=== PATIENT | male | born 1935 | race Caucasian/White ===

== ENCOUNTER 2016-05-09 10:57 | Inpatient (IN) | payer BC, OTHER ==
[~2016-05-09] VITALS: Ht 180.3 cm; Wt 69.5 kg
[~2016-05-09 10:57] MED LIST: AMIO200T4 PO; ASPI81TA28 PO; ATOR-26 PO; CLCS60 PO; FAMO20TA11 PO; FINA5TAB PO; NTRGSL/4 UT; TAMS0.4C38 PO
[2016-05-09] MEDS ORDERED: TRAZ50TA35 PO (11:09)
[2016-05-09] MEDS ORDERED: OMEP40CA41 PO (11:09)
[2016-05-09] MEDS ORDERED: ASPIRIN 81 MG CHEW PO STA (11:31)
[2016-05-09] MEDS ORDERED: NITROGLYCERIN OINT 2% 1GM PACKET EXT STA (11:31)
[2016-05-09] MEDS ORDERED: SODIUM CHLORIDE 0.9% 1000ML 1,000 ML IV STA (11:31)
[2016-05-09 11:40] LABS: HEMATOCRIT 41.4 % (42-52); MEAN CELL VOLUME 92.4 fL (80-100); MEAN CORPUSCULAR HEMOGLOBIN 34.4 pg (25-34); MEAN CORPUSCULAR HGB CONC 37.2 g/dl (32-36); MEAN PLATELET VOLUME 9.9 fL (7.4-10.4); PLATELET COUNT 114 K/uL (130-400); RED BLOOD COUNT 4.48 M/uL (4.7-6.1); WHITE BLOOD COUNT 4.66 K/uL (4.8-10.8)
[2016-05-09 11:48] LABS: INR 1.1 (0.9-1.1); PARTIAL THROMBOPLASTIN RATIO 1.3; PROTHROMBIN TIME (PATIENT) 12.2 SECONDS (9.0-12.0)
[2016-05-09 11:58] LABS: BUN/CREATININE RATIO 9.5 (10-20); CALCIUM 8.7 mg/dl (8.5-10.1); CREATININE 1.1 mg/dl (0.60-1.40); POTASSIUM 3.9 mmol/L (3.5-5.1)
--- NOTE | 2016-05-09 11:59 | DIAGNOSTIC IMAGING REPORT ---
CHEST ONE VIEW PORTABLE CLINICAL HISTORY: Atypical chest pain COMPARISON STUDY: 04/05/2014 FINDINGS: There are postsurgical changes of midline sternotomy. There is mild aortic tortuosity. There is no lobar consolidation. There is stable interstitial thickening with an upper lung zone predominance. There is no significant pleural fluid.[ The heart is borderline enlarged. IMPRESSION: Borderline cardiomegaly with stable upper lung zone pronounced interstitial thickening. No evidence of lobar consolidation Electronically signed by: Duncan Sanchez M.D. 05/09/2016 11:56 AM Dictated Date/Time: 05/09/2016 11:55 AM
[2016-05-09 12:17] LABS: ALB/GLOB RATIO 1.1 (0.9-2); CKMB/CK RATIO 3.4 (0-3.0)
[2016-05-09] MEDS ORDERED: FAMO20TA9 PO (13:43)
[2016-05-09] MEDS ORDERED: ASPEC81 PO (13:43)
[2016-05-09] MEDS ORDERED: ALUMINUM/MAGNESIUM/SIMETH (MAALOX MAX) 30 ML UDC PO PRN (14:00)
[2016-05-09] MEDS ORDERED: ACETAMINOPHEN 325 MG TAB PO PRN (14:00)
[2016-05-09] MEDS ORDERED: ONDANSETRON INJ 2 MG/ML 2 ML VIAL IV PRN (14:00)
[2016-05-09] MEDS ORDERED: POLYETHYLENE (MIRALAX) 17 GM PACK PO PRN (14:00)
[2016-05-09] MEDS ORDERED: MAGNESIUM HYDROXIDE SUSP 30 ML UDC PO PRN (14:00)
[2016-05-09] MEDS ORDERED: HEPARIN 25000 UNIT/500 ML D5W ONE (14:09)
[2016-05-09] MEDS ORDERED: HEPARIN SOD 5000 UNIT/0.5 ML CARP ONE (14:09)
[2016-05-09] MEDS ORDERED: HEPARIN SOD IV PRN (14:30)
[2016-05-09] MEDS ORDERED: SODIUM CHLORIDE 0.9% IV PRN (14:30)
--- NOTE | 2016-05-09 14:36 | History and Physical ---
History & Physical Date & Time of Service: May 09, 2016 at 14:07 Chief Complaint: Chest Pain Primary Care Physician: Cal Dupont D.OLopez History of Present Illness Source: patient, family, clinic records, hospital records Patient seen and examined. 80 year old male with PMHx of CAD s/p CABG, PCI, Paroxysmal V tach, and other problems listed below presents to the ED complaining of chest pain x several days. History is somewhat unclear, patient appears to be very forgetful which appears to be consistent with outpatient visits reviewed by this senior grant writer. Patient states that he thought he had the stomach flu earlier this week and was having nausea, vomiting, and diarrhea. He states at that time he also started to get SOB with minimal exertion. He states regularly he can jog to the mail box but now is becoming SOB with just a few steps of walking. He reports that several nights ago he took nitro SL but he isn 't sure about the details of the chest pain he had at that time. Patient states that last night he woke up in the middle of the night with epigastric abdominal pain, he states he also had chest pressure at that time. He states he went and slept in a recliner and that seemed to alleviate his symptoms. This morning he reports that he again was having chest pain that he described as a burning/achy feeling. He states the pain was substernal and slightly to the right chest with radiation to the jaw. He rates the pain as a 3/10. He states the pain would last for a few hours then ease off and then come back. He reports associated palpitations. He denies fevers, chills, URI symptoms, dysuria, calf pain and edema. There is question of medication compliance, patient reports he doesn't take his aspirin regularly because he gets nose bleeds. D/t forgetfulness also seems unsure about other medication compliance. Per outpatient record he stopped amiodarone for a while on his own but he thinks he is taking it now. In the ED VS are stable, EKG has nonspecific changes, troponin is 0.129 Patient was give aspirin and nitropaste which alleviated the chest pain. He will be admitted for further workup and treatment. Past Medical/Surgical History Medical Problems: (1) Acoustic neuroma Status: Chronic (2) BPH (benign prostatic hyperplasia) Status: Chronic (3) CAD (coronary artery disease) Status: Chronic (4) GERD (gastroesophageal reflux disease) Status: Chronic (5) History of left heart catheterization (LHC) Status: Chronic (6) HLD (hyperlipidemia) Status: Chronic (7) Insomnia Status: Chronic (8) Old MS (myocardial infarction) Status: Chronic (9) Paroxysmal VT Status: Chronic Surgical Problems: (1) H/O colonoscopy Status: Chronic (2) H/O shoulder surgery Status: Chronic (3) Hx of CABG Status: Chronic Family History Cancer FH: heart disease FHx: lung disease Hypertension Social History Smoking Status: Former Smoker Alcohol Use: socially Marital Status: Housing status: lives with family Occupational Status: retired Immunizations History of Influenza Vaccine: Yes Influenza Vaccine Date: Feb 07, 2013 History of Tetanus Vaccine?: Yes Tetanus Immunization Date: Jun 16, 2008 History of Pneumococcal: Yes Pneumococcal Date: Jan 14, 2009 History of Hepatitis B Vaccine: No Multi-Drug Resistant Organisms History of MDRO: No Allergies Coded Allergies: Oxycodone (Verified Adverse Reaction, Intermediate, NAUSEA, VOMITING, 05/09) Aspirin (Verified Adverse Reaction, Mild, NOSE BLEEDS, 05/09/16) Home Medications Scheduled Amiodarone Hcl (Cordarone), 200 MG PO QAM Aspirin (Aspirin EC Low Dose), 81 MG PO DAILY Atorvastatin (Lipitor), 80 MG PO HS Famotidine (Pepcid), 1 TAB PO DAILY Finasteride (Proscar), 5 MG PO LUNCH Omeprazole (Prilosec), 40 MG PO QPM Tamsulosin Hcl (Flomax), 0.4 MG PO LUNCH Trazodone Hcl (Trazodone), 25 MG PO HS Scheduled PRN Clindamycin Phos (Clindamycin Phosphate), 1 APPL PO for scalp Nitroglycerin (Nitrostat), 0.4 MG UT for Chest Pain Review of Systems Constitutional: No chills, No fever, No sweats Eyes: No worsening of vision ENT: No nasal symptoms Respiratory: + dyspnea on exertion, + shortness of breath, No cough Cardiovascular: + chest pain, + palpitations, No edema Abdomen: + diarrhea, + nausea, + pain, + vomiting, No constipation Musculoskeletal: No calf pain, No swelling Genitourinary - Male: No dysuria Neurologic: + vertigo (chronic h/o vestibular neuroma), No numbness/tingling Psychiatric: No anxiety, No insomnia Endocrine: No fatigue Hematologic / Lymphatic: No abnormal bleeding/bruising, No clotting problems Integumentary: No itch, No rash Allergic / Immunologic: No environmental allergies Physical Exam Vital Signs Date Time Temp Pulse Resp B/P Pulse Ox O2 Delivery O2 Flow Rate FiO2 05/09/16 13:46 57 18 117/58 98 Room Air 05/09/16 13:17 57 05/09/16 12:43 58 16 164/73 98 Room Air 05/09/16 11:06 56 05/09/16 11:03 36.6 57 18 164/73 95 Room Air General Appearance: + pertinent finding (Pleasant WD/WN 80 year old male lying in bed in NAD with at bedside ) Head: normocephalic, atraumatic Eyes: PERRL, EOMI, sclerae normal ENT: hearing grossly normal, pharynx normal Neck: supple, no JVD, trachea midline Respiratory/Chest: chest non-tender, lungs clear, normal breath sounds, no respiratory distress, no accessory muscle use Cardiovascular: no edema, no gallop, no JVD, no murmur, normal peripheral pulses, + bradycardia (50s, regular ) Abdomen/GI: normal bowel sounds, non tender, soft Back: normal inspection, no muscle spasm Extremities/Musculoskelatal: no calf tenderness, normal capillary refill, no pedal edema Neurologic/Psych: alert, oriented x 3, + pertinent finding (forgetful, no motor or sensory deficits noted on gross exam ) Skin: normal color, warm/dry, no rash Lymphatic: no adenopathy Diagnostics Laboratory Results Results Past 24 Hours Test 05/09/16 11:30 Range/Units White Blood Count 4.66 4.8-10.8 K/uL Red Blood Count 4.48 4.7-6.1 M/uL Hemoglobin 15.4 14.0-18.0 g/dL Hematocrit 41.4 42-52 % Mean Corpuscular Volume 92.4 80-100 fL Mean Corpuscular Hemoglobin 34.4 25-34 pg Mean Corpuscular Hemoglobin Concent 37.2 32-36 g/dl RDW Standard Deviation 43.4 36.4-46.3 fL RDW Coefficient of Variation 12.8 11.5-14.5 % Platelet Count 114 130-400 K/uL Mean Platelet Volume 9.9 7.4-10.4 fL Prothrombin Time 12.2 9.0-12.0 SECONDS Prothromb Time International Ratio 1.1 0.9-1.1 Activated Partial Thromboplast Time 34.5 21.0-31.0 SECONDS Partial Thromboplastin Ratio 1.3 Sodium Level 135 136-145 mmol/L Potassium Level 3.9 3.5-5.1 mmol/L Chloride Level 97 98-107 mmol/L Carbon Dioxide Level 28 21-32 mmol/L Anion Gap 10.0 3-11 mmol/L Blood Urea Nitrogen 11 7-18 mg/dl Creatinine 1.10 0.60-1.40 mg/dl Est Creatinine Clear Calc Drug Dose 53.6 ml/min Estimated GFR () 72.6 Estimated GFR (Non- 62.6 BUN/Creatinine Ratio 9.5 10-20 Random Glucose 93 70-99 mg/dl Calcium Level 8.7 8.5-10.1 mg/dl Total Bilirubin 0.7 0.2-1 mg/dl Aspartate Amino Transf (AST/SGOT) 39 15-37 U/L Alanine Aminotransferase (ALT/SGPT) 50 12-78 U/L Alkaline Phosphatase 66 45-117 U/L Total Creatine Kinase 67 39-308 U/L Creatine Kinase MB 2.3 0.5-3.6 ng/ml Creatine Kinase MB Ratio 3.4 0-3.0 Troponin I 0.129 0-0.045 ng/ml Total Protein 7.2 6.4-8.2 gm/dl Albumin 3.8 3.4-5.0 gm/dl Globulin 3.4 2.5-4.0 gm/dl Albumin/Globulin Ratio 1.1 0.9-2 Lipase 159 73-393 U/L Diagnostic Radiology CXR Per radiologist read: IMPRESSION: Borderline cardiomegaly with stable upper lung zone pronounced interstitial thickening. No evidence of lobar consolidation EKG Sinus Bradycardia 54 BPM, QTc 466, nonspecific ST changes Impression Assessment and Plan 80 year old male presents to the ED with history of GI symptoms x 1 week, Chest pain x 3-4 days. Troponin 0.129. History somewhat unclear d/t memory ACUTE CORONARY SYNDROME, H/O CAD s/p CABG, S/P PCI -admit to tele -troponin 0.129, EKG nonspecific -Risk factors:h/o CAD, HLD, remote tobacco history, Age -MEEK risk score 4-5 -Aspirin and Nitropaste given in ED, will continue -Start Heparin Gtt -Aspirin daily -Continue Statin for plaque stabilization -Repeat troponin at 1530 then serial q6h -Fasting lipid panel, A1c in AM -Echo pending to r/o heart wall abnormality -Cardiology consult for further management input appreciated -Follows with Dr. Cartwright as an outpatient -npo except chips and sips for now -CBC, PRP, Mg daily -VSS stable, monitor in tele THROMBOCYTOPENIA -mild platelet count 114 -start heparin gtt for ACS -monitor platelet count closely at this time benefit of heparin outweighs risk. PAROXYSMAL VENTRICULAR TACHYCARDIA -continue Amiodarone -monitor in tele BPH -continue Proscar, Flomax GERD -continue PPI INSOMNIA -continue Trazodone HLD -check lipid panel -continue Statin DVT PROPHYLAXIS: Heparin Gtt CODE STATUS: FULL CODE per my discussion with the patient and his DISPO: In my clinical judgment this beneficiary meets acute admission criteria, established by [facility], that includes being hospitalized through two midnights Discharge planning eval Patient seen in collaboration with Dr. Dominique ATTENDING NOTE Patient seen & examined at bedside.Reviewed above History/Physical and confirmed all the findings in person. Patient with multiple cardiac risk factors comes in with intermittent chest pain and has intermittent chest pain since early with no diaphoresis. has elevated Troponin. He is being admitted to telemetry with ACS. Follow serial Troponin. Started Aspirin (Has history of nose bleeds with ASA). Started I/V Heparin. Ordered Echocardiogram and Cardiology evaluation. Reviewed and resumed home medications. Lipid profile in AM. Monitor platelets as has Mild thrombocytopenia. Patient is FULL CODE. DVT Prophylaxis: I/V Heparin. Patient will be followed by Dr. David. Bentley Dominique MD Level of Care Telemetry Resuscitation Status FULL RESUSCITATION VTE Prophylaxis VTE Risk Assessment Done? Y/N: Yes Risk Level: Moderate Given or contraindicated: Unfractionated heparin SQ
--- NOTE | 2016-05-09 15:41 | EMERGENCY ROOM VISIT NOTE ---
History Report prepared by Kian: James Phillips Under the Supervision of: Dr. Jack Breaux M.D. First contact with patient: 11:23 Chief Complaint: CHEST PAIN Stated Complaint: CHEST PAIN Nursing Triage Summary: [facility] c/o substernal chest pain with n/v/d for the past couple days pt also c/o SOB History of Present Illness The patient is a 80 year old male who presents to the Emergency Room with complaints of mid-chest pain starting about 2-3 days ago and worsening today. He describes it to be a tightness in his chest. He currently notes a pain intensity of 3-4/10. He took Nitro a few days ago with some relief. He has not taken the Nitro since then. He also reports shortness of breath with exertion. About 5 days ago, the patient started having nausea, vomiting, and diarrhea which has improved. He denies diaphoresis, urinary symptoms, or any other complaints. He has a history of acid reflux disease. He has a history of myocardial infarction occurring about 7 years ago with stent placement and double bypass. Source of History: patient Onset: about 2-3 days ago Position: chest (mid) Symptom Intensity: 3-4/10 Quality: other (tightness) Timing: worsening Modifying Factors (Relieving): other (Nitro with some relief) Associated Symptoms: + SOB (with exertion), + diarrhea, + nausea, + vomiting , No diaphoresis, No urinary symptoms Review of Systems See HPI for pertinent positives & negatives. A total of 10 systems reviewed and were otherwise negative. Past Medical & Surgical Medical Problems: (1) Acoustic neuroma (2) ACS (acute coronary syndrome) (3) BPH (benign prostatic hyperplasia) (4) CAD (coronary artery disease) (5) GERD (gastroesophageal reflux disease) (6) History of left heart catheterization (LHC) (7) HLD (hyperlipidemia) (8) Insomnia (9) Old OH (myocardial infarction) (10) Paroxysmal VT Surgical Problems: (1) H/O colonoscopy (2) H/O shoulder surgery (3) Hx of CABG Family History Cancer FH: heart disease FHx: lung disease Hypertension Social History Smoking Status: Never Smoker Marital Status: Housing Status: lives with family Occupation Status: retired Current/Historical Medications Scheduled Amiodarone Hcl (Cordarone), 200 MG PO QAM Aspirin (Aspirin EC Low Dose), 81 MG PO DAILY Atorvastatin (Lipitor), 80 MG PO HS Famotidine (Pepcid), 1 TAB PO DAILY Finasteride (Proscar), 5 MG PO LUNCH Omeprazole (Prilosec), 40 MG PO QPM Tamsulosin Hcl (Flomax), 0.4 MG PO LUNCH Trazodone Hcl (Trazodone), 25 MG PO HS Scheduled PRN Clindamycin Phos (Clindamycin Phosphate), 1 APPL PO for scalp Nitroglycerin (Nitrostat), 0.4 MG UT for Chest Pain Allergies Coded Allergies: Oxycodone (Verified Adverse Reaction, Intermediate, NAUSEA, VOMITING, 05/09) Aspirin (Verified Adverse Reaction, Mild, NOSE BLEEDS, 05/09/16) Physical Exam Vital Signs Date Time Temp Pulse Resp B/P Pulse Ox O2 Delivery O2 Flow Rate FiO2 05/09/16 13:17 57 05/09/16 12:43 58 16 164/73 98 Room Air 05/09/16 11:06 56 05/09/16 11:03 36.6 57 18 164/73 95 Room Air Physical Exam GENERAL: Patient is in no acute distress. HEENT: No acute trauma, normocephalic atraumatic, mucous membranes moist, no nasal congestion, no scleral icterus. NECK: No stridor, no adenopathy, no meningismus, trachea is midline. LUNGS: Clear to auscultation bilaterally, no wheeze, no rhonchi, breath sounds equal. HEART: Irregular rhythm, normal rate. No murmurs. ABDOMEN: Soft, nontender, bowel sounds positive, no hernias, no peritonitis. EXTREMITIES: No cyanosis or edema, full range of motion of all the joints without pain or difficulty, no signs for acute trauma. NEUROLOGIC: Oriented x 3, no acute motor or sensory deficits, no focal weakness. SKIN: No rash, no jaundice, no diaphoresis. Medical Decision & Procedures ER Provider Diagnostic Interpretation: X-ray results as stated below per interpretation by me and the radiologist: CHEST ONE VIEW PORTABLE CLINICAL HISTORY: Atypical chest pain COMPARISON STUDY: 04/05/2014 FINDINGS: There are postsurgical changes of midline sternotomy. There is mild aortic tortuosity. There is no lobar consolidation. There is stable interstitial thickening with an upper lung zone predominance. There is no significant pleural fluid.[ The heart is borderline enlarged. IMPRESSION: Borderline cardiomegaly with stable upper lung zone pronounced interstitial thickening. No evidence of lobar consolidation Electronically signed by: Duncan Sanchez M.D. 05/09/2016 11:56 AM Dictated Date/Time: 05/09/2016 11:55 AM Laboratory Results 05/09/16 11:30 05/09/16 11:30 Test 05/09/16 11:30 Red Blood Count 4.48 M/uL (4.7-6.1) Mean Corpuscular Volume 92.4 fL (80-100) Mean Corpuscular Hemoglobin 34.4 pg (25-34) Mean Corpuscular Hemoglobin Concent 37.2 g/dl (32-36) RDW Standard Deviation 43.4 fL (36.4-46.3) RDW Coefficient of Variation 12.8 % (11.5-14.5) Mean Platelet Volume 9.9 fL (7.4-10.4) Prothrombin Time 12.2 SECONDS (9.0-12.0) Prothromb Time International Ratio 1.1 (0.9-1.1) Activated Partial Thromboplast Time 34.5 SECONDS (21.0-31.0) Partial Thromboplastin Ratio 1.3 Anion Gap 10.0 mmol/L (3-11) Est Creatinine Clear Calc Drug Dose 53.6 ml/min Estimated GFR () 72.6 Estimated GFR (Non- 62.6 BUN/Creatinine Ratio 9.5 (10-20) Calcium Level 8.7 mg/dl (8.5-10.1) Total Bilirubin 0.7 mg/dl (0.2-1) Aspartate Amino Transf (AST/SGOT) 39 U/L (15-37) Alanine Aminotransferase (ALT/SGPT) 50 U/L (12-78) Alkaline Phosphatase 66 U/L (45-117) Total Creatine Kinase 67 U/L (39-308) Creatine Kinase MB 2.3 ng/ml (0.5-3.6) Creatine Kinase MB Ratio 3.4 (0-3.0) Total Protein 7.2 gm/dl (6.4-8.2) Albumin 3.8 gm/dl (3.4-5.0) Globulin 3.4 gm/dl (2.5-4.0) Albumin/Globulin Ratio 1.1 (0.9-2) Lipase 159 U/L (73-393) Laboratory results reviewed by me. Medications Administered Medications (Trade) Dose Ordered Sig/Mary Route Start Time Stop Time Status Last Admin Dose Admin Aspirin (Aspirin Chew) 324 mg NOW STAT PO 05/09/16 11:31 05/09/16 11:34 DC 05/09/16 11:42 324 MG Nitroglycerin 1 inch 1 inch NOW STAT EXT 05/09/16 11:31 05/09/16 11:34 DC 05/09/16 11:42 1 INCH Sodium Chloride (Nss 1000ml) 1,000 ml @ 125 mls/hr Q8H STAT IV 05/09/16 11:31 05/09/16 16:11 DC 05/09/16 11:42 125 MLS/HR ECG Indication: chest pain Rate (beats per minute): 54 Rhythm: sinus bradycardia Findings: no ectopy, other (Non-specific T wave change) Comparison ECG Date: April 06, 2014 Change: no significant change ED Course 1123: The patient was evaluated in room C12B. A complete history and physical exam was performed. 1131: Sodium Chloride 1000 ml @ 125 mls/hr IV, Nitroglycerin 1 inch EXT, Aspirin 324 mg PO 1243: I discussed the patient's case with [facility] Upon reexamination the patient is resting comfortably. I discussed results and treatment plan with the patient. He verbalizes agreement and understanding. The patient will be evaluated for further management. Medical Decision Differential diagnosis includes but is not limited to myocardial infarction, angina, cardiac ischemia, reflux, viral illness, dehydration, anemia, aortic dissection. There is no leukocytosis or concerning anemia. No significant electrolyte abnormality, kidney failure, hepatitis or pancreatitis. Chest x-ray does not show pneumonia or CHF. There is no free air. EKG shows a sinus bradycardia with some nonspecific change, no acute ischemia. Cardiac troponin is elevated consistent with recent cardiac injury. The patient presents with chest pain, he does have a cardiac history. He admits he felt better after using some nitroglycerin at home. The patient was given oral aspirin, IV saline and Nitropaste, he feels improved. Admission/observation is warranted. I spoke to the patient and case management. Further cardiac workup is required. The on-call hospitalist was consulted. Consults Time Called: 1231 Consulting Physician: Dr. Dominique, from [facility] Returned Call: [phone] I discussed the patient's case with Dr. Dominique, from [facility]. Impression Primary Impression: Precordial chest pain Additional Impression: Elevated troponin Scribe Attestation The scribe's documentation has been prepared under my direction and personally reviewed by me in its entirety. I confirm that the note above accurately reflects all work, treatment, procedures, and medical decision making performed by me. Departure Information Dispostion Being Evaluated By Hospitalist Referrals Cal Dupont D.O. (PCP) Patient Instructions My [facility] Problem Qualifiers
[2016-05-09 15:52] VITALS: BP 111/57; PULSE 55; TEMP 36.7; O2SAT 96; Ht 180.3 cm; Wt 69.5 kg
[2016-05-09] MEDS: NITROGLYCERIN OINT 2% 1GM PACKET EXT SCH ×2 (16:56→22:42)
[2016-05-09 18:09] LABS: INFLUENZA A PCR Neg for Influ A (NEG); INFLUENZA B PCR Neg for Influ B (NEG)
[2016-05-09 19:33] VITALS: BP 114/57; PULSE 53; TEMP 37; O2SAT 95
[2016-05-09] MEDS: ATORVASTATIN 40 MG TAB PO SCH (20:07)
[2016-05-09] MEDS: TRAZODONE HCL 50 MG TAB PO SCH (20:08)
[2016-05-09] MEDS ORDERED: PANTOprazole SOD 40 MG TAB PO SCH (21:00)
[2016-05-09 21:36] LABS: PARTIAL THROMBOPLASTIN RATIO 8.5
[2016-05-09 23:05] LABS: PARTIAL THROMBOPLASTIN RATIO 4.9
[2016-05-09] MEDS: NITROGLYCERIN 0.4 MG SL PER TAB CHARGE SL PRN (23:54)
[2016-05-10] VITALS (12 sets, daily range): BP systolic 106–136; BP diastolic 56–69; PULSE 54–64; TEMP 36.4–36.6; O2SAT 94–96
[2016-05-10] MEDS: NITROGLYCERIN 0.4 MG SL PER TAB CHARGE SL PRN (00:10)
[2016-05-10 00:15] LABS: PARTIAL THROMBOPLASTIN RATIO 2.9
[2016-05-10] MEDS ORDERED: HYDROmorphone INJ 1 MG/ML SYR IV STA ×2 (00:20→06:27)
[2016-05-10] MEDS: HEPARIN 25,000 UNIT/500ML D5W 500 ML IV PRN ×4 (00:23→22:04)
--- NOTE | 2016-05-10 00:38 | CARDIOLOGY CONSULTATION REPORT ---
DATE OF CONSULTATION: 05/09/2016 REASON FOR CONSULTATION: Acute coronary syndrome in a patient with known CAD. HISTORY OF PRESENT ILLNESS: Mr. Alegria is a very pleasant 80-year-old white male with a longstanding history of hypertension, dyslipidemia, GERD, palpitations, PACs, PVCs, remote history of paroxysmal ventricular tachycardia with negative EP study, and a history of CAD dating back to 2007. The patient presented in the early part of 2007 with classic angina pectoris. He was diagnosed with an acute anterolateral NC. He underwent cardiac catheterization which revealed a very small first diagonal vessel which was completely occluded, not amenable to PCI. He had otherwise nonocclusive disease. Later that year, in November 2007, he presented with acute inferior wall NC secondary to an occluded RCA. He underwent deployment of a bare metal stent in his RCA. Because of ongoing symptoms in the summer of 2008, the patient was referred for CABG x2 vessels (PHILIPPE to LAD, SVG to OM) which was complicated by postoperative atrial fibrillation. Otherwise the patient has a history of PRONOUNCED BRADYCARDIA ON BETA-BLOCKERS, therefore is not on any beta-blockers. The patient states that approximately 4-5 days ago, he began to develop the "flu" including some nausea, vomiting, and diarrhea. Last evening the patient developed a chest tightness which seemed to persist throughout the night but was present to varying degrees, it would wax and wane. Additionally he has noticed exertional dyspnea over the past couple of days. He tried sublingual nitroglycerin and I am uncertain if it helped at all. The patient was referred to the Emergency Room for further evaluation. Thus far, his cardiac workup shows an elevated troponin at high level of 0.129 ng/mL with a total CK of 67 and a CK-MB of 2.3. His EKG shows sinus bradycardia at a rate of 54 beats per minute with a left anterior fascicular block and nonspecific ST abnormality, probable left atrial enlargement. No significant changes compared to 04/06/2014 tracing. The patient was admitted to telemetry unit, and is currently receiving heparin drip along with topical nitrates. The patient is currently being seeing in room 239 bed 2, and he currently denies any chest discomfort, heaviness, tightness, or angina pectoris. He does not have any shortness of breath at the present time or when he is at a state of rest. He denies any current nausea, vomiting, diaphoresis or dyspnea. He has not experienced any orthopnea or PND. No palpitations, syncope, or near syncope. MEDICATIONS: 1. Aspirin 81 mg a day. 2. Amiodarone 200 mg a day. 3. Pepcid 20 mg daily. 4. Proscar 5 mg daily. 5. Tamsulosin 0.4 mg everyday. 6. Lipitor 80 mg at bedtime. 7. Desyrel 25 mg at bedtime. 8. Protonix 40 mg daily. 9. Nitroglycerin ointment 2% apply 1 inch q. 6 hours to external chest wall. 10. Heparin drip. 11. Tylenol p.r.n. 12. Milk of magnesia p.r.n. 13. Maalox Max p.r.n. 14. Zofran 4 mg IV q. 6 hours p.r.n. for nausea. 15. Sublingual nitroglycerin p.r.n. 16. MiraLax 17 gram daily p.r.n. for constipation. ALLERGIES: OXYCODONE. PAST MEDICAL HISTORY: 1. History of atrial premature complexes. 2. BPH. 3. History of profound bradycardia on beta-blockers. 4. CAD as described above. 5. History of CABG x2 vessels on 10/12/2008. 6. History of RCA stent, November 2007. 7. Dyslipidemia. 8. GERD. 9. History of hematuria. 10. Hypertension. 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 12. History of palpitations. 13. History of PVCs. 14. History of paroxysmal ventricular tachycardia status post EP study. His EP study was negative, no inducible dysrhythmias. No interventions were undertaken. 15. History of reactive airway disease. 16. History of actinic keratosis. 17. History of hernia repair. 18. History of rotator cuff repair. SOCIAL HISTORY: The patient is and accompanied by his . He is retired from work, and drinks on a social basis only. He previously was a smoker but quit several years ago. FAMILY HISTORY: Significant for coronary artery disease, myocardial infarction, and cardiac dysrhythmias in his father. PHYSICAL EXAMINATION: VITAL SIGNS: Temperature is 36.7 degrees Celsius, pulse 55 and regular, respiratory rate is 14 and unlabored, blood pressure is 111/57, SpO2 is 96% on room air. GENERAL: The patient is in no acute distress. HEENT: Head is atraumatic, normocephalic. EOMs intact. Sclerae anicteric. Faces symmetric. No perioral cyanosis. Mucous membranes moist. NECK: Without thyromegaly, adenopathy, or JVD. Carotid upstrokes are +2 bilateral bruits. CHEST AND LUNGS: Clear to auscultation throughout all lungs betancur, no wheezes, rales, or rhonchi. CARDIOVASCULAR: S1 and S2 are regular, bradycardic, without obvious murmur, gallop, or rub. PMI is nondisplaced. No lifts, heaves, or thrills. No abdominal aortic or renal bruits. Femoral arteries with +2 upstrokes bilaterally. Normal radial pulsations bilaterally. Intact posterior tibial pulses bilaterally. ABDOMEN: Bowel sounds present. No masses, organomegaly, or tenderness. EXTREMITIES: Without clubbing, cyanosis or edema. NEUROLOGIC: The patient is awake, alert, oriented. Pleasant and cooperative. Answers questions appropriately. Speech is clear. Normal movement in all 4 extremities. Gait pattern not assessed. DIAGNOSTIC STUDIES: Current traffic monitor specialist reveals sinus bradycardia. EKG shows sinus bradycardia with left anterior fascicular block, nonspecific ST wave abnormality, no significant change compared to prior tracings. Probable left atrial enlargement. Echocardiogram is pending. LABORATORY DATA: White blood cell count is 4.66. Hemoglobin is 15.4 g/dL, hematocrit 41.4%, platelet count is 114,000. Sodium is 135 mmol/L, potassium 3.9 mmol/L, BUN of 11 mg/dL, creatinine 1.10 mg/dL. Random glucose of 93 mg/dL. Total CK 67 units per liter with respective CK-MB of 2.3 ng/mL. Troponin I levels are 0.109, and 0.129 ng/mL. Influenza A and influenza B screening is pending. Chest x-ray on admission shows borderline cardiomegaly with stable upper lung zone interstitial thickening. ASSESSMENT: 1. Acute coronary syndrome/unstable angina pectoris. 2. Coronary artery disease status post coronary artery bypass grafting x2 vessels in 2008 (PHILIPPE to LAD, SVG to left circumflex obtuse marginal). 3. History of postoperative atrial fibrillation. 4. History of remote anterolateral myocardial infarction in 2007 secondary to an occluded first diagonal vessel, not amenable to PCI. 5. History of acute inferior wall myocardial infarction in November 2007 secondary to occluded RCA status post bare metal stent deployment. 6. History of postoperative atrial fibrillation following his coronary artery bypass grafting. 7. History of profound bradycardia with beta-blockers. 8. History of premature ventricular contractions and premature atrial contractions. 9. History of ventricular tachycardia with negative EP study. 10. Hypertension. 11. Dyslipidemia. 12. Gastroesophageal reflux disease. 13. History of palpitations. PLAN: 1. The patient is currently resting comfortably in room 239 bed 2. He is symptom-free, with stable vital signs. 2. Continue to trend cardiac enzymes as the first 2 troponin I's appear to be trending downward. 3. Continue heparin drip for the next 48 hours. 4. Continue topical nitrates. 5. Avoid beta-blockers due to history of profound bradycardia. 6. Continue high-dose statin medication for plaque stabilization. 7. Agree with echocardiogram to evaluate for any new regional wall motion abnormalities. 8. Consider cardiac catheterization early next week for further evaluation of coronary anatomy. 9. We will continue to follow him along while hospitalized. Patient seen and examined by me in conjunction with Mr. Lopez. Assess ment and plan as above. I agree with them. No further chest pain. Will get serial labs,ECG. Check echo on 05/10/16. Cardiac cath recommended to patient by me. Procedure,risks,benefits ,alternatives discussed. Patient agrees to cath. Will tentatively schedule for Thursday05/12/16. Monica BAUMAN
[2016-05-10] MEDS: NITROGLYCERIN OINT 2% 1GM PACKET EXT SCH ×4 (04:46→21:32)
[2016-05-10] MEDS ORDERED: NURSING VERBAL MED ORDER ONE (06:30)
[2016-05-10 06:37] LABS: HEMATOCRIT 38.9 % (42-52); MEAN CORPUSCULAR HEMOGLOBIN 33.8 pg (25-34); MEAN PLATELET VOLUME 10.3 fL (7.4-10.4); PLATELET COUNT 110 K/uL (130-400); RED BLOOD COUNT 4.14 M/uL (4.7-6.1); WHITE BLOOD COUNT 6.37 K/uL (4.8-10.8)
[2016-05-10 07:02] LABS: PARTIAL THROMBOPLASTIN RATIO 4.2
[2016-05-10 07:19] LABS: ESTIMATED AVERAGE GLUCOSE 105 mg/dl; HA1C FLAG Normal (Normal)
[2016-05-10 07:25] LABS: BUN/CREATININE RATIO 9.9 (10-20); CALCIUM 8.1 mg/dl (8.5-10.1); CREATININE 1.2 mg/dl (0.60-1.40); MAGNESIUM 2.4 mg/dl (1.8-2.4); POTASSIUM 3.5 mmol/L (3.5-5.1)
[2016-05-10 07:29] LABS: CHOLESTEROL/HDL RATIO 1.7
[2016-05-10] MEDS: TAMSULOSIN HCL 0.4 MG CAP PO SCH (08:16)
[2016-05-10] MEDS: FINASTERIDE 5 MG TAB PO SCH (08:16)
[2016-05-10] MEDS: FAMOTIDINE 20 MG TAB PO SCH (08:17)
[2016-05-10] MEDS: AMIODARONE 200 MG TAB PO SCH (08:17)
[2016-05-10] MEDS: ASPIRIN 81 MG ECTAB PO SCH (08:18)
--- NOTE | 2016-05-10 12:53 | PROGRESS NOTE ---
DATE: 05/10/2016 The patient was seen by me this morning in his telemetry unit room. Since admission, no complaints of chest pain. He did have an episode of nausea and vomiting after eating breakfast this morning. He has mild residual nausea. Although the patient told me that he has not had any chest pain since admission, nursing notes state that last evening he had feelings of reflux after eating dinner. Later last night he complained apparently of chest pain, for which he received sublingual nitroglycerin and intravenous Dilaudid. He again received a dose of Dilaudid at 6:45 a.m. this morning. At the current time, the patient denies any chest pain to me. He denies any orthopnea or PND. No palpitations, lightheadedness, syncope, abdominal pain, or leg pain. CURRENT MEDICATIONS: Aspirin 81 mg daily, amiodarone 200 mg daily, famotidine 20 mg daily, finasteride 5 mg daily, tamsulosin 0.4 mg daily, atorvastatin 80 mg at bedtime, trazodone 25 mg at bedtime, pantoprazole 40 mg q.p.m., nitroglycerin ointment 1 inch q. 6 hours, intravenous heparin by weight based protocol, and several p.r.n. medications. Monitor history showed sinus rhythm and sinus bradycardia. Rare premature ventricular beats. The history was reviewed by me. PHYSICAL EXAMINATION: VITAL SIGNS: This morning with oral temperature of 36.6, pulse 54, blood pressure 106/56, pulse oximetry 95%. NECK: Jugular venous pressure approximately 7-8 cm. LUNGS: Normal respiratory effort. Crackles at the bases which improve with deep breathing. No rhonchi or wheezes. HEART: Regular rate and rhythm. S1, S2 normal. No S3 or S4. 1/6 systolic murmur second intercostal space and left sternal border. No diastolic murmur or rub. ABDOMEN: Soft. Nontender. No palpable masses or organomegaly. EXTREMITIES: No pretibial edema. No cyanosis or clubbing. PULSES: Dorsalis pedis and posterior tibial pulses strongly palpable bilaterally. NEUROLOGICAL: Alert and oriented x3. Motor grossly intact. PSYCHIATRIC: Affect is normal. DATA: Echocardiogram performed today. Initial preliminary review shows normal LV systolic function and wall motion. No pericardial effusion. No significant valvular abnormalities. Electrocardiogram performed this morning revealed sinus bradycardia, left axis deviation, left anterior fascicular block, nonspecific ST abnormality. There was also prolonged QT interval. Corrected QT interval of 528 milliseconds. Labs today with sodium 134, potassium 3.5, chloride 96, carbon dioxide 29, BUN 12, creatinine 1.20, random glucose 85, magnesium 2.4. Lipid profile with triglycerides 52, total cholesterol 52, calculated LDL 11. Hemoglobin A1c 5.3. Troponin I since arrival to the Emergency Department had been 0.129, 0.109 and 0.096. ASSESSMENT: 1. Admission with complaints of chest discomfort. Electrocardiogram without any diagnostic changes of myocardial ischemia. Echocardiogram without any segmental wall motion abnormalities. Troponin I is minimally elevated. The elevation is suggestive but not diagnostic of myocardial injury. In light of the patient's history of coronary artery disease and CABG surgery, would have to exclude myocardial ischemia as the etiology for his chest discomfort. 2. No current symptoms of heart failure. Bibasilar crackles, most likely secondary to atelectasis. 3. Chronic sinus bradycardia. The amiodarone may be contributory. 4. Prolonged QT interval. Amiodarone therapy can cause a prolonged QT interval. 5. Nausea this morning. No associated chest pain or dyspnea. He did receive Dilaudid this morning. Cannot exclude an adverse effect from this. He also has occasional symptoms suggestive of reflux. This could have also been contributory. 6. PTT this morning above therapeutic. It was 110.4 seconds. No bleeding complaints. RECOMMENDATIONS: 1. Adjust intravenous heparin by protocol. 2. It has been recommended to the patient that he undergo diagnostic cardiac catheterization on 05/12/2016. This is in light of his known coronary artery disease and CABG surgery. Further recommendations and plans will be based upon the results of the catheterization procedure. 3. Continue to monitor in telemetry unit. 4. Continue intravenous heparin by weight based protocol. 5. Continue other medications as above. 6. Keep potassium level at least 3.5 or greater. 7. Continue aspirin and amiodarone. Continue topical nitrate at this time. 8. Continue atorvastatin at current dose. This is despite the low LDL.
--- NOTE | 2016-05-10 13:26 | ECHOCARDIOGRAM REPORT ---
*NOTICE TO RECEIVING REPUBLICAN AGENCY This information is strictly Confidential and protected under [place] law. [place] law prohibits you from making any further disclosure of this information unless further disclosure is expressly permitted by the written consent of the person to whom it pertains or is authorized by law. A general authorization for the release of medical or other information is not sufficient for this purpose. Hospital accepts no responsibility if the information is made available to any other person, INCLUDING THE PATIENT. Interpretation Summary * Echocardiogram Report * Name: ADRIA MCCAULEY Study Date: 05/10/2016 09:36 AM BP: 117/58 mmHg * Patient Location: C.2T\S\S239\S\2 HR: 52 * : 1935 (M/d/yy) Gender: Male Height: 71 in * Age: 80 yrs Ethnicity: [place] Weight: 158 lb * Ordering Physician: Morena Lara * Referring Physician: Self, Referred * Performed By: Xavier Lara RDCS * * Reason For Study: Chest pain * BSA: 1.9 m2 * Normal biventricular systolic function. * Mild biatrial dilatation. * Mild aortic regurgitation. * Trace pulmonic regurgitation. * Mild mitral regurgitation. * Moderate tricuspid regurgitation. * Mildly elevated estimated right ventricular systolic pressure. * -- Conclusions -- * Aortic valve sclerosis mild, without significant aortic valvular stenosis. * There is mild mitral regurgitation. Procedure Details * A complete two-dimensional transthoracic echocardiogram was performed (2D, M-mode, Doppler and color flow Doppler). * The study was technically adequate. Left Ventricle * The left ventricle is normal in size. * There is normal left ventricular wall thickness. * Left ventricular systolic function is normal. * Ejection Fraction = 55-60%. * The left ventricular wall motion is normal. Right Ventricle * The right ventricle is normal in size and function. Atria * The left atrium is mildly dilated. * The right atrium is mildly dilated. * No ASD detected; PFO is not assessed. Mitral Valve * The mitral valve is normal. * There is no mitral valve stenosis. * There is mild mitral regurgitation. Tricuspid Valve * The tricuspid valve is normal. * There is no tricuspid stenosis. * There is moderate tricuspid regurgitation. * Right ventricular systolic pressure is elevated at 30-40mmHg. Aortic Valve * The aortic valve is trileaflet. * The aortic valve opens well. * Aortic valve sclerosis mild, without significant aortic valvular stenosis. * Mild aortic regurgitation. Pulmonic Valve * The pulmonic valve is not well seen, but is grossly normal. * There is no pulmonic valvular stenosis. * Trace pulmonic valvular regurgitation. Great Vessels * The aortic root is normal size. Pericardium/Pleural * There is no pericardial effusion. Great Vessels * Normal inferior vena cava diameter and respiratory variation suggests normal central venous pressure. MMode 2D Measurements and Calculations IVSd 0.94 cm IVSs 1.6 cm LVIDd 4.7 cm LVIDs 2.7 cm LVPWd 0.63 cm LVPWs 1.3 cm IVS/LVPW 1.5 FS 42.1 % EDV(Teich) 101.1 ml ESV(Teich) 27.2 ml EF(Teich) 73.1 % EDV(cubed) 102.2 ml ESV(cubed) 19.9 ml EF(cubed) 80.6 % % IVS thick 71.1 % % LVPW thick 110.2 % LV mass(C)d 117.9 grams LV mass(C)dI 61.8 grams/m\S\2 LV mass(C)s 132.7 grams LV mass(C)sI 69.6 grams/m\S\2 SV(Teich) 73.9 ml SI(Teich) 38.7 ml/m\S\2 SV(cubed) 82.3 ml SI(cubed) 43.2 ml/m\S\2 EPSS 0.91 cm Ao root diam 3.3 cm Ao root area 8.6 cm\S\2 ACS 2.0 cm LA dimension 4.1 cm asc Aorta Diam 3.2 cm LA/Ao 1.3 LVOT diam 2.0 cm LVOT area 3.2 cm\S\2 LVAd ap4 30.7 cm\S\2 LVLd ap4 8.2 cm EDV(MOD-sp4) 92.6 ml LVAs ap4 18.6 cm\S\2 LVLs ap4 6.8 cm ESV(MOD-sp4) 41.8 ml EF(MOD-sp4) 54.9 % LVAd ap2 32.3 cm\S\2 LVLd ap2 8.7 cm EDV(MOD-sp2) 100.0 ml LVAs ap2 19.9 cm\S\2 LVLs ap2 7.0 cm ESV(MOD-sp2) 47.8 ml EF(MOD-sp2) 52.2 % SV(MOD-sp4) 50.8 ml SI(MOD-sp4) 26.6 ml/m\S\2 SV(MOD-sp2) 52.2 ml SI(MOD-sp2) 27.4 ml/m\S\2 Doppler Measurements and Calculations MV E max leah 89.4 cm/sec MV A max leah 85.1 cm/sec MV E/A 1.1 MV dec time 0.29 sec Ao V2 max 143.6 cm/sec Ao max PG 8.3 mmHg Ao max PG (full) 3.6 mmHg NELIDA(V,A) 2.4 cm\S\2 NELIDA(V,D) 2.4 cm\S\2 AI max leah 304.0 cm/sec AI max PG 37.0 mmHg AI dec slope 117.5 cm/sec\S\2 AI P1/2t 758.0 msec LV V1 max PG 4.7 mmHg LV V1 max 108.2 cm/sec PA V2 max 114.0 cm/sec PA max PG 5.2 mmHg PI end-d leah 97.2 cm/sec TR max leah 283.4 cm/sec
[2016-05-10 15:33] LABS: PARTIAL THROMBOPLASTIN RATIO 2.9
[2016-05-10] MEDS: TRAZODONE HCL 50 MG TAB PO SCH (19:38)
[2016-05-10] MEDS: ATORVASTATIN 40 MG TAB PO SCH (19:38)
[2016-05-10] MEDS: PANTOprazole SOD 40 MG TAB PO SCH (19:39)
--- NOTE | 2016-05-10 19:40 | Progress Note ---
Medicine Progress Note Date & Time of Visit: May 10, 2016 at 19:37. Subjective Patient reports feeling indigestion/nausea, had an episode of emesis today. Denies CP but states he does not recall having CP episodes last night which he had reported to staff and was given pain medications for. Denies any difficulty having BM today. Appetite has been fair. Family was at the bedside. Objective Last 8 Hrs Date Time Temp Pulse Resp B/P Pulse Ox O2 Delivery O2 Flow Rate FiO2 05/10/16 19:35 36.4 62 18 136/69 95 Room Air 05/10/16 16:00 95 Nasal Cannula 1.0 05/10/16 15:18 36.6 58 18 122/56 95 Room Air 05/10/16 12:00 94 Nasal Cannula 1.0 05/10/16 11:46 36.4 60 16 114/60 94 Room Air Physical Exam: GENERAL: Patient is in no acute distress. HEENT: No acute trauma, normocephalic, mucous membranes moist, no nasal congestion, no scleral icterus. NECK: No stridor, trachea is midline. LUNGS: Clear to auscultation bilaterally, no wheeze, no rhonchi, breath sounds equal. HEART: Without murmurs gallops or rubs, regular rate and rhythm. ABDOMEN: Soft, nontender, bowel sounds positive EXTREMITIES: No cyanosis or edema NEUROLOGIC: Oriented x 3, no acute motor or sensory deficits, no focal weakness. SKIN: No rash, no jaundice, no diaphoresis. Laboratory Results: Last 24 Hours Test 05/09/16 20:17 05/09/16 22:34 05/09/16 23:29 05/09/16 23:43 Activated Partial Thromboplast Time 222.9 SECONDS 128.1 SECONDS 76.3 SECONDS Partial Thromboplastin Ratio 8.5 4.9 2.9 Total Creatine Kinase 46 U/L Creatine Kinase MB 1.4 ng/ml Creatine Kinase MB Ratio 3.0 Troponin I 0.096 ng/ml Test 05/10/16 06:06 05/10/16 14:50 White Blood Count 6.37 K/uL Red Blood Count 4.14 M/uL Hemoglobin 14.0 g/dL Hematocrit 38.9 % Mean Corpuscular Volume 94.0 fL Mean Corpuscular Hemoglobin 33.8 pg Mean Corpuscular Hemoglobin Concent 36.0 g/dl RDW Standard Deviation 44.9 fL RDW Coefficient of Variation 13.1 % Platelet Count 110 K/uL Mean Platelet Volume 10.3 fL Activated Partial Thromboplast Time 110.4 SECONDS 74.6 SECONDS Partial Thromboplastin Ratio 4.2 2.9 Sodium Level 134 mmol/L Potassium Level 3.5 mmol/L Chloride Level 96 mmol/L Carbon Dioxide Level 29 mmol/L Anion Gap 9.0 mmol/L Blood Urea Nitrogen 12 mg/dl Creatinine 1.20 mg/dl Est Creatinine Clear Calc Drug Dose 47.9 ml/min Estimated GFR () 65.3 Estimated GFR (Non- 56.4 BUN/Creatinine Ratio 9.9 Random Glucose 85 mg/dl Estimated Average Glucose 105 mg/dl Hemoglobin A1c 5.3 % Calcium Level 8.1 mg/dl Magnesium Level 2.4 mg/dl Triglycerides Level 52 mg/dl Cholesterol Level 52 mg/dl HDL Cholesterol 31 mg/dl LDL Cholesterol, Calculated 11 mg/dl VLDL Cholesterol, Calculated 10 mg/dl Cholesterol/HDL Ratio 1.7 Assessment & Plan CP, POSSIBLE ACUTE CORONARY SYNDROME: H/O CAD s/p CABG, S/P PCI -serial CM mildly elevated and trending down -EKG nonspecific -risk factors: h/o CAD, HLD, remote tobacco history, Age -MEEK risk score 4-5 -Aspirin and Nitropaste continued -on Heparin drip -continue statin -TTE: EF: 55-60%, intact systolic function, mod TR -Cardiology consulted, appreciate recommendations, planning for Cath on Thursday THROMBOCYTOPENIA: -mildly low platelet count 114-->110 -monitor closely marco now that pt on heparin drip PAROXYSMAL VENTRICULAR TACHYCARDIA: -continue Amiodarone -monitor in tele BPH: -continue Proscar, Flomax GERD: -continue PPI INSOMNIA: -continue Trazodone HYPERLIPIDEMIA: -continue Statin Current Inpatient Medications: Current Inpatient Medications Medications (Trade) Dose Ordered Sig/Mary Route Start Time Stop Time Status Last Admin Dose Admin Acetaminophen (Tylenol Tab) 650 mg Q4H PRN PO 05/09/16 14:00 06/08/16 13:59 Magnesium Hydroxide (Milk Of Magnesia Susp) 30 ml Q12H PRN PO 05/09/16 14:00 06/08/16 13:59 Ondansetron HCl (Zofran Inj) 4 mg Q6H PRN IV 05/09/16 14:00 06/08/16 13:59 05/10/16 08:44 4 MG Nitroglycerin (Nitrostat Tab) 0.4 mg UD PRN SL 05/09/16 14:00 06/08/16 13:59 05/10/16 00:10 0.4 MG Nitroglycerin (Nitroglycerin 2% Oint) 1 inch Q6H EXT 05/09/16 16:30 06/08/16 16:29 05/10/16 17:10 1 INCH Aspirin (Ecotrin Tab) 81 mg QAM PO 05/10/16 09:00 06/09/16 08:59 05/10/16 08:18 81 MG Polyethylene (Miralax Powder Packet) 17 gm DAILY PRN PO 05/09/16 14:00 06/08/16 13:59 Amiodarone HCl (Cordarone Tab) 200 mg QAM PO 05/10/16 09:00 06/09/16 08:59 05/10/16 08:17 200 MG Atorvastatin Calcium (Lipitor Tab) 80 mg HS PO 05/09/16 21:00 06/08/16 20:59 05/09/16 20:07 80 MG Famotidine (Pepcid Tab) 20 mg DAILY PO 05/10/16 09:00 06/09/16 08:59 05/10/16 08:17 20 MG Finasteride (Proscar Tab) 5 mg DAILY PO 05/10/16 09:00 06/09/16 08:59 05/10/16 08:16 5 MG Tamsulosin HCl (Flomax Cap) 0.4 mg DAILY PO 05/10/16 09:00 06/09/16 08:59 05/10/16 08:16 0.4 MG Trazodone HCl 25 mg 25 mg HS PO 05/09/16 21:00 06/08/16 20:59 05/09/16 20:08 25 MG Heparin Sodium/ Dextrose (Heparin 25,000 Unit/500ml D5W) 500 ml @ 17 mls/hr Q24H PRN IV 05/09/16 15:30 06/08/16 15:29 05/10/16 17:08 17 MLS/HR Pantoprazole Sodium (Protonix Tab) 40 mg BID PO 05/10/16 21:00 06/09/16 20:59 Calcium Carbonate (Tums Chew Tab) 500 mg Q8H PRN PO 05/10/16 13:45 06/09/16 13:44 Al Hydrox/Mg Hydrox/Simethicone (Maalox Max Susp) 15 ml Q6H PRN PO 05/10/16 13:45 06/09/16 13:44
[2016-05-10] MEDS: ALUMINUM/MAGNESIUM/SIMETH (MAALOX MAX) 30 ML UDC PO PRN (21:32)
[2016-05-10 21:57] LABS: PARTIAL THROMBOPLASTIN RATIO 2.7
[2016-05-11] VITALS (12 sets, daily range): BP systolic 100–163; BP diastolic 43–81; PULSE 54–60; TEMP 36.3–37; O2SAT 91–97
[2016-05-11] MEDS: NITROGLYCERIN OINT 2% 1GM PACKET EXT SCH ×4 (04:37→21:58)
[2016-05-11 05:01] LABS: PARTIAL THROMBOPLASTIN RATIO 2.7
[2016-05-11] MEDS: TAMSULOSIN HCL 0.4 MG CAP PO SCH (08:43)
[2016-05-11] MEDS: CALCIUM CARBONATE 500 MG CHEWABLE PO PRN (08:43)
[2016-05-11] MEDS: FAMOTIDINE 20 MG TAB PO SCH (08:43)
[2016-05-11] MEDS: ASPIRIN 81 MG ECTAB PO SCH (08:43)
[2016-05-11] MEDS: FINASTERIDE 5 MG TAB PO SCH (08:44)
[2016-05-11] MEDS: PANTOprazole SOD 40 MG TAB PO SCH ×2 (08:44→19:45)
[2016-05-11] MEDS: AMIODARONE 200 MG TAB PO SCH (08:44)
[2016-05-11 12:21] LABS: BUN/CREATININE RATIO 12.6 (10-20); CALCIUM 8.4 mg/dl (8.5-10.1); CREATININE 1.1 mg/dl (0.60-1.40); POTASSIUM 3.9 mmol/L (3.5-5.1)
[2016-05-11 12:25] LABS: HEMATOCRIT 38.4 % (42-52); MEAN CELL VOLUME 92.8 fL (80-100); MEAN CORPUSCULAR HEMOGLOBIN 33.3 pg (25-34); MEAN CORPUSCULAR HGB CONC 35.9 g/dl (32-36); MEAN PLATELET VOLUME 10.7 fL (7.4-10.4); PLATELET COUNT 116 K/uL (130-400); RED BLOOD COUNT 4.14 M/uL (4.7-6.1)
--- NOTE | 2016-05-11 13:10 | PROGRESS NOTE ---
DATE: 05/11/2016 HISTORY OF PRESENT ILLNESS: The patient was seen by me this morning in his telemetry room. He has no cardiac complaints of chest discomfort or other anginal type symptoms this morning. None overnight. No orthopnea or PND. No palpitations, syncope or peripheral edema. No dyspnea. Postural lightheadedness when arising from bed today, this lasted only several seconds. No leg pain or swelling. No abdominal pain or nausea. No further nausea and vomiting since yesterday morning. No symptoms of bleeding. No cerebrovascular complaints. No urinary complaints. CURRENT MEDICATIONS: Pantoprazole 40 mg b.i.d., famotidine 20 mg daily, Proscar 5 mg daily, Flomax 0.4 mg daily, atorvastatin 80 mg at bedtime, Trazodone 25 mg at bedtime, nitroglycerin ointment 1 inch q. 6 hours, aspirin 81 mg daily, amiodarone 200 mg daily, intravenous heparin by weight based protocol and several p.r.n. medications. ALLERGIES AND ADVERSE DRUG ALLERGIES: LISTED ASPIRIN AND OXYCODONE. He does tolerate 81 mg of aspirin daily. PHYSICAL EXAMINATION: GENERAL: The patient is sitting in a chair by his bedside. No distress. VITAL SIGNS: This morning with oral temperature of 36.7, pulse 58, blood pressure 124/65 and pulse oximetry on room air 91-96%. NECK: No jugular venous distention. LUNGS: Normal respiratory effort. No rales or wheezes. HEART: Regular rate and rhythm. S1, S2, normal. No gallop or rub. Has 1/6 systolic murmur second right intercostal space and left sternal border. ABDOMEN: Soft. Nontender. No palpable masses or organomegaly. EXTREMITIES: No pretibial edema. No cyanosis or clubbing. PULSES: Distal pulses, all extremities palpable. NEUROLOGIC: Alert and oriented x3. Motor grossly intact. PSYCHIATRIC: Affect is normal. DATA: Echocardiogram performed yesterday revealed normal biventricular systolic function, mild biatrial dilatation, mild aortic regurgitation, trace pulmonic regurgitation, mild mitral regurgitation, moderate tricuspid regurgitation, mildly elevated right ventricular systolic pressure, aortic valve sclerosis, mild mitral regurgitation. No segmental wall motion abnormalities of the left ventricle. Electrocardiogram performed today with sinus bradycardia, first degree AV block, incomplete right bundle branch block, left axis deviation, left anterior fascicular block, nonspecific ST abnormalities. No significant change compared to yesterday's electrocardiogram. CBC and metabolic profile pending today. ASSESSMENT: 1. Chest discomfort on admission. Mildly elevated troponin I's. Cannot exclude small amount of myocardial injury. Electrocardiogram without any diagnostic ischemic changes. Echocardiogram with normal left ventricular wall motion and systolic function. The patient is status post 2-vessel coronary artery bypass graft surgery in 2008. Left internal mammary artery-left anterior descending and saphenous vein graft-left circumflex obtuse marginal. 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 No anginal symptoms since admission. 2. Nausea and vomiting yesterday morning, none since then. 3. History of atrial fibrillation. On long-term amiodarone therapy. No evidence of arrhythmias on this admission. 4. Heart rate and blood pressure well-controlled. PLAN: 1. Cardiac catheterization on Thursday05/12/2016. Assess coronary arteries and bypass grafts. The benefits, risks, alternatives and procedure, cardiac catheterization and possible coronary intervention were extensively discussed with the patient. He was given the option of undergoing a stress test. The patient wants clear definition of his coronary artery status. He desires to undergo cardiac catheterization. 2. Continue current medications. 3. N.p.o. after 12:00 midnight. 4. We will start intravenous fluids tonight for hydration tonight. This will be to help decreased risk of contrast induced nephropathy. 6. Further recommendations and plans to be based upon the results of the coronary angiogram and any possible coronary intervention. MITUL
--- NOTE | 2016-05-11 19:21 | Progress Note ---
Medicine Progress Note Date & Time of Visit: May 11, 2016 at 19:20. Subjective Patient reports some mild abdominal pain today that improved after he pushed on his abdomen. No CP, SOB, N/V, or indigestion noted today. No overnight events noted. Tolerating PO. Has been ambulating less but no pain or difficulty when ambulating. Has not had a BM for 3 days but reports that is his normal. No other complaints. at the bedside. Objective Last 8 Hrs Date Time Temp Pulse Resp B/P Pulse Ox O2 Delivery O2 Flow Rate FiO2 05/11/16 15:48 95 Room Air 05/11/16 15:34 36.3 54 18 113/57 95 Room Air 05/11/16 12:04 95 Room Air 05/11/16 11:53 37.0 57 16 100/43 95 Room Air Physical Exam: GENERAL: Patient is in no acute distress. HEENT: No acute trauma, normocephalic, mucous membranes moist, no nasal congestion, no scleral icterus. NECK: No stridor, trachea is midline. LUNGS: Clear to auscultation bilaterally, no wheeze, no rhonchi, breath sounds equal. HEART: Without gallops or rubs, + MERARI, regular rate and rhythm. ABDOMEN: Soft, nontender, bowel sounds positive EXTREMITIES: No cyanosis or edema NEUROLOGIC: Oriented x 3, no acute motor or sensory deficits, no focal weakness. SKIN: No rash, no jaundice, no diaphoresis. Laboratory Results: Last 24 Hours Test 05/10/16 21:30 05/11/16 04:08 Activated Partial Thromboplast Time 71.3 SECONDS 69.0 SECONDS Partial Thromboplastin Ratio 2.7 2.7 White Blood Count 5.90 K/uL Red Blood Count 4.14 M/uL Hemoglobin 13.8 g/dL Hematocrit 38.4 % Mean Corpuscular Volume 92.8 fL Mean Corpuscular Hemoglobin 33.3 pg Mean Corpuscular Hemoglobin Concent 35.9 g/dl RDW Standard Deviation 43.8 fL RDW Coefficient of Variation 12.9 % Platelet Count 116 K/uL Mean Platelet Volume 10.7 fL Sodium Level 139 mmol/L Potassium Level 3.9 mmol/L Chloride Level 100 mmol/L Carbon Dioxide Level 28 mmol/L Anion Gap 11.0 mmol/L Blood Urea Nitrogen 14 mg/dl Creatinine 1.10 mg/dl Est Creatinine Clear Calc Drug Dose 51.4 ml/min Estimated GFR () 72.6 Estimated GFR (Non- 62.6 BUN/Creatinine Ratio 12.6 Random Glucose 92 mg/dl Calcium Level 8.4 mg/dl Assessment & Plan CP, POSSIBLE ACUTE CORONARY SYNDROME: H/O CAD s/p CABG, S/P PCI -serial CM mildly elevated and trending down -EKG nonspecific -risk factors: h/o CAD, HLD, remote tobacco history, Age -Aspirin and Nitropaste continued -on Heparin drip -continued on statin -TTE: EF: 55-60%, intact systolic function, mod TR, mild MR -Cardiology consulted, appreciate recommendations, planning for Cath tomorrow THROMBOCYTOPENIA: -mildly low platelet count 114-->110-->116 -monitor closely especially while pt on heparin drip PAROXYSMAL VENTRICULAR TACHYCARDIA: -continue Amiodarone -monitor in tele BPH: -continue Proscar, Flomax GERD: -continue PPI INSOMNIA: -continue Trazodone HYPERLIPIDEMIA: -continue Statin Current Inpatient Medications: Current Inpatient Medications Medications (Trade) Dose Ordered Sig/Mary Route Start Time Stop Time Status Last Admin Dose Admin Acetaminophen (Tylenol Tab) 650 mg Q4H PRN PO 05/09/16 14:00 06/08/16 13:59 Magnesium Hydroxide (Milk Of Magnesia Susp) 30 ml Q12H PRN PO 05/09/16 14:00 06/08/16 13:59 Ondansetron HCl (Zofran Inj) 4 mg Q6H PRN IV 05/09/16 14:00 06/08/16 13:59 05/10/16 08:44 4 MG Nitroglycerin (Nitrostat Tab) 0.4 mg UD PRN SL 05/09/16 14:00 06/08/16 13:59 05/10/16 00:10 0.4 MG Nitroglycerin (Nitroglycerin 2% Oint) 1 inch Q6H EXT 05/09/16 16:30 06/08/16 16:29 05/11/16 17:02 1 INCH Aspirin (Ecotrin Tab) 81 mg QAM PO 05/10/16 09:00 06/09/16 08:59 05/11/16 08:43 81 MG Polyethylene (Miralax Powder Packet) 17 gm DAILY PRN PO 05/09/16 14:00 06/08/16 13:59 Amiodarone HCl (Cordarone Tab) 200 mg QAM PO 05/10/16 09:00 06/09/16 08:59 05/11/16 08:44 200 MG Atorvastatin Calcium (Lipitor Tab) 80 mg HS PO 05/09/16 21:00 06/08/16 20:59 05/10/16 19:38 80 MG Famotidine (Pepcid Tab) 20 mg DAILY PO 05/10/16 09:00 06/09/16 08:59 05/11/16 08:43 20 MG Finasteride (Proscar Tab) 5 mg DAILY PO 05/10/16 09:00 06/09/16 08:59 05/11/16 08:44 5 MG Tamsulosin HCl (Flomax Cap) 0.4 mg DAILY PO 05/10/16 09:00 06/09/16 08:59 05/11/16 08:43 0.4 MG Trazodone HCl 25 mg 25 mg HS PO 05/09/16 21:00 06/08/16 20:59 05/10/16 19:38 25 MG Heparin Sodium/ Dextrose (Heparin 25,000 Unit/500ml D5W) 500 ml @ 16 mls/hr Q24H PRN IV 05/09/16 15:30 06/08/16 15:29 05/10/16 22:04 17 MLS/HR Pantoprazole Sodium (Protonix Tab) 40 mg BID PO 05/10/16 21:00 06/09/16 20:59 05/11/16 08:44 40 MG Calcium Carbonate (Tums Chew Tab) 500 mg Q8H PRN PO 05/10/16 13:45 06/09/16 13:44 05/11/16 08:43 500 MG Al Hydrox/Mg Hydrox/ Simethicone 15 ml 15 ml Q6H PRN PO 05/10/16 13:45 06/09/16 13:44 05/10/16 21:32 15 ML Sodium Chloride (Nss 1000ml) 1,000 ml @ 75 mls/hr [id number] IV 05/11/16 20:00 06/10/16 19:59
[2016-05-11] MEDS: ATORVASTATIN 40 MG TAB PO SCH (19:44)
[2016-05-11] MEDS: TRAZODONE HCL 50 MG TAB PO SCH (19:45)
[2016-05-11] MEDS: SODIUM CHLORIDE 0.9% 1000ML 1,000 ML IV SCH (19:48)
[2016-05-12] VITALS (12 sets, daily range): BP systolic 133–179; BP diastolic 56–75; PULSE 48–63; TEMP 36.4–37; O2SAT 94–99
[2016-05-12] MEDS: NITROGLYCERIN OINT 2% 1GM PACKET EXT SCH ×4 (05:01→21:58)
[2016-05-12] MEDS ORDERED: FENTANYL CITRATE INJ 50 MCG/1 ML 2 ML VIAL ONE (06:56)
[2016-05-12] MEDS ORDERED: MIDAZOLAM HCL 1 MG/ML 2ML VIAL ONE (06:56)
--- NOTE | 2016-05-12 07:05 | Procedure Note ---
Pre-Mod Sedation Assessment General Date of Moderate Sedation: May 12, 2016. Vital Signs: Vital Signs Past 12 Hours Date Time Temp Pulse Resp B/P Pulse Ox O2 Delivery O2 Flow Rate FiO2 05/12/16 06:19 36.4 63 18 158/71 94 Room Air 1.0 05/12/16 04:05 36.4 63 18 158/71 94 Room Air 05/12/16 04:00 97 Room Air 05/12/16 00:00 97 Room Air 05/11/16 23:47 36.8 56 18 157/74 95 Room Air 05/11/16 20:00 97 Room Air 05/11/16 19:32 37.0 56 16 143/67 95 Room Air Review Cardiovascular: regular rate, rhythm, no edema, no JVD, normal peripheral pulses, + systolic murmur Abdomen: non tender, soft Lungs: lungs clear Pre-Sedation Airway Assessment Oral Cavity: Dentures Able to Visualize Vocal Cords: No Short Thick Neck: No Hx of Sleep Apnea: No Smoking Status: Never Smoker Mallampati Classification: Class III ASA Classification: Class II Procedure Planning Contraindications-for Mod Sed: None Yes Notes The planned sedation has been discussed with the patient and consent obtained. I have identified the patient, determined the appropriateness of sedation and have assessed the patient immediately prior to the procedure. All medicine(s) and interventions are by my order.
[2016-05-12 07:19] LABS: PARTIAL THROMBOPLASTIN RATIO 2.3
[2016-05-12] MEDS ORDERED: HEPARIN SOD (PORCINE) 1000 UNIT/ML 10 ML VIAL ONE (08:26)
[2016-05-12] MEDS ORDERED: NITROGLYCERIN/D5W 100MCG/ML 20ML SYR ONE (08:26)
[2016-05-12] MEDS ORDERED: NiCARDipine HCL INJ 2.5 MG/ML 10 ML AMP ONE (08:26)
[2016-05-12] MEDS ORDERED: SODIUM CHLORIDE 0.9% 1000ML 250 ML IV PRN (09:11)
--- NOTE | 2016-05-12 09:11 | Procedure Note ---
Post-Mod Sedation Assessment General Date of Moderate Sedation May 12, 2016. Vital Signs: Vital Signs Past 12 Hours Date Time Temp Pulse Resp B/P Pulse Ox O2 Delivery O2 Flow Rate FiO2 05/12/16 09:05 50 18 151/62 94 Room Air 05/12/16 08:50 60 18 140/60 95 Room Air 05/12/16 06:19 36.4 63 18 158/71 94 Room Air 1.0 05/12/16 04:05 36.4 63 18 158/71 94 Room Air 05/12/16 04:00 97 Room Air 05/12/16 00:00 97 Room Air 05/11/16 23:47 36.8 56 18 157/74 95 Room Air Review - Discharge Criteria Vital Signs Stable: Yes Alert/Oriented/Conversant: Yes Returned to Baseline Mental St: Yes Nausea Absent/Minimal: Yes Pain/Discomfort/Absent/Minimal: Yes Normal/Baseline Respirations: Yes Active Bleeding?: No Pt Received D/C Instructions: N/A Prescriptions Given: None Specific Proced. D/C Criteria Distal Pulses Present (Cardiac: Yes Groin site assessed-Card Cath: Yes Voided Prior To Discharge: N/A Discharged Patients Adult Escort/Transportation: N/A
[2016-05-12] MEDS ORDERED: ONDANSETRON INJ 2 MG/ML 2 ML VIAL IV PRN (09:15)
[2016-05-12] MEDS ORDERED: ACETAMINOPHEN 325 MG TAB PO PRN (09:15)
[2016-05-12] MEDS ORDERED: ATROPINE SULFATE 0.1 MG/ML 5ML SYR IV PRN (09:15)
[2016-05-12] MEDS: SODIUM CHLORIDE 0.9% 1000ML 1,000 ML IV SCH ×2 (09:20→21:58)
--- NOTE | 2016-05-12 09:27 | [facility] Post Operative Brief Note ---
Preliminary Procedure Note Procedure Date May 12, 2016. Pre-Procedure Diagnosis Non STEMI, Angina, CAD AUC Score 8 Post-Procedure Diagnosis Severe CAD, Cardiothoracic Finding (Patent bypass grafts) Procedure(s) Performed Coronary Angiography, Aortography, Bypass Graft Angiography Exhibit Electrician Dr. Cartwright Armature [employer](s) Monica Coronado,RTR Estimated Blood Loss 20 ml Medication(s) Fentanyl, Versed, Lidocaine 1% Preliminary Findings 40% proximal RCA. Severe [place] left coronary artery disease. Patent SVG to L Cx marginal. Evidence on [place] injection of excellent flow to AD via PARTH graft. Aortic arch very tortuous. Despite multiple attempts and catheters the left subclavian could not be accessed. Left radial artery cannulated twice. Spasm prevented wire advancement. Left ulnar artery was not able to be accessed. Procedure terminated. Patient stable. Plan: DC heparin. Walk in [place] this afternoon. Stress echo tomorrow to assess response ( BP,rhythm,symptoms) to exercise. Keep in telemetry unit . Recommendations Medical therapy and/or Counseling Specimens None Fluids (cc crystalloids) 180 Drains none Anesthesia IV versed and fentanyl Procedural Complication(s) None Disposition PCU
[2016-05-12] MEDS ORDERED: LORAZEPAM 0.5 MG TAB PO PRN (11:00)
[2016-05-12] MEDS: ASPIRIN 81 MG ECTAB PO SCH (11:02)
[2016-05-12] MEDS: TAMSULOSIN HCL 0.4 MG CAP PO SCH (11:02)
[2016-05-12] MEDS: CALCIUM CARBONATE 500 MG CHEWABLE PO PRN (11:03)
[2016-05-12] MEDS: FAMOTIDINE 20 MG TAB PO SCH (11:05)
[2016-05-12] MEDS: FINASTERIDE 5 MG TAB PO SCH (11:06)
[2016-05-12] MEDS: ALUMINUM/MAGNESIUM/SIMETH (MAALOX MAX) 30 ML UDC PO PRN (11:07)
[2016-05-12] MEDS: AMIODARONE 200 MG TAB PO SCH (11:08)
[2016-05-12] MEDS: PANTOprazole SOD 40 MG TAB PO SCH ×2 (12:31→20:34)
--- NOTE | 2016-05-12 17:50 | Progress Note ---
Medicine Progress Note Date & Time of Visit: May 12, 2016 at 17:49. Subjective Patient seen following cath, denies pain or bleeding at groin and wrist sites. No overnight events noted. Denies any new complaints or CP. Pt and are anxious about getting the stress test done tomorrow as they are planning to travel on Thu. and are worried about missing the flight. Objective Last 8 Hrs Date Time Temp Pulse Resp B/P Pulse Ox O2 Delivery O2 Flow Rate FiO2 05/12/16 16:00 Room Air 05/12/16 15:54 36.6 49 18 173/75 97 05/12/16 12:35 55 16 151/63 95 05/12/16 11:49 Room Air 05/12/16 11:40 49 17 179/66 99 Room Air 05/12/16 11:00 49 16 175/68 97 05/12/16 10:10 48 19 168/66 95 Room Air 05/12/16 09:53 53 17 162/59 95 Room Air Physical Exam: GENERAL: Patient is in no acute distress. HEENT: No acute trauma, normocephalic, mucous membranes moist, no nasal congestion, no scleral icterus. NECK: No stridor, trachea is midline. LUNGS: Clear to auscultation bilaterally, no wheeze, no rhonchi, breath sounds equal. HEART: Without gallops or rubs, + MERARI, regular rate and rhythm. ABDOMEN: Soft, nontender, bowel sounds positive EXTREMITIES: No cyanosis or edema NEUROLOGIC: Oriented x 3, no acute motor or sensory deficits, no focal weakness. SKIN: No rash, no jaundice, no diaphoresis. Laboratory Results: Last 24 Hours Test 05/12/16 06:20 05/12/16 07:31 Activated Partial Thromboplast Time 60.4 SECONDS Partial Thromboplastin Ratio 2.3 Kaolin Activated Coagulation Time 147 SECONDS Assessment & Plan CP, POSSIBLE ACUTE CORONARY SYNDROME: H/O CAD s/p CABG, S/P PCI -serial CM mildly elevated and trending down -EKG nonspecific -risk factors: h/o CAD, HLD, remote tobacco history, Age -Aspirin and Nitropaste continued -was on a Heparin drip -continued on statin -TTE: EF: 55-60%, intact systolic function, mod TR, mild MR -Cardiology consulted, appreciate recommendations, Cath showed patentcy except non visualization of one vessel. Patient is scheduled to undergo a stress test tomorrow. THROMBOCYTOPENIA: -mildly low platelet count 114-->110-->116 -monitor closely especially while pt on heparin drip PAROXYSMAL VENTRICULAR TACHYCARDIA: -continue Amiodarone -monitor in tele BPH: -continue Proscar, Flomax GERD: -continue PPI INSOMNIA: -continue Trazodone HYPERLIPIDEMIA: -continue Statin Current Inpatient Medications: Current Inpatient Medications Medications (Trade) Dose Ordered Sig/Mary Route Start Time Stop Time Status Last Admin Dose Admin Acetaminophen (Tylenol Tab) 650 mg Q4H PRN PO 05/09/16 14:00 06/08/16 13:59 Magnesium Hydroxide (Milk Of Magnesia Susp) 30 ml Q12H PRN PO 05/09/16 14:00 06/08/16 13:59 Ondansetron HCl (Zofran Inj) 4 mg Q6H PRN IV 05/09/16 14:00 06/08/16 13:59 05/10/16 08:44 4 MG Nitroglycerin (Nitrostat Tab) 0.4 mg UD PRN SL 05/09/16 14:00 06/08/16 13:59 05/10/16 00:10 0.4 MG Nitroglycerin (Nitroglycerin 2% Oint) 1 inch Q6H EXT 05/09/16 16:30 06/08/16 16:29 05/12/16 16:30 1 INCH Aspirin (Ecotrin Tab) 81 mg QAM PO 05/10/16 09:00 06/09/16 08:59 05/12/16 11:02 81 MG Polyethylene (Miralax Powder Packet) 17 gm DAILY PRN PO 05/09/16 14:00 06/08/16 13:59 Amiodarone HCl (Cordarone Tab) 200 mg QAM PO 05/10/16 09:00 06/09/16 08:59 05/11/16 08:44 200 MG Atorvastatin Calcium (Lipitor Tab) 80 mg HS PO 05/09/16 21:00 06/08/16 20:59 05/11/16 19:44 80 MG Famotidine (Pepcid Tab) 20 mg DAILY PO 05/10/16 09:00 06/09/16 08:59 05/12/16 11:05 20 MG Finasteride (Proscar Tab) 5 mg DAILY PO 05/10/16 09:00 06/09/16 08:59 05/12/16 11:06 5 MG Tamsulosin HCl (Flomax Cap) 0.4 mg DAILY PO 05/10/16 09:00 06/09/16 08:59 05/12/16 11:02 0.4 MG Trazodone HCl (Desyrel Tab) 25 mg HS PO 05/09/16 21:00 06/08/16 20:59 05/11/16 19:45 25 MG Pantoprazole Sodium (Protonix Tab) 40 mg BID PO 05/10/16 21:00 06/09/16 20:59 05/12/16 12:31 40 MG Calcium Carbonate (Tums Chew Tab) 500 mg Q8H PRN PO 05/10/16 13:45 06/09/16 13:44 05/12/16 11:03 500 MG Al Hydrox/Mg Hydrox/ Simethicone 15 ml 15 ml Q6H PRN PO 05/10/16 13:45 06/09/16 13:44 05/12/16 11:07 15 ML Sodium Chloride 1,000 ml @ 75 mls/hr [id number] IV 05/11/16 20:00 06/10/16 19:59 05/12/16 09:20 75 MLS/HR Sodium Chloride (Nss 1000ml) 250 ml @ 999 mls/hr Q16M PRN IV 05/12/16 09:11 06/11/16 09:10 Atropine Sulfate (Atropine Sulfate 0.1MG/Ml Inj) 0.6 mg PRN PRN IV 05/12/16 09:15 06/11/16 09:14 Lorazepam (Ativan Tab) 0.5 mg ONE PRN PO 05/12/16 11:00 05/12/16 23:59 05/12/16 11:12 0.5 MG
[2016-05-12] MEDS ORDERED: AMLODIPINE BESYLATE 5 MG TAB PO ONE (18:00)
[2016-05-12] MEDS: ATORVASTATIN 40 MG TAB PO SCH (20:33)
[2016-05-12] MEDS: TRAZODONE HCL 50 MG TAB PO SCH (20:34)
[2016-05-13] VITALS: BP 135/67; PULSE 55; TEMP 36.6; O2SAT 95; O2SAT 96
[2016-05-13 04:00] VITALS: BP 136/72; PULSE 54; TEMP 36.5; O2SAT 95; O2SAT 96
[2016-05-13] MEDS: NITROGLYCERIN OINT 2% 1GM PACKET EXT SCH ×2 (04:36→10:30)
[2016-05-13 06:48] LABS: PARTIAL THROMBOPLASTIN RATIO 1.2
[2016-05-13 07:19] VITALS: BP 149/64; PULSE 53; TEMP 36.6; O2SAT 93
[2016-05-13 09:27] LABS: BASO % 0.3 %; BASO ABS # 0.02 K/uL (0-0.2); COMPLETE YES; EOS % 1.9 %; HEMATOCRIT 37.5 % (42-52); IG% 0.3 %; LYMPH % 18.2 %; LYMPH ABS # 1.43 K/uL (1.2-3.4); MEAN CELL VOLUME 96.2 fL (80-100); MEAN CORPUSCULAR HEMOGLOBIN 34.1 pg (25-34); MEAN CORPUSCULAR HGB CONC 35.5 g/dl (32-36); MEAN PLATELET VOLUME 10.4 fL (7.4-10.4); MONO % 10.8 %; NEUT % 68.5 %; PLATELET COUNT 126 K/uL (130-400); WHITE BLOOD COUNT 7.85 K/uL (4.8-10.8)
[2016-05-13 09:42] LABS: BUN/CREATININE RATIO 13.3 (10-20); CALCIUM 8.7 mg/dl (8.5-10.1); CREATININE 1.2 mg/dl (0.60-1.40); POTASSIUM 4.6 mmol/L (3.5-5.1)
[2016-05-13] MEDS: PANTOprazole SOD 40 MG TAB PO SCH (10:30)
[2016-05-13] MEDS: ASPIRIN 81 MG ECTAB PO SCH (10:30)
[2016-05-13] MEDS: CALCIUM CARBONATE 500 MG CHEWABLE PO PRN (10:30)
[2016-05-13] MEDS: TAMSULOSIN HCL 0.4 MG CAP PO SCH (10:31)
[2016-05-13] MEDS: FINASTERIDE 5 MG TAB PO SCH (10:31)
[2016-05-13] MEDS: FAMOTIDINE 20 MG TAB PO SCH (10:31)
[2016-05-13] MEDS: AMIODARONE 200 MG TAB PO SCH (10:31)
[2016-05-13 11:29] VITALS: BP 162/71; PULSE 54; TEMP 36.5; O2SAT 94
--- NOTE | 2016-05-13 12:24 | Progress Note ---
Medicine Progress Note Date & Time of Visit: May 13, 2016 at 12:15. Subjective patient seen resting in bed, at bedside, comfortable s/p stress test today denies chest pain, dyspnea, dizziness, palpitations, nausea states he feels that he is back to baseline no other symptoms would like to be discharged today Objective Last 8 Hrs Date Time Temp Pulse Resp B/P Pulse Ox O2 Delivery O2 Flow Rate FiO2 05/13/16 11:29 36.5 54 18 162/71 94 Room Air 05/13/16 07:54 Room Air 05/13/16 07:19 36.6 53 18 149/64 93 Room Air Physical Exam: General- oriented x 3, not in distress, speaks in sentences with no effort Eyes- EOMI, anicteric Neck- supple, no JVD, Lungs- clear to auscultation bilaterally Heart- mild bradycardia, regular rhythm; no murmurs Abdomen- normal bowel sounds, soft, nontender Extremities- no pretibial edema, no calf tenderness Neuro- alert, oriented x 3;no gross deficits Skin- warm & dry Laboratory Results: Last 24 Hours Test 05/13/16 06:13 05/13/16 06:15 Activated Partial Thromboplast Time 30.3 SECONDS Partial Thromboplastin Ratio 1.2 White Blood Count 7.85 K/uL Red Blood Count 3.90 M/uL Hemoglobin 13.3 g/dL Hematocrit 37.5 % Mean Corpuscular Volume 96.2 fL Mean Corpuscular Hemoglobin 34.1 pg Mean Corpuscular Hemoglobin Concent 35.5 g/dl Platelet Count 126 K/uL Mean Platelet Volume 10.4 fL Neutrophils (%) (Auto) 68.5 % Lymphocytes (%) (Auto) 18.2 % Monocytes (%) (Auto) 10.8 % Eosinophils (%) (Auto) 1.9 % Basophils (%) (Auto) 0.3 % Neutrophils # (Auto) 5.38 K/uL Lymphocytes # (Auto) 1.43 K/uL Monocytes # (Auto) 0.85 K/uL Eosinophils # (Auto) 0.15 K/uL Basophils # (Auto) 0.02 K/uL RDW Standard Deviation 46.6 fL RDW Coefficient of Variation 13.3 % Immature Granulocyte % (Auto) 0.3 % Immature Granulocyte # (Auto) 0.02 K/uL Sodium Level 138 mmol/L Potassium Level 4.6 mmol/L Chloride Level 102 mmol/L Carbon Dioxide Level 28 mmol/L Anion Gap 8.0 mmol/L Blood Urea Nitrogen 16 mg/dl Creatinine 1.20 mg/dl Est Creatinine Clear Calc Drug Dose 47.5 ml/min Estimated GFR () 65.3 Estimated GFR (Non- 56.4 BUN/Creatinine Ratio 13.3 Random Glucose 91 mg/dl Calcium Level 8.7 mg/dl Assessment & Plan CHEST PAIN, POSSIBLE UNSTABLE ANGINA VS. NSTEMI History of CAD s/p CABG, S/P PCI - trop: 0.1--> 0.1--> 0.09 - EKG nonspecific - was placed on Nitropaste and Heparin= - TTE: EF: 55-60%, intact systolic function, mod TR, mild MR - evaluated by Dr. Cartwright - s/p Cardiac cath 05/12/16: 40% proximal RCA. Severe [place] left coronary artery disease. Patent SVG to L Cx marginal. - s/p Stress test 05/13/16 -- d/c home today when cleared by Cardiology continue Aspirin, Statin HYPERTENSION - BP 150-160s placed on nitropaste, received 1 dose of Amlodipine - BP usually on the lower side, also has history of orthostasis as per Dr. Cartwright - additional BP medications not recommended by Dr. Cartwright at this time - monitor BP as outpatient THROMBOCYTOPENIA: -mildly low platelet count 114-->126 - no signs of active bleeding - monitor as outpatient PAROXYSMAL VENTRICULAR TACHYCARDIA: -continue Amiodarone BPH: -continue Proscar, Flomax GERD: -continue PPI INSOMNIA: -continue Trazodone HYPERLIPIDEMIA: -continue Statin Disposition d/c home today when cleared by Cardiology Current Inpatient Medications: Current Inpatient Medications Medications (Trade) Dose Ordered Sig/Mary Route Start Time Stop Time Status Last Admin Dose Admin Acetaminophen (Tylenol Tab) 650 mg Q4H PRN PO 05/09/16 14:00 06/08/16 13:59 Magnesium Hydroxide (Milk Of Magnesia Susp) 30 ml Q12H PRN PO 05/09/16 14:00 06/08/16 13:59 Ondansetron HCl (Zofran Inj) 4 mg Q6H PRN IV 05/09/16 14:00 06/08/16 13:59 05/10/16 08:44 4 MG Nitroglycerin (Nitrostat Tab) 0.4 mg UD PRN SL 05/09/16 14:00 06/08/16 13:59 05/10/16 00:10 0.4 MG Nitroglycerin (Nitroglycerin 2% Oint) 1 inch Q6H EXT 05/09/16 16:30 06/08/16 16:29 05/13/16 10:30 1 INCH Aspirin (Ecotrin Tab) 81 mg QAM PO 05/10/16 09:00 06/09/16 08:59 05/13/16 10:30 81 MG Polyethylene (Miralax Powder Packet) 17 gm DAILY PRN PO 05/09/16 14:00 06/08/16 13:59 Amiodarone HCl (Cordarone Tab) 200 mg QAM PO 05/10/16 09:00 06/09/16 08:59 05/13/16 10:31 200 MG Atorvastatin Calcium (Lipitor Tab) 80 mg HS PO 05/09/16 21:00 06/08/16 20:59 05/12/16 20:33 80 MG Famotidine (Pepcid Tab) 20 mg DAILY PO 05/10/16 09:00 06/09/16 08:59 05/13/16 10:31 20 MG Finasteride (Proscar Tab) 5 mg DAILY PO 05/10/16 09:00 06/09/16 08:59 05/13/16 10:31 5 MG Tamsulosin HCl (Flomax Cap) 0.4 mg DAILY PO 05/10/16 09:00 06/09/16 08:59 05/13/16 10:31 0.4 MG Trazodone HCl (Desyrel Tab) 25 mg HS PO 05/09/16 21:00 06/08/16 20:59 05/12/16 20:34 25 MG Pantoprazole Sodium (Protonix Tab) 40 mg BID PO 05/10/16 21:00 06/09/16 20:59 05/13/16 10:30 40 MG Calcium Carbonate (Tums Chew Tab) 500 mg Q8H PRN PO 05/10/16 13:45 06/09/16 13:44 05/13/16 10:30 500 MG Al Hydrox/Mg Hydrox/ Simethicone 15 ml 15 ml Q6H PRN PO 05/10/16 13:45 06/09/16 13:44 05/12/16 11:07 15 ML Sodium Chloride 1,000 ml @ 75 mls/hr [id number] IV 05/11/16 20:00 06/10/16 19:59 05/12/16 21:58 75 MLS/HR Sodium Chloride (Nss 1000ml) 250 ml @ 999 mls/hr Q16M PRN IV 05/12/16 09:11 06/11/16 09:10 Atropine Sulfate (Atropine Sulfate 0.1MG/Ml Inj) 0.6 mg PRN PRN IV 05/12/16 09:15 06/11/16 09:14
--- NOTE | 2016-05-13 12:43 | Discharge Instructions ---
Discharge Instructions Admission Reason for Admission: Acs (Acute Coronary Syndrome) Discharge Discharge Diagnosis / Problem: CHEST PAIN Discharge Goals Goal(s): Diagnostic testing, Therapeutic intervention Activity Recommendations Activity Limitations: as noted below (no heavy exertion until re-evaluated by Primary Care Physician or Tower Hoist Operator) . Instructions / Follow-Up Instructions / Follow-Up Follow up with Primary Care Physician in 3-5 days. (clinic to call patient with appointment). Follow up with Dr. Cartwright as scheduled. Home Care: * Take your medications exactly as directed. Don't skip doses. * Remember that recovery after a heart attack takes time. Plan to rest for at lease 4-8 weeks while you recover. Then return to normal activity when your doctor says it's okay. * Ask your doctor about joining a heart rehabilitation program. * Tell your doctor if you are feeling depressed. Feelings of sadness are common after a heart attack, but it is important that you speak to someone if you are feeling overwhelmed by these feelings. * If you are having chest pain, call 911 for an ambulance. Do NOT drive yourself to the hospital. * Ask your family members to learn CPR. * Learn to take your own blood pressure and pulse. Keep a record of your results. Ask your doctor when you should seek emergency medical attention. He or she will tell you which blood pressure reading is dangerous. Lifestyle Changes: * Maintain a healthy weight. Get help to lose any extra pounds. * Cut back on salt. * Limit canned, dried, packaged, and fast foods. * Don't add salt to your food. * Season foods with herbs instead of salt when you cook. * Break the smoking habit. Enroll in a stop-smoking program to improve your chances of success. * Limit fatty foods. * Check your lipid levels regularly. (Your doctor can show you how to do this.) * Build up your activity according to your doctor's recommendation. * Ask your doctor when it's okay to resume sexual activity. * Tell your doctor about any erectile dysfunction (ED) medication you are taking. Some ED medications are not safe if you take certain heart medications. * Try to manage stress. Follow Up: It is important for you to keep your follow up appointments with your medical provider. Current Hospital Diet Patient's current hospital diet: AHA Diet (Heart Healthy) Discharge Diet Recommended Diet: AHA Diet (Heart Healthy) Procedures Procedures Performed: Cardiac Catheterization, Stress Test Pending Studies Studies pending at discharge: yes List of pending studies: repeat blood work- CBC Laboratory Results Hemoglobin A1c Test 05/10/16 06:06 Range/Units Estimated Average Glucose 105 mg/dl Hemoglobin A1c 5.3 4.5-5.6 % Lipid Panel Test 05/10/16 06:06 Range/Units Triglycerides Level 52 0-150 mg/dl Cholesterol Level 52 0-200 mg/dl HDL Cholesterol 31 mg/dl Cholesterol/HDL Ratio 1.7 LDL Cholesterol, Calculated 11 mg/dl Medical Emergencies . Who to Call and When: Medical Emergencies: If at any time you feel your situation is an emergency, please call 911 immediately. Call 911 immediately or go to your nearest Emergency Room if you experience any of the following: Warning Signs and Symptoms of a Heart Attack * Chest pain that is not relieved by medication * Shortness of breath . Non-Emergent Contact Non-Emergency issues call your: Primary Care Provider Call Non-Emergent contact if: you have a fever . Past History Medical & Surgical History: (1) CAD (coronary artery disease) (2) BPH (benign prostatic hyperplasia) (3) Old HI (myocardial infarction) (4) GERD (gastroesophageal reflux disease) (5) History of left heart catheterization (LHC) (6) Acoustic neuroma (7) Paroxysmal VT (8) Insomnia (9) HLD (hyperlipidemia) (10) Hx of CABG (11) H/O colonoscopy (12) H/O shoulder surgery . "Provider Documentation" section prepared by Ko York. AMI Core Measures Reason no ASA as I/P: Treatment provided - N/A Reason no ASA at D/C: Treatment provided - N/A Reason no statin as I/P: Treatment provided - N/A Reason no statin at D/C: Treatment provided - N/A VTE Core Measure Inpt VTE Proph given/why not?: Unfractionated heparin SQ
--- NOTE | 2016-05-13 12:51 | Discharge Summary ---
Discharge Summary Admission Date: May 09, 2016 at 13:41 Discharge Date: May 13, 2016 Discharge Disposition: Home Principal Diagnosis: CHEST PAIN, POSSIBLE UNSTABLE ANGINA VS. NSTEMI Secondary Diagnoses/Problems: Please refer to hospital course below. Procedures: Cardiac Catheterization 05/12/16; Stress Test 05/13/16 Consultations: Tag And Label Cutter Dr. Cartwright Pending Studies/Follow-Up: Repeat CBC on ff up (re: thrombocytopenia); Please refer to hospital course below for further details. Medication Reconciliation Continued Medications: Amiodarone Hcl (Cordarone) 200 Mg Tab 200 MG PO QAM, #60 Aspirin (Aspirin EC Low Dose) 81 Mg Ectab 81 MG PO DAILY Atorvastatin (Lipitor) 80 Mg Tab 80 MG PO HS Clindamycin Phos (Clindamycin Phosphate) 60 Appln/60 Ml Soln 1 APPL PO PRN for scalp, #60 Famotidine (Pepcid) 20 Mg Tab 1 TAB PO DAILY for 30 Days, #30 TAB 5 Refills Finasteride (Proscar) 5 Mg Tab 5 MG PO LUNCH, TAB Nitroglycerin (Nitrostat) 0.4 Mg Tab 0.4 MG UT PRN for Chest Pain, #25 Omeprazole (Prilosec) 40 Mg Cap 40 MG PO QPM, #30 Tamsulosin Hcl (Flomax) 0.4 Mg Cap 0.4 MG PO LUNCH, CAP Trazodone Hcl (Trazodone) 50 Mg Tab 25 MG PO HS, #30 Admission Information HPI (per Admitting provider): Patient seen and examined. 80 year old male with PMHx of CAD s/p CABG, PCI, Paroxysmal V tach, and other problems listed below presents to the ED complaining of chest pain x several days. History is somewhat unclear, patient appears to be very forgetful which appears to be consistent with outpatient visits reviewed by this brief writer. Patient states that he thought he had the stomach flu earlier this week and was having nausea, vomiting, and diarrhea. He states at that time he also started to get SOB with minimal exertion. He states regularly he can jog to the mail box but now is becoming SOB with just a few steps of walking. He reports that several nights ago he took nitro SL but he isn 't sure about the details of the chest pain he had at that time. Patient states that last night he woke up in the middle of the night with epigastric abdominal pain, he states he also had chest pressure at that time. He states he went and slept in a recliner and that seemed to alleviate his symptoms. This morning he reports that he again was having chest pain that he described as a burning/achy feeling. He states the pain was substernal and slightly to the right chest with radiation to the jaw. He rates the pain as a 3/10. He states the pain would last for a few hours then ease off and then come back. He reports associated palpitations. He denies fevers, chills, URI symptoms, dysuria, calf pain and edema. There is question of medication compliance, patient reports he doesn't take his aspirin regularly because he gets nose bleeds. D/t forgetfulness also seems unsure about other medication compliance. Per outpatient record he stopped amiodarone for a while on his own but he thinks he is taking it now. In the ED VS are stable, EKG has nonspecific changes, troponin is 0.129 Patient was give aspirin and nitropaste which alleviated the chest pain. He will be admitted for further workup and treatment. Physical Exam (per Admitting): General Appearance: + pertinent finding (Pleasant WD/WN 80 year old male lying in bed in NAD with at bedside ) Head: normocephalic, atraumatic Eyes: PERRL, EOMI, sclerae normal ENT: hearing grossly normal, pharynx normal Neck: supple, no JVD, trachea midline Respiratory/Chest: chest non-tender, lungs clear, normal breath sounds, no respiratory distress, no accessory muscle use Cardiovascular: no edema, no gallop, no JVD, no murmur, normal peripheral pulses, + bradycardia (50s, regular ) Abdomen/GI: normal bowel sounds, non tender, soft Back: normal inspection, no muscle spasm Extremities/Musculoskelatal: no calf tenderness, normal capillary refill, no pedal edema Neurologic/Psych: alert, oriented x 3, + pertinent finding (forgetful, no motor or sensory deficits noted on gross exam ) Skin: normal color, warm/dry, no rash Lymphatic: no adenopathy Hospital Course CHEST PAIN, POSSIBLE UNSTABLE ANGINA VS. NSTEMI History of CAD s/p CABG - previous cardiac cath: 40% proximal RCA. Severe [place] left coronary artery disease. Patent SVG to L Cx marginal. - troponin mildly elevated: 0.1--> 0.1--> 0.09 - EKG nonspecific - was placed on Nitropaste and Heparin IV drip - TTE: EF: 55-60%, intact systolic function, mod TR, mild MR - evaluated by Dr. Cartwright- Tag And Label Cutter - s/p Cardiac cath 05/12/16: Aortic arch very tortuous. Despite multiple attempts and catheters the left subclavian could not be accessed. Left radial artery cannulated twice. Spasm prevented wire advancement. Left ulnar artery was not able to be accessed. Procedure terminated. Patient stable. - s/p Stress test 05/13/16: no signs of ischemia per Dr. Cartwright recommend to continue medical management, cleared for d/c today continue Aspirin, Statin HYPERTENSION - BP 150-160s placed on nitropaste, received 1 dose of Amlodipine - BP usually on the lower side, also has history of orthostasis as per Dr. Cartwright - additional BP medications not recommended by Dr. Cartwright at this time - monitor BP as outpatient THROMBOCYTOPENIA: -mildly low platelet count 114-->126 - no signs of active bleeding - monitor as outpatient PAROXYSMAL VENTRICULAR TACHYCARDIA: -continue Amiodarone BPH: -continue Proscar, Flomax GERD: -continue PPI INSOMNIA: -continue Trazodone HYPERLIPIDEMIA: -continue Statin Disposition d/c home ff up with PCP in 3-5 days ff up with Dr. Cartwright as scheduled Total time spent on discharge = 40 minutes This includes examination of the patient, discharge planning, medication reconciliation, and communication with other providers. Discharge Instructions Discharge Instructions Admission Reason for Admission: Acs (Acute Coronary Syndrome) Discharge Discharge Diagnosis / Problem: CHEST PAIN Discharge Goals Goal(s): Diagnostic testing, Therapeutic intervention Activity Recommendations Activity Limitations: as noted below (no heavy exertion until re-evaluated by Primary Care Physician or Tag And Label Cutter) . Instructions / Follow-Up Instructions / Follow-Up Follow up with Primary Care Physician in 3-5 days. (clinic to call patient with appointment). Follow up with Dr. Cartwright as scheduled. Home Care: * Take your medications exactly as directed. Don't skip doses. * Remember that recovery after a heart attack takes time. Plan to rest for at lease 4-8 weeks while you recover. Then return to normal activity when your doctor says it's okay. * Ask your doctor about joining a heart rehabilitation program. * Tell your doctor if you are feeling depressed. Feelings of sadness are common after a heart attack, but it is important that you speak to someone if you are feeling overwhelmed by these feelings. * If you are having chest pain, call 911 for an ambulance. Do NOT drive yourself to the hospital. * Ask your family members to learn CPR. * Learn to take your own blood pressure and pulse. Keep a record of your results. Ask your doctor when you should seek emergency medical attention. He or she will tell you which blood pressure reading is dangerous. Lifestyle Changes: * Maintain a healthy weight. Get help to lose any extra pounds. * Cut back on salt. * Limit canned, dried, packaged, and fast foods. * Don't add salt to your food. * Season foods with herbs instead of salt when you cook. * Break the smoking habit. Enroll in a stop-smoking program to improve your chances of success. * Limit fatty foods. * Check your lipid levels regularly. (Your doctor can show you how to do this.) * Build up your activity according to your doctor's recommendation. * Ask your doctor when it's okay to resume sexual activity. * Tell your doctor about any erectile dysfunction (ED) medication you are taking. Some ED medications are not safe if you take certain heart medications. * Try to manage stress. Follow Up: It is important for you to keep your follow up appointments with your medical provider. Current Hospital Diet Patient's current hospital diet: AHA Diet (Heart Healthy) Discharge Diet Recommended Diet: AHA Diet (Heart Healthy) Procedures Procedures Performed: Cardiac Catheterization, Stress Test Pending Studies Studies pending at discharge: yes List of pending studies: repeat blood work- CBC Laboratory Results Hemoglobin A1c Test 05/10/16 06:06 Range/Units Estimated Average Glucose 105 mg/dl Hemoglobin A1c 5.3 4.5-5.6 % Lipid Panel Test 05/10/16 06:06 Range/Units Triglycerides Level 52 0-150 mg/dl Cholesterol Level 52 0-200 mg/dl HDL Cholesterol 31 mg/dl Cholesterol/HDL Ratio 1.7 LDL Cholesterol, Calculated 11 mg/dl Medical Emergencies . Who to Call and When: Medical Emergencies: If at any time you feel your situation is an emergency, please call 911 immediately. Call 911 immediately or go to your nearest Emergency Room if you experience any of the following: Warning Signs and Symptoms of a Heart Attack * Chest pain that is not relieved by medication * Shortness of breath . Non-Emergent Contact Non-Emergency issues call your: Primary Care Provider Call Non-Emergent contact if: you have a fever . Past History Medical & Surgical History: (1) CAD (coronary artery disease) (2) BPH (benign prostatic hyperplasia) (3) Old PR (myocardial infarction) (4) GERD (gastroesophageal reflux disease) (5) History of left heart catheterization (LHC) (6) Acoustic neuroma (7) Paroxysmal VT (8) Insomnia (9) HLD (hyperlipidemia) (10) Hx of CABG (11) H/O colonoscopy (12) H/O shoulder surgery . "Provider Documentation" section prepared by Ko York. AMI Core Measures Reason no ASA as I/P: Treatment provided - N/A Reason no ASA at D/C: Treatment provided - N/A Reason no statin as I/P: Treatment provided - N/A Reason no statin at D/C: Treatment provided - N/A VTE Core Measure Inpt VTE Proph given/why not?: Unfractionated heparin SQ
[2016-05-13 15:21] VITALS: BP 162/71; PULSE 54; TEMP 36.5; O2SAT 94
[2016-05-13 16:00] VITALS: BP 151/70; PULSE 59; TEMP 36.8; O2SAT 97
--- NOTE | 2016-05-13 17:31 | EXERCISE STRESS ECHO ---
*NOTICE TO RECEIVING [employer] This information is strictly Confidential and protected under [place] law. [place] law prohibits you from making any further disclosure of this information unless further disclosure is expressly permitted by the written consent of the person to whom it pertains or is authorized by law. A general authorization for the release of medical or other information is not sufficient for this purpose. Hospital accepts no responsibility if the information is made available to any other person, INCLUDING THE PATIENT. Interpretation Summary * Name: ADRIA MCCAULEY Study Date: 05/13/2016 08:24 AM BP: 147/68 mmHg * Patient Location: C.2T\S\S239\S\2 HR: 53 * : 1935 (M/d/yyyy) Gender: Male Height: 71 in * Age: 80 yrs Ethnicity: [place] Weight: 153 lb * Ordering Physician: Home Cartwright * Referring Physician: Self, Referred * Performed By: Richa Clark RDCS * * Reason For Study: CHEST PAIN * BSA: 1.9 m2 * History: CHEST PAIN * This was a normal stress echocardiogram. * The left ventricular ejection fraction increases normally with stress. The left ventricular end-systolic cavity size reduces post-stress (normal response). The left ventricular wall motion with stress is normal. * The stress ECG response was normal * No arrhythmia were noted with stress. Procedure Details * ECHOEX, CPT #46471 Left Ventricle * The left ventricle is normal in size. * There is normal left ventricular wall thickness. * The left ventricular ejection fraction increases normally with stress. The left ventricular end-systolic cavity size reduces post-stress (normal response). The left ventricular wall motion with stress is normal. * Resting wall motion: Normal. Stress wall motion: Appropriate increase in Left ventricular systolic function and decrease in cavity size. No stress induced segmental wall motion abnormalities. Stress Parameters * Rest ECG:Sinus bradycardia,NS-ST-T * Post exercise ECG: No significant changes compared to baseline ECG. * Rest heart rate was '53' BPM. * Rest blood pressure was '147/68' * Maximum heart rate achieved was 113 bpm. * Maximum heart rate was 81 % of maximum age-predicted heart rate. * Maximum blood pressure was '186/63' * Total exercise time was '7:05' * Maximum exercise MET level achieved was '8.10' METS * Maximum treadmill speed was '3.10' miles per hour. * Maximum treadmill elevation was '14'% grade. * Exercise was terminated due to 'FATIGUE'
== END 2016-05-13 16:00 | disposition home or self-care (01) | DRG 281 ==
LOC: ENRESERVTM → ENRESERVDT → C.EDB 10:58 → C.2T 13:41
PROVIDERS: ADMIT Emergency Medicine; ATTEND Internal Medicine
PROC: B2131ZZ Fluoroscopy of Multiple Coronary Artery Bypass Grafts using Low Osmolar Contrast (ICD-10-PCS; principal; 2016-05-12 07:08)
PROC: B3101ZZ Fluoroscopy of Thoracic Aorta using Low Osmolar Contrast (ICD-10-PCS; principal; 2016-05-12 07:08)
PROC: B2111ZZ Fluoroscopy of Multiple Coronary Arteries using Low Osmolar Contrast (ICD-10-PCS; principal; 2016-05-12 07:08)
DX: I21.4 Non-ST elevation (NSTEMI) myocardial infarction (principal); I47.2 Ventricular tachycardia; N40.0 Benign prostatic hyperplasia without lower urinary tract symptoms; K21.9 Gastro-esophageal reflux disease without esophagitis; I25.110 Atherosclerotic heart disease of native coronary artery with unstable angina pectoris; I48.91 Unspecified atrial fibrillation; D69.6 Thrombocytopenia, unspecified; G47.00 Insomnia, unspecified; E78.5 Hyperlipidemia, unspecified; I25.2 Old myocardial infarction; I10 Essential (primary) hypertension; I08.1 Rheumatic disorders of both mitral and tricuspid valves; Z87.891 Personal history of nicotine dependence; I49.1 Atrial premature depolarization; D33.3 Benign neoplasm of cranial nerves; R11.0 Nausea; T40.2X5A Adverse effect of other opioids, initial encounter; Y92.239 Unspecified place in hospital as the place of occurrence of the external cause; Z87.09 Personal history of other diseases of the respiratory system; Z95.1 Presence of aortocoronary bypass graft; Z95.5 Presence of coronary angioplasty implant and graft; Z79.82 Long term (current) use of aspirin; Z79.899 Other long term (current) drug therapy

== ENCOUNTER → 2016-07-31 | Outpatient (CLI) | payer BC ==
[~2016-07-31] MED LIST changes: +ASPEC81 PO; -ASPI81TA28 PO; -FAMO20TA11 PO; +FAMO20TA9 PO; +OMEP40CA41 PO; +TRAZ50TA35 PO
== END | disposition home or self-care (01) ==
LOC: C.LAB 08:07
PROVIDERS: ATTEND Urology
DX: N40.1 Benign prostatic hyperplasia with lower urinary tract symptoms (principal)

== ENCOUNTER 2017-11-28 11:35 | Inpatient (IN) | payer BC, OTHER ==
[~2017-11-28] VITALS: Ht 180.3 cm; Wt 68.0 kg
[~2017-11-28 11:35] MED LIST changes: +ACET-1256 PO; -ASPEC81 PO; +ASPI81CH2 PO; -CLCS60 PO; +CLIN1SOL23 TOP; -FAMO20TA9 PO; -FINA5TAB PO; +MULT-190 PO; +NRV5 PO; +PLV75 PO; +RNXER500 PO; -TRAZ50TA35 PO
[2017-11-28 12:32] LABS: BASO % 0.1 %; BASO ABS # 0.01 K/uL (0-0.2); EOS % 0.9 %; EOS ABS # 0.08 K/uL (0-0.5); HEMATOCRIT 38.8 % (42-52); HEMOGLOBIN 14.2 g/dL (14.0-18.0); IG# 0.01 K/uL (0.00-0.02); LYMPH % 16.3 %; LYMPH ABS # 1.43 K/uL (1.2-3.4); MEAN CELL VOLUME 91.1 fL (80-100); MEAN CORPUSCULAR HEMOGLOBIN 33.3 pg (25-34); MEAN CORPUSCULAR HGB CONC 36.6 g/dl (32-36); MEAN PLATELET VOLUME 9.8 fL (7.4-10.4); MONO % 12.4 %; MONO ABS # 1.09 K/uL (0.11-0.59); NEUT % 70.2 %; NEUT ABS # 6.14 K/uL (1.4-6.5); PLATELET COUNT 152 K/uL (130-400); RED CELL DISTRIBUTION WIDTH CV 12.8 % (11.5-14.5); RED CELL DISTRIBUTION WIDTH SD 42.5 fL (36.4-46.3); WHITE BLOOD COUNT 8.76 K/uL (4.8-10.8)
[2017-11-28 12:40] LABS: PTT PATIENT 27.5 SECONDS (21.0-31.0)
[2017-11-28] MEDS ORDERED: FINA5TAB PO (12:40)
[2017-11-28] MEDS ORDERED: SPIR25TA PO (12:40)
[2017-11-28] MEDS ORDERED: ISR/30 PO (12:40)
[2017-11-28] MEDS ORDERED: ASPI81TA28 PO (12:40)
[2017-11-28] MEDS ORDERED: VNTHFA/IN INH (12:40)
--- NOTE | 2017-11-28 13:00 | DIAGNOSTIC IMAGING REPORT ---
CT SCAN OF THE BRAIN WITHOUT IV CONTRAST CLINICAL HISTORY: Weakness. Change in mental status. COMPARISON STUDY: CT of the brain dated 06/16/2012. TECHNIQUE: Unenhanced axial CT scan of the brain is performed from the vertex to the skull base. A dose lowering technique was utilized adhering to the principles of ALARA. CT DOSE: 537.48 mGy.cm FINDINGS: Brain parenchyma: There are age-related involutional changes noting mild to moderate patchy subcortical and periventricular microangiopathic change. There is no hemorrhage, mass effect, or evidence of acute territorial ischemia by CT criteria. Lynch-white matter is preserved. No extra-axial fluid collection is seen. Ventricles, sulci, cisterns: Prominent secondary to involutional change. Intracranial vasculature: There is atherosclerotic calcification of the cavernous carotid and vertebral arteries. Calvarium: Unremarkable. Sinuses and mastoids: The visualized paranasal sinuses are clear. There is a left mastoid effusion with evidence of previous mastoid surgery. The right mastoid air cells are well pneumatized. Orbits: The bony orbits are grossly intact. IMPRESSION: There is no hemorrhage, mass effect, or evidence of acute territorial ischemia by CT criteria. Electronically signed by: Jack Park M.D. 11/28/2017 12:59 PM Dictated Date/Time: 11/28/2017 12:57 PM
--- NOTE | 2017-11-28 13:18 | DIAGNOSTIC IMAGING REPORT ---
SINGLE VIEW CHEST CLINICAL HISTORY: Weakness. Change in mental status FINDINGS: 2 AP, portable, upright chest radiographs are compared to study dated 10/26/2017 and correlated with chest CT dated 04/05/2014. The examination is degraded by portable technique and patient rotation. The patient is status post midline sternotomy. The heart is enlarged and there is atherosclerotic calcification of the thoracic aorta. The pulmonary vasculature is noncongested. Chronic interstitial thickening is similar to previous. Emphysema is suspected. No airspace consolidation or large pleural effusion is identified. No pneumothorax is seen. The skeletal structures are osteopenic. The bony thorax is grossly intact. Arthritic change is seen in the shoulders. IMPRESSION: Cardiomegaly and suspect emphysema. No acute cardiopulmonary abnormality is seen. Electronically signed by: Jack Park M.D. 11/28/2017 1:17 PM Dictated Date/Time: 11/28/2017 1:15 PM
[2017-11-28 13:19] LABS: CALCIUM 8.9 mg/dl (8.5-10.1); CKMB 1.4 ng/ml (0.5-3.6); CREATININE 1.14 mg/dl (0.60-1.40); POTASSIUM 4.3 mmol/L (3.5-5.1); TOTAL PROTEIN 7.8 gm/dl (6.4-8.2)
--- NOTE | 2017-11-28 13:59 | EMERGENCY ROOM VISIT NOTE ---
History Report prepared by Kian: Moon Acevedo Under the Supervision of: Dez DeanO. First contact with patient: 11:46 Chief Complaint: HEADACHE Stated Complaint: HEADACHE, DIZZY, NAUSEOUS, REF'D BY DOC History of Present Illness The patient is an 82 year old male who presents to the Emergency Room with complaints of intermittent headaches over the last several weeks. The patient reports feeling dizzy and short of breath. Per family, the patient's sodium is also low and states that the patient had blood work done at [facility] yesterday. Per family, the patient was called this morning and was told to go to the ER because of his sodium levels. His family reports that the patient was in the hospital 3 weeks ago for headaches, shortness of breath, and dizziness. Per family, the patient was also given many medications during his hospital stay. His family states that the patient is currently on one diuretic but was previously on two. His family states that the patient has a history of an acoustic neuroma. Source of History: patient, family Onset: over the last several weeks Position: head Quality: other (headache) Timing: intermittent Associated Symptoms: + SOB, + weakness (dizziness) Note: additional symptom: low sodium Review of Systems See HPI for pertinent positives & negatives. A total of 10 systems reviewed and were otherwise negative. Past Medical & Surgical Medical Problems: (1) Acoustic neuroma (2) ACS (acute coronary syndrome) (3) BPH (benign prostatic hyperplasia) (4) CAD (coronary artery disease) (5) Chest pressure (6) GERD (gastroesophageal reflux disease) (7) History of left heart catheterization (LHC) (8) HLD (hyperlipidemia) (9) Insomnia (10) Old [place] (myocardial infarction) (11) Paroxysmal VT Surgical Problems: (1) H/O colonoscopy (2) H/O shoulder surgery (3) Hx of CABG Family History Cancer FH: heart disease FHx: lung disease Hypertension Social History Smoking Status: Former Smoker Marital Status: Housing Status: lives with family Occupation Status: retired Current/Historical Medications Scheduled Albuterol Hfa (Ventolin Hfa), 2-4 PUFFS INH Q6H Amiodarone Hcl (Cordarone), 200 MG PO QAM Aspirin (Aspirin), 1 TAB PO DAILY Aspirin (Aspirin Ec), 81 MG PO DAILY Atorvastatin (Lipitor), 80 MG PO HS Clindamycin Phosphate (Topical (Clindamycin Phosphate), 1 APPLN TOP BID Clopidogrel Bisulfate (Clopidogrel), 75 MG PO QAM Finasteride (Proscar), 5 MG PO DAILY Isosorbide Dinitrate (Isordil), 30 MG PO DAILY Ocuvite Preservision (Ocuvite Preservision), 1 TAB PO QAM Ranolazine (Ranexa), 500 MG PO BID Spironolactone (Aldactone), 25 MG PO DAILY Tamsulosin Hcl (Flomax), 0.4 MG PO DIRECTED Scheduled PRN Acetaminophen (Tylenol), 1,000 MG PO QD PRN for Pain Nitroglycerin (Nitrostat), 0.4 MG UT for Chest Pain Omeprazole (Prilosec), 40 MG PO QPM PRN for Heartburn Allergies Coded Allergies: Oxycodone (Verified Adverse Reaction, Intermediate, NAUSEA, VOMITING, ) Aspirin (Verified Adverse Reaction, Mild, epistaxis with ASA 325mg, 10/26/17 ) Physical Exam Vital Signs Date Time Temp Pulse Resp B/P (MAP) Pulse Ox O2 Delivery O2 Flow Rate FiO2 11/28/17 13:21 65 18 119/61 97 Room Air 11/28/17 11:38 36.7 63 18 137/60 97 Room Air Physical Exam VITAL SIGNS: were reviewed as above. GENERAL:Non-toxic in appearance. SKIN: Warm dry and pink. HEAD: Normocephalic and atraumatic. OROPHARYNX: Is clear and moist NECK: Supple without lymphadenopathy or meningismus. LUNGS: clear. HEART: Regular rate and rhythm. ABDOMEN: Soft and nontender. EXTREMITIES: Warm and well perfused. NEUROLOGICALLY: Awake alert and oriented without focal deficit. Cranial nerves 2 -12 are intact. There is no pronator drift. Cerebellar testing is within normal limits. There is no nystagmus. There is no facial droop. Speech is clear. Vision is grossly normal. MUSCULOSKELETAL: Good muscle tone. No evidence of trauma. Medical Decision & Procedures ER Provider Diagnostic Interpretation: Radiology results as stated below per my review and radiologist interpretation: SINGLE VIEW CHEST CLINICAL HISTORY: Weakness. Change in mental status FINDINGS: 2 AP, portable, upright chest radiographs are compared to study dated 10/26/2017 and correlated with chest CT dated 04/05/2014. The examination is degraded by portable technique and patient rotation. The patient is status post midline sternotomy. The heart is enlarged and there is atherosclerotic calcification of the thoracic aorta. The pulmonary vasculature is noncongested. Chronic interstitial thickening is similar to previous. Emphysema is suspected. No airspace consolidation or large pleural effusion is identified. No pneumothorax is seen. The skeletal structures are osteopenic. The bony thorax is grossly intact. Arthritic change is seen in the shoulders. IMPRESSION: Cardiomegaly and suspect emphysema. No acute cardiopulmonary abnormality is seen. Electronically signed by: Jack Park M.D. 11/28/2017 1:17 PM Dictated Date/Time: 11/28/2017 1:[address] SCAN OF THE BRAIN WITHOUT IV CONTRAST CLINICAL HISTORY: Weakness. Change in mental status. COMPARISON STUDY: CT of the brain dated 06/16/2012. TECHNIQUE: Unenhanced axial CT scan of the brain is performed from the vertex to the skull base. A dose lowering technique was utilized adhering to the principles of ALARA. CT DOSE: 537.48 mGy.cm FINDINGS: Brain parenchyma: There are age-related involutional changes noting mild to moderate patchy subcortical and periventricular microangiopathic change. There is no hemorrhage, mass effect, or evidence of acute territorial ischemia by CT criteria. Lynch-white matter is preserved. No extra-axial fluid collection is seen. Ventricles, sulci, cisterns: Prominent secondary to involutional change. Intracranial vasculature: There is atherosclerotic calcification of the cavernous carotid and vertebral arteries. Calvarium: Unremarkable. Sinuses and mastoids: The visualized paranasal sinuses are clear. There is a left mastoid effusion with evidence of previous mastoid surgery. The right mastoid air cells are well pneumatized. Orbits: The bony orbits are grossly intact. IMPRESSION: There is no hemorrhage, mass effect, or evidence of acute territorial ischemia by CT criteria. Electronically signed by: Jack Park M.D. 11/28/2017 12:59 PM Dictated Date/Time: 11/28/2017 12:57 PM Laboratory Results 11/28/17 12:25 Red Blood Count 4.26, Mean Corpuscular Volume 91.1, Mean Corpuscular Hemoglobin 33.3, Mean Corpuscular Hemoglobin Concent 36.6, Mean Platelet Volume 9.8, Neutrophils (%) (Auto) 70.2, Lymphocytes (%) (Auto) 16.3, Monocytes (%) (Auto) 12.4, Eosinophils (%) (Auto) 0.9, Basophils (%) (Auto) 0.1, Neutrophils # (Auto ) 6.14, Lymphocytes # (Auto) 1.43, Monocytes # (Auto) 1.09, Eosinophils # (Auto ) 0.08, Basophils # (Auto) 0.01 11/28/17 12:25 Test 11/28/17 12:08 11/28/17 12:25 Urine Color YELLOW Urine Appearance CLEAR (CLEAR) Urine pH 7.0 (4.5-7.5) Urine Specific [place] 1.016 (1.000-1.030) Urine Protein NEG (NEG) Urine Glucose (UA) NEG (NEG) Urine Ketones NEG (NEG) Urine Occult Blood NEG (NEG) Urine Nitrite NEG (NEG) Urine Bilirubin NEG (NEG) Urine Urobilinogen NEG (NEG) Urine Leukocyte Esterase NEG (NEG) Urine WBC (Auto) 0 /hpf (0-5) Urine RBC (Auto) 0-4 /hpf (0-4) Urine Hyaline Casts (Auto) 0 /lpf (0-5) Urine Epithelial Cells (Auto) 0-5 /lpf (0-5) Urine Bacteria (Auto) NEG (NEG) White Blood Count 8.76 K/uL (4.8-10.8) Red Blood Count 4.26 M/uL (4.7-6.1) Hemoglobin 14.2 g/dL (14.0-18.0) Hematocrit 38.8 % (42-52) Mean Corpuscular Volume 91.1 fL (80-100) Mean Corpuscular Hemoglobin 33.3 pg (25-34) Mean Corpuscular Hemoglobin Concent 36.6 g/dl (32-36) Platelet Count 152 K/uL (130-400) Mean Platelet Volume 9.8 fL (7.4-10.4) Neutrophils (%) (Auto) 70.2 % Lymphocytes (%) (Auto) 16.3 % Monocytes (%) (Auto) 12.4 % Eosinophils (%) (Auto) 0.9 % Basophils (%) (Auto) 0.1 % Neutrophils # (Auto) 6.14 K/uL (1.4-6.5) Lymphocytes # (Auto) 1.43 K/uL (1.2-3.4) Monocytes # (Auto) 1.09 K/uL (0.11-0.59) Eosinophils # (Auto) 0.08 K/uL (0-0.5) Basophils # (Auto) 0.01 K/uL (0-0.2) RDW Standard Deviation 42.5 fL (36.4-46.3) RDW Coefficient of Variation 12.8 % (11.5-14.5) Immature Granulocyte % (Auto) 0.1 % Immature Granulocyte # (Auto) 0.01 K/uL (0.00-0.02) Prothrombin Time 10.6 SECONDS (9.0-12.0) Prothromb Time International Ratio 1.0 (0.9-1.1) Activated Partial Thromboplast Time 27.5 SECONDS (21.0-31.0) Partial Thromboplastin Ratio 1.1 Anion Gap 6.0 mmol/L (3-11) Est Creatinine Clear Calc Drug Dose 49.4 ml/min Estimated GFR () 68.5 Estimated GFR (Non- 59.1 BUN/Creatinine Ratio 14.0 (10-20) Calcium Level 8.9 mg/dl (8.5-10.1) Magnesium Level 2.1 mg/dl (1.8-2.4) Total Bilirubin 0.9 mg/dl (0.2-1) Direct Bilirubin 0.3 mg/dl (0-0.2) Aspartate Amino Transf (AST/SGOT) 27 U/L (15-37) Alanine Aminotransferase (ALT/SGPT) 34 U/L (12-78) Alkaline Phosphatase 82 U/L (45-117) Total Creatine Kinase 76 U/L (39-308) Creatine Kinase MB 1.4 ng/ml (0.5-3.6) Creatine Kinase MB Ratio 1.8 (0-3.0) Troponin I 0.079 ng/ml (0-0.045) Total Protein 7.8 gm/dl (6.4-8.2) Albumin 4.0 gm/dl (3.4-5.0) Lipase 219 U/L (73-393) Thyroid Stimulating Hormone (TSH) 1.330 uIu/ml (0.300-4.500) Laboratory results as stated above per my review. ECG Per My Interpretation Indication: weakness Rate (beats per minute): 75 Rhythm: normal sinus Findings: no ectopy, other (no ST elevation) ED Course 1149: Previous medical records were reviewed. The patient was evaluated in room C6. A complete history and physical examination was performed. 1402: On reevaluation, the patient is resting. I discussed the results and findings with him. He verbalized agreement of the treatment plan. I spoke with Dr. Thomas of the [facility] Hospitalist Service. The patient will be evaluated for further management and care. Medical Decision Differential includes acute coronary syndrome, myocardial infarction, CVA, TIA, anemia, infection, pneumonia, UTI, pyelonephritis, poor nutrition, dehydration, electrolyte disturbance,hypoglycemia. This is a 82-year-old male who presents to the ED with a chief complaint of low sodium. The patient was sent here from home after he had blood work done yesterday. The blood work revealed a sodium of 123. The patient was contacted and sent here. He normally sees Dr. Soria. The patient reports a headache as well as some dizziness and his family states that he staggers. The patient has recently been on hydrochlorothiazide. This was discontinued yesterday. The patient's vital signs are normal. His neurologic and physical exam are normal. The patient's sodium was 122. EKG shows a normal sinus rhythm. Troponin was slightly elevated although this appears to be chronic. TSH is normal. Urine did not show infection, chest x-ray did not show acute process and a CT scan of the brain did not show acute process. CBC was normal. The patient was told the results. He will be seen by the hospitalist service for further inpatient evaluation. Sodium was normal last month. Medication Reconcilliation Current Medication List: was personally reviewed by me Blood Pressure Screening Patient's blood pressure: Normal blood pressure Consults Time Called: [phone] Consulting Physician: Dr. Joseph Returned Call: 1402 Discussed the patient's case. The patient will be evaluated for further treatment and disposition. Impression Primary Impression: Hyponatremia Additional Impressions: Weakness Dizziness Unsteady gait Scribe Attestation The scribe's documentation has been prepared under my direction and personally reviewed by me in its entirety. I confirm that the note above accurately reflects all work, treatment, procedures, and medical decision making performed by me. Departure Information Dispostion Being Evaluated By Hospitalist Referrals Cal Dupont D.O. (PCP) Patient Instructions My [facility] Problem Qualifiers
--- NOTE | 2017-11-28 15:35 | History and Physical ---
History & Physical Date & Time of Service: Nov 28, 2017 at 15:32 Chief Complaint: Headache, Dizzy, Nauseous, Ref'd By Doc Primary Care Physician: Cal Dupont D.OLopez History of Present Illness Source: patient, spouse, clinic records, hospital records 82 year old male with PMHx of CAD s/p CABG, PCI, Paroxysmal V tach, reflux esophagitis presents to the Emergency Room after he was instructing by his PCP to go to the ER for abnormal sodium. Pt was recently discharge from the ER on 10/29 for chest pain and had a cardiac cath done during last admission. Most of the history obtained from the due to pt dementia. As per , Pt has been feeling very weak, tired and poor appetite in the past week. said that pt was recently starting on HCTZ about 2 weeks ago after Amlodipine was discontinued due to lower extremities edema. said that about 1 week after starting the HCTZ patient started to feel very weak. Pt said that his legs feels very weak. Also pt has been having headache, located in the frontal area. He said that he feels a pressure in his ears. said that he had outpatient lab done by his PCP, and received a called this morning that his Na was 124 and he needed to go to the ER for eval. Lab done in the ER showed Na 122.CT in the ER showed any acute intracranial finding. Pt denies any chest pain, palpitation and SOB. Past Medical/Surgical History Medical Problems: (1) Acoustic neuroma (2) ACS (acute coronary syndrome) (3) BPH (benign prostatic hyperplasia) (4) CAD (coronary artery disease) (5) Chest pressure (6) Elevated troponin (7) GERD (gastroesophageal reflux disease) (8) History of left heart catheterization (LHC) (9) HLD (hyperlipidemia) (10) Insomnia (11) Old [place] (myocardial infarction) (12) Paroxysmal VT (13) Precordial chest pain (14) Substernal chest pain Surgical Problems: (1) H/O colonoscopy (2) H/O shoulder surgery (3) Hx of CABG Family History Cancer FH: heart disease FHx: lung disease Hypertension Social History Smoking Status: Former Smoker Marital Status: Housing status: lives with family Occupational Status: retired Immunizations History of Influenza Vaccine: Yes Influenza Vaccine Date: Feb 07, 2013 History of Tetanus Vaccine?: Yes Tetanus Immunization Date: Jun 16, 2008 History of Pneumococcal: Yes Pneumococcal Date: Jan 14, 2009 History of Hepatitis B Vaccine: No Allergies Coded Allergies: Oxycodone (Verified Adverse Reaction, Intermediate, NAUSEA, VOMITING, ) Aspirin (Verified Adverse Reaction, Mild, epistaxis with ASA 325mg, 10/26/17 ) Home Medications Scheduled Albuterol Hfa (Ventolin Hfa), 2-4 PUFFS INH Q6H Amiodarone Hcl (Cordarone), 200 MG PO QAM Aspirin (Aspirin), 1 TAB PO DAILY Atorvastatin (Lipitor), 80 MG PO HS Clindamycin Phosphate (Topical (Clindamycin Phosphate), 1 APPLN TOP BID Clopidogrel Bisulfate (Clopidogrel), 75 MG PO QAM Finasteride (Proscar), 5 MG PO DAILY Isosorbide Mononitrate (Isosorbide Mononitrate ER), 1 TAB PO DAILY Ocuvite Preservision (Ocuvite Preservision), 1 TAB PO QAM Ranolazine (Ranexa), 500 MG PO BID Spironolactone (Aldactone), 25 MG PO DAILY Tamsulosin Hcl (Flomax), 0.4 MG PO DIRECTED Scheduled PRN Acetaminophen (Tylenol), 1,000 MG PO QD PRN for Pain Nitroglycerin (Nitrostat), 0.4 MG UT for Chest Pain Omeprazole (Prilosec), 40 MG PO QPM PRN for Heartburn Review of Systems Constitutional: + weakness, + fatigue, + problem reported (headache), No fever , No chills Eyes: No discharge, No diplopia ENT: + problem reported, No nasal symptoms, No sore throat, No tinnitus Respiratory: + dyspnea on exertion, No cough Cardiovascular: No chest pain, No palpitations Abdomen: + nausea Musculoskeletal: + swelling, No calf pain Genitourinary - Male: No hematuria Neurologic: + weakness, + balance problems Psychiatric: No substance abuse Endocrine: + fatigue Hematologic / Lymphatic: No night sweats Integumentary: No rash, No itch Physical Exam Vital Signs Date Time Temp Pulse Resp B/P (MAP) Pulse Ox O2 Delivery O2 Flow Rate FiO2 11/28/17 14:42 64 18 140/66 96 Room Air 11/28/17 13:21 65 18 119/61 97 Room Air 11/28/17 11:38 36.7 63 18 137/60 97 Room Air General Appearance: WD/WN, no apparent distress Head: normocephalic, atraumatic Eyes: PERRL, EOMI ENT: + pertinent finding (decrease hearing function, hearing aid) Neck: no JVD, trachea midline Respiratory/Chest: chest non-tender, no respiratory distress, no accessory muscle use Cardiovascular: regular rate, rhythm, + systolic murmur, + pertinent finding ( Edema R leg) Abdomen/GI: normal bowel sounds, non tender, soft Back: no CVA tenderness Extremities/Musculoskelatal: no calf tenderness Neurologic/Psych: no motor/sensory deficits, alert Skin: warm/dry, no rash Diagnostics Laboratory Results Results Past 24 Hours Test 11/28/17 12:08 11/28/17 12:25 Range/Units Urine Color YELLOW Urine Appearance CLEAR CLEAR Urine pH 7.0 4.5-7.5 Urine Specific [place] 1.016 1.000-1.030 Urine Protein NEG NEG Urine Glucose (UA) NEG NEG Urine Ketones NEG NEG Urine Occult Blood NEG NEG Urine Nitrite NEG NEG Urine Bilirubin NEG NEG Urine Urobilinogen NEG NEG Urine Leukocyte Esterase NEG NEG Urine WBC (Auto) 0 0-5 /hpf Urine RBC (Auto) 0-4 0-4 /hpf Urine Hyaline Casts (Auto) 0 0-5 /lpf Urine Epithelial Cells (Auto) 0-5 0-5 /lpf Urine Bacteria (Auto) NEG NEG White Blood Count 8.76 4.8-10.8 K/uL Red Blood Count 4.26 4.7-6.1 M/uL Hemoglobin 14.2 14.0-18.0 g/dL Hematocrit 38.8 42-52 % Mean Corpuscular Volume 91.1 80-100 fL Mean Corpuscular Hemoglobin 33.3 25-34 pg Mean Corpuscular Hemoglobin Concent 36.6 32-36 g/dl Platelet Count 152 130-400 K/uL Mean Platelet Volume 9.8 7.4-10.4 fL Neutrophils (%) (Auto) 70.2 % Lymphocytes (%) (Auto) 16.3 % Monocytes (%) (Auto) 12.4 % Eosinophils (%) (Auto) 0.9 % Basophils (%) (Auto) 0.1 % Neutrophils # (Auto) 6.14 1.4-6.5 K/uL Lymphocytes # (Auto) 1.43 1.2-3.4 K/uL Monocytes # (Auto) 1.09 0.11-0.59 K/uL Eosinophils # (Auto) 0.08 0-0.5 K/uL Basophils # (Auto) 0.01 0-0.2 K/uL RDW Standard Deviation 42.5 36.4-46.3 fL RDW Coefficient of Variation 12.8 11.5-14.5 % Immature Granulocyte % (Auto) 0.1 % Immature Granulocyte # (Auto) 0.01 0.00-0.02 K/uL Prothrombin Time 10.6 9.0-12.0 SECONDS Prothromb Time International Ratio 1.0 0.9-1.1 Activated Partial Thromboplast Time 27.5 21.0-31.0 SECONDS Partial Thromboplastin Ratio 1.1 Sodium Level 122 136-145 mmol/L Potassium Level 4.3 3.5-5.1 mmol/L Chloride Level 90 98-107 mmol/L Carbon Dioxide Level 26 21-32 mmol/L Anion Gap 6.0 3-11 mmol/L Blood Urea Nitrogen 16 7-18 mg/dl Creatinine 1.14 0.60-1.40 mg/dl Est Creatinine Clear Calc Drug Dose 49.4 ml/min Estimated GFR () 68.5 Estimated GFR (Non- 59.1 BUN/Creatinine Ratio 14.0 10-20 Random Glucose 92 70-99 mg/dl Calcium Level 8.9 8.5-10.1 mg/dl Magnesium Level 2.1 1.8-2.4 mg/dl Total Bilirubin 0.9 0.2-1 mg/dl Direct Bilirubin 0.3 0-0.2 mg/dl Aspartate Amino Transf (AST/SGOT) 27 15-37 U/L Alanine Aminotransferase (ALT/SGPT) 34 12-78 U/L Alkaline Phosphatase 82 45-117 U/L Total Creatine Kinase 76 39-308 U/L Creatine Kinase MB 1.4 0.5-3.6 ng/ml Creatine Kinase MB Ratio 1.8 0-3.0 Troponin I 0.079 0-0.045 ng/ml Total Protein 7.8 6.4-8.2 gm/dl Albumin 4.0 3.4-5.0 gm/dl Lipase 219 73-393 U/L Thyroid Stimulating Hormone (TSH) 1.330 0.300-4.500 uIu/ml Diagnostic Radiology SINGLE VIEW CHEST CLINICAL HISTORY: Weakness. Change in mental status FINDINGS: 2 AP, portable, upright chest radiographs are compared to study dated 10/26/2017 and correlated with chest CT dated 04/05/2014. The examination is degraded by portable technique and patient rotation. The patient is status post midline sternotomy. The heart is enlarged and there is atherosclerotic calcification of the thoracic aorta. The pulmonary vasculature is noncongested. Chronic interstitial thickening is similar to previous. Emphysema is suspected. No airspace consolidation or large pleural effusion is identified. No pneumothorax is seen. The skeletal structures are osteopenic. The bony thorax is grossly intact. Arthritic change is seen in the shoulders. IMPRESSION: Cardiomegaly and suspect emphysema. No acute cardiopulmonary abnormality is seen. Electronically signed by: Jack Park M.D. 11/28/2017 1:17 PM Dictated Date/Time: 11/28/2017 1:[address] SCAN OF THE BRAIN WITHOUT IV CONTRAST CLINICAL HISTORY: Weakness. Change in mental status. COMPARISON STUDY: CT of the brain dated 06/16/2012. TECHNIQUE: Unenhanced axial CT scan of the brain is performed from the vertex to the skull base. A dose lowering technique was utilized adhering to the principles of ALARA. CT DOSE: 537.48 mGy.cm FINDINGS: Brain parenchyma: There are age-related involutional changes noting mild to moderate patchy subcortical and periventricular microangiopathic change. There is no hemorrhage, mass effect, or evidence of acute territorial ischemia by CT criteria. Lynch-white matter is preserved. No extra-axial fluid collection is seen. Ventricles, sulci, cisterns: Prominent secondary to involutional change. Intracranial vasculature: There is atherosclerotic calcification of the cavernous carotid and vertebral arteries. Calvarium: Unremarkable. Sinuses and mastoids: The visualized paranasal sinuses are clear. There is a left mastoid effusion with evidence of previous mastoid surgery. The right mastoid air cells are well pneumatized. Orbits: The bony orbits are grossly intact. IMPRESSION: There is no hemorrhage, mass effect, or evidence of acute territorial ischemia by CT criteria. Electronically signed by: Jack Park M.D. 11/28/2017 12:59 PM Dictated Date/Time: 11/28/2017 12:57 PM Impression Assessment and Plan HYPONATREMIA Possible related to recent adding diuretic HCTZ Na on admission 122 Will check serum and urine osmolarity, and urine Na Will give gentle hydration with Normal saline @ 60ml/hr only 1 bag Hold spironolactone for now HCTZ was d/c yesterday Check BMP @ 2000 Na goal between 126 -128 If not improve, will consult nephrology GENERALIZED WEAKNESS Due to Hyponatremia Fall precaution PT/OT ELEVATED TROPONIN Seems to be chronic H/O CAD s/p CABG, S/P PCI, CAD, HLD, Age Troponin on admission 0.079 EKG showed no ischemic changes S/P cardiac cath done on 10/28 Severe [place] vessel CAD involving LAD, OM1, and small D1. Stable findings compared to April of 2016. Moderate to severe circumflex CAD, which appeared similar to April 2016 images. Will trending troponin Continue plavix, aspirin, Ranexa and statin Recent ECHO on 10/26 * Ejection Fraction = 55-60%. * The base inferior wall appears thinned and hypokinetic. * There is mild mitral regurgitation. * There is mild tricuspid regurgitation. * Doppler findings do not suggest pulmonary hypertension. THROMBOCYTOPENIA Platelet count 151 No signs of bleeding as per patient and Monitor CBC PAROXYSMAL VENTRICULAR TACHYCARDIA Continue Amiodarone Stable BPH Continue Flomax GERD Continue PPI HLD LDL at goal Continue statin DVT PROPHYLAXIS: on SCDs CODE STATUS: FULL CODE Resuscitation Status VTE Prophylaxis Will order VTE Prophylaxis: Yes
[2017-11-28] MEDS ORDERED: IMDSR/30 PO (15:50)
[2017-11-28] MEDS ORDERED: NON-FORMULARY MEDICATION (Omeprazole (Prilosec) 40 MG) PO PRN (16:00)
[2017-11-28 17:06] VITALS: BP 122/61; PULSE 61; TEMP 36.4; O2SAT 95; Ht 180.3 cm; Wt 68.0 kg
[2017-11-28] MEDS ORDERED: SODIUM CHLORIDE 0.9% 1000ML 1,000 ML IV SCH (17:30)
[2017-11-28 19:02] VITALS: BP 141/63; PULSE 62; TEMP 36.6; O2SAT 96
[2017-11-28 20:36] LABS: CALCIUM 8.5 mg/dl (8.5-10.1); CREATININE 0.96 mg/dl (0.60-1.40); POTASSIUM 4.4 mmol/L (3.5-5.1)
[2017-11-28] MEDS: ATORVASTATIN 40 MG TAB PO SCH (20:56)
[2017-11-28] MEDS: RANOLAZINE 500 MG ER TAB PO SCH (20:56)
[2017-11-28] MEDS: PANTOprazole SOD 40 MG TAB PO SCH (20:56)
[2017-11-28 23:16] VITALS: BP 126/60; PULSE 60; TEMP 36.9; O2SAT 96
[2017-11-29] VITALS (8 sets, daily range): BP systolic 110–138; BP diastolic 52–62; PULSE 57–68; TEMP 36.3–36.8; O2SAT 94–97
[2017-11-29 04:10] LABS: HEMATOCRIT 37.2 % (42-52); HEMOGLOBIN 13.6 g/dL (14.0-18.0); MEAN CELL VOLUME 91.2 fL (80-100); MEAN CORPUSCULAR HEMOGLOBIN 33.3 pg (25-34); MEAN CORPUSCULAR HGB CONC 36.6 g/dl (32-36); MEAN PLATELET VOLUME 9.7 fL (7.4-10.4); PLATELET COUNT 146 K/uL (130-400); RED CELL DISTRIBUTION WIDTH CV 12.8 % (11.5-14.5); RED CELL DISTRIBUTION WIDTH SD 42.5 fL (36.4-46.3); WHITE BLOOD COUNT 8.29 K/uL (4.8-10.8)
[2017-11-29 04:45] LABS: CALCIUM 8.4 mg/dl (8.5-10.1); CREATININE 1.02 mg/dl (0.60-1.40); POTASSIUM 4.1 mmol/L (3.5-5.1)
[2017-11-29] MEDS: RANOLAZINE 500 MG ER TAB PO SCH ×2 (09:33→21:42)
[2017-11-29] MEDS: ISOSORBIDE MONONITRATE 30 MG TABCR PO SCH (09:34)
[2017-11-29] MEDS: FINASTERIDE 5 MG TAB PO SCH (09:34)
[2017-11-29] MEDS: CLOPIDOGREL BISULFATE 75 MG TAB PO SCH (09:34)
[2017-11-29] MEDS: TAMSULOSIN HCL 0.4 MG CAP PO SCH (09:34)
[2017-11-29] MEDS: CEROVITE ADV FORMULA TAB PO SCH (09:34)
[2017-11-29] MEDS: AMIODARONE 200 MG TAB PO SCH (09:35)
[2017-11-29] MEDS: ASPIRIN 81 MG ECTAB PO SCH (09:35)
[2017-11-29 13:03] LABS: CALCIUM 8.8 mg/dl (8.5-10.1); CREATININE 1.08 mg/dl (0.60-1.40); POTASSIUM 4.5 mmol/L (3.5-5.1)
--- NOTE | 2017-11-29 13:04 | Progress Note ---
Medicine Progress Note Date & Time of Visit: Nov 29, 2017 at 12:42. Subjective Pt was seen and examined Sitting in chair with no distress with son and present Pt said that he continues to have a pressure headache He said that he had PT/OT and did fine Denies any chest pain, palpitation, dizziness, blurry vision and SOB Objective Last 8 Hrs Date Time Temp Pulse Resp B/P (MAP) Pulse Ox O2 Delivery O2 Flow Rate FiO2 11/29/17 11:47 36.3 61 16 110/54 (72) 96 Room Air 11/29/17 10:03 60 97 11/29/17 08:00 95 Room Air 96 11/29/17 06:56 36.8 60 17 131/61 (84) 95 Physical Exam: General- No acute distress Head- atraumatic Eyes- PERRL, EOMI ENT- oropharynx clear Neck- supple, no JVD Lungs- clear to auscultation Heart- regular rhythm, +murmur Abdomen- normal bowel sounds, soft Extremities- no calf tenderness, Tenderness above left ankle area, +edema LLE Neuro- alert, oriented x 3; PERRL, EOMI Skin- warm & dry Laboratory Results: Last 24 Hours Test 11/28/17 19:15 11/28/17 19:52 11/29/17 03:58 11/29/17 11:46 Urine Osmolality 252 mOms/kg Sodium Level 123 mmol/L 125 mmol/L Potassium Level 4.4 mmol/L 4.1 mmol/L Chloride Level 92 mmol/L 95 mmol/L Carbon Dioxide Level 24 mmol/L 24 mmol/L Anion Gap 8.0 mmol/L 6.0 mmol/L Blood Urea Nitrogen 14 mg/dl 13 mg/dl Creatinine 0.96 mg/dl 1.02 mg/dl Est Creatinine Clear Calc Drug Dose 58.6 ml/min 55.2 ml/min Estimated GFR () 84.4 78.4 Estimated GFR (Non- 72.8 67.7 BUN/Creatinine Ratio 14.9 12.7 Random Glucose 106 mg/dl 88 mg/dl Calcium Level 8.5 mg/dl 8.4 mg/dl Troponin I 0.074 ng/ml 0.085 ng/ml White Blood Count 8.29 K/uL Red Blood Count 4.08 M/uL Hemoglobin 13.6 g/dL Hematocrit 37.2 % Mean Corpuscular Volume 91.2 fL Mean Corpuscular Hemoglobin 33.3 pg Mean Corpuscular Hemoglobin Concent 36.6 g/dl RDW Standard Deviation 42.5 fL RDW Coefficient of Variation 12.8 % Platelet Count 146 K/uL Mean Platelet Volume 9.7 fL Assessment & Plan HYPONATREMIA Possible related to recent diuretic HCTZ Na on admission 122 Low serum and urine osmolarity Received gentle normal saline @ 60ml/hr (only 1 bag given) Na 125 today Continue holding spironolactone HCTZ was d/c the day before admission Repeat BMP @ noon pending Will consider to give additional IVF Nephrology consulted GENERALIZED WEAKNESS Due to Hyponatremia Fall precaution Continue PT/OT ELEVATED TROPONIN Seems to be chronic H/O CAD s/p CABG, S/P PCI, CAD, HLD, Age Troponin on admission 0.079-->0.074-->0.085 EKG showed no ischemic changes Denies any chest pain S/P cardiac cath done on 10/28 Severe [place] vessel CAD involving LAD, OM1, and small D1. Stable findings compared to April of 2016. Moderate to severe circumflex CAD, which appeared similar to April 2016 images. Continue plavix, aspirin, Ranexa and statin Recent ECHO on 10/26 * Ejection Fraction = 55-60%. * The base inferior wall appears thinned and hypokinetic. * There is mild mitral regurgitation. * There is mild tricuspid regurgitation. * Doppler findings do not suggest pulmonary hypertension. HEADACHE CT head showed no hemorrhage, mass effect, or evidence of acute territorial ischemia No focal neuro deficit Will add tylenol prn THROMBOCYTOPENIA Platelet count 146 No signs of bleeding as per patient and Monitor CBC LOWER EXTREMITY TENDERNESS/EDEMA Denies any recent fall and trauma Will get a doppler of LE Tylenol for pain Continue monitor PAROXYSMAL VENTRICULAR TACHYCARDIA Continue Amiodarone Stable BPH Continue Flomax GERD Continue PPI HLD LDL at goal Continue statin DVT PROPHYLAXIS: on SCDs CODE STATUS: FULL CODE Current Inpatient Medications: Current Inpatient Medications Medications (Trade) Dose Ordered Sig/Mary Route Start Time Stop Time Status Last Admin Dose Admin Amiodarone HCl (Cordarone Tab) 200 mg QAM PO 11/29/17 09:00 12/29/17 08:59 11/29/17 09:35 200 MG Aspirin (Ecotrin Tab) 81 mg DAILY PO 11/29/17 09:00 12/29/17 08:59 11/29/17 09:35 81 MG Atorvastatin Calcium (Lipitor Tab) 80 mg HS PO 11/28/17 21:00 12/28/17 20:59 11/28/17 20:56 80 MG Clopidogrel Bisulfate (plAVix TAB) 75 mg QAM PO 11/29/17 09:00 12/29/17 08:59 11/29/17 09:34 75 MG Finasteride (Proscar Tab) 5 mg DAILY PO 11/29/17 09:00 12/29/17 08:59 11/29/17 09:34 5 MG Isosorbide Mononitrate (Imdur Ext Rel Tab) 30 mg DAILY PO 11/29/17 09:00 12/29/17 08:59 11/29/17 09:34 30 MG Multivitamins/ Minerals (Multivitamin W/ Minerals Tab) 1 tab QAM PO 11/29/17 09:00 12/29/17 08:59 11/29/17 09:34 1 TAB Ranolazine (Ranexa ER Tab) 500 mg BID PO 11/28/17 21:00 12/28/17 20:59 11/29/17 09:33 500 MG Tamsulosin HCl (Flomax Cap) 0.4 mg DAILY PO 11/29/17 09:00 12/29/17 08:59 11/29/17 09:34 0.4 MG Miscellaneous Information (Order Awaiting Action) 1 ea DAILY@0600 N/A 11/28/17 19:00 12/28/17 18:59 Pantoprazole Sodium (Protonix Tab) 40 mg HS PO 11/28/17 21:00 12/28/17 20:59 11/28/17 20:56 40 MG
[2017-11-29] MEDS ORDERED: SODIUM CHLORIDE 0.9% 1000ML 1,000 ML IV SCH (17:30)
--- NOTE | 2017-11-29 19:24 | NEPHROLOGY CONSULTATION ---
DATE OF CONSULTATION: 11/29/2017 REASON FOR CONSULT: Hyponatremia. HISTORY OF PRESENT ILLNESS: Patient is an 82-year-old male who was sent over by his PCP because of low serum sodium. According to the and the patient, he was started on hydrochlorothiazide about 1 week prior to this hospital admission. Apparently, he was started on amlodipine during this most recent hospitalization a few weeks ago and was then discontinued because of development of lower extremity edema. The patient felt that his legs were feeling very weak, and he was also having headache as well as some lightheadedness at home. Serum sodium was 124, after which he was told to go to the Emergency Department. Since admission, hydrochlorothiazide has been stopped. He got a little bit of normal saline, but at this time, he is not on any fluid. He is starting to feel better. Vital signs are acceptable, and he is eating normal amount of food. Denies having any diarrhea. He is not on any loop diuretics, but he does take spironolactone 25 daily at home on top of recently starting hydrochlorothiazide. He does have extensive cardiac history including multiple MIs, CABG, paroxysmal ventricular tachycardia. Renal function has been fairly normal. PAST MEDICAL AND SURGICAL HISTORY: Acoustic neuroma, acute coronary syndrome, benign prostatic hyperplasia, coronary artery disease, elevated troponin, GERD, history of left heart catheterization, hyperlipidemia, insomnia, myocardial infarction, paroxysmal ventricular tachycardia, precordial chest pain. History of colonoscopy, shoulder surgery, history of CABG. FAMILY HISTORY: Cancer, heart disease, lung disease, hypertension. SOCIAL HISTORY: Former smoker, , lives with family, retired. ALLERGIES: OXYCODONE, ASPIRIN, AND NOW HYDROCHLOROTHIAZIDE. MEDICATIONS: Home medications list was reviewed in detail, and as per the reconciliation list, of special interest to nephrology, he was on spironolactone 25 daily, and on top of that, he was on hydrochlorothiazide 25 daily for the last 1 week. REVIEW OF SYSTEMS: As detailed in HPI and listed, otherwise 12 systems reviewed and negative. PHYSICAL EXAMINATION: GENERAL: Elderly white male who does not appear to be in any respiratory distress. He is awake, alert, oriented x3. HEENT: Mucous membranes moist. NECK: Supple. No jugular venous distention. CHEST: Bilaterally clear to auscultation. CARDIOVASCULAR SYSTEM: S1 and S2 regular. GASTROINTESTINAL: Abdomen is soft and nontender. EXTREMITIES: Show no edema. LABORATORY DATA: Most recent lab from 11:46 a.m. today shows sodium 125, BUN 13, creatinine 1.08, potassium 4.5, chloride 92. Urine osmolality 252, urine sodium 46. Urinalysis showed a specific gravity of 1.016, negative blood, negative protein. IMAGING: Chest x-ray shows some cardiomegaly, no congestive heart failure. ASSESSMENT AND PLAN: An 82-year-old male with extensive cardiac history comes in with symptomatic hyponatremia 1 week after starting hydrochlorothiazide. Hyponatremia. By definition, this is triggered by hydrochlorothiazide. In some susceptible patient, it can trigger fairly rapid onset of hyponatremia. Hydrochlorothiazide needs to be stopped till the serum sodium gets back to normal. I would also hold spironolactone. Serum sodium has gone up from 122 to 125 in about 24-hour time period, so the rate of correction is fairly acceptable. At this time, we can add normal saline at 50 mL/h to get the serum sodium more than 130, after which he will be stable for discharge. From now onward, if he develops lower extremity edema of congestive heart failure, he should be put on loop diuretics like Lasix, Demadex, or Bumex and never on hydrochlorothiazide. Spironolactone can be restarted once serum sodium normalizes. No further workup is needed.
[2017-11-29] MEDS: ATORVASTATIN 40 MG TAB PO SCH (21:00)
[2017-11-29] MEDS: PANTOprazole SOD 40 MG TAB PO SCH (21:00)
[2017-11-30] VITALS (7 sets, daily range): BP systolic 100–137; BP diastolic 47–67; PULSE 57–79; TEMP 36.5–37; O2SAT 94–97
--- NOTE | 2017-11-30 07:06 | DIAGNOSTIC IMAGING REPORT ---
BILATERAL LOWER EXTREMITY VENOUS DOPPLER HISTORY: LE Edema/pain COMPARISON STUDY: None. FINDINGS: There is normal compressibility, flow, and augmentation within the bilateral lower extremity deep venous systems. IMPRESSION: No DVT within the right or left lower extremity. Electronically signed by: Mark Corral M.D. 11/30/2017 7:04 AM Dictated Date/Time: 11/30/2017 7:04 AM
[2017-11-30 08:32] LABS: CALCIUM 8.8 mg/dl (8.5-10.1); CREATININE 1.2 mg/dl (0.60-1.40); POTASSIUM 4.2 mmol/L (3.5-5.1)
[2017-11-30] MEDS: TAMSULOSIN HCL 0.4 MG CAP PO SCH (09:56)
[2017-11-30] MEDS: CLOPIDOGREL BISULFATE 75 MG TAB PO SCH (09:56)
[2017-11-30] MEDS: ASPIRIN 81 MG ECTAB PO SCH (09:56)
[2017-11-30] MEDS: AMIODARONE 200 MG TAB PO SCH (09:56)
[2017-11-30] MEDS: ISOSORBIDE MONONITRATE 30 MG TABCR PO SCH (09:56)
[2017-11-30] MEDS: FINASTERIDE 5 MG TAB PO SCH (09:56)
[2017-11-30] MEDS: RANOLAZINE 500 MG ER TAB PO SCH ×2 (09:56→20:41)
[2017-11-30] MEDS: CEROVITE ADV FORMULA TAB PO SCH (09:57)
--- NOTE | 2017-11-30 10:03 | Nephrology Progress Note ---
Nephrology Progress Note Date of Service: Nov 30, 2017. Subjective Patient feels well denies any shortness of breath lower extremity test. His sodium is improving to 130 today. Objective Date Time Temp Pulse Resp B/P (MAP) Pulse Ox O2 Delivery O2 Flow Rate FiO2 11/30/17 06:54 36.7 79 17 121/59 (79) 96 Room Air 11/30/17 03:08 36.7 61 17 119/55 (76) 94 11/29/17 23:20 36.7 68 17 138/62 (87) 96 Room Air 11/29/17 20:00 Room Air 11/29/17 19:37 36.4 57 18 114/52 (72) 97 Room Air 11/29/17 16:01 36.6 57 18 110/54 (72) 94 Room Air 11/29/17 11:47 36.3 61 16 110/54 (72) 96 Room Air 11/29/17 10:03 60 97 Physical Exam: [id number], no acute distress Eyes-pupils equal and reactive to light ENT-normal on inspection Neck-supple, no JVD no carotid bruits Lungs-clear to auscultation bilaterally Heart-heart sounds S1 and S2 heard, with a soft systolic murmur Abdomen-soft nondistended bowel sounds present Extremities-no edema, peripheral pulses present Neuro-oriented 3, no focal neurological deficits Current Inpatient Medications Medications (Trade) Dose Ordered Sig/Mary Route Start Time Stop Time Status Last Admin Dose Admin Amiodarone HCl (Cordarone Tab) 200 mg QAM PO 11/29/17 09:00 12/29/17 08:59 11/29/17 09:35 200 MG Aspirin (Ecotrin Tab) 81 mg DAILY PO 11/29/17 09:00 12/29/17 08:59 11/29/17 09:35 81 MG Atorvastatin Calcium (Lipitor Tab) 80 mg HS PO 11/28/17 21:00 12/28/17 20:59 11/29/17 21:00 80 MG Clopidogrel Bisulfate (plAVix TAB) 75 mg QAM PO 11/29/17 09:00 12/29/17 08:59 11/29/17 09:34 75 MG Finasteride (Proscar Tab) 5 mg DAILY PO 11/29/17 09:00 12/29/17 08:59 11/29/17 09:34 5 MG Isosorbide Mononitrate (Imdur Ext Rel Tab) 30 mg DAILY PO 11/29/17 09:00 12/29/17 08:59 11/29/17 09:34 30 MG Multivitamins/ Minerals (Multivitamin W/ Minerals Tab) 1 tab QAM PO 11/29/17 09:00 12/29/17 08:59 11/29/17 09:34 1 TAB Ranolazine (Ranexa ER Tab) 500 mg BID PO 11/28/17 21:00 12/28/17 20:59 11/29/17 21:42 500 MG Tamsulosin HCl (Flomax Cap) 0.4 mg DAILY PO 11/29/17 09:00 12/29/17 08:59 11/29/17 09:34 0.4 MG Miscellaneous Information (Order Awaiting Action) 1 ea DAILY@0600 N/A 11/28/17 19:00 12/28/17 18:59 Pantoprazole Sodium (Protonix Tab) 40 mg HS PO 11/28/17 21:00 12/28/17 20:59 11/29/17 21:00 40 MG Sodium Chloride 1,000 ml @ 50 mls/hr Q20H IV 11/29/17 17:30 12/29/17 17:29 11/29/17 19:22 50 MLS/HR Last 24 Hours Test 11/29/17 11:46 11/30/17 07:59 Sodium Level 125 mmol/L 130 mmol/L Potassium Level 4.5 mmol/L 4.2 mmol/L Chloride Level 92 mmol/L 98 mmol/L Carbon Dioxide Level 28 mmol/L 24 mmol/L Anion Gap 5.0 mmol/L 7.0 mmol/L Blood Urea Nitrogen 13 mg/dl 17 mg/dl Creatinine 1.08 mg/dl 1.20 mg/dl Est Creatinine Clear Calc Drug Dose 50.0 ml/min 44.9 ml/min Estimated GFR () 73.2 64.4 Estimated GFR (Non- 63.1 55.6 BUN/Creatinine Ratio 12.3 13.9 Random Glucose 97 mg/dl 129 mg/dl Calcium Level 8.8 mg/dl 8.8 mg/dl Troponin I 0.080 ng/ml Assessment & Plan This is a 82-year-old male with history of coronary artery disease, hypertension and hyperlipidemia who is being evaluated for AK I and hyponatremia. 1. Hyponatremia: Likely multifactorial including hydrochlorothiazide and possibly some intravascular volume depletion. His sodium was improved with the holding of hydrochlorothiazide and IV normal saline. Patient appears euvolemic now. Recommend discontinuing normal saline infusion. Suggest fluid restriction of about 1200 mL in 24 hours. Monitor sodium daily. 2. Acute kidney injury: Etiology is likely prerenal azotemia given recent relative hypotension. Recommend sending a urine analysis and microscopy. Renally dose medications for current GFR. Avoid nephrotoxins such as contrast and NSAIDs 3. Hypertension his blood pressure is acceptable although still on the low side. Agree with holding some of his antihypertensives
--- NOTE | 2017-11-30 14:40 | Progress Note ---
Medicine Progress Note Date & Time of Visit: Nov 30, 2017 at 14:35. Subjective Pt was seen and examined Lying in bed with no distress Pt thought he was going to go home today He said that he feels fine He wants to go home Denies any chest pain, palpitation, dizziness and SOB Objective Last 8 Hrs Date Time Temp Pulse Resp B/P (MAP) Pulse Ox O2 Delivery O2 Flow Rate FiO2 11/30/17 12:00 Room Air 11/30/17 11:30 37.0 70 18 102/52 (69) 96 Room Air 11/30/17 08:00 Room Air 11/30/17 06:54 36.7 79 17 121/59 (79) 96 Room Air Physical Exam: General- No acute distress Head- atraumatic Eyes- PERRL, EOMI ENT- oropharynx clear Neck- supple, no JVD Lungs- clear to auscultation Heart- regular rhythm, +murmur Abdomen- normal bowel sounds, soft Extremities- no calf tenderness, +edema LLE Neuro- alert, oriented x 3; PERRL, EOMI Skin- warm & dry Laboratory Results: Last 24 Hours Test 11/30/17 07:59 Sodium Level 130 mmol/L Potassium Level 4.2 mmol/L Chloride Level 98 mmol/L Carbon Dioxide Level 24 mmol/L Anion Gap 7.0 mmol/L Blood Urea Nitrogen 17 mg/dl Creatinine 1.20 mg/dl Est Creatinine Clear Calc Drug Dose 44.9 ml/min Estimated GFR () 64.4 Estimated GFR (Non- 55.6 BUN/Creatinine Ratio 13.9 Random Glucose 129 mg/dl Calcium Level 8.8 mg/dl Assessment & Plan HYPONATREMIA Possible related to recent diuretic HCTZ Na on admission 122 Low serum and urine osmolarity Received gentle normal saline @ 60ml/hr (only 1 bag given) Na improved to 130 today Continue holding spironolactone HCTZ was d/c the day before admission Nephrology on board Recommended to d/c IVF Will keep on fluid restriction 1200 ml Check BMP in am GENERALIZED WEAKNESS Due to Hyponatremia Fall precaution Continue PT/OT ELEVATED TROPONIN Seems to be chronic H/O CAD s/p CABG, S/P PCI, CAD, HLD, Age Troponin on admission 0.079-->0.074-->0.085 EKG showed no ischemic changes Denies any chest pain S/P cardiac cath done on 10/28 Severe [place] vessel CAD involving LAD, OM1, and small D1. Stable findings compared to April of 2016. Moderate to severe circumflex CAD, which appeared similar to April 2016 images. Continue plavix, aspirin, Ranexa and statin Recent ECHO on 10/26 * Ejection Fraction = 55-60%. * The base inferior wall appears thinned and hypokinetic. * There is mild mitral regurgitation. * There is mild tricuspid regurgitation. * Doppler findings do not suggest pulmonary hypertension. HEADACHE CT head showed no hemorrhage, mass effect, or evidence of acute territorial ischemia No focal neuro deficit Will add tylenol prn THROMBOCYTOPENIA Platelet count 146 No signs of bleeding as per patient and Monitor CBC LOWER EXTREMITY TENDERNESS/EDEMA Denies any recent fall and trauma Doppler of LE showed no DVT Tylenol for pain Stable PAROXYSMAL VENTRICULAR TACHYCARDIA Continue Amiodarone Stable BPH Continue Flomax GERD Continue PPI HLD LDL at goal Continue statin DVT PROPHYLAXIS: on SCDs CODE STATUS: FULL CODE Current Inpatient Medications: Current Inpatient Medications Medications (Trade) Dose Ordered Sig/Mary Route Start Time Stop Time Status Last Admin Dose Admin Amiodarone HCl (Cordarone Tab) 200 mg QAM PO 11/29/17 09:00 12/29/17 08:59 11/30/17 09:56 200 MG Aspirin (Ecotrin Tab) 81 mg DAILY PO 11/29/17 09:00 12/29/17 08:59 11/30/17 09:56 81 MG Atorvastatin Calcium (Lipitor Tab) 80 mg HS PO 11/28/17 21:00 12/28/17 20:59 11/29/17 21:00 80 MG Clopidogrel Bisulfate (plAVix TAB) 75 mg QAM PO 11/29/17 09:00 12/29/17 08:59 11/30/17 09:56 75 MG Finasteride (Proscar Tab) 5 mg DAILY PO 11/29/17 09:00 12/29/17 08:59 11/30/17 09:56 5 MG Isosorbide Mononitrate (Imdur Ext Rel Tab) 30 mg DAILY PO 11/29/17 09:00 12/29/17 08:59 11/30/17 09:56 30 MG Multivitamins/ Minerals (Multivitamin W/ Minerals Tab) 1 tab QAM PO 11/29/17 09:00 12/29/17 08:59 86/18 09:57 1 TAB Ranolazine (Ranexa ER Tab) 500 mg BID PO 11/28/17 21:00 12/28/17 20:59 11/30/17 09:56 500 MG Tamsulosin HCl (Flomax Cap) 0.4 mg DAILY PO 11/29/17 09:00 12/29/17 08:59 11/30/17 09:56 0.4 MG Miscellaneous Information (Order Awaiting Action) 1 ea DAILY@0600 N/A 11/28/17 19:00 12/28/17 18:59 Pantoprazole Sodium (Protonix Tab) 40 mg HS PO 11/28/17 21:00 12/28/17 20:59 11/29/17 21:00 40 MG Sodium Chloride 1,000 ml @ 50 mls/hr Q20H IV 11/29/17 17:30 12/29/17 17:29 11/29/17 19:22 50 MLS/HR
[2017-11-30] MEDS ORDERED: NURSING VERBAL MED ORDER ONE (16:15)
[2017-11-30] MEDS ORDERED: ACETAMINOPHEN 325 MG TAB PO PRN (16:30)
[2017-11-30] MEDS: PANTOprazole SOD 40 MG TAB PO SCH (20:41)
[2017-11-30] MEDS: ATORVASTATIN 40 MG TAB PO SCH (20:41)
[2017-12-01 03:14] VITALS: BP 127/60; PULSE 63; TEMP 36.6; O2SAT 96
[2017-12-01 06:59] VITALS: BP 133/61; PULSE 63; TEMP 36.6; O2SAT 94
[2017-12-01 07:01] LABS: CALCIUM 8.5 mg/dl (8.5-10.1); CREATININE 1.14 mg/dl (0.60-1.40); POTASSIUM 4.2 mmol/L (3.5-5.1)
[2017-12-01] MEDS: ASPIRIN 81 MG ECTAB PO SCH (07:47)
[2017-12-01] MEDS: RANOLAZINE 500 MG ER TAB PO SCH (07:47)
[2017-12-01] MEDS: ISOSORBIDE MONONITRATE 30 MG TABCR PO SCH (07:47)
[2017-12-01] MEDS: FINASTERIDE 5 MG TAB PO SCH (07:47)
[2017-12-01] MEDS: TAMSULOSIN HCL 0.4 MG CAP PO SCH (07:47)
[2017-12-01] MEDS: CEROVITE ADV FORMULA TAB PO SCH (07:47)
[2017-12-01] MEDS: AMIODARONE 200 MG TAB PO SCH (07:48)
[2017-12-01] MEDS: CLOPIDOGREL BISULFATE 75 MG TAB PO SCH (07:48)
--- NOTE | 2017-12-01 09:55 | Nephrology Progress Note ---
Nephrology Progress Note Date of Service: Dec 01, 2017. Subjective Patient feels well denies any shortness of breath. His sodium is stable at 130 today. Objective Date Time Temp Pulse Resp B/P (MAP) Pulse Ox O2 Delivery O2 Flow Rate FiO2 12/01/17 06:59 36.6 63 17 133/61 (85) 94 Room Air 12/01/17 03:14 36.6 63 17 127/60 (82) 96 Room Air 12/01/17 00:00 Room Air 11/30/17 23:27 36.5 68 17 137/67 (90) 95 Room Air 11/30/17 19:36 36.5 57 18 123/53 (76) 97 Room Air 11/30/17 16:00 96 Room Air 11/30/17 15:06 36.9 62 17 100/47 (64) 96 Room Air 11/30/17 12:00 Room Air 11/30/17 11:30 37.0 70 18 102/52 (69) 96 Room Air Physical Exam: [id number], no acute distress Eyes-pupils equal and reactive to light ENT-normal on inspection Neck-supple, no JVD no carotid bruits Lungs-clear to auscultation bilaterally Heart-heart sounds S1 and S2 heard, with a soft systolic murmur Abdomen-soft nondistended bowel sounds present Extremities-no edema, peripheral pulses present Neuro-oriented 3, no focal neurological deficits Current Inpatient Medications Medications (Trade) Dose Ordered Sig/Mary Route Start Time Stop Time Status Last Admin Dose Admin Amiodarone HCl (Cordarone Tab) 200 mg QAM PO 11/29/17 09:00 12/29/17 08:59 12/01/17 07:48 200 MG Aspirin (Ecotrin Tab) 81 mg DAILY PO 11/29/17 09:00 12/29/17 08:59 12/01/17 07:47 81 MG Atorvastatin Calcium (Lipitor Tab) 80 mg HS PO 11/28/17 21:00 12/28/17 20:59 11/30/17 20:41 80 MG Clopidogrel Bisulfate (plAVix TAB) 75 mg QAM PO 11/29/17 09:00 12/29/17 08:59 12/01/17 07:48 75 MG Finasteride (Proscar Tab) 5 mg DAILY PO 11/29/17 09:00 12/29/17 08:59 12/01/17 07:47 5 MG Isosorbide Mononitrate (Imdur Ext Rel Tab) 30 mg DAILY PO 11/29/17 09:00 12/29/17 08:59 12/01/17 07:47 30 MG Multivitamins/ Minerals (Multivitamin W/ Minerals Tab) 1 tab QAM PO 11/29/17 09:00 12/29/17 08:59 12/01/17 07:47 1 TAB Ranolazine (Ranexa ER Tab) 500 mg BID PO 11/28/17 21:00 12/28/17 20:59 12/01/17 07:47 500 MG Tamsulosin HCl (Flomax Cap) 0.4 mg DAILY PO 11/29/17 09:00 12/29/17 08:59 12/01/17 07:47 0.4 MG Miscellaneous Information (Order Awaiting Action) 1 ea DAILY@0600 N/A 11/28/17 19:00 12/28/17 18:59 Pantoprazole Sodium (Protonix Tab) 40 mg HS PO 11/28/17 21:00 12/28/17 20:59 11/30/17 20:41 40 MG Acetaminophen (Tylenol Tab) 650 mg Q4H PRN PO 11/30/17 16:30 12/30/17 16:29 11/30/17 16:41 650 MG Furosemide (Lasix Tab) 20 mg BID PO 12/01/17 21:00 12/31/17 20:59 UNV Furosemide (Lasix Tab) 20 mg 0934 ONCE PO 12/01/17 09:34 12/01/17 09:35 UNV Last 24 Hours Test 12/01/17 05:40 12/01/17 08:48 Sodium Level 130 mmol/L Potassium Level 4.2 mmol/L Chloride Level 99 mmol/L Carbon Dioxide Level 23 mmol/L Anion Gap 8.0 mmol/L Blood Urea Nitrogen 18 mg/dl Creatinine 1.14 mg/dl Est Creatinine Clear Calc Drug Dose 47.2 ml/min Estimated GFR () 68.5 Estimated GFR (Non- 59.1 BUN/Creatinine Ratio 16.1 Random Glucose 85 mg/dl Calcium Level 8.5 mg/dl Urine Osmolality 483 mOms/kg Other Studies: urine osmolarity 483 Assessment & Plan This is a 82-year-old male with history of coronary artery disease, hypertension and hyperlipidemia who is being evaluated for [place] I and hyponatremia. 1. Hyponatremia: Likely multifactorial including hydrochlorothiazide and possibly some intravascular volume depletion. His sodium improved with the holding of hydrochlorothiazide and IV normal saline. Na now stable at 130. Patient appears euvolemic now. Recommend lasix 20mg po bid. Continue fluid restriction of about 1200 mL in 24 hours. Monitor sodium daily.If patient is discharged, he will need repeat BMP or thursday and follow up with PCP and Nephrology. 2. Acute kidney injury: Etiology is likely prerenal azotemia given recent relative hypotension. Improving with iv fluids. Renally dose medications for current GFR. Avoid nephrotoxins such as contrast and NSAIDs 3. Hypertension his blood pressure is acceptable. Agree with holding some of his antihypertensives.
[2017-12-01] MEDS ORDERED: FUROSEMIDE 20 MG TAB PO ONE (10:15)
--- NOTE | 2017-12-01 11:47 | Progress Note ---
Medicine Progress Note Date & Time of Visit: Dec 01, 2017 at 11:27. Subjective Pt was seen and examined and examined Sitting in bed with no distress Pt said that he feels fine He is very anxious to discharge today Denies any chest pain, palpitation, dizziness and SOB Objective Last 8 Hrs Date Time Temp Pulse Resp B/P (MAP) Pulse Ox O2 Delivery O2 Flow Rate FiO2 12/01/17 08:00 Room Air 12/01/17 06:59 36.6 63 17 133/61 (85) 94 Room Air Physical Exam: General- No acute distress Head- atraumatic Eyes- PERRL, EOMI ENT- oropharynx clear Neck- supple, no JVD Lungs- clear to auscultation Heart- regular rhythm, +murmur Abdomen- normal bowel sounds, soft Extremities- no calf tenderness, +edema LLE Neuro- alert, oriented x 3; PERRL, EOMI Skin- warm & dry Laboratory Results: Last 24 Hours Test 12/01/17 05:40 12/01/17 08:48 Sodium Level 130 mmol/L Potassium Level 4.2 mmol/L Chloride Level 99 mmol/L Carbon Dioxide Level 23 mmol/L Anion Gap 8.0 mmol/L Blood Urea Nitrogen 18 mg/dl Creatinine 1.14 mg/dl Est Creatinine Clear Calc Drug Dose 47.2 ml/min Estimated GFR () 68.5 Estimated GFR (Non- 59.1 BUN/Creatinine Ratio 16.1 Random Glucose 85 mg/dl Calcium Level 8.5 mg/dl Urine Osmolality 483 mOms/kg Assessment & Plan HYPONATREMIA Possible related to recent diuretic HCTZ Na on admission 122 Low serum and urine osmolarity Received gentle normal saline @ 60ml/hr (only 1 bag given) Na remains 130 today Continue holding spironolactone HCTZ was d/c the day before admission Nephrology on board Recommend to start on lasix 20mg BID Keep on fluid restriction 1200 ml for over 24hr Check BMP on or Thursday Follow up with Nephrology as needed if Na does not improve GENERALIZED WEAKNESS Due to Hyponatremia Fall precaution Continue PT/OT Clinically improves ELEVATED TROPONIN Seems to be chronic H/O CAD s/p CABG, S/P PCI, CAD, HLD, Age Troponin on admission 0.079-->0.074-->0.085 EKG showed no ischemic changes Denies any chest pain S/P cardiac cath done on 10/28 Severe [place] vessel CAD involving LAD, OM1, and small D1. Stable findings compared to April of 2016. Moderate to severe circumflex CAD, which appeared similar to April 2016 images. Continue plavix, aspirin, Ranexa and statin Recent ECHO on 10/26 * Ejection Fraction = 55-60%. * The base inferior wall appears thinned and hypokinetic. * There is mild mitral regurgitation. * There is mild tricuspid regurgitation. * Doppler findings do not suggest pulmonary hypertension. HEADACHE CT head showed no hemorrhage, mass effect, or evidence of acute territorial ischemia No focal neuro deficit Tylenol Prn Improved THROMBOCYTOPENIA Platelet count 146 No signs of bleeding as per patient and Monitor CBC LOWER EXTREMITY TENDERNESS/EDEMA Denies any recent fall and trauma Doppler of LE showed no DVT Tylenol for pain Stable PAROXYSMAL VENTRICULAR TACHYCARDIA Continue Amiodarone Stable BPH Continue Flomax GERD Continue PPI HLD LDL at goal Continue statin DVT PROPHYLAXIS: on SCDs CODE STATUS: FULL CODE Disposition Will discharge home today Follow up with PCP Dr. Raza on 12/07 @ 1:05 PM Check BMP on or Thursday Continue fluid restriction 1200ml for 24 hrs No HCTZ due to the risk to cause low Sodium Current Inpatient Medications: Current Inpatient Medications Medications (Trade) Dose Ordered Sig/Mary Route Start Time Stop Time Status Last Admin Dose Admin Amiodarone HCl (Cordarone Tab) 200 mg QAM PO 11/29/17 09:00 12/29/17 08:59 12/01/17 07:48 200 MG Aspirin (Ecotrin Tab) 81 mg DAILY PO 11/29/17 09:00 12/29/17 08:59 12/01/17 07:47 81 MG Atorvastatin Calcium (Lipitor Tab) 80 mg HS PO 11/28/17 21:00 12/28/17 20:59 11/30/17 20:41 80 MG Clopidogrel Bisulfate (plAVix TAB) 75 mg QAM PO 11/29/17 09:00 12/29/17 08:59 12/01/17 07:48 75 MG Finasteride (Proscar Tab) 5 mg DAILY PO 11/29/17 09:00 12/29/17 08:59 12/01/17 07:47 5 MG Isosorbide Mononitrate (Imdur Ext Rel Tab) 30 mg DAILY PO 11/29/17 09:00 12/29/17 08:59 12/01/17 07:47 30 MG Multivitamins/ Minerals (Multivitamin W/ Minerals Tab) 1 tab QAM PO 11/29/17 09:00 12/29/17 08:59 12/01/17 07:47 1 TAB Ranolazine (Ranexa ER Tab) 500 mg BID PO 11/28/17 21:00 12/28/17 20:59 12/01/17 07:47 500 MG Tamsulosin HCl (Flomax Cap) 0.4 mg DAILY PO 11/29/17 09:00 12/29/17 08:59 12/01/17 07:47 0.4 MG Miscellaneous Information (Order Awaiting Action) 1 ea DAILY@0600 N/A 11/28/17 19:00 12/28/17 18:59 Pantoprazole Sodium (Protonix Tab) 40 mg HS PO 11/28/17 21:00 12/28/17 20:59 11/30/17 20:41 40 MG Acetaminophen (Tylenol Tab) 650 mg Q4H PRN PO 11/30/17 16:30 12/30/17 16:29 11/30/17 16:41 650 MG Furosemide (Lasix Tab) 20 mg BID17 PO 12/01/17 21:00 12/31/17 20:59
[2017-12-01] MEDS ORDERED: LSX20 PO (11:52)
--- NOTE | 2017-12-01 11:58 | Discharge Instructions ---
Discharge Instructions Date of Service Dec 01, 2017. Admission Reason for Admission: Hyponatremia, Weakness Discharge Discharge Diagnosis / Problem: Hyponatremia, Weakness Discharge Goals Goal(s): Decrease discomfort, Improve function, Improve disease control Activity Recommendations Activity Limitations: resume your previous activity (as tolerated) . Instructions / Follow-Up Instructions / Follow-Up Follow up with primary care provider Dr. Raza on 12/07 @ 1:05 PM Follow up with nephrology as needed if sodium does not improve Check BMP on or Thursday to monitor electrolytes and renal function ( Script given to patient) Continue fluid restriction 1200ml for 24 hrs No HCTZ due to the risk of causing severe low Sodium Spironolactone can be resumed after seeing your physician at the next follow up appointment Monitor blood pressure Fall precaution Current Hospital Diet Patient's current hospital diet: AHA Diet (Heart Healthy) Discharge Diet Recommended Diet: AHA Diet (Heart Healthy) Pending Studies Studies pending at discharge: no Laboratory Results Lipid Panel Test 10/27/17 05:54 Range/Units Triglycerides Level 48 0-150 mg/dl Cholesterol Level 73 0-200 mg/dl HDL Cholesterol 40 mg/dl Cholesterol/HDL Ratio 1.8 LDL Cholesterol, Calculated 23 mg/dl Medical Emergencies . Who to Call and When: Medical Emergencies: If at any time you feel your situation is an emergency, please call 911 immediately. . Non-Emergent Contact Non-Emergency issues call your: Primary Care Provider Call Non-Emergent contact if: you have any medication questions . . "Provider Documentation" section prepared by Gary Thomas. .
[2017-12-01 12:05] VITALS: BP 133/61; PULSE 63; TEMP 36.6; O2SAT 94
[2017-12-01 12:11] VITALS: BP 110/59; PULSE 64; TEMP 36.4; O2SAT 96
[2017-12-01] MEDS ORDERED: FUROSEMIDE 20 MG TAB PO SCH (21:00)
--- NOTE | 2017-12-03 21:45 | Discharge Summary ---
Discharge Summary Date of Service Dec 03, 2017. Discharge Summary Admission Date: Nov 28, 2017 at 15:32 Discharge Date: Dec 01, 2017 Discharge Disposition: Home Principal Diagnosis: HYPONATREMIA Secondary Diagnoses/Problems: GENERALIZED WEAKNESS ELEVATED TROPONIN THROMBOCYTOPENIA LOWER EXTREMITY TENDERNESS/EDEMA HEADACHE PAROXYSMAL VENTRICULAR TACHYCARDIA BPH GERD HLD Procedures: CT SCAN OF THE BRAIN WITHOUT IV CONTRAST CLINICAL HISTORY: Weakness. Change in mental status. COMPARISON STUDY: CT of the brain dated 06/16/2012. TECHNIQUE: Unenhanced axial CT scan of the brain is performed from the vertex to the skull base. A dose lowering technique was utilized adhering to the principles of ALARA. CT DOSE: 537.48 mGy.cm FINDINGS: Brain parenchyma: There are age-related involutional changes noting mild to moderate patchy subcortical and periventricular microangiopathic change. There is no hemorrhage, mass effect, or evidence of acute territorial ischemia by CT criteria. Lynch-white matter is preserved. No extra-axial fluid collection is seen. Ventricles, sulci, cisterns: Prominent secondary to involutional change. Intracranial vasculature: There is atherosclerotic calcification of the cavernous carotid and vertebral arteries. Calvarium: Unremarkable. Sinuses and mastoids: The visualized paranasal sinuses are clear. There is a left mastoid effusion with evidence of previous mastoid surgery. The right mastoid air cells are well pneumatized. Orbits: The bony orbits are grossly intact. IMPRESSION: There is no hemorrhage, mass effect, or evidence of acute territorial ischemia by CT criteria. Electronically signed by: Jack Park M.D. 11/28/2017 12:59 PM Dictated Date/Time: 11/28/2017 12:57 PM BILATERAL LOWER EXTREMITY VENOUS DOPPLER HISTORY: LE Edema/pain COMPARISON STUDY: None. FINDINGS: There is normal compressibility, flow, and augmentation within the bilateral lower extremity deep venous systems. IMPRESSION: No DVT within the right or left lower extremity. Electronically signed by: Mark Corral M.D. 11/30/2017 7:04 AM Dictated Date/Time: 11/30/2017 7:04 AM SINGLE VIEW CHEST CLINICAL HISTORY: Weakness. Change in mental status FINDINGS: 2 AP, portable, upright chest radiographs are compared to study dated 10/26/2017 and correlated with chest CT dated 04/05/2014. The examination is degraded by portable technique and patient rotation. The patient is status post midline sternotomy. The heart is enlarged and there is atherosclerotic calcification of the thoracic aorta. The pulmonary vasculature is noncongested. Chronic interstitial thickening is similar to previous. Emphysema is suspected. No airspace consolidation or large pleural effusion is identified. No pneumothorax is seen. The skeletal structures are osteopenic. The bony thorax is grossly intact. Arthritic change is seen in the shoulders. IMPRESSION: Cardiomegaly and suspect emphysema. No acute cardiopulmonary abnormality is seen. Electronically signed by: Jack Park M.D. 11/28/2017 1:17 PM Dictated Date/Time: 11/28/2017 1:15 PM Consultations: NEPHRO Medication Reconciliation New Medications: Furosemide (Furosemide) 20 Mg Tab 20 MG PO BID for 30 Days, #60 TAB Continued Medications: Acetaminophen (Tylenol) 500 Mg Tab 1000 MG PO QD PRN for Pain, TAB Albuterol Hfa (Ventolin Hfa) 200 Puffs/10007 Mcg Aers 2-4 PUFFS INH Q6H, #1 INHALER Amiodarone Hcl (Cordarone) 200 Mg Tab 200 MG PO QAM, #60 Aspirin (Aspirin) 81 Mg Chw 1 TAB PO DAILY, TAB 3 Refills Atorvastatin (Lipitor) 80 Mg Tab 80 MG PO HS Clindamycin Phosphate (Topical (Clindamycin Phosphate) 1 % Sonja 1 APPLN TOP BID, ML 3 Refills apply to scalp area bid Clopidogrel Bisulfate (Clopidogrel) 75 Mg Tab 75 MG PO QAM for 30 Days, #30 TAB Finasteride (Proscar) 5 Mg Tab 5 MG PO DAILY, TAB Isosorbide Mononitrate (Isosorbide Mononitrate ER) 30 Mg Tabcr 1 TAB PO DAILY Nitroglycerin (Nitrostat) 0.4 Mg Tab 0.4 MG UT PRN for Chest Pain, #25 Ocuvite Preservision (Ocuvite Preservision) 1 Tab Tab 1 TAB PO QAM, TAB Omeprazole (Prilosec) 40 Mg Cap 40 MG PO QPM PRN for Heartburn, #30 Ranolazine (Ranexa) 500 Mg Tabcr 500 MG PO BID for 30 Days Tamsulosin Hcl (Flomax) 0.4 Mg Cap 0.4 MG PO DIRECTED, CAP does not take every day Discontinued Medications: Spironolactone (Aldactone) 25 Mg Tab 25 MG PO DAILY, TAB Admission Information HPI (per Admitting provider): 82 year old male with PMHx of CAD s/p CABG, PCI, Paroxysmal V tach, reflux esophagitis presents to the Emergency Room after he was instructing by his PCP to go to the ER for abnormal sodium. Pt was recently discharge from the ER on 10/29 for chest pain and had a cardiac cath done during last admission. Most of the history obtained from the due to pt dementia. As per , Pt has been feeling very weak, tired and poor appetite in the past week. said that pt was recently starting on HCTZ about 2 weeks ago after Amlodipine was discontinued due to lower extremities edema. said that about 1 week after starting the HCTZ patient started to feel very weak. Pt said that his legs feels very weak. Also pt has been having headache, located in the frontal area. He said that he feels a pressure in his ears. said that he had outpatient lab done by his PCP, and received a called this morning that his Na was 124 and he needed to go to the ER for eval. Lab done in the ER showed Na 122.CT in the ER showed any acute intracranial finding. Pt denies any chest pain, palpitation and SOB. Physical Exam (per Admitting): General Appearance: WD/WN, no apparent distress Head: normocephalic, atraumatic Eyes: PERRL, EOMI ENT: + pertinent finding (decrease hearing function, hearing aid) Neck: no JVD, trachea midline Respiratory/Chest: chest non-tender, no respiratory distress, no accessory muscle use Cardiovascular: regular rate, rhythm, + systolic murmur, + pertinent finding (Edema R leg) Abdomen/GI: normal bowel sounds, non tender, soft Back: no CVA tenderness Extremities/Musculoskelatal: no calf tenderness Neurologic/Psych: no motor/sensory deficits, alert Skin: warm/dry, no rash Hospital Course HYPONATREMIA Possible related to recent diuretic HCTZ Na on admission 122 Low serum and urine osmolarity Received gentle normal saline @ 60ml/hr (only 1 bag given) Na remains 130 today Continue holding spironolactone HCTZ was d/c the day before admission Nephrology on board Recommend to start on lasix 20mg BID Keep on fluid restriction 1200 ml for over 24hr Check BMP on or Thursday Follow up with Nephrology as needed if Na does not improve GENERALIZED WEAKNESS Due to Hyponatremia Fall precaution Continue PT/OT Clinically improves ELEVATED TROPONIN Seems to be chronic H/O CAD s/p CABG, S/P PCI, CAD, HLD, Age Troponin on admission 0.079-->0.074-->0.085 EKG showed no ischemic changes Denies any chest pain S/P cardiac cath done on 10/28 Severe [place] vessel CAD involving LAD, OM1, and small D1. Stable findings compared to April of 2016. Moderate to severe circumflex CAD, which appeared similar to April 2016 images. Continue plavix, aspirin, Ranexa and statin Recent ECHO on 10/26 * Ejection Fraction = 55-60%. * The base inferior wall appears thinned and hypokinetic. * There is mild mitral regurgitation. * There is mild tricuspid regurgitation. * Doppler findings do not suggest pulmonary hypertension. HEADACHE CT head showed no hemorrhage, mass effect, or evidence of acute territorial ischemia No focal neuro deficit Tylenol Prn Improved THROMBOCYTOPENIA Platelet count 146 No signs of bleeding as per patient and Monitor CBC LOWER EXTREMITY TENDERNESS/EDEMA Denies any recent fall and trauma Doppler of LE showed no DVT Tylenol for pain Stable PAROXYSMAL VENTRICULAR TACHYCARDIA Continue Amiodarone Stable BPH Continue Flomax GERD Continue PPI HLD LDL at goal Continue statin DVT PROPHYLAXIS: on SCDs CODE STATUS: FULL CODE Disposition Will discharge home today Follow up with PCP Dr. Raza on 12/07 @ 1:05 PM Check BMP on or Thursday Continue fluid restriction 1200ml for 24 hrs No HCTZ due to the risk to cause low Sodium Total time spent on discharge = 35 minutes This includes examination of the patient, discharge planning, medication reconciliation, and communication with other providers. Discharge Instructions Discharge Instructions Date of Service Dec 01, 2017. Admission Reason for Admission: Hyponatremia, Weakness Discharge Discharge Diagnosis / Problem: Hyponatremia, Weakness Discharge Goals Goal(s): Decrease discomfort, Improve function, Improve disease control Activity Recommendations Activity Limitations: resume your previous activity (as tolerated) . Instructions / Follow-Up Instructions / Follow-Up Follow up with primary care provider Dr. Raza on 12/07 @ 1:05 PM Follow up with nephrology as needed if sodium does not improve Check BMP on or Thursday to monitor electrolytes and renal function ( Script given to patient) Continue fluid restriction 1200ml for 24 hrs No HCTZ due to the risk of causing severe low Sodium Spironolactone can be resumed after seeing your physician at the next follow up appointment Monitor blood pressure Fall precaution Current Hospital Diet Patient's current hospital diet: AHA Diet (Heart Healthy) Discharge Diet Recommended Diet: AHA Diet (Heart Healthy) Pending Studies Studies pending at discharge: no Laboratory Results Lipid Panel Test 10/27/17 05:54 Range/Units Triglycerides Level 48 0-150 mg/dl Cholesterol Level 73 0-200 mg/dl HDL Cholesterol 40 mg/dl Cholesterol/HDL Ratio 1.8 LDL Cholesterol, Calculated 23 mg/dl Medical Emergencies . Who to Call and When: Medical Emergencies: If at any time you feel your situation is an emergency, please call 911 immediately. . Non-Emergent Contact Non-Emergency issues call your: Primary Care Provider Call Non-Emergent contact if: you have any medication questions . . "Provider Documentation" section prepared by Gary Thomas. . Signed: Signed: The status of this report is Draft * If report status is Draft, the document has not been finalized by the responsible provider. Additional Copies To Cal Dupont D.O.
== END 2017-12-01 12:40 | disposition home or self-care (01) | DRG 641 ==
LOC: C.EDB 11:36 → C.2E 15:32 → ENRESERV 15:38
PROVIDERS: ADMIT Internal Medicine; ATTEND Internal Medicine
DX: E87.1 Hypo-osmolality and hyponatremia (principal); I47.2 Ventricular tachycardia; N17.9 Acute kidney failure, unspecified; T50.2X5A Adverse effect of carbonic-anhydrase inhibitors, benzothiadiazides and other diuretics, initial encounter; D33.3 Benign neoplasm of cranial nerves; N40.0 Benign prostatic hyperplasia without lower urinary tract symptoms; I25.10 Atherosclerotic heart disease of native coronary artery without angina pectoris; K21.9 Gastro-esophageal reflux disease without esophagitis; E78.5 Hyperlipidemia, unspecified; I25.2 Old myocardial infarction; Z87.891 Personal history of nicotine dependence; Z79.02 Long term (current) use of antithrombotics/antiplatelets; D69.6 Thrombocytopenia, unspecified; Y92.019 Unspecified place in single-family (private) house as the place of occurrence of the external cause

== ENCOUNTER 2018-09-01 12:51 | Inpatient (IN) ==
--- OUTSIDE RECORDS SUMMARY | 2018-09-01 12:55 | External Medical Summary | Continuity of Care Document ---
:1935 Author Name Royce Rader, Provider Address Unavailable Unavailable , Care Team Providers Name Role Phone Live Lynch M.D. Unavailable [email or web address] Cartwright M.D. 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) Lentigines (709.09) (L81.4) Sebaceous hyperplasia (706.8) (L73.8) Actinic keratosis (702.0) (L57.0) Multiple benign nevi (216.9) (D22.9) Xerosis of skin (706.8) (L85.3) Benign localized hyperplasia of prostate with urinary obstruction (600.21) (N40.1) Benign prostatic hyperplasia with urinary obstruction (600.0 1) (N40.1) History of S/P CABG (coronary artery bypass graft) (V45.81) (Z95.1) Premature ventricular contractions (427.69) (I49.3) Palpitations (785.1) (R00.2) Hypertension (401.9) (I10) Dyslipidemia (272.4) (E78.5) CAD, multiple vessel (414.00) (I25.10) Bradycardia (427.89) (R00.1) Arteriosclerotic coronary artery disease (414.00) (I25.10) Edema (782.3) (R60.9) Past myocardial infarction (412) (I25.2) Orthostatic lightheadedness (780.4) (R42) Cath Stent Placement Former smoker (V15.82) (Z87.891) Atrial premature complex (427.61) (I49.1) Incomplete bladder emptying (788.21) (R33.9) Urinary frequency (788.41) (R35.0) Nocturia (788.43) (R35.1) Gross hematuria (599.71) (R31.0) Prostate cancer screening (V76.44) (Z12.5) 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 DERRICK Baum Start: 08-Sep-2011 Refills: 0 Atorvastatin Calcium 80 MG Oral Tablet; TAKE 1 TABLET BY MOUTH AT BEDTIME Prasanth Cartwright Start: 05-Jun-2014 Quantity: 90 Refills: 3 Amiodarone HCl - 200 MG Oral Tablet; Take 1 tablet daily Refills: 0 PreserVision AREDS Oral Capsule; Take 1 capsule twice daily Refills: 0 Nitroglycerin 0.4 MG Sublingual Tablet Sublingual Refills: 0 Omeprazole TBEC; TAKE 1 TABLET BY MOUTH ONCE DAILY NEEDED Refills: 0 Ranexa 500 MG Oral Tablet Extended Relea se 12 Hour; TAKE 1 TABLET EVERY 12 HOURS. DERRICK Stephenson Quantity: 180 Refills: 3 Clopidogrel Bisulfate 75 MG Oral Tablet; TAKE 1 TABLET DAILY. DERRICK Stephenson Halle 30 Tablet Bottle Quantity: 90 Refills: 3 Multi-Vitamin TABS; TAKE 1 TABLET DAILY. Refills: 0 Tylenol Extra Strength 500 MG Oral Table t; TAKE 1 TABLET EVERY 4 TO 6 HOURS NEEDED. Refills: 0 Clindamycin Phosphate 1 % External Gel; APPLY SPARINGLY AND GENTLY MASSAGE INTO AFFECTED AREA(S) 1 TO 2 TIMES DAILY. 75 ML Bottle Refills: 0 Finasteride 5 MG Oral Tablet; TAKE 1 TABLET DAILY. Renan Lynch Start: 01-Sep-2018 Quantity: 90 Refills: 3 Procedures History of Rotator Cuff Repair Status: C ompleted History of Hernia Repair Status: Complet ed Cath Stent Placement History of S/P CABG (coronary artery bypass graft) Immunizations Immunizations not documented Family History Father Family history of Myocardial Infarction Arrhythmias Status: Active Family history of Coronary Artery Disease Status: Active Social History - Smoking Status Former smoker Plan of Treatment Planned Encounters Appointment; Live Lynch M.D. Start: 31-Aug-2019 10:20 R equest Planned Observations Planned Goals not documented Results In-House UA (Urology) (Pending) Laboratory: In House 01-Sep-2018 10:00 VOID, CC, CATH CC Turbid, Clear, Hazy Clear Gluc 0 Prot +1 Nitrate 0 Leuk 0 Blood Trace pH 6.0 MICROSCOPIC 1-2 RBC and small bacteria Encounters Appointment; Live Lynch M.D. 01-Sep-2018 9:40 Encounter Diagnosis: Problem not documented Appointment; Sigifredo Freedman M.D. 03-Jun-2018 10:30 Encounter Diagnosis: Problem not documented Appointment; Home Cartwright M.D. 05-May-2018 11:15 Encounter Diagnosis: Problem not documented Appointment; Home Cartwright M.D. 20-Jan-2018 10:00 Encounter Diagnosis: Problem not documented Appointment; Home Cartwright M.D. 16-Dec-2017 13:30 Encounter Diagnosis: Problem not documented Appointment; Halle Stephenson PA-C 25-Nov-2017 12:30 Encounter Diagnosis: Problem not documented Appointment; Halle Stephenson PA-C 05-Nov-2017 16:00 Encounter Diagnosis: Problem not documented Appointment; Home Cartwright M.D. 18-Sep-2017 9:30 Encounter Diagnosis: Problem not documented Appointment; Live Lynch M.D. 01-Sep-2017 13:00 Encounter Diagnosis: Problem not documented Appointment; José Miguel Lopez PA-C 14-Apr-2017 9:30 Encounter Diagnosis: Problem not documented Appointment; Home Cartwright M.D. 20-Feb-2017 10:00 Encounter Diagnosis: Problem not documented Appointment; Live Lynch M.D. 04-Sep-2016 11:10 Encounter Diagnosis: Problem not documented Appointment; Live Lynch M.D. 31-Aug-2019 10:20 Encounter Diagnosis: Problem not documented
[2018-09-01] MEDS ORDERED: ACETAMINOPHEN 325 MG TAB PO STA (13:16)
[2018-09-01] MEDS ORDERED: SODIUM CHLORIDE 0.9% 1000ML 1,000 ML IV SCH ×2 (13:30→18:17)
[2018-09-01 13:43] LABS: Alanine Aminotransferase 34 U/L (12-78); Albumin Level 3.6 gm/dl (3.4-5.0); Aspartate Aminotransferase 41 U/L (15-37); BUN Creatinine Ratio 13.4 (10-20); Blood Urea Nitrogen 18 mg/dl (7-18); Calcium 8.4 mg/dl (8.5-10.1); Carbon Dioxide 28 mmol/L (21-32); Chloride 95 mmol/L (98-107); Est GFR (African American) 55.5; Est GFR (Non-African American) 47.9; Glucose 100 mg/dl (70-99); Potassium 3.7 mmol/L (3.5-5.1); Sodium 129 mmol/L (136-145)
[2018-09-01 13:54] LABS: Alkaline Phosphatase 96 U/L (45-117); Bilirubin,Total 1.3 mg/dl (0.2-1); Globulin 3.7 gm/dl (2.5-4.0); Total Protein 7.3 gm/dl (6.4-8.2); Troponin I 0.128 ng/ml (0-0.045)
[2018-09-01] MEDS ORDERED: ASPIRIN CHEW 324 MG PO STA (14:05)
[2018-09-01 14:11] LABS: Hematocrit (blood only) 41.6 % (42-52); Hemoglobin 15.1 g/dL (14.0-18.0); Mean Corpuscular Hgb Conc 36.3 g/dL (32-36); Mean Corpuscular Volume 94.5 fL (80-100); Platelet Count 72 K/uL (130-400); RDW Coefficient of Variation 13.5 % (11.5-14.5); White Blood Count 3.42 K/uL (4.8-10.8)
[2018-09-01 14:12] LABS: Immature Granulocytes # (auto) 0.02 K/uL (0.00-0.02); Immature Granulocytes % (auto) 0.6 %; Lymphocytes # (auto) 0.34 K/uL (1.2-3.4); Lymphocytes % (auto) 9.9 %; Monocytes # (auto) 0.29 K/uL (0.11-0.59); Monocytes % (auto) 8.5 %; Neutrophils # (auto) 2.77 K/uL (1.4-6.5); Platelet Estimate Decreased (Normal)
--- NOTE | 2018-09-01 14:36 | XRay Report ---
XR chest 1V portable CLINICAL HISTORY: fever dyspnea COMPARISON STUDY: 11/28/2017 FINDINGS: Mild cardiomegaly. Tortuous thoracic aorta. Median sternotomy. Slight blunting left lateral costophrenic angle considered chronic. Scattered basi lar atelectatic change. Upper lungs are considered clear IMPRESSION: Mild cardiomegaly. Minimal scattered bibasilar atelectatic change. The above report was generated using voice recognition software. It may contain grammatical, syntax or spelling errors. Electronically signed by: Reagan Serna M.D. 09/01/2018 2:35 PM
--- NOTE | 2018-09-01 15:07 | CT Scan Report ---
CT head/brain wo con CT DOSE: 614.27 mGy.cm HISTORY: Trauma. Mental status change. fall CHI TECHNIQUE: Multiaxial CT images of the head were performed without the use of intravenous contrast. A dose lowering technique was utilized adhering to the principles of ALARA. Comparison: 02/15/2018 Findings: Partial left mastoidectomy with a mild amount of residual soft tissue. This is unchanged fr om the prior study. The remaining sinuses are clear. Age-related atrophy and chronic small vessel change. 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 Genera lized age-related atrophy and moderate chronic small vessel change. No acute intracranial hemorrhage. No midline shift. Impression: Chronic and postoperative change. No acute process. The above report was generated using voice recognition software. It may contain grammatical, syntax or spelling errors. Electronically signed by: Reagan Serna M.D. 09/01/2018 3:05 PM
[2018-09-01 15:42] LABS: Appearance Urine Clear (Clear); Bacteria Urine Automated Negative (Negative); Blood Urine Negative (Negative); Color Urine Dark Yellow; Glucose Urine UA Negative (Negative); Ketones Urine Trace (Negative); Leukocyte Esterase Urine Trace (Negative); Nitrite Urine Negative (Negative); Protein Urine 1+ (Negative); Specific Gravity Urine 1.025 (1.000-1.030); Urobilinogen Urine Positive (Negative)
[2018-09-01 15:46] LABS: Bilirubin Urine Negative (Negative); Ictotest Urine Negative (Negative)
--- NOTE | 2018-09-01 16:08 | Emergency Department Note ---
Entered by Moon Acevedo acting as a scribe for Maggie Santacruz MD History of Present Illness General Chief complaint: Fall Source: family () History of Present Illness Provider complaint: weakness Onset (ago): day(s) 2 Location: left and right Quality: + other (weakness) Associated symptoms: + confusion, + fever/chills (febrile at 102), + headaches and + other (dizziness, elbow pain); no cough The patient is an 83 year old male who presents to the Emergency Department with complaints of weakness over the last 2 days. Per , the patient was febrile at 102 and states that the patient saw his doctor who thinks that the patient has pneumonia. Per , the patient was referred for an X-ray. His states that the patient has been sick and not coherent over the last several days. Per , the patient has had a headache and dizziness. Per , the patient has also been confused. His states that the patient did fall outside today but states that the patient's head did not hit concrete. The patient does report having elbow pain from the fall but no other pain. His states that the patient was put in a wheelchair after the fall. Per , the patient has not been coughing or sneezing. 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 The patient states that he does not take any blood thinners. His states that the patient's tetanus shot is up to date. Home Medications Home Medications Medication Instructions Recorded Confirmed Type acetaminophen 500 mg PO Q6H PRN 02/15/18 09/01/18 History amiodarone 200 mg PO DAILY 02/15/18 09/01/18 History aspirin 81 mg PO DAILY 02/15/18 09/01/18 History atorvastatin 80 mg PO HS 02/15/18 09/01/18 History clopidogrel 75 mg PO DAILY 02/15/18 09/01/18 History nitroglycerin [Nitrostat] 0.4 mg SUBLINGUAL DIRECTED PRN 02/15/18 09/01/18 History omeprazole 40 mg PO DAILY 02/15/18 09/01/18 History ranolazine 500 mg PO BID 02/15/18 09/01/18 History clindamycin phosphate 1 applic TOPICAL BID 09/01/18 09/01/18 History vitamins A,C,R-[id number]-axyhnb 1 cap PO BID 09/01/18 09/01/18 History [PreserVision AREDS] Allergies Allergy/AdvReac Type Severity Reaction Status Date / Time oxycodone AdvReac Intermediate NAUSEA, Verified 09/01/18 14:18 VOMITING aspirin AdvReac Mild epistaxis Verified 09/01/18 14:18 with ASA 325mg Past Med/Surg History Medical History Old OR (myocardial infarction) (Chronic) GERD (gastroesophageal reflux disease) (Chronic) Coronary artery disease (Chronic) BPH (benign prostatic hyperplasia) (Chronic) History of left heart catheterization (LHC) (Chronic) Acoustic neuroma (Chronic) Paroxysmal VT (Chronic) Insomnia (Chronic) HLD (hyperlipidemia) (Chronic) Surgical History Hx of CABG (Chronic) Family History Father Coronary heart disease Social History Preferred Language: [place] Communication Ability: Effective Beliefs That Will Affect Care: None marital status: Current Living Situation: Spouse Other Information That Helps Us Care for You: No Feels Safe at Home: Yes Safety Concerns: Feels Safe At This Time Smoking Status: Never smoker Do You Dip or Chew Tobacco: No Second Hand Exposure: No Hx Alcohol Use: Yes Alcohol type: beer Hx Substance Use: No Review of Systems See HPI for pertinent positives & negatives. and A total of 10 systems reviewed and were otherwise negative Physical Exam Vital Signs Vital Signs - 24 hr 09/03/18 18:15 09/03/18 19:31 09/03/18 19:32 Temperature 37.2 C Temperature Source Oral Pulse Rate Pulse Rate [Finger] 76 77 Respiratory Rate 16 18 Respiratory Effort / Characteristics SOB on Exertion Non-Labored Respiratory Depth Respiratory Pattern Blood Pressure [Left Arm] 164/68 H Blood Pressure [Right Arm] Blood Pressure Mean [Left Arm] 100 Blood Pressure Mean [Right Arm] Blood Pressure Position [Right Arm] Pulse Oximetry 93 90 Oxygen Delivery Method Nasal Cannula Nasal Cannula Oxygen Flow Rate 2 2 2 09/03/18 21:00 09/03/18 23:33 09/03/18 23:34 Temperature 38.6 C H 37.7 C H Temperature Source Oral Oral Pulse Rate Pulse Rate [Finger] 80 Respiratory Rate 20 Respiratory Effort / Characteristics Non-Labored Respiratory Depth Normal Respiratory Pattern Regular Blood Pressure [Left Arm] Blood Pressure [Right Arm] 149/67 H Blood Pressure Mean [Left Arm] Blood Pressure Mean [Right Arm] 94 Blood Pressure Position [Right Arm] Pulse Oximetry 92 Oxygen Delivery Method Nasal Cannula Oxygen Flow Rate 2 2 09/04/18 00:00 09/04/18 01:03 09/04/18 01:30 Temperature 37.3 C Temperature Source Oral Pulse Rate 79 Pulse Rate [Finger] Respiratory Rate Respiratory Effort / Characteristics Non-Labored Respiratory Depth Respiratory Pattern Regular Blood Pressure [Left Arm] Blood Pressure [Right Arm] Blood Pressure Mean [Left Arm] Blood Pressure Mean [Right Arm] Blood Pressure Position [Right Arm] Pulse Oximetry Oxygen Delivery Method Nasal Cannula Oxygen Flow Rate 09/04/18 04:36 09/04/18 07:00 09/04/18 07:16 Temperature 36.2 C L 36.8 C Temperature Source Oral Oral Pulse Rate Pulse Rate [Finger] 75 75 75 Respiratory Rate 20 18 18 Respiratory Effort / Characteristics Spontaneous Respiratory Depth Respiratory Pattern Blood Pressure [Left Arm] Blood Pressure [Right Arm] 148/69 H 170/75 H Blood Pressure Mean [Left Arm] Blood Pressure Mean [Right Arm] 95 106 Blood Pressure Position [Right Arm] Lying Pulse Oximetry 90 90 91 Oxygen Delivery Method Room Air Nasal Cannula Nasal Cannula Oxygen Flow Rate 2 2 09/04/18 08:00 09/04/18 10:31 09/04/18 10:54 Temperature 37.1 C Temperature Source Oral Pulse Rate 72 Pulse Rate [Finger] 75 78 Respiratory Rate 20 20 Respiratory Effort / Characteristics Labored Short of Breath SOB on Exertion Respiratory Depth Normal Respiratory Pattern Tachypnea Blood Pressure [Left Arm] 148/71 H Blood Pressure [Right Arm] 158/74 H Blood Pressure Mean [Left Arm] 96 Blood Pressure Mean [Right Arm] 102 Blood Pressure Position [Right Arm] Pulse Oximetry 91 91 Oxygen Delivery Method Nasal Cannula Nasal Cannula Nasal Cannula Oxygen Flow Rate 3 3 3 09/04/18 15:16 Temperature 36.9 C Temperature Source Oral Pulse Rate Pulse Rate [Finger] 70 Respiratory Rate 19 Respiratory Effort / Characteristics Respiratory Depth Normal Respiratory Pattern Blood Pressure [Left Arm] Blood Pressure [Right Arm] 131/63 Blood Pressure Mean [Left Arm] Blood Pressure Mean [Right Arm] 85 Blood Pressure Position [Right Arm] Lying Pulse Oximetry 93 Oxygen Delivery Method Nasal Cannula Oxygen Flow Rate Vital signs reviewed. General: Pleasantly confused male, in no significant distress. Warm to touch. HEENT: No scleral icterus, PERRLA, neck supple. Atraumatic. Cardiovascular: Regular rate and rhythm, no extra sounds. Pulmonary: Crackles at the right base, normal work of breathing. Abdomen: Soft, nontender, nondistended, positive bowel sounds. Musculoskeletal: Atraumatic, no peripheral edema. Cervical spine is nontender, no step-off or deformity. Neurologic: Patient awake alert and pleasantly confused, not reliable with answe rs, full strength in all 4 extremities. Cranial nerves 2 through 12 grossly intact. Skin: Warm, dry, no rash. Post sternotomy midline scar. Course 1314: The patient was evaluated in room C12B. A history and physical were performed. 1518: I discussed the patient's case with Leann Aranda who will evaluate the patient for further management. Consultations Consultation #1: Leann Aranda Time: 15:18 Administered Medications Acetaminophen (Tylenol) 325 mg PO Q6H PRN PRN Reason: Pain or Fever Stop: 10/01/18 18:16 Last Admin: 09/03/18 23:35 Dose: 325 mg Documented by: [id number] Admin: 09/03/18 09:06 Dose: 325 mg Documented by: [id number] Aspirin (Ecotrin Ectab) 81 mg PO DAILY [facility] Stop: 10/02/18 08:59 Last Admin: 09/03/18 09:04 Dose: 81 mg Documented by: [id number] Admin: 09/02/18 07:57 Dose: 81 mg Documented by: [id number] Atorvastatin Calcium (Lipitor) 80 mg PO HS [facility] Stop: 10/01/18 20:59 Last Admin: 09/02/18 20:44 Dose: 80 mg Documented by: [id number] Admin: 09/01/18 20:40 Dose: 80 mg Documented by: [id number] Clopidogrel Bisulfate (Plavix) 75 mg PO QAM [facility] Stop: 10/03/18 08:59 Last Admin: 09/03/18 09:05 Dose: 75 mg Documented by: [id number] Doxycycline Hyclate (Vibramycin) 100 mg PO BID [facility] Stop: 09/17/18 20:59 Last Admin: 09/04/18 09:23 Dose: 100 mg Documented by: [id number] Admin: 09/03/18 21:28 Dose: 100 mg Documented by: [id number] Gadobutrol (Gadavist 65ml) 6.5 ml IV ONCE PRN PRN Reason: Interaction Checking Stop: 09/05/18 23:16 Last Admin: 09/01/18 23:18 Dose: 6.5 ml Documented by: [id number] Furosemide 40 mg/ Syringe 4 mls @ 4 mls/min IV BID17 [facility] Stop: 10/03/18 16:59 Last Admin: 09/04/18 16:31 Dose: 4 mls/min Documented by: [id number] Admin: 09/04/18 09:25 Dose: 4 mls/min Documented by: [id number] Admin: 09/03/18 16:29 Dose: 4 mls/min Documented by: [id number] Ioversol (Optiray 320 125ml) 119 ml IV ONCE PRN PRN Reason: Interaction Checking Stop: 09/08/18 05:01 Last Admin: 09/04/18 05:03 Dose: 1 ml Documented by: [id number] Lisinopril (Zestril) 5 mg PO QAM [facility] Stop: 10/04/18 08:59 Last Admin: 09/04/18 09:23 Dose: 5 mg Documented by: [id number] Multivitamins/Minerals (Multivitamin W/ Minerals Tab) 1 tab PO BID [facility] Stop: 10/01/18 20:59 Last Admin: 09/04/18 09:20 Dose: 1 tab Documented by: [id number] Admin: 09/03/18 20:46 Dose: 1 tab Documented by: [id number] Admin: 09/03/18 09:05 Dose: 1 tab Documented by: [id number] Admin: 09/02/18 20:45 Dose: 1 tab Documented by: [id number] Admin: 09/02/18 07:57 Dose: 1 tab Documented by: [id number] Admin: 09/01/18 20:40 Dose: 1 tab Documented by: [id number] Nitroglycerin (Nitrostat) 0.4 mg SL UD PRN PRN Reason: Chest Pain Stop: 10/01/18 18:16 Last Admin: 09/02/18 21:44 Dose: 0.4 mg Documented by: [id number] Admin: 09/02/18 00:38 Dose: 0.4 mg Documented by: [id number] Nitroglycerin (Nitro-Bid 2%) 0.5 inch EXT Q6H JENNY Stop: 10/04/18 10:29 Last Admin: 09/04/18 16:34 Dose: 0.5 inch Documented by: [id number] Admin: 09/04/18 10:50 Dose: 0.5 inch Documented by: [id number] Pantoprazole Sodium (Protonix) 40 mg PO DAILY [facility]; Protocol Stop: 10/02/18 08:59 Last Admin: 09/04/18 09:20 Dose: 40 mg Documented by: [id number] Admin: 09/03/18 09:05 Dose: 40 mg Documented by: [id number] Admin: 09/02/18 07:56 Dose: 40 mg Documented by: [id number] Ranolazine (Ranexa) 500 mg PO BID [facility] Stop: 10/01/18 20:59 Last Admin: 09/04/18 09:21 Dose: 500 mg Documented by: [id number] Admin: 09/03/18 20:45 Dose: 500 mg Documented by: [id number] Admin: 09/03/18 09:05 Dose: 500 mg Documented by: [id number] Admin: 09/02/18 20:44 Dose: 500 mg Documented by: [id number] Admin: 09/02/18 07:57 Dose: 500 mg Documented by: [id number] Admin: 09/01/18 20:40 Dose: 500 mg Documented by: [id number] Discontinued Medications Acetaminophen (Tylenol) 650 mg PO ONE STA Stop: 09/01/18 13:17 Last Admin: 09/01/18 14:27 Dose: 650 mg Documented by: [id number] Acetaminophen (Tylenol) 650 mg PO Q4H PRN PRN Reason: Pain or Fever Stop: 10/01/18 18:16 Last Admin: 09/02/18 15:44 Dose: 650 mg Documented by: [id number] Admin: 09/02/18 03:10 Dose: 650 mg Documented by: [id number] Albuterol (Duoneb) 3 ml NEB NOW STA Stop: 09/03/18 05:47 Last Admin: 09/03/18 12:23 Dose: Not Given Documented by: [id number] Albuterol (Duoneb) 3 ml NEB QIDR JENNY Stop: 10/03/18 15:59 Last Admin: 09/04/18 07:15 Dose: 3 ml Documented by: [id number] Admin: 09/03/18 19:31 Dose: 3 ml Documented by: [id number] Admin: 09/03/18 15:35 Dose: 3 ml Documented by: [id number] Amiodarone HCl (Cordarone) 200 mg PO DAILY JEN[facility] Stop: 10/02/18 08:59 Last Admin: 09/03/18 09:01 Dose: Not Given Documented by: [id number] Admin: 09/02/18 07:57 Dose: Not Given Documented by: [id number] Amiodarone HCl (Cordarone) 200 mg PO DAILY JENNY Stop: 10/04/18 00:14 Last Admin: 09/04/18 00:28 Dose: 200 mg Documented by: [id number] Aspirin (Aspirin) 324 mg PO NOW STA Stop: 09/01/18 14:06 Last Admin: 09/01/18 14:27 Dose: 324 mg Documented by: [id number] Hydralazine HCl (Hydralazine Hcl) 2.5 mg IV NOW ONE Stop: 09/02/18 02:42 Last Admin: 09/03/18 03:21 Dose: 2.5 mg Documented by: [id number] Hydralazine HCl (Hydralazine Hcl) 10 mg IV NOW STA Stop: 09/03/18 03:40 Last Admin: 09/03/18 04:03 Dose: 10 mg Documented by: [id number] Sodium Chloride (Nss 1000ml) 1,000 mls @ 125 mls/hr IV .Q8H JENNY Stop: 09/01/18 21:29 Last Infusion: 09/01/18 19:07 Dose: 0 mls/hr Documented by: [id number] Admin: 09/01/18 14:27 Dose: 125 mls/hr Documented by: [id number] Doxycycline Hyclate 100 mg/ (Dextrose) 110 mls @ 50 mls/hr IV BID JENNY Stop: 09/11/18 20:59 Last Infusion: 09/03/18 11:28 Dose: 0 mls/hr Documented by: [id number] Admin: 09/03/18 09:09 Dose: 50 mls/hr Documented by: [id number] Infusion: 09/02/18 23:16 Dose: 0 mls/hr Documented by: [id number] Admin: 09/02/18 20:46 Dose: 50 mls/hr Documented by: [id number] Infusion: 09/02/18 11:49 Dose: 0 mls/hr Documented by: [id number] Admin: 09/02/18 09:34 Dose: 50 mls/hr Documented by: [id number] Infusion: 09/02/18 02:00 Dose: 0 mls/hr Documented by: [id number] Infusion: 09/02/18 00:11 Dose: 50 mls/hr Documented by: [id number] Infusion: 09/01/18 22:23 Dose: 0 mls/hr Documented by: [id number] Admin: 09/01/18 21:59 Dose: 50 mls/hr Documented by: [id number] Ampicillin Sodium 2,000 mg/ (Sodium Chloride) 100 mls @ 200 mls/hr IV Q4H JENNY Stop: 09/11/18 19:59 Last Infusion: 09/02/18 16:16 Dose: 0 mls/hr Documented by: [id number] Admin: 09/02/18 15:44 Dose: 200 mls/hr Documented by: [id number] Infusion: 09/02/18 14:51 Dose: 0 mls/hr Documented by: [id number] Admin: 09/02/18 14:18 Dose: 200 mls/hr Documented by: [id number] Infusion: 09/02/18 09:35 Dose: 0 mls/hr Documented by: [id number] Admin: 09/02/18 08:58 Dose: 200 mls/hr Documented by: [id number] Infusion: 09/02/18 05:54 Dose: 0 mls/hr Documented by: [id number] Admin: 09/02/18 04:10 Dose: 100 mls/hr Documented by: [id number] Infusion: 09/02/18 02:13 Dose: 0 mls/hr Documented by: [id number] Admin: 09/02/18 01:37 Dose: 100 mls/hr Documented by: [id number] Infusion: 09/01/18 21:12 Dose: 0 mls/hr Documented by: [id number] Admin: 09/01/18 20:39 Dose: 200 mls/hr Documented by: [id number] Ceftriaxone Sodium 2,000 mg/ (Dextrose) 70 mls @ 100 mls/hr IV Q12H JENNY; Protocol Stop: 09/11/18 18:59 Last Infusion: 09/02/18 09:13 Dose: 0 mls/hr Documented by: [id number] Admin: 09/02/18 07:54 Dose: 100 mls/hr Documented by: [id number] Infusion: 09/01/18 21:15 Dose: 0 mls/hr Documented by: [id number] Admin: 09/01/18 19:46 Dose: 100 mls/hr Documented by: [id number] Sodium Chloride (Nss 1000ml) 1,000 mls @ 80 mls/hr IV .[id number] [facility] Stop: 09/02/18 06:46 Last Infusion: 09/02/18 09:35 Dose: 0 mls/hr Documented by: [id number] Infusion: 09/02/18 00:11 Dose: 80 mls/hr Documented by: [id number] Infusion: 09/01/18 22:23 Dose: 0 mls/hr Documented by: [id number] Admin: 09/01/18 18:58 Dose: 80 mls/hr Documented by: [id number] Vancomycin HCl 1,750 mg/ (Sodium Chloride) 535 mls @ 200 mls/hr IV TODAY@0000 JENNY; Protocol Stop: 09/02/18 10:44 Last Infusion: 09/02/18 04:40 Dose: 0 mls/hr Documented by: [id number] Admin: 09/02/18 01:37 Dose: 200 mls/hr Documented by: [id number] Furosemide 20 mg/ Syringe 2 mls @ 4 mls/min IV ONE ONE Stop: 09/03/18 05:46 Last Admin: 09/03/18 05:54 Dose: 4 mls/min Documented by: [id number] Magnesium Sulfate/Dextrose (Magnesium Sulfate / D5w) 1 gm in 100 mls @ 100 mls/hr IV ONE ONE Stop: 09/03/18 07:00 Last Infusion: 09/03/18 07:35 Dose: 0 mls/hr Documented by: [id number] Admin: 09/03/18 06:17 Dose: 100 mls/hr Documented by: [id number] Magnesium Sulfate/Dextrose (Magnesium Sulfate / D5w) 1 gm in 100 mls @ 100 mls/hr IV ONE ONE Stop: 09/04/18 03:22 Last Infusion: 09/04/18 03:54 Dose: 0 mls/hr Documented by: [id number] Admin: 09/04/18 02:51 Dose: 100 mls/hr Documented by: [id number] Sodium Chloride (Nss) 500 mls @ 50 mls/hr IV .Q10H ONE Stop: 09/04/18 12:22 Last Infusion: 09/04/18 10:46 Dose: 0 mls/hr Documented by: [id number] Admin: 09/04/18 02:51 Dose: 50 mls/hr Documented by: [id number] Methylprednisolone 20 mg/ (Syringe) 0.32 mls @ 1.5 mls/min IV TODAY@0533 [facility] Stop: 09/04/18 06:00 Last Admin: 09/04/18 06:07 Dose: 1.5 mls/min Documented by: [id number] Lisinopril (Zestril) 2.5 mg PO QAM [facility] Stop: 10/03/18 05:14 Last Admin: 09/03/18 05:55 Dose: 2.5 mg Documented by: [id number] Menthol ([place]) Confirm Administered Dose 24 esteban BUCCAL .STK-MED ONE Stop: 09/04/18 10:49 Last Admin: 09/04/18 10:51 Dose: 24 esteban Documented by: [id number] Morphine Sulfate (Morphine Sulfate) 2 mg IV NOW STA Stop: 09/02/18 01:43 Last Admin: 09/02/18 01:57 Dose: 2 mg Documented by: [id number] Potassium Chloride (Klor-Con M20) 40 meq PO NOW ONE Stop: 09/02/18 08:16 Last Admin: 09/02/18 09:34 Dose: 40 meq Documented by: [id number] Potassium Chloride (Klor-Con M20) 40 meq PO NOW STA Stop: 09/03/18 05:10 Last Admin: 09/03/18 05:54 Dose: 40 meq Documented by: [id number] Potassium Chloride (Klor-Con M10) 20 meq PO NOW STA Stop: 09/03/18 12:08 Last Admin: 09/03/18 12:56 Dose: 20 meq Documented by: [id number] Potassium Chloride (Klor-Con M20) 60 meq PO NOW STA Stop: 09/04/18 00:03 Last Admin: 09/04/18 00:31 Dose: 60 meq Documented by: [id number] Potassium Chloride (Klor-Con M20) 40 meq PO NOW STA Stop: 09/04/18 02:24 Last Admin: 09/04/18 02:54 Dose: 40 meq Documented by: [id number] Potassium Chloride (Klor-Con M10) 20 meq PO NOW ONE Stop: 09/04/18 15:33 Last Admin: 09/04/18 16:32 Dose: 20 meq Documented by: [id number] Medical Decision Making Differential Diagnosis Differential includes acute coronary syndrome, myocardial infarction, CVA, TIA, anemia, infection, pneumonia, UTI, pyelonephritis, poor nutrition, dehydration, electrolyte disturbance,hypoglycemia. Medical Records Attestation: I reviewed the patient's medical records. Home Medications Current Medication List: was personally reviewed by me Laboratory Data Attestation: I reviewed the patient's lab results. Result diagrams: 09/04/18 00:36 09/04/18 07:07 Lab Results 09/01/18 09/01/18 09/01/18 Range/Units 13:06 13:06 13:06 WBC 3.42 L (4.8-10.8) K/uL RBC 4.40 L (4.7-6.1) M/uL Hgb 15.1 (14.0-18.0) g/dL Hct 41.6 L (42-52) % MCV 94.5 (80-100) fL MCH 34.3 H (25-34) pg MCHC 36.3 H (32-36) g/dL RDW Std Deviation 47.0 H (36.4-46.3) fL RDW Coeff of Lorne 13.5 (11.5-14.5) % Plt Count 72 L (130-400) K/uL MPV 10.0 (7.4-10.4) fL Immature Gran % (Auto) 0.6 % Neut % (Auto) 81.0 % Lymph % (Auto) 9.9 % [place] % (Auto) 8.5 % Eos % (Auto) 0.0 % Baso % (Auto) 0.0 % Immature Gran # (Auto) 0.02 (0.00-0.02) K/uL Neut # (Auto) 2.77 (1.4-6.5) K/uL Lymph # (Auto) 0.34 L (1.2-3.4) K/uL [place] # (Auto) 0.29 (0.11-0.59) K/uL Eos # (Auto) 0.00 (0-0.5) K/uL Baso # (Auto) 0.00 (0-0.2) K/uL Absolute Nucleated RBC 0.00 (0-0) K/uL Nucleated RBC % (auto) 0.0 % Blood Smear Review Toxic Vacuolation Dohle Bodies Platelet Estimate Decreased L (Normal) RBC Morphology Echinocytes Peripher Smr Path Cons ESR (0-14) mm/hr PT (9.0-12.0) Seconds INR (0.9-1.1) APTT (21.0-31.0) Seconds PTT Ratio Sodium 129 L (136-145) mmol/L Potassium 3.7 (3.5-5.1) mmol/L Chloride 95 L (98-107) mmol/L Carbon Dioxide 28 (21-32) mmol/L Anion Gap 6.0 (3-11) BUN 18 (7-18) mg/dl Creatinine 1.35 (0.6-1.4) mg/dl Est Cr Clr Drug Dosing Not Reportable Est GFR ( Amer) 55.5 Est GFR (Non-Af Amer) 47.9 BUN/Creatinine Ratio 13.4 (10-20) Glucose 100 H (70-99) mg/dl Lactate (0.4-2.0) mmol/L Calcium 8.4 L (8.5-10.1) mg/dl Magnesium (1.8-2.4) mg/dl Total Bilirubin 1.3 H (0.2-1) mg/dl Direct Bilirubin (0-0.2) mg/dl AST 41 H (15-37) U/L ALT 34 (12-78) U/L Alkaline Phosphatase 96 (45-117) U/L Ammonia (11-32) umol/L Troponin I 0.128 H* (0-0.045) ng/ml C-Reactive Protein (0-0.29) mg/dl NT-Pro-B Natriuret Pep (0-1800) pg/ml Total Protein 7.3 (6.4-8.2) gm/dl Albumin 3.6 (3.4-5.0) gm/dl Globulin 3.7 (2.5-4.0) gm/dl Albumin/Globulin Ratio 1.0 (0.9-2) Lipase (73-393) U/L Procalcitonin 0.09 (0-0.5) ng/ml Urine Color Urine Appearance (Clear) Urine pH (4.5-7.5) Ur Specific [place] (1.000-1.030) Urine Protein (Negative) Urine Glucose (UA) (Negative) Urine Ketones (Negative) Urine Blood (Negative) Urine Nitrite (Negative) Urine Bilirubin (Negative) Urine Urobilinogen (Negative) Ur Leukocyte Esterase (Negative) Urine WBC (Auto) (0-5) /hpf Urine RBC (Auto) (0-4) /hpf U Hyaline Cast (Auto) (0-5) /lpf U Epithel Cells (Auto) (0-5) /lpf Urine Bacteria (Auto) (Negative) CSF Appearance CSF Color Xanthrochromic CSF WBC (0-5) /uL CSF RBC (0-) /uL CSF Cell Count Tube # CSF Chemistry Tube # CSF Glucose (40-70) mg/dl CSF Total Protein (15-45) mg/dl Lyme Disease IgG Ab Negative (Negative) Lyme Disease IgM Ab Negative (Negative) Influenza Type A Ag (Neg) Influenza Type B Ag (Neg) Blood Type Antibody Screen 09/01/18 09/01/18 09/01/18 Range/Units 13:06 13:59 15:27 WBC (4.8-10.8) K/uL RBC (4.7-6.1) M/uL Hgb (14.0-18.0) g/dL Hct (42-52) % MCV (80-100) fL MCH (25-34) pg MCHC (32-36) g/dL RDW Std Deviation (36.4-46.3) fL RDW Coeff of Lorne (11.5-14.5) % Plt Count (130-400) K/uL MPV (7.4-10.4) fL Immature Gran % (Auto) % Neut % (Auto) % Lymph % (Auto) % [place] % (Auto) % Eos % (Auto) % Baso % (Auto) % Immature Gran # (Auto) (0.00-0.02) K/uL Neut # (Auto) (1.4-6.5) K/uL Lymph # (Auto) (1.2-3.4) K/uL [place] # (Auto) (0.11-0.59) K/uL Eos # (Auto) (0-0.5) K/uL Baso # (Auto) (0-0.2) K/uL Absolute Nucleated RBC (0-0) K/uL Nucleated RBC % (auto) % Blood Smear Review Toxic Vacuolation Dohle Bodies Platelet Estimate (Normal) RBC Morphology Echinocytes Peripher Smr Path Cons ESR (0-14) mm/hr PT 11.9 (9.0-12.0) Seconds INR 1.2 H (0.9-1.1) APTT 31.7 H (21.0-31.0) Seconds PTT Ratio 1.2 Sodium (136-145) mmol/L Potassium (3.5-5.1) mmol/L Chloride (98-107) mmol/L Carbon Dioxide (21-32) mmol/L Anion Gap (3-11) BUN (7-18) mg/dl Creatinine (0.6-1.4) mg/dl Est Cr Clr Drug Dosing Est GFR ( Amer) Est GFR (Non-Af Amer) BUN/Creatinine Ratio (10-20) Glucose (70-99) mg/dl Lactate (0.4-2.0) mmol/L Calcium (8.5-10.1) mg/dl Magnesium (1.8-2.4) mg/dl Total Bilirubin (0.2-1) mg/dl Direct Bilirubin (0-0.2) mg/dl AST (15-37) U/L ALT (12-78) U/L Alkaline Phosphatase (45-117) U/L Ammonia (11-32) umol/L Troponin I (0-0.045) ng/ml C-Reactive Protein (0-0.29) mg/dl NT-Pro-B Natriuret Pep (0-1800) pg/ml Total Protein (6.4-8.2) gm/dl Albumin (3.4-5.0) gm/dl Globulin (2.5-4.0) gm/dl Albumin/Globulin Ratio (0.9-2) Lipase (73-393) U/L Procalcitonin (0-0.5) ng/ml Urine Color Dark Yellow Urine Appearance Clear (Clear) Urine pH 6.0 (4.5-7.5) Ur Specific [place] 1.025 (1.000-1.030) Urine Protein 1+ H (Negative) Urine Glucose (UA) Negative (Negative) Urine Ketones Trace H (Negative) Urine Blood Negative (Negative) Urine Nitrite Negative (Negative) Urine Bilirubin Negative (Negative) Urine Urobilinogen Positive H (Negative) Ur Leukocyte Esterase Trace H (Negative) Urine WBC (Auto) 1-5 (0-5) /hpf Urine RBC (Auto) 5-10 H (0-4) /hpf U Hyaline Cast (Auto) 1-5 (0-5) /lpf U Epithel Cells (Auto) 10-20 H (0-5) /lpf Urine Bacteria (Auto) Negative (Negative) CSF Appearance CSF Color Xanthrochromic CSF WBC (0-5) /uL CSF RBC (0-) /uL CSF Cell Count Tube # CSF Chemistry Tube # CSF Glucose (40-70) mg/dl CSF Total Protein (15-45) mg/dl Lyme Disease IgG Ab (Negative) Lyme Disease IgM Ab (Negative) Influenza Type A Ag Neg for Influ A (Neg) Influenza Type B Ag Neg for Influ B (Neg) Blood Type Antibody Screen 09/01/18 09/01/18 09/01/18 Range/Units 18:24 18:24 18:24 WBC (4.8-10.8) K/uL RBC (4.7-6.1) M/uL Hgb (14.0-18.0) g/dL Hct (42-52) % MCV (80-100) fL MCH (25-34) pg MCHC (32-36) g/dL RDW Std Deviation (36.4-46.3) fL RDW Coeff of Lorne (11.5-14.5) % Plt Count (130-400) K/uL MPV (7.4-10.4) fL Immature Gran % (Auto) % Neut % (Auto) % Lymph % (Auto) % [place] % (Auto) % Eos % (Auto) % Baso % (Auto) % Immature Gran # (Auto) (0.00-0.02) K/uL Neut # (Auto) (1.4-6.5) K/uL Lymph # (Auto) (1.2-3.4) K/uL [place] # (Auto) (0.11-0.59) K/uL Eos # (Auto) (0-0.5) K/uL Baso # (Auto) (0-0.2) K/uL Absolute Nucleated RBC (0-0) K/uL Nucleated RBC % (auto) % Blood Smear Review Toxic Vacuolation Dohle Bodies Platelet Estimate (Normal) RBC Morphology Echinocytes Peripher Smr Path Cons ESR 2 (0-14) mm/hr PT (9.0-12.0) Seconds INR (0.9-1.1) APTT (21.0-31.0) Seconds PTT Ratio Sodium (136-145) mmol/L Potassium (3.5-5.1) mmol/L Chloride (98-107) mmol/L Carbon Dioxide (21-32) mmol/L Anion Gap (3-11) BUN (7-18) mg/dl Creatinine (0.6-1.4) mg/dl Est Cr Clr Drug Dosing Est GFR ( Amer) Est GFR (Non-Af Amer) BUN/Creatinine Ratio (10-20) Glucose (70-99) mg/dl Lactate (0.4-2.0) mmol/L Calcium (8.5-10.1) mg/dl Magnesium (1.8-2.4) mg/dl Total Bilirubin (0.2-1) mg/dl Direct Bilirubin (0-0.2) mg/dl AST (15-37) U/L ALT (12-78) U/L Alkaline Phosphatase (45-117) U/L Ammonia (11-32) umol/L Troponin I (0-0.045) ng/ml C-Reactive Protein 5.19 H (0-0.29) mg/dl NT-Pro-B Natriuret Pep (0-1800) pg/ml Total Protein (6.4-8.2) gm/dl Albumin (3.4-5.0) gm/dl Globulin (2.5-4.0) gm/dl Albumin/Globulin Ratio (0.9-2) Lipase (73-393) U/L Procalcitonin (0-0.5) ng/ml Urine Color Urine Appearance (Clear) Urine pH (4.5-7.5) Ur Specific [place] (1.000-1.030) Urine Protein (Negative) Urine Glucose (UA) (Negative) Urine Ketones (Negative) Urine Blood (Negative) Urine Nitrite (Negative) Urine Bilirubin (Negative) Urine Urobilinogen (Negative) Ur Leukocyte Esterase (Negative) Urine WBC (Auto) (0-5) /hpf Urine RBC (Auto) (0-4) /hpf U Hyaline Cast (Auto) (0-5) /lpf U Epithel Cells (Auto) (0-5) /lpf Urine Bacteria (Auto) (Negative) CSF Appearance CSF Color Xanthrochromic CSF WBC (0-5) /uL CSF RBC (0-) /uL CSF Cell Count Tube # CSF Chemistry Tube # CSF Glucose (40-70) mg/dl CSF Total Protein (15-45) mg/dl Lyme Disease IgG Ab (Negative) Lyme Disease IgM Ab (Negative) Influenza Type A Ag (Neg) Influenza Type B Ag (Neg) Blood Type Antibody Screen 09/01/18 09/01/18 09/02/18 Range/Units 19:20 19:20 00:48 WBC (4.8-10.8) K/uL RBC (4.7-6.1) M/uL Hgb (14.0-18.0) g/dL Hct (42-52) % MCV (80-100) fL MCH (25-34) pg MCHC (32-36) g/dL RDW Std Deviation (36.4-46.3) fL RDW Coeff of Lorne (11.5-14.5) % Plt Count (130-400) K/uL MPV (7.4-10.4) fL Immature Gran % (Auto) % Neut % (Auto) % Lymph % (Auto) % [place] % (Auto) % Eos % (Auto) % Baso % (Auto) % Immature Gran # (Auto) (0.00-0.02) K/uL Neut # (Auto) (1.4-6.5) K/uL Lymph # (Auto) (1.2-3.4) K/uL [place] # (Auto) (0.11-0.59) K/uL Eos # (Auto) (0-0.5) K/uL Baso # (Auto) (0-0.2) K/uL Absolute Nucleated RBC (0-0) K/uL Nucleated RBC % (auto) % Blood Smear Review Toxic Vacuolation Dohle Bodies Platelet Estimate (Normal) RBC Morphology Echinocytes Peripher Smr Path Cons ESR (0-14) mm/hr PT (9.0-12.0) Seconds INR (0.9-1.1) APTT (21.0-31.0) Seconds PTT Ratio Sodium (136-145) mmol/L Potassium (3.5-5.1) mmol/L Chloride (98-107) mmol/L Carbon Dioxide (21-32) mmol/L Anion Gap (3-11) BUN (7-18) mg/dl Creatinine (0.6-1.4) mg/dl Est Cr Clr Drug Dosing Est GFR ( Amer) Est GFR (Non-Af Amer) BUN/Creatinine Ratio (10-20) Glucose (70-99) mg/dl Lactate 1.1 (0.4-2.0) mmol/L Calcium (8.5-10.1) mg/dl Magnesium (1.8-2.4) mg/dl Total Bilirubin (0.2-1) mg/dl Direct Bilirubin (0-0.2) mg/dl AST (15-37) U/L ALT (12-78) U/L Alkaline Phosphatase (45-117) U/L Ammonia (11-32) umol/L Troponin I 0.127 H* 0.140 H* (0-0.045) ng/ml C-Reactive Protein (0-0.29) mg/dl NT-Pro-B Natriuret Pep (0-1800) pg/ml Total Protein (6.4-8.2) gm/dl Albumin (3.4-5.0) gm/dl Globulin (2.5-4.0) gm/dl Albumin/Globulin Ratio (0.9-2) Lipase (73-393) U/L Procalcitonin (0-0.5) ng/ml Urine Color Urine Appearance (Clear) Urine pH (4.5-7.5) Ur Specific [place] (1.000-1.030) Urine Protein (Negative) Urine Glucose (UA) (Negative) Urine Ketones (Negative) Urine Blood (Negative) Urine Nitrite (Negative) Urine Bilirubin (Negative) Urine Urobilinogen (Negative) Ur Leukocyte Esterase (Negative) Urine WBC (Auto) (0-5) /hpf Urine RBC (Auto) (0-4) /hpf U Hyaline Cast (Auto) (0-5) /lpf U Epithel Cells (Auto) (0-5) /lpf Urine Bacteria (Auto) (Negative) CSF Appearance CSF Color Xanthrochromic CSF WBC (0-5) /uL CSF RBC (0-) /uL CSF Cell Count Tube # CSF Chemistry Tube # CSF Glucose (40-70) mg/dl CSF Total Protein (15-45) mg/dl Lyme Disease IgG Ab (Negative) Lyme Disease IgM Ab (Negative) Influenza Type A Ag (Neg) Influenza Type B Ag (Neg) Blood Type Antibody Screen 09/02/18 09/02/18 09/02/18 Range/Units 06:12 06:12 06:12 WBC 2.02 L (4.8-10.8) K/uL RBC 3.69 L (4.7-6.1) M/uL Hgb 12.7 L (14.0-18.0) g/dL Hct 34.5 L (42-52) % MCV 93.5 (80-100) fL MCH 34.4 H (25-34) pg MCHC 36.8 H (32-36) g/dL RDW Std Deviation 46.5 H (36.4-46.3) fL RDW Coeff of Lorne 13.4 (11.5-14.5) % Plt Count 52 L (130-400) K/uL MPV 10.3 (7.4-10.4) fL Immature Gran % (Auto) 0.5 % Neut % (Auto) 71.3 % Lymph % (Auto) 16.8 % [place] % (Auto) 10.9 % Eos % (Auto) 0.0 % Baso % (Auto) 0.5 % Immature Gran # (Auto) 0.01 (0.00-0.02) K/uL Neut # (Auto) 1.44 (1.4-6.5) K/uL Lymph # (Auto) 0.34 L (1.2-3.4) K/uL [place] # (Auto) 0.22 (0.11-0.59) K/uL Eos # (Auto) 0.00 (0-0.5) K/uL Baso # (Auto) 0.01 (0-0.2) K/uL Absolute Nucleated RBC (0-0) K/uL Nucleated RBC % (auto) % Blood Smear Review Toxic Vacuolation Dohle Bodies Platelet Estimate Decreased L (Normal) RBC Morphology Echinocytes 1+ Peripher Smr Path Cons ESR (0-14) mm/hr PT (9.0-12.0) Seconds INR (0.9-1.1) APTT (21.0-31.0) Seconds PTT Ratio Sodium 131 L (136-145) mmol/L Potassium 3.2 L (3.5-5.1) mmol/L Chloride 101 (98-107) mmol/L Carbon Dioxide 24 (21-32) mmol/L Anion Gap 6.0 (3-11) BUN 19 H (7-18) mg/dl Creatinine 1.02 (0.6-1.4) mg/dl Est Cr Clr Drug Dosing 54.7 Est GFR ( Amer) 77.9 Est GFR (Non-Af Amer) 67.2 BUN/Creatinine Ratio 18.2 (10-20) Glucose 90 90 (70-99) mg/dl Lactate (0.4-2.0) mmol/L Calcium 7.8 L (8.5-10.1) mg/dl Magnesium (1.8-2.4) mg/dl Total Bilirubin 0.8 D (0.2-1) mg/dl Direct Bilirubin 0.3 H (0-0.2) mg/dl AST 68 H (15-37) U/L ALT 53 (12-78) U/L Alkaline Phosphatase 70 (45-117) U/L Ammonia (11-32) umol/L Troponin I (0-0.045) ng/ml C-Reactive Protein (0-0.29) mg/dl NT-Pro-B Natriuret Pep (0-1800) pg/ml Total Protein 5.4 L D (6.4-8.2) gm/dl Albumin 2.7 L (3.4-5.0) gm/dl Globulin 2.7 (2.5-4.0) gm/dl Albumin/Globulin Ratio 1.0 (0.9-2) Lipase (73-393) U/L Procalcitonin (0-0.5) ng/ml Urine Color Urine Appearance (Clear) Urine pH (4.5-7.5) Ur Specific [place] (1.000-1.030) Urine Protein (Negative) Urine Glucose (UA) (Negative) Urine Ketones (Negative) Urine Blood (Negative) Urine Nitrite (Negative) Urine Bilirubin (Negative) Urine Urobilinogen (Negative) Ur Leukocyte Esterase (Negative) Urine WBC (Auto) (0-5) /hpf Urine RBC (Auto) (0-4) /hpf U Hyaline Cast (Auto) (0-5) /lpf U Epithel Cells (Auto) (0-5) /lpf Urine Bacteria (Auto) (Negative) CSF Appearance CSF Color Xanthrochromic CSF WBC (0-5) /uL CSF RBC (0-) /uL CSF Cell Count Tube # CSF Chemistry Tube # CSF Glucose (40-70) mg/dl CSF Total Protein (15-45) mg/dl Lyme Disease IgG Ab (Negative) Lyme Disease IgM Ab (Negative) Influenza Type A Ag (Neg) Influenza Type B Ag (Neg) Blood Type Antibody Screen 09/02/18 09/02/18 09/02/18 Range/Units 06:12 13:45 13:45 WBC (4.8-10.8) K/uL RBC (4.7-6.1) M/uL Hgb (14.0-18.0) g/dL Hct (42-52) % MCV (80-100) fL MCH (25-34) pg MCHC (32-36) g/dL RDW Std Deviation (36.4-46.3) fL RDW Coeff of Lorne (11.5-14.5) % Plt Count (130-400) K/uL MPV (7.4-10.4) fL Immature Gran % (Auto) % Neut % (Auto) % Lymph % (Auto) % [place] % (Auto) % Eos % (Auto) % Baso % (Auto) % Immature Gran # (Auto) (0.00-0.02) K/uL Neut # (Auto) (1.4-6.5) K/uL Lymph # (Auto) (1.2-3.4) K/uL [place] # (Auto) (0.11-0.59) K/uL Eos # (Auto) (0-0.5) K/uL Baso # (Auto) (0-0.2) K/uL Absolute Nucleated RBC (0-0) K/uL Nucleated RBC % (auto) % Blood Smear Review Toxic Vacuolation Dohle Bodies Platelet Estimate (Normal) RBC Morphology Echinocytes Peripher Smr Path Cons ESR (0-14) mm/hr PT (9.0-12.0) Seconds INR (0.9-1.1) APTT (21.0-31.0) Seconds PTT Ratio Sodium (136-145) mmol/L Potassium (3.5-5.1) mmol/L Chloride (98-107) mmol/L Carbon Dioxide (21-32) mmol/L Anion Gap (3-11) BUN (7-18) mg/dl Creatinine (0.6-1.4) mg/dl Est Cr Clr Drug Dosing Est GFR ( Amer) Est GFR (Non-Af Amer) BUN/Creatinine Ratio (10-20) Glucose (70-99) mg/dl Lactate (0.4-2.0) mmol/L Calcium (8.5-10.1) mg/dl Magnesium (1.8-2.4) mg/dl Total Bilirubin (0.2-1) mg/dl Direct Bilirubin (0-0.2) mg/dl AST (15-37) U/L ALT (12-78) U/L Alkaline Phosphatase (45-117) U/L Ammonia (11-32) umol/L Troponin I 0.143 H* (0-0.045) ng/ml C-Reactive Protein (0-0.29) mg/dl NT-Pro-B Natriuret Pep (0-1800) pg/ml Total Protein (6.4-8.2) gm/dl Albumin (3.4-5.0) gm/dl Globulin (2.5-4.0) gm/dl Albumin/Globulin Ratio (0.9-2) Lipase (73-393) U/L Procalcitonin (0-0.5) ng/ml Urine Color Urine Appearance (Clear) Urine pH (4.5-7.5) Ur Specific [place] (1.000-1.030) Urine Protein (Negative) Urine Glucose (UA) (Negative) Urine Ketones (Negative) Urine Blood (Negative) Urine Nitrite (Negative) Urine Bilirubin (Negative) Urine Urobilinogen (Negative) Ur Leukocyte Esterase (Negative) Urine WBC (Auto) (0-5) /hpf Urine RBC (Auto) (0-4) /hpf U Hyaline Cast (Auto) (0-5) /lpf U Epithel Cells (Auto) (0-5) /lpf Urine Bacteria (Auto) (Negative) CSF Appearance Clear CSF Color Colorless Xanthrochromic No xanthochromia CSF WBC 1 (0-5) /uL CSF RBC 0 (0-) /uL CSF Cell Count Tube # 3 CSF Chemistry Tube # 1 CSF Glucose 58 (40-70) mg/dl CSF Total Protein 63.1 H (15-45) mg/dl Lyme Disease IgG Ab (Negative) Lyme Disease IgM Ab (Negative) Influenza Type A Ag (Neg) Influenza Type B Ag (Neg) Blood Type Antibody Screen 09/02/18 09/02/18 09/02/18 Range/Units 13:45 15:47 21:52 WBC 2.12 L (4.8-10.8) K/uL RBC 3.72 L (4.7-6.1) M/uL Hgb 12.7 L (14.0-18.0) g/dL Hct 34.8 L (42-52) % MCV 93.5 (80-100) fL MCH 34.1 H (25-34) pg MCHC 36.5 H (32-36) g/dL RDW Std Deviation 47.0 H (36.4-46.3) fL RDW Coeff of Lorne 13.6 (11.5-14.5) % Plt Count 46 L (130-400) K/uL MPV 9.9 (7.4-10.4) fL Immature Gran % (Auto) % Neut % (Auto) % Lymph % (Auto) % [place] % (Auto) % Eos % (Auto) % Baso % (Auto) % Immature Gran # (Auto) (0.00-0.02) K/uL Neut # (Auto) (1.4-6.5) K/uL Lymph # (Auto) (1.2-3.4) K/uL [place] # (Auto) (0.11-0.59) K/uL Eos # (Auto) (0-0.5) K/uL Baso # (Auto) (0-0.2) K/uL Absolute Nucleated RBC (0-0) K/uL Nucleated RBC % (auto) % Blood Smear Review Toxic Vacuolation Dohle Bodies Platelet Estimate (Normal) RBC Morphology Echinocytes Peripher Smr Path Cons ESR (0-14) mm/hr PT (9.0-12.0) Seconds INR (0.9-1.1) APTT (21.0-31.0) Seconds PTT Ratio Sodium 133 L (136-145) mmol/L Potassium 3.6 (3.5-5.1) mmol/L Chloride 101 (98-107) mmol/L Carbon Dioxide 25 (21-32) mmol/L Anion Gap 7.0 (3-11) BUN 18 (7-18) mg/dl Creatinine 1.12 (0.6-1.4) mg/dl Est Cr Clr Drug Dosing 49.9 Est GFR ( Amer) 69.5 Est GFR (Non-Af Amer) 60.0 BUN/Creatinine Ratio 16.2 (10-20) Glucose 110 H (70-99) mg/dl Lactate (0.4-2.0) mmol/L Calcium 8.0 L (8.5-10.1) mg/dl Magnesium 2.0 (1.8-2.4) mg/dl Total Bilirubin 0.7 (0.2-1) mg/dl Direct Bilirubin (0-0.2) mg/dl AST 100 H (15-37) U/L ALT 85 H (12-78) U/L Alkaline Phosphatase 77 (45-117) U/L Ammonia (11-32) umol/L Troponin I 0.150 H* (0-0.045) ng/ml C-Reactive Protein (0-0.29) mg/dl NT-Pro-B Natriuret Pep (0-1800) pg/ml Total Protein 6.0 L (6.4-8.2) gm/dl Albumin 2.9 L (3.4-5.0) gm/dl Globulin 3.1 (2.5-4.0) gm/dl Albumin/Globulin Ratio 1.0 (0.9-2) Lipase 171 (73-393) U/L Procalcitonin (0-0.5) ng/ml Urine Color Urine Appearance (Clear) Urine pH (4.5-7.5) Ur Specific [place] (1.000-1.030) Urine Protein (Negative) Urine Glucose (UA) (Negative) Urine Ketones (Negative) Urine Blood (Negative) Urine Nitrite (Negative) Urine Bilirubin (Negative) Urine Urobilinogen (Negative) Ur Leukocyte Esterase (Negative) Urine WBC (Auto) (0-5) /hpf Urine RBC (Auto) (0-4) /hpf U Hyaline Cast (Auto) (0-5) /lpf U Epithel Cells (Auto) (0-5) /lpf Urine Bacteria (Auto) (Negative) CSF Appearance CSF Color Xanthrochromic CSF WBC (0-5) /uL CSF RBC (0-) /uL CSF Cell Count Tube # CSF Chemistry Tube # CSF Glucose (40-70) mg/dl CSF Total Protein Cancelled (15-45) mg/dl Lyme Disease IgG Ab (Negative) Lyme Disease IgM Ab (Negative) Influenza Type A Ag (Neg) Influenza Type B Ag (Neg) Blood Type Antibody Screen 09/02/18 09/03/18 09/03/18 Range/Units 21:52 04:17 04:17 WBC 5.58 (4.8-10.8) K/uL RBC 4.16 L (4.7-6.1) M/uL Hgb 14.3 (14.0-18.0) g/dL Hct 37.9 L (42-52) % MCV 91.1 (80-100) fL MCH 34.4 H (25-34) pg MCHC 37.7 H (32-36) g/dL RDW Std Deviation 44.4 (36.4-46.3) fL RDW Coeff of Lorne 13.2 (11.5-14.5) % Plt Count 54 L (130-400) K/uL MPV 10.5 H (7.4-10.4) fL Immature Gran % (Auto) 0.2 % Neut % (Auto) 74.8 % Lymph % (Auto) 14.2 % [place] % (Auto) 10.6 % Eos % (Auto) 0.0 % Baso % (Auto) 0.2 % Immature Gran # (Auto) 0.01 (0.00-0.02) K/uL Neut # (Auto) 4.18 (1.4-6.5) K/uL Lymph # (Auto) 0.79 L (1.2-3.4) K/uL [place] # (Auto) 0.59 (0.11-0.59) K/uL Eos # (Auto) 0.00 (0-0.5) K/uL Baso # (Auto) 0.01 (0-0.2) K/uL Absolute Nucleated RBC (0-0) K/uL Nucleated RBC % (auto) % Blood Smear Review Toxic Vacuolation Occasional Dohle Bodies Occasional Platelet Estimate (Normal) RBC Morphology Echinocytes 2+ Peripher Smr Path Cons ESR (0-14) mm/hr PT (9.0-12.0) Seconds INR (0.9-1.1) APTT 28.3 34.2 H (21.0-31.0) Seconds PTT Ratio 1.0 1.3 Sodium (136-145) mmol/L Potassium (3.5-5.1) mmol/L Chloride (98-107) mmol/L Carbon Dioxide (21-32) mmol/L Anion Gap (3-11) BUN (7-18) mg/dl Creatinine (0.6-1.4) mg/dl Est Cr Clr Drug Dosing Est GFR ( Amer) Est GFR (Non-Af Amer) BUN/Creatinine Ratio (10-20) Glucose (70-99) mg/dl Lactate (0.4-2.0) mmol/L Calcium (8.5-10.1) mg/dl Magnesium (1.8-2.4) mg/dl Total Bilirubin (0.2-1) mg/dl Direct Bilirubin (0-0.2) mg/dl AST (15-37) U/L ALT (12-78) U/L Alkaline Phosphatase (45-117) U/L Ammonia (11-32) umol/L Troponin I (0-0.045) ng/ml C-Reactive Protein (0-0.29) mg/dl NT-Pro-B Natriuret Pep (0-1800) pg/ml Total Protein (6.4-8.2) gm/dl Albumin (3.4-5.0) gm/dl Globulin (2.5-4.0) gm/dl Albumin/Globulin Ratio (0.9-2) Lipase (73-393) U/L Procalcitonin (0-0.5) ng/ml Urine Color Urine Appearance (Clear) Urine pH (4.5-7.5) Ur Specific [place] (1.000-1.030) Urine Protein (Negative) Urine Glucose (UA) (Negative) Urine Ketones (Negative) Urine Blood (Negative) Urine Nitrite (Negative) Urine Bilirubin (Negative) Urine Urobilinogen (Negative) Ur Leukocyte Esterase (Negative) Urine WBC (Auto) (0-5) /hpf Urine RBC (Auto) (0-4) /hpf U Hyaline Cast (Auto) (0-5) /lpf U Epithel Cells (Auto) (0-5) /lpf Urine Bacteria (Auto) (Negative) CSF Appearance CSF Color Xanthrochromic CSF WBC (0-5) /uL CSF RBC (0-) /uL CSF Cell Count Tube # CSF Chemistry Tube # CSF Glucose (40-70) mg/dl CSF Total Protein (15-45) mg/dl Lyme Disease IgG Ab (Negative) Lyme Disease IgM Ab (Negative) Influenza Type A Ag (Neg) Influenza Type B Ag (Neg) Blood Type Antibody Screen 09/03/18 09/03/18 09/03/18 Range/Units 04:17 08:25 08:25 WBC (4.8-10.8) K/uL RBC (4.7-6.1) M/uL Hgb (14.0-18.0) g/dL Hct (42-52) % MCV (80-100) fL MCH (25-34) pg MCHC (32-36) g/dL RDW Std Deviation (36.4-46.3) fL RDW Coeff of Lorne (11.5-14.5) % Plt Count (130-400) K/uL MPV (7.4-10.4) fL Immature Gran % (Auto) % Neut % (Auto) % Lymph % (Auto) % [place] % (Auto) % Eos % (Auto) % Baso % (Auto) % Immature Gran # (Auto) (0.00-0.02) K/uL Neut # (Auto) (1.4-6.5) K/uL Lymph # (Auto) (1.2-3.4) K/uL [place] # (Auto) (0.11-0.59) K/uL Eos # (Auto) (0-0.5) K/uL Baso # (Auto) (0-0.2) K/uL Absolute Nucleated RBC (0-0) K/uL Nucleated RBC % (auto) % Blood Smear Review Toxic Vacuolation Dohle Bodies Platelet Estimate (Normal) RBC Morphology Echinocytes Peripher Smr Path Cons ESR (0-14) mm/hr PT (9.0-12.0) Seconds INR (0.9-1.1) APTT (21.0-31.0) Seconds PTT Ratio Sodium 131 L (136-145) mmol/L Potassium 3.4 L (3.5-5.1) mmol/L Chloride 101 (98-107) mmol/L Carbon Dioxide 24 (21-32) mmol/L Anion Gap 6.0 (3-11) BUN 17 (7-18) mg/dl Creatinine 1.03 (0.6-1.4) mg/dl Est Cr Clr Drug Dosing 54.2 Est GFR ( Amer) 77.0 Est GFR (Non-Af Amer) 66.4 BUN/Creatinine Ratio 16.2 (10-20) Glucose 115 H (70-99) mg/dl Lactate (0.4-2.0) mmol/L Calcium 8.1 L (8.5-10.1) mg/dl Magnesium 1.9 (1.8-2.4) mg/dl Total Bilirubin (0.2-1) mg/dl Direct Bilirubin (0-0.2) mg/dl AST (15-37) U/L ALT (12-78) U/L Alkaline Phosphatase (45-117) U/L Ammonia 22.9 (11-32) umol/L Troponin I 0.171 H* 0.211 H* (0-0.045) ng/ml C-Reactive Protein (0-0.29) mg/dl NT-Pro-B Natriuret Pep 2694 H (0-1800) pg/ml Total Protein (6.4-8.2) gm/dl Albumin (3.4-5.0) gm/dl Globulin (2.5-4.0) gm/dl Albumin/Globulin Ratio (0.9-2) Lipase (73-393) U/L Procalcitonin (0-0.5) ng/ml Urine Color Urine Appearance (Clear) Urine pH (4.5-7.5) Ur Specific [place] (1.000-1.030) Urine Protein (Negative) Urine Glucose (UA) (Negative) Urine Ketones (Negative) Urine Blood (Negative) Urine Nitrite (Negative) Urine Bilirubin (Negative) Urine Urobilinogen (Negative) Ur Leukocyte Esterase (Negative) Urine WBC (Auto) (0-5) /hpf Urine RBC (Auto) (0-4) /hpf U Hyaline Cast (Auto) (0-5) /lpf U Epithel Cells (Auto) (0-5) /lpf Urine Bacteria (Auto) (Negative) CSF Appearance CSF Color Xanthrochromic CSF WBC (0-5) /uL CSF RBC (0-) /uL CSF Cell Count Tube # CSF Chemistry Tube # CSF Glucose (40-70) mg/dl CSF Total Protein (15-45) mg/dl Lyme Disease IgG Ab (Negative) Lyme Disease IgM Ab (Negative) Influenza Type A Ag (Neg) Influenza Type B Ag (Neg) Blood Type Antibody Screen 09/04/18 09/04/18 09/04/18 Range/Units 00:36 00:36 00:36 WBC 8.89 (4.8-10.8) K/uL RBC 4.13 L (4.7-6.1) M/uL Hgb 14.0 (14.0-18.0) g/dL Hct 37.2 L (42-52) % MCV 90.1 (80-100) fL MCH 33.9 (25-34) pg MCHC 37.6 H (32-36) g/dL RDW Std Deviation 43.4 (36.4-46.3) fL RDW Coeff of Lorne 13.1 (11.5-14.5) % Plt Count 71 L (130-400) K/uL MPV 10.7 H (7.4-10.4) fL Immature Gran % (Auto) 0.1 % Neut % (Auto) 66.6 % Lymph % (Auto) 14.5 % [place] % (Auto) 18.6 % Eos % (Auto) 0.0 % Baso % (Auto) 0.2 % Immature Gran # (Auto) 0.01 (0.00-0.02) K/uL Neut # (Auto) 5.92 (1.4-6.5) K/uL Lymph # (Auto) 1.29 (1.2-3.4) K/uL [place] # (Auto) 1.65 H (0.11-0.59) K/uL Eos # (Auto) 0.00 (0-0.5) K/uL Baso # (Auto) 0.02 (0-0.2) K/uL Absolute Nucleated RBC (0-0) K/uL Nucleated RBC % (auto) % Blood Smear Review Toxic Vacuolation Dohle Bodies Platelet Estimate (Normal) RBC Morphology Unremarkable Echinocytes Peripher Smr Path Cons ESR (0-14) mm/hr PT (9.0-12.0) Seconds INR (0.9-1.1) APTT 34.7 H (21.0-31.0) Seconds PTT Ratio 1.3 Sodium 129 L (136-145) mmol/L Potassium 3.1 L (3.5-5.1) mmol/L Chloride 96 L (98-107) mmol/L Carbon Dioxide 28 (21-32) mmol/L Anion Gap 5.0 (3-11) BUN 16 (7-18) mg/dl Creatinine 1.10 (0.6-1.4) mg/dl Est Cr Clr Drug Dosing 50.0 Est GFR ( Amer) 71.1 Est GFR (Non-Af Amer) 61.3 BUN/Creatinine Ratio 14.9 (10-20) Glucose 115 H (70-99) mg/dl Lactate (0.4-2.0) mmol/L Calcium 8.0 L (8.5-10.1) mg/dl Magnesium 1.9 (1.8-2.4) mg/dl Total Bilirubin 1.1 H D (0.2-1) mg/dl Direct Bilirubin (0-0.2) mg/dl AST 78 H (15-37) U/L ALT 74 (12-78) U/L Alkaline Phosphatase 79 (45-117) U/L Ammonia (11-32) umol/L Troponin I (0-0.045) ng/ml C-Reactive Protein (0-0.29) mg/dl NT-Pro-B Natriuret Pep (0-1800) pg/ml Total Protein 6.1 L (6.4-8.2) gm/dl Albumin 2.9 L (3.4-5.0) gm/dl Globulin 3.2 (2.5-4.0) gm/dl Albumin/Globulin Ratio 0.9 (0.9-2) Lipase (73-393) U/L Procalcitonin (0-0.5) ng/ml Urine Color Urine Appearance (Clear) Urine pH (4.5-7.5) Ur Specific [place] (1.000-1.030) Urine Protein (Negative) Urine Glucose (UA) (Negative) Urine Ketones (Negative) Urine Blood (Negative) Urine Nitrite (Negative) Urine Bilirubin (Negative) Urine Urobilinogen (Negative) Ur Leukocyte Esterase (Negative) Urine WBC (Auto) (0-5) /hpf Urine RBC (Auto) (0-4) /hpf U Hyaline Cast (Auto) (0-5) /lpf U Epithel Cells (Auto) (0-5) /lpf Urine Bacteria (Auto) (Negative) CSF Appearance CSF Color Xanthrochromic CSF WBC (0-5) /uL CSF RBC (0-) /uL CSF Cell Count Tube # CSF Chemistry Tube # CSF Glucose (40-70) mg/dl CSF Total Protein (15-45) mg/dl Lyme Disease IgG Ab (Negative) Lyme Disease IgM Ab (Negative) Influenza Type A Ag (Neg) Influenza Type B Ag (Neg) Blood Type Antibody Screen 09/04/18 09/04/18 09/04/18 Range/Units 07:07 07:07 Unknown WBC (4.8-10.8) K/uL RBC (4.7-6.1) M/uL Hgb (14.0-18.0) g/dL Hct (42-52) % MCV (80-100) fL MCH (25-34) pg MCHC (32-36) g/dL RDW Std Deviation (36.4-46.3) fL RDW Coeff of Lorne (11.5-14.5) % Plt Count (130-400) K/uL MPV (7.4-10.4) fL Immature Gran % (Auto) % Neut % (Auto) % Lymph % (Auto) % [place] % (Auto) % Eos % (Auto) % Baso % (Auto) % Immature Gran # (Auto) (0.00-0.02) K/uL Neut # (Auto) (1.4-6.5) K/uL Lymph # (Auto) (1.2-3.4) K/uL [place] # (Auto) (0.11-0.59) K/uL Eos # (Auto) (0-0.5) K/uL Baso # (Auto) (0-0.2) K/uL Absolute Nucleated RBC (0-0) K/uL Nucleated RBC % (auto) % Blood Smear Review Toxic Vacuolation Dohle Bodies Platelet Estimate (Normal) RBC Morphology Echinocytes Peripher Smr Path Cons ESR (0-14) mm/hr PT (9.0-12.0) Seconds INR (0.9-1.1) APTT (21.0-31.0) Seconds PTT Ratio Sodium 127 L (136-145) mmol/L Potassium 3.8 D (3.5-5.1) mmol/L Chloride 96 L (98-107) mmol/L Carbon Dioxide 25 (21-32) mmol/L Anion Gap 6.0 (3-11) BUN 15 (7-18) mg/dl Creatinine 0.95 (0.6-1.4) mg/dl Est Cr Clr Drug Dosing 57.4 Est GFR ( Amer) 84.9 Est GFR (Non-Af Amer) 73.2 BUN/Creatinine Ratio 15.8 (10-20) Glucose 113 H (70-99) mg/dl Lactate (0.4-2.0) mmol/L Calcium 8.0 L (8.5-10.1) mg/dl Magnesium 2.4 (1.8-2.4) mg/dl Total Bilirubin (0.2-1) mg/dl Direct Bilirubin (0-0.2) mg/dl AST (15-37) U/L ALT (12-78) U/L Alkaline Phosphatase (45-117) U/L Ammonia (11-32) umol/L Troponin I 0.142 H* (0-0.045) ng/ml C-Reactive Protein (0-0.29) mg/dl NT-Pro-B Natriuret Pep 5558 H (0-1800) pg/ml Total Protein (6.4-8.2) gm/dl Albumin (3.4-5.0) gm/dl Globulin (2.5-4.0) gm/dl Albumin/Globulin Ratio (0.9-2) Lipase (73-393) U/L Procalcitonin (0-0.5) ng/ml Urine Color Urine Appearance (Clear) Urine pH (4.5-7.5) Ur Specific [place] (1.000-1.030) Urine Protein (Negative) Urine Glucose (UA) (Negative) Urine Ketones (Negative) Urine Blood (Negative) Urine Nitrite (Negative) Urine Bilirubin (Negative) Urine Urobilinogen (Negative) Ur Leukocyte Esterase (Negative) Urine WBC (Auto) (0-5) /hpf Urine RBC (Auto) (0-4) /hpf U Hyaline Cast (Auto) (0-5) /lpf U Epithel Cells (Auto) (0-5) /lpf Urine Bacteria (Auto) (Negative) CSF Appearance CSF Color Xanthrochromic CSF WBC (0-5) /uL CSF RBC (0-) /uL CSF Cell Count Tube # CSF Chemistry Tube # CSF Glucose (40-70) mg/dl CSF Total Protein (15-45) mg/dl Lyme Disease IgG Ab (Negative) Lyme Disease IgM Ab (Negative) Influenza Type A Ag (Neg) Influenza Type B Ag (Neg) Blood Type A Positive Antibody Screen NEGATIVE Imaging Data Radiologist's Impression: Radiology results as stated below per my review and the radiologist's interpretation: XR chest 1V portable CLINICAL HISTORY: fever dyspnea COMPARISON STUDY: 11/28/2017 FINDINGS: Mild cardiomegaly. Tortuous thoracic aorta. Median sternotomy. Slight blunting left lateral costophrenic angle considered chronic. Scattered basilar atelectatic change. Upper lungs are considered clear IMPRESSION: Mild cardiomegaly. Minimal scattered bibasilar atelectatic change. The above report was generated using voice recognition software. It may contain grammatical, syntax or spelling errors. Electronically signed by: Reagan Serna M.D. 09/01/2018 2:[address] head/brain wo con CT DOSE: 614.27 mGy.cm HISTORY: Trauma. Mental status change. fall CHI TECHNIQUE: Multiaxial CT images of the head were performed without the use of intravenous contrast. A dose lowering technique was utilized adhering to the principles of ALARA. Comparison: 02/15/2018 Findings: Partial left mastoidectomy with a mild amount of residual soft tissue. This is unchanged from the prior study. The remaining sinuses are clear. Age-related atrophy and chronic small vessel change. 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 Generalized age-related atrophy and moderate chronic small vessel change. No acute intracranial hemorrhage. No midline shift. Impression: Chronic and postoperative change. No acute process. The above report was generated using voice recognition software. It may contain grammatical, syntax or spelling errors. Electronically signed by: Reagan Serna M.D. 09/01/2018 3:05 PM ECG Data Attestation: I personally reviewed and interpreted this ECG as follows: Indication: weakness Rate (beats per minute): 69 Rhythm: normal sinus Findings: + other (LVH), + LAFB, + nonspecific-ST abn and + prolonged QT (486); no PAC, no PVC and no ectopy Blood Pressure Blood Pressure Findings: Elevated blood pressure Blood Pressure Disposition: further management by hospitalist Head Trauma GCS Score: 14 Additional Comments: Underlying dementia MDM Narrative This patient was evaluated and appeared to be in no significant distress. IV access was obtained and laboratory work was drawn. CT scan of the head was performed and reveals no evidence of acute intracranial abnormality. Chest x- ray was performed and is negative. Patient's laboratory work reveals a slightly elevated troponin at 0.128. Patient was given aspirin 324 mg p.o. and gently hydrated with normal saline solution. EKG reveals no evidence of acute ischemic change. 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 An attempt to ambu late the patient was made however he is not able to bear weight without significant assistance. Patient's case was discussed with the hospitalist service who will evaluate the patient for further management. Patient and were informed of the findings and agree. Impression & Plan Elevated troponin, Weakness, Unable to ambulate Discharge Plan Visit Data *Final* Discharge Date/Time: 09/01/18 17:27 Chief Complaint: Fall ED Provider: Maggie Santacruz Discharge Problem: Elevated troponin, Weakness, Unable to ambulate Patient Disposition: Admitted As Inpatient Discharge Instructions Interventions: ED Discharge Assessment Last Done: 09/01/18 17:27 The scribe's documentation has been prepared under my direction and personally reviewed by me in its entirety. I confirm that the note above accurately reflects all work, treatment, procedures, and medical decision making performed by me.
--- NOTE | 2018-09-01 17:01 | History & Physical Report ---
Date of Service September 01, 2018 Assessment & Plan (1) Altered mental status: (2) Weakness: Patient with history memory loss and confusion for greater than 1 year presented to ER with C/O increased confusion past 2 days. Also reported bilateral leg weakness past 2 days. Reported chills yesterday. Today in PCPs office temp of 102.2 F measured tympanically, and patient was thought to have suspected pneumonia referred to ER In ER patient afebrile, PA: 72, RR: 16, BP 155/69, 93% on room air. WBC: 3.4 (baseline 5-8), H/H: 15.1/41.6, PLT: 72 (baseline low to mid 100s), NA: 129 (133 in 01/2018), glucose 100. Negative influenza. UA: Trace leuk esterase, 10-20 epithelial, no bacteria, no nitrates CT HEAD:Chronic and postoperative change. No acute process. CXR:Mild cardiomegaly. Minimal scattered bibasilar atelectatic change. DDX: infectious etiology - encephalitis, pneumonia, anaplasmosis/tick borne illness, viral or metabolic etiology -Pt meets SIRS criteria with recorded temp of 102.2F at PCP office today and WBC: 3.4 -In ER was given Tylenol 650 mg p.o., NSS at 125 mL an hour -procalcitonin WNL -pending lactic acid, ESR, CRP, peripheral smear, lyme titer, anaplasmosis, erchlichia -pending blood cultures -MRI brain r/o abscess/edema/lesion/stroke -Will start doxycycline for possible tick borne illness -Start broad spectrum antibiotics - Rocephin, Vancomycin, Ampicillin for possible encephalitis -Consider LP. Spoke to radiologist therapist occupational - Dr Su and discussed. Concern that pt is on plavix and will need further consent from family completed. Would like contacted at ext [phone] with final consideration of fluoro guided LP -May need to consider further MRI imaging spine to r/o spinal abscess -ID consult, spoke to therapist occupational provider recommends doxycycline -Monitor CBC (3) Thrombocytopenia: WBC: 3.4 (baseline 5-8), H/H: 15.1/41.6, PLT: 72 (baseline low to mid 100s). PT: 11.9, INR: 1.2, PTT: 31.7 Worsening thrombocytopenia DDX: anaplasmosis -monitor CBC -doxycycline as above (4) Hyponatremia: Na: 129. Previous Na: 133 in 01/2018 -gentle IVF -monitor electrolytes (5) Elevated troponin: (6) Coronary artery disease: Hx CAD s/p stent to RCA in 2007 & CABG x 2 in 2008 Patient without chest pain or shortness of breath. Today troponin: 0.128. History elevated troponin in past at 0.8 in 11/2017, 0.06-0.2 in 10/[address] Kan-cardiac EP [facility], and Dr Cartwright -cardiology. History echo 10/2017: EF: 55-6%, PCP are well expanded and hypokinetic, mild mitral regurgitation, mild tricuspid regurgitation Cardiac cath 10/2017: Severe [place] vessel CAD involving LAD, OM1 and small D1. Stable findings compared to 04/2016. Moderate-severe circumflex CAD stable since 04/2016. Patent PHILIPPE to LAD and SVG to OM1, mid RCA stent patent. R/O ACS. Risk factors: HTN, hyperlipidemia, CAD -In ER patient was given 324 mg aspirin p.o. 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 See addendum for further assessment and plan History of Present Illness Chief Complaint: Weakness Primary Care Provider: Cal Dupont, Pt is 83 y/o F with PMH CAD s/p stent to RCA in 2007 & CABG x 2 in 2008, COPD, acoustic neuroma s/p surgery with resultant facial palsy, paroxysmal ventricular tachycardia on amiodarone, GERD, BPH, HTN, dyslipidemia, dementia presented to ER with complaint of weakness. Majority of history obtained from patient's and son as patient with confusion. reports patient has had memory loss and confusion for over 1 year and followed with neurology 1 year ago and was prescribed Aricept however has not started taking it. Reports that patient has had intermittent head pressure and dizziness for several months. Reports patient was taken off Flomax and isosorbide as they were suspected causes, however patient continued with symptoms. Reports past 2 days patient has had bilateral leg weakness and difficulty walking. states noticed patient seems off balance. Today so weak he tried using a cane. Patient was seen at PCPs office and had a fall in the parking lot. Denies hitting head. Reports skin tear to elbow. States vomited once after fall. Today at PCP's office had temperature of 102.2F temporal with BP: 112/52, P: 74, 95% on RA. States yesterday patient started with chills. Pt was referred to ER for possible pneumonia. Reported that patient has had a couple of falls past couple of months. Reports a fall couple weeks ago where he tried sitting in bed and missed bed and hit his back on the nightstand. Reports had some back pain at that point time however has since resolved and denies any current back pain. States in the past week has had 3 tick bites and thinks were attached for a couple of hours and were still alive when removed. Denies any noted rashes. Denies neck pain or stiffness. Reports chronic rhinorrhea since acoustic neuroma surgery. Denies epistaxis, melena, hematochezia, hematuria or other bleeding. Denies diaphoresis, diarrhea, constipation, syncope, LOC, vision changes, CP, SOB, orthopnea, palpitations, cough, sore throat, choking, otalgia, abdominal pain, paresthesias, extremity edema, rashes, urinary symptoms. Denies ill contacts Patient follows with Dr. Kan-cardiac [facility], and Dr Cartwright -cardiology. History echo 10/2017: EF: 55-6%, PCP are well expanded and hypokinetic, mild mitral regurgitation, mild tricuspid regurgitation Cardiac cath 10/2017: Severe [place] vessel CAD involving LAD, OM1 and small D1. Stable findings compared to 04/2016. Moderate-severe circumflex CAD stable since 04/2016. Patent PHILIPPE to LAD and SVG to OM1, mid RCA stent patent. Allergies Allergy/AdvReac Type Severity Reaction Status Date / Time oxycodone AdvReac Intermediate NAUSEA, Verified 09/01/18 14:18 VOMITING aspirin AdvReac Mild epistaxis Verified 09/01/18 14:18 with ASA 325mg Home Medications Home Medications Medication Instructions Recorded Confirmed Type acetaminophen 500 mg PO Q6H PRN 02/15/18 09/01/18 History amiodarone 200 mg PO DAILY 02/15/18 09/01/18 History aspirin 81 mg PO DAILY 02/15/18 09/01/18 History atorvastatin 80 mg PO HS 02/15/18 09/01/18 History clopidogrel 75 mg PO DAILY 02/15/18 09/01/18 History nitroglycerin [Nitrostat] 0.4 mg SUBLINGUAL DIRECTED PRN 02/15/18 09/01/18 History omeprazole 40 mg PO DAILY 02/15/18 09/01/18 History ranolazine 500 mg PO BID 02/15/18 09/01/18 History clindamycin phosphate 1 applic TOPICAL BID 09/01/18 09/01/18 History vitamins A,C,L-zdki-xfweef 1 cap PO BID 09/01/18 09/01/18 History [PreserVision AREDS] Past Med/Surg History Medical History [place] (myocardial infarction) (Chronic) GERD (gastroesophageal reflux disease) (Chronic) Coronary artery disease (Chronic) BPH (benign prostatic hyperplasia) (Chronic) History of left heart catheterization (LHC) (Chronic) Acoustic neuroma (Chronic) Paroxysmal VT (Chronic) Insomnia (Chronic) HLD (hyperlipidemia) (Chronic) Surgical History Hx of CABG (Chronic) Social History Preferred Language: Iranian Communication Ability: Effective Beliefs That Will Affect Care: None marital status: Current Living Situation: Spouse Other Information That Helps Us Care for You: No Feels Safe at Home: Yes Safety Concerns: Feels Safe At This Time Smoking Status: Never smoker Do You Dip or Chew Tobacco: No Second Hand Exposure: No Hx Alcohol Use: Yes Alcohol type: beer Hx Substance Use: No Review of Systems Review of Systems: All systems reviewed & are unremarkable except as noted in HPI & below Physical Exam Physical Exam: General: no acute distress, non-toxic appearance, WDWN Head: normocephalic, atraumatic Eyes: PERRL, EOM's intact, conjunctiva non-injected, anicteric ENT: normal inspection external ears, nose, mucous membranes moist Neck: supple, trachea midline, non-tender, ROM intact, no rigidity noted Lungs: no respiratory distress, no wheezing, slight rales bases bilaterally CV: RRR, no murmur, no JVD, no pretibial edema Abd: normal BS, soft, non-tender Back: non-tender to palpation Ext: no cyanosis, no calf tenderness, strength 5/5 bilateral upper and lower extremities Neuro: A&O to person and place, left eye ptosis, left facial palsy (chronic), no slurred speech, follows commands appropriately, negative rhomberg, normal affect Skin: warm, dry, Right lateral neck and right upper posterior arm near axilla with small area of erythema (at site of tick bites) Results & Data Vital Signs (Past 12 Hours) Vital Signs Temp Pulse Pulse Resp BP BP Pulse Ox 09/01/18 15:31 61 135/58 L 98 09/01/18 12:41 37.3 C 72 16 155/69 H 93 Laboratory Results Short CBC 09/01/18 Range/Units 13:06 WBC 3.42 L (4.8-10.8) K/uL Hgb 15.1 (14.0-18.0) g/dL Hct 41.6 L (42-52) % Plt Count 72 L (130-400) K/uL BMP 09/01/18 13:06 Sodium 129 L Potassium 3.7 Chloride 95 L Carbon Dioxide 28 BUN 18 Creatinine 1.35 Glucose 100 H Calcium 8.4 L Cardiac Enzymes 09/01/18 Range/Units 13:06 Troponin I 0.128 H* (0-0.045) ng/ml Liver Function 09/01/18 Range/Units 13:06 Total Bilirubin 1.3 H (0.2-1) mg/dl AST 41 H (15-37) U/L ALT 34 (12-78) U/L Alkaline Phosphatase 96 (45-117) U/L Albumin 3.6 (3.4-5.0) gm/dl Urine 09/01/18 Range/Units 15:27 Urine Color Dark Yellow Urine Appearance Clear (Clear) Urine pH 6.0 (4.5-7.5) Ur Specific [place] 1.025 (1.000-1.030) Urine Protein 1+ H (Negative) Urine Glucose (UA) Negative (Negative) Diagnostic Findings CT HEAD: Impression: Chronic and postoperative change. No acute process. CXR: IMPRESSION: Mild cardiomegaly. Minimal scattered bibasilar atelectatic change. ECG Additional Comments: Read by cardiology: Normal sinus rhythm Possible Left atrial enlargement Left anterior fascicular block Left ventricular hypertrophy Nonspecific ST abnormality Prolonged QT Abnormal ECG When compared with ECG of 16-FEB-2018 06:33, No significant change was found Confirmed by Live Randhawa ([id number]) on 09/01/2018 2:24:18 PM Supervising Physician Co-Signing Physician Notes I have seen and examined the patient and have discussed the case with the provider above. I agree with the assessment and plan as stated with the following exceptions. Mr. Alegria is pleasant but has a history of cognitive inhibition over the last year. He oriented to baseline, however, per he has appeared more confused for the past few days with fevers yesterday and today. There is no clear source but with fever, headaches and new mental status, we are empirically treating for a FRUIT SPRAYER source, and will obtain an MRI overnight with LP in am under fluoro. If this workup is negative may consider MRI of spine to rule out epidural abscess/discitis, however, no back pain is present. UA, CXR, initial head CT all clear. He has been reporting severe headaches for a couple of months now. Cont empiric abx including doxy with multiple recent tick exposures. Some symptoms including weakness and headaches are more chronic. Labwork abnormalities are pointing to infection initially including WBC 3.4, PLT 72K and the documented fever in the clinic today. Viral etiologies such as HSV considered, however, will await MRI findings and monitor for clinical improvement in the morning. NPH also considered with gait instability and confusion. On exam VSS with some elevated BP. He is able to follow instructions and maneuver around the bed on his own. He is WNWD and in no acute distress. Lungs are CTAB, heart exam is normal. Facial droop on the L face which is chronic; no focal deficit otherwise noted. Gait not assessed as he is a fall risk. Strength including legs is 5/5 throughout. Unable to elicit LE reflexes, but BR 2/4 bilaterally. Fundoscopic exam was normal. Skin is warm and dry. Cont plan as above including LP in am. Appreciate ID recs and assistance with workup/de-escalation of abx as appropriate. Elevated troponin is likely related to demand ischemia in the setting of infection. Echo pending. DO Frankie
[2018-09-01 17:44] LABS: INR 1.2 (0.9-1.1); Partial Thromboplastin Ratio 1.2; Partial Thromboplastin Time 31.7 Seconds (21.0-31.0); Prothrombin Time 11.9 Seconds (9.0-12.0)
[2018-09-01 18:04] LABS: Procalcitonin 0.09 ng/ml (0-0.5)
[2018-09-01 18:13] LABS: Lyme Ab IgG w/WB Rflx Negative (Negative); Lyme Ab IgM w/WB Rflx Negative (Negative)
[2018-09-01] MEDS ORDERED: CONSULT PHARMACY STA (18:17)
[2018-09-01] MEDS ORDERED: VANCOMYCIN CONSULT ACTIVE PRN (18:39)
[2018-09-01] MEDS: cefTRIAXone SODIUM 2,000 MG in DEXTROSE 5% 50 ML IV SCH (19:46)
--- NOTE | 2018-09-01 19:50 | Pharmacy Report ---
Pharmacy Abx Initial Consult - Date of Service September 01, 2018 - Pharmacy Dosing Scope Date of Consult: 09/01/2018 Consultation requested by: Leann Santos Pharmacy is consulted to initiate Vancomycin IV dosing therapy, order appropriate labs and adjust drug dose/frequency. - Subjective The patient is a 83 year old M admitted on 09/01/18 16:57 with mental status changes. - Objective Height: 5 ft 11 in Weight: 66.1 kg Vital Signs (Past 12hrs): Vital Signs Temp Pulse Pulse Resp BP BP Pulse Ox 09/01/18 19:14 36.3 C L 59 L 18 162/64 H 96 09/01/18 17:18 58 L 143/56 H 93 09/01/18 15:31 61 135/58 L 98 09/01/18 12:41 37.3 C 72 16 155/69 H 93 Lab Results (24hrs): Laboratory Tests (24 Hours) 09/01/18 09/01/18 09/01/18 18:24 18:24 13:06 WBC Neut # (Auto) ESR 2 Creatinine Est Cr Clr Drug Dosing C-Reactive Protein 5.19 H Procalcitonin 0.09 09/01/18 09/01/18 13:06 13:06 WBC 3.42 L Neut # (Auto) 2.77 ESR Creatinine 1.35 Est Cr Clr Drug Dosing Not Reportable C-Reactive Protein Procalcitonin Micro Results: 09/01/18 13:48 Blood Culture - Pending Blood 09/01/18 13:06 Blood Culture - Pending Blood - Assessment & Plan Assessment 83 year old M admitted with mental status changes/febrile illness with differential to include possible meningitis, possible anaplasmosis/Lyme Dz and possible pneumonia. Empirically starting ceftriaxone/vancomycin/ampicillin and doxycycline IV Plan Vancomycin for treatment of possible meningitis/pneumonia Vancomycin IV * Estimated PK Parameters: Vd 0.7 L/kg, Abiodun 0.042 hr-1, t1/2 16.5 hr * Loading dose: 1750 mg (26.5 mg/kg) * Maintenance dose: 1000 mg IV (15.1 mg/kg) every 18 hours * Goal trough level for meningitis/pneumonia: 15 to 20 mcg/mL * Trough level ordered for 09/04/18 prior to the 0800 hours dose Pharmacy will continue to follow and will adjust dose/frequency as necessary. Thank you.
[2018-09-01] MEDS: AMPICILLIN 2,000 MG in SODIUM CHLOR 0.9% AD-VAN 100 ML IV SCH (20:39)
[2018-09-01] MEDS: CEROVITE ADV FORMULA TAB PO SCH (20:40)
[2018-09-01] MEDS: RANOLAZINE 500 MG ER TAB PO SCH (20:40)
[2018-09-01] MEDS: ATORVASTATIN 40 MG TAB PO SCH (20:40)
[2018-09-01] MEDS: DOXYCYCLINE HYCLATE 100 MG in DEXTROSE 5% 100 ML IV SCH (21:59)
[2018-09-01] MEDS ORDERED: GADOBUTROL 65ML VIAL IV PRN (23:17)
[2018-09-02] MEDS ORDERED: VANCOMYCIN HCL 1,750 MG in SODIUM CHLORIDE 0.9% 500 ML IV SCH
[2018-09-02] MEDS: NITROGLYCERIN SL 0.4 MG/TAB TAB SL PRN ×2 (00:38→21:44)
[2018-09-02] MEDS: AMPICILLIN 2,000 MG in SODIUM CHLOR 0.9% AD-VAN 100 ML IV SCH ×5 (01:37→15:44)
[2018-09-02] MEDS ORDERED: MoRPHine SULFATE 2 MG/ML CARP IV STA (01:42)
[2018-09-02] MEDS ORDERED: HydrALAZINE HCL 20 MG/ML VIAL IV ONE (02:41)
[2018-09-02] MEDS: ACETAMINOPHEN 325 MG TAB PO PRN ×2 (03:10→15:44)
--- NOTE | 2018-09-02 06:34 | Magnetic Resonance Report ---
MRI OF THE BRAIN WITHOUT AND WITH IV CONTRAST CLINICAL HISTORY: Change in mental status. Possible encephalitis. FEVER, CONFUSION, INABILITY TO WALK . HISTORY OF ACOUSTIC NEUROMA SURGERY. COMPARISON STUDY: CT scan dated 09/01/2018, MRI the brain dated 06/19/2012 TECHNIQUE: MRI of the brain was performed from the vertex to the skull base utilizing various T1 and T2 weighted sequences. Following the IV administration of 6.5 mL of Gadavist contrast, additional enh anced images were obtained. FINDINGS: Sagittal T1, axial diffusion, proton density and T2 weighted axial, coronal FLAIR, and pre and post a xial T1-weighted images were acquired. These were supplemented with post gadolinium coronal T1 weight ed images. No intra or extra-axial mass lesions are visualized. Axial diffusion-weighted images reveal no evidence of acute or subacute infarction. There is mild ventricular dilatation, finding which is felt to be secondary to volume loss Proton density T2-weighted and FLAIR images reveal scattered foci of increased T2 signal within the w piyush matter, likely on a small vessel basis. There are no abnormal flow voids. There is no evidence of pathologic enhancement. There are presumed postsurgical changes in the left mastoid and petrous bone secondary to prior acous tic neuroma surgery. IMPRESSION: 1. No acute intracranial findings 2. No evidence of intracranial mass 3. No evidence of acute or subacute infarction. Electronically signed by: Duncan Sanchez M.D. 09/02/2018 6:33 AM
[2018-09-02 06:40] LABS: Hematocrit (blood only) 34.5 % (42-52); Hemoglobin 12.7 g/dL (14.0-18.0); Mean Corpuscular Hgb Conc 36.8 g/dL (32-36); Mean Corpuscular Volume 93.5 fL (80-100); RDW Coefficient of Variation 13.4 % (11.5-14.5); RDW Standard Deviation 46.5 fL (36.4-46.3); Red Blood Count 3.69 M/uL (4.7-6.1); White Blood Count 2.02 K/uL (4.8-10.8)
[2018-09-02 07:20] LABS: Albumin Level 2.7 gm/dl (3.4-5.0); BUN Creatinine Ratio 18.2 (10-20); Bilirubin Direct 0.3 mg/dl (0-0.2); Calcium 7.8 mg/dl (8.5-10.1); Creatinine Clr Calc Pharmacy 54.7 ml/min; Est GFR (African American) 77.9; Est GFR (Non-African American) 67.2; Potassium 3.2 mmol/L (3.5-5.1)
[2018-09-02 07:21] LABS: Basophils # (auto) 0.01 K/uL (0-0.2); Basophils % (auto) 0.5 %; Echinocytes 1+; Immature Granulocytes # (auto) 0.01 K/uL (0.00-0.02); Immature Granulocytes % (auto) 0.5 %; Lymphocytes # (auto) 0.34 K/uL (1.2-3.4); Lymphocytes % (auto) 16.8 %; Mean Platelet Volume 10.3 fL (7.4-10.4); Monocytes # (auto) 0.22 K/uL (0.11-0.59); Monocytes % (auto) 10.9 %; Neutrophils # (auto) 1.44 K/uL (1.4-6.5); Neutrophils % (auto) 71.3 %; Platelet Count 52 K/uL (130-400); Platelet Estimate Decreased (Normal)
[2018-09-02 07:30] LABS: Bilirubin,Total 0.8 mg/dl (0.2-1); Globulin 2.7 gm/dl (2.5-4.0); Total Protein 5.4 gm/dl (6.4-8.2)
[2018-09-02] MEDS: cefTRIAXone SODIUM 2,000 MG in DEXTROSE 5% 50 ML IV SCH (07:54)
[2018-09-02] MEDS: PANTOprazole 40 MG TAB PO SCH (07:56)
[2018-09-02] MEDS: AMIODARONE 200 MG TAB PO SCH (07:57)
[2018-09-02] MEDS: ASPIRIN 81 MG ECTAB PO SCH (07:57)
[2018-09-02] MEDS: CEROVITE ADV FORMULA TAB PO SCH ×2 (07:57→20:45)
[2018-09-02] MEDS: RANOLAZINE 500 MG ER TAB PO SCH ×2 (07:57→20:44)
[2018-09-02] MEDS ORDERED: POTASSIUM CHLORIDE 20 MEQ TABCR PO ONE (08:15)
--- NOTE | 2018-09-02 08:26 | Hospitalist Progress Note ---
Date of Service September 02, 2018 Assessment & Plan (1) Altered mental status: (2) Weakness: Patient with history of memory loss, confusion for greater than 1 year presented to ER with C/O increased confusion, headaches, weakness with difficulty walking for few days. PCP office- Temp of 102 F, thought to have pneumonia and referred to ED. -Work up so far- CT HEAD:Chronic and postoperative change. No acute process. MRI brain- no sig abnormalities, CXR:Mild cardiomegaly. Minimal scattered bibasilar atelectatic change. UA- neg; Flu - Negative, Lyme's -negative, Procalcitonin-neg, CRP 5.19, ESR 2, -Work up ordered - LP with routine CSF studies, Added CSF West Nile, Lyme's IgG, IgM, Varizella Zoster, Enterovirus, Herpes Simplex- pending (Called lab - [place] Virus testing not available), E Chaffeensis - pending, Blood culture - pending -Peripheral smear- Lab called that it is suspicious for Anaplasmosis (hx of multiple tick bites in past). Supportive findings= Thrombocytopenia, Neutropenia -Empirically on broad-spectrum antibioticsIV Rocephin, vancomycin, ampicillin, doxycycline for Tick Borne illness -Appreciate ID inputs (3) Thrombocytopenia: WBC: 3.4 (baseline 5-8), H/H: 15.1/41.6, PLT: 72 (baseline low to mid 100s). PT: 11.9, INR: 1.2, PTT: 31.7 Worsening thrombocytopenia -Possibly anaplasmosis -Doxycycline as above (4) Hyponatremia: Na: 129 on presentation -Now improving -On gentle IVF -Monitor (5) Elevated troponin: Patient without chest pain or shortness of breath. Troponin 0.127--> 0.140. History elevated troponin in past at 0.8 in 11/2017, 0.06-0.2 in 10/[address] Kan-cardiac EP [facility], and Dr Cartwright -cardiology. History echo 10/2017: EF: 55-60%, PCP are well expanded and hypokinetic, mild mitral regurgitation, mild tricuspid regurgitation Cardiac cath 10/2017: Severe [place] vessel CAD involving LAD, OM1 and small D1. Stable findings compared to 04/2016. Moderate-severe circumflex CAD stable since 04/2016. Patent PHILIPPE to LAD and SVG to OM1, mid RCA stent patent. Risk factors: HTN, hyperlipidemia, CAD -In ER patient was given 324 mg aspirin p.o. -Initial EKG- No new changes, Repeat EKG - I, AVL- T wave inversions -Echo -EF 50-55%, Wall motion abnormalities- anterior -Continue statin, aspirin. Ok to restart Plavix as LP done -Cardiology on board- Does not think so this is acute ACS (6) Coronary artery disease: Hx CAD s/p stent to RCA in 2007 & CABG x 2 in 2008 Patient without chest pain or shortness of breath. Today troponin: 0.128. History elevated troponin in past at 0.8 in 11/2017, 0.06-0.2 in 10/[address] Kan-cardiac EP [facility], and Dr Cartwright -cardiology. History echo 10/2017: EF: 55-6%, PCP are well expanded and hypokinetic, mild mitral regurgitation, mild tricuspid regurgitation Cardiac cath 10/2017: Severe [place] vessel CAD involving LAD, OM1 and small D1. Stable findings compared to 04/2016. Moderate-severe circumflex CAD stable since 04/2016. Patent PHILIPPE to LAD and SVG to OM1, mid RCA stent patent. (7) Acoustic neuroma: S/P surgery in 1992 Reports residual facial palsy, chronic rhinorrhea. (8) Paroxysmal VT: -Continue amiodarone (9) HLD (hyperlipidemia): -continue statin (10) GERD (gastroesophageal reflux disease): -continue PPI DVT Prophylaxis -SCDs Disposition Medical Mx in progress Full Code as per discussion with pt and pt's . Follows with Dr Cal Dupont for routine care Subjective Patient does complain of generalized weakness. Denies any cough, congestion, nasal, nausea, vomiting, headache, localized numbness, fever, chills, back or neck pain. Tmax 38.3 F Not a good historian Physical Exam Physical Exam: Constitutional: Alert, oriented, in no acute distress Neck: No rigidity Pulmonary: Normal respiratory effort, clear to auscultation bilaterally Cardiac: Regular rate and rhythm, normal S1 and S2, no gallops, no rubs, no murmurs Extremities: No clubbing, cyanosis, or edema. Pulses 2+ and symmetric Abdomen: Normal bowel sounds, soft, non-tender, no abdominal mass palpated Skin: Normal skin color, turgor, and pigmentation, no rash, no skin lesions Neurological: Oriented to person, place, and time Results & Data Vital Signs (Past 12 Hours) Vital Signs Temp Pulse Pulse Resp BP BP Pulse Ox 09/02/18 07:00 36.8 C 62 58 L 18 129/62 96 09/02/18 05:53 37.2 C 09/02/18 03:58 37.8 C H 09/02/18 03:25 38.3 C H 72 18 148/71 H 90 09/02/18 02:30 65 09/02/18 01:56 72 152/65 H 09/02/18 01:51 37.3 C 09/02/18 00:07 72 143/68 H 93 09/01/18 23:41 37.3 C 72 20 147/67 H 91
[2018-09-02] MEDS: DOXYCYCLINE HYCLATE 100 MG in DEXTROSE 5% 100 ML IV SCH ×2 (09:34→20:46)
--- NOTE | 2018-09-02 09:41 | Cardiology Consultation ---
Date of Consultation September 02, 2018 Assessment & Plan (1) Elevated troponin: 1. Coronary artery disease s/p RCA PCI and CABG x2 (severe [place] vessel CAD, patent bypass grafts, patent mid RCA stent and 40% proximal RCA stenosis by cath in October 2017 - medical therapy recommended) 2. Hypertension 3. Dyslipidemia 4. Idiopathic ventricular tachycardia Patient presented with fever, progressive weakness, intermittent headaches, confusion, and dizziness, where he feels as though he is off-balance when walking. He is currently being evaluated for infectious etiology for his symptoms. From a cardiovascular standpoint, patient appears stable. His troponin is mildly elevated, but flat. His ECG shows nonspecific changes only. He is not experiencing any angina or shortness of breath symptoms. His presentation therefore does not appear consistent with an acute coronary syndrome and would not pursue any further ischemic evaluation at this time. He has had no evidence of an arrhythmia to account for his symptoms. He has no signs or symptoms of CHF. Recommend continuing his current medical therapy including aspirin, statin, amiodarone, and Ranexa. Continue to monitor on telemetry. Echocardiogram performed today, and the official reading is pending. Patient discussed with Dr. Randhawa. Supervising Physician Co-Signing Physician Notes Patient seen and examined, reviewed with Abbey. Agree with above. It does not seem likely that the current presentation is cardiac in nature, however he does have low-grade enzyme abnormalities. We will plan stress test. History of Present Illness Reason for Consultation: Elevated troponin Requesting Physician: Dr. Farrell History of Present Illness Mr. 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 Later that year he presented with an acute inferior wall myocardial infarction secondary to an occluded RCA treated with placement of a bare metal stent. He had ongoing anginal symptoms and in 2008 underwent CABG x 2 (PHILIPPE to LAD, SVG to OM). He was admitted to [facility] in April 2016 with angina and elevated cardiac enzymes. He underwent cardiac catheterization which demonstrated patent bypass grafts and 40% proximal RCA stenosis. He then underwent stress echo which was negative for ischemia and his resting echo demonstrated normal LV function and no regional wall motion abnormalities. The patient was admitted to [facility] on 10/26/17 with a several week history of chest pain and shortness of breath. His symptoms typically occurred at rest and not with exertion. He described the pain as "feeling like someone is sitting on my chest." His symptoms were relieved with nitroglycerin. His symptoms were concerning for unstable angina and therefore cardiac catheterization was recommended. This demonstrated severe [place] vessel CAD involving LAD, OM1, and small D1. Stable findings compared to April of 2016. Moderate to severe circumflex CAD, which appeared similar to April 2016 images. Patent PHILIPPE to LAD and SVG to OM1. Patent mid RCA stent. Normal LVEDP. No aortic stenosis. His echocardiogram demonstrated normal LV size and function, EF 55-60%, The base inferior wall appears thinned and hypokinetic, mild mitral regurgitation, mild tricuspid regurgitation. Medical therapy for his coronary artery disease was recommended. Patient presented to the ED yesterday from his PCP's office. His , who is present in the room, provides the majority of his history. He has been struggling with severe headaches, weakness, and dizziness, where he feels as though he is off-balance when ambulating, over the last year or so. His symptoms worsened on Thursday of this week, and he also became delirious. He made an appointment with primary care at [facility], and he fell going in to the clinic, cutting his right elbow. He reportedly had a temperature of 102.2 at the appointment, and he was referred to the ED due to concern for possible pneumonia. He has not experienced any chest pain or shortness of breath. He denies any syncopal or presyncopal episodes. He has not noted any palpitations. He denies lower extremity edema. He denies abnormal bleeding such as melena, hematochezia, or hematuria. He denies coughing or wheezing. He denies nausea, vomiting, or diarrhea. He follows with Dr. Cartwright and Dr. Kan for his cardiovascular issues. He was seen in clinic by Dr. Kan in May, and due to his complaints of dizziness, he was ordered a 2 week ambulator monitor. The monitor reportedly showed (actual report not available) sinus rhythm with an average rate of 61 bpm and a maximum heart rate of 97 bpm. There were occasional unifocal premature ventricular contractions accounting for 3.3% of his QRS complexes. During his reported symptoms, he had normal sinus rhythm or premature ventricular contractions. It was therefore concluded that his symptoms do no have an arrhythmic origin. It was recommended, though, that his Imdur be discontinued to see if he noted any improvement. Patient continued to be symptomatic despite this change. As noted in HPI. All other ROS are reviewed and otherwise negative at this time. Social history: He is and lives with his . No smoking. Occasional alcohol. Family history: Noncontributory given his advanced age and own disease. Allergies Allergy/AdvReac Type Severity Reaction Status Date / Time oxycodone AdvReac Intermediate NAUSEA, Verified 09/01/18 14:18 VOMITING aspirin AdvReac Mild epistaxis Verified 09/01/18 14:18 with ASA 325mg Home Medications Home Medications Medication Instructions Recorded Confirmed Type acetaminophen 500 mg PO Q6H PRN 02/15/18 09/01/18 History amiodarone 200 mg PO DAILY 02/15/18 09/01/18 History aspirin 81 mg PO DAILY 02/15/18 09/01/18 History atorvastatin 80 mg PO HS 02/15/18 09/01/18 History clopidogrel 75 mg PO DAILY 02/15/18 09/01/18 History nitroglycerin [Nitrostat] 0.4 mg SUBLINGUAL DIRECTED PRN 02/15/18 09/01/18 History omeprazole 40 mg PO DAILY 02/15/18 09/01/18 History ranolazine 500 mg PO BID 02/15/18 09/01/18 History clindamycin phosphate 1 applic TOPICAL BID 09/01/18 09/01/18 History vitamins A,C,B-qkmg-[id number] 1 cap PO BID 09/01/18 09/01/18 History [PreserVision AREDS] Patient History Medical History [place] (myocardial infarction) (Chronic) GERD (gastroesophageal reflux disease) (Chronic) Coronary artery disease (Chronic) BPH (benign prostatic hyperplasia) (Chronic) History of left heart catheterization (LHC) (Chronic) Acoustic neuroma (Chronic) Paroxysmal VT (Chronic) Insomnia (Chronic) HLD (hyperlipidemia) (Chronic) Surgical History Hx of CABG (Chronic) Family History Father Coronary heart disease Social History Preferred Language: French Communication Ability: Effective Beliefs That Will Affect Care: None marital status: Current Living Situation: Spouse Other Information That Helps Us Care for You: No Feels Safe at Home: Yes Safety Concerns: Feels Safe At This Time Smoking Status: Never smoker Do You Dip or Chew Tobacco: No Second Hand Exposure: No Hx Alcohol Use: Yes Alcohol type: beer Hx Substance Use: No Physical Exam Physical Exam: Constitutional: Alert, oriented, in no acute distress HEENT: Head is atraumatic and normocephalic. EOMs intact. Sclera anicteric. Face is symmetric. No perioral cyanosis. Mucous membranes moist. Neck: Supple, no JVD Pulmonary: Normal respiratory effort, clear to auscultation bilaterally Cardiac: Regular rate and rhythm, normal S1 and S2, no gallops, no rubs, no murmurs Extremities: No clubbing, cyanosis, or edema. Pulses 2+ and symmetric Abdomen: Normal bowel sounds, soft, non-tender, no abdominal mass palpated Skin: Normal skin color, turgor, and pigmentation, no rash, no skin lesions Neurological: Oriented to person, place, and time Results & Data Vital Signs (Past 12 Hours) Vital Signs Temp Pulse Pulse Resp BP BP Pulse Ox 09/02/18 07:00 36.8 C 62 58 L 18 129/62 96 09/02/18 05:53 37.2 C 09/02/18 03:58 37.8 C H 09/02/18 03:25 38.3 C H 72 18 148/71 H 90 09/02/18 02:30 65 09/02/18 01:56 72 152/65 H 09/02/18 01:51 37.3 C 09/02/18 00:07 72 143/68 H 93 09/01/18 23:41 37.3 C 72 20 147/67 H 91 Laboratory Results Laboratory Results WBC 2.02 K/uL (4.8-10.8) L 09/02/18 06:12 RBC 3.69 M/uL (4.7-6.1) L 09/02/18 06:12 Hgb 12.7 g/dL (14.0-18.0) L 09/02/18 06:12 Hct 34.5 % (42-52) L 09/02/18 06:12 MCV 93.5 fL (80-100) 09/02/18 06:12 MCH 34.4 pg (25-34) H 09/02/18 06:12 MCHC 36.8 g/dL (32-36) H 09/02/18 06:12 RDW Std Deviation 46.5 fL (36.4-46.3) H 09/02/18 06:12 RDW Coeff of [place] 13.4 % (11.5-14.5) 09/02/18 06:12 Plt Count 52 K/uL (130-400) L 09/02/18 06:12 MPV 10.3 fL (7.4-10.4) 09/02/18 06:12 Immature Gran % (Auto) 0.5 % 09/02/18 06:12 Neut % (Auto) 71.3 % 09/02/18 06:12 Lymph % (Auto) 16.8 % 09/02/18 06:12 Sutter % (Auto) 10.9 % 09/02/18 06:12 Eos % (Auto) 0.0 % 09/02/18 06:12 Baso % (Auto) 0.5 % 09/02/18 06:12 Immature Gran # (Auto) 0.01 K/uL (0.00-0.02) 09/02/18 06:12 Neut # (Auto) 1.44 K/uL (1.4-6.5) 09/02/18 06:12 Lymph # (Auto) 0.34 K/uL (1.2-3.4) L 09/02/18 06:12 Sutter # (Auto) 0.22 K/uL (0.11-0.59) 09/02/18 06:12 Eos # (Auto) 0.00 K/uL (0-0.5) 09/02/18 06:12 Baso # (Auto) 0.01 K/uL (0-0.2) 09/02/18 06:12 Absolute Nucleated RBC 0.00 K/uL (0-0) 09/01/18 13:06 Nucleated RBC % (auto) 0.0 % 09/01/18 13:06 Platelet Estimate Decreased (Normal) L 09/02/18 06:12 Echinocytes 1+ 09/02/18 06:12 Peripher Smr Path Cons 09/01/18 13:06 ESR 2 mm/hr (0-14) 09/01/18 18:24 PT 11.9 Seconds (9.0-12.0) 09/01/18 13:06 INR 1.2 (0.9-1.1) H 09/01/18 13:06 APTT 31.7 Seconds (21.0-31.0) H 09/01/18 13:06 PTT Ratio 1.2 09/01/18 13:06 Sodium 131 mmol/L (136-145) L 09/02/18 06:12 Potassium 3.2 mmol/L (3.5-5.1) L 09/02/18 06:12 Chloride 101 mmol/L (98-107) 09/02/18 06:12 Carbon Dioxide 24 mmol/L (21-32) 09/02/18 06:12 Anion Gap 6.0 (3-11) 09/02/18 06:12 BUN 19 mg/dl (7-18) H 09/02/18 06:12 Creatinine 1.02 mg/dl (0.6-1.4) 09/02/18 06:12 Est Cr Clr Drug Dosing 54.7 ml/min 09/02/18 06:12 Est GFR ( Amer) 77.9 09/02/18 06:12 Est GFR (Non-Af Amer) 67.2 09/02/18 06:12 BUN/Creatinine Ratio 18.2 (10-20) 09/02/18 06:12 Glucose 90 mg/dl (70-99) 09/02/18 06:12 Lactate 1.1 mmol/L (0.4-2.0) 09/01/18 19:20 Calcium 7.8 mg/dl (8.5-10.1) L 09/02/18 06:12 Total Bilirubin 0.8 mg/dl (0.2-1) D 09/02/18 06:12 Direct Bilirubin 0.3 mg/dl (0-0.2) H 09/02/18 06:12 AST 68 U/L (15-37) H 09/02/18 06:12 ALT 53 U/L (12-78) 09/02/18 06:12 Alkaline Phosphatase 70 U/L (45-117) 09/02/18 06:12 Troponin I 0.143 ng/ml (0-0.045) H* 09/02/18 06:12 C-Reactive Protein 5.19 mg/dl (0-0.29) H 09/01/18 18:24 Total Protein 5.4 gm/dl (6.4-8.2) L D 09/02/18 06:12 Albumin 2.7 gm/dl (3.4-5.0) L 09/02/18 06:12 Globulin 2.7 gm/dl (2.5-4.0) 09/02/18 06:12 Albumin/Globulin Ratio 1.0 (0.9-2) 09/02/18 06:12 Procalcitonin 0.09 ng/ml (0-0.5) 09/01/18 13:06 Urine Color Dark Yellow 09/01/18 15:27 Urine Appearance Clear (Clear) 09/01/18 15:27 Urine pH 6.0 (4.5-7.5) 09/01/18 15:27 Ur Specific [place] 1.025 (1.000-1.030) 09/01/18 15:27 Urine Protein 1+ (Negative) H 09/01/18 15:27 Urine Glucose (UA) Negative (Negative) 09/01/18 15:27 Urine Ketones Trace (Negative) H 09/01/18 15:27 Urine Blood Negative (Negative) 09/01/18 15:27 Urine Nitrite Negative (Negative) 09/01/18 15:27 Urine Bilirubin Negative (Negative) 09/01/18 15:27 Urine Urobilinogen Positive (Negative) H 09/01/18 15:27 Ur Leukocyte Esterase Trace (Negative) H 09/01/18 15:27 Urine WBC (Auto) 1-5 /hpf (0-5) 09/01/18 15:27 Urine RBC (Auto) 5-10 /hpf (0-4) H 09/01/18 15:27 U Hyaline Cast (Auto) 1-5 /lpf (0-5) 09/01/18 15:27 U Epithel Cells (Auto) 10-20 /lpf (0-5) H 09/01/18 15:27 Urine Bacteria (Auto) Negative (Negative) 09/01/18 15:27 Lyme Disease IgG Ab Negative (Negative) 09/01/18 13:06 Lyme Disease IgM Ab Negative (Negative) 09/01/18 13:06 Influenza Type A Ag Neg for Influ A (Neg) 09/01/18 13:59 Influenza Type B Ag Neg for Influ B (Neg) 09/01/18 13:59 Diagnostic Findings ECGs reviewed and show sinus rhythm, left anterior fascicular block, and nonspecific ST-T wave abnormality. CXR: Mild cardiomegaly. Minimal scattered bibasilar atelectatic change. Brain MRI: 1. No acute intracranial findings 2. No evidence of intracranial mass 3. No evidence of acute or subacute infarction. Head CT: Chronic and postoperative change. No acute process. Telemetry monitoring: Sinus rhythm in 50s-60s.
--- NOTE | 2018-09-02 09:43 | Infectious Disease Consult ---
Date of Consultation September 02, 2018 Assessment & Plan (1) Encephalopathy due to infection: 83-year-old male with 1year dementia-like symptoms, now with acute mental status change with fever associated with neutropenia and thrombocytopenia. Certainly tickborne illness especially anaplasmosis possibility, and doxycycline appropriate pending PCR and antibody studies. Agree with need for lumbar puncture with CSF sampling, and which are appropriate studies for enterovirus, herpes simplex, varicella-zoster, Lyme, West Nile virus, and [place] virus are obtained. Further recommendations will be made once CSF studies are available. Will follow. History of Present Illness Reason for Consultation: Possible encephalitis/tickborne illness Attending Physician: Jenny Marinelli History of Present Illness History obtained from patient's , medical records, medical staff, as patient is unable to provide adequate history. 83-year-old male with history of coronary artery disease, hyperlipidemia, BPH, GERD, who reportedly for the past year or so has suffered from progressive confusion and memory loss diagnosed as dementia, prescribed Aricept but never started, who is now admitted with several days of markedly worsening confusion, headaches, memory loss, severe weakness with inability to walk, and then fever as high as 103 degrees. Patient has reportedly had multiple tick bites in the recent past. He was noted to have neutropenia and thrombocytopenia, and so concern for Anaplasma has been raised. He is awaiting lumbar puncture, and is been started empirically on ampicillin, vancomycin, ceftriaxone, and doxycycline. Liver enzymes are normal. Blood cultures are pending. MRI scan shows no obvious abnormalities. CT scan of the head also unremarkable. Allergies Allergy/AdvReac Type Severity Reaction Status Date / Time oxycodone AdvReac Intermediate NAUSEA, Verified 09/01/18 14:18 VOMITING aspirin AdvReac Mild epistaxis Verified 09/01/18 14:18 with ASA 325mg Home Medications Home Medications Medication Instructions Recorded Confirmed Type acetaminophen 500 mg PO Q6H PRN 02/15/18 09/01/18 History amiodarone 200 mg PO DAILY 02/15/18 09/01/18 History aspirin 81 mg PO DAILY 02/15/18 09/01/18 History atorvastatin 80 mg PO HS 02/15/18 09/01/18 History clopidogrel 75 mg PO DAILY 02/15/18 09/01/18 History nitroglycerin [Nitrostat] 0.4 mg SUBLINGUAL DIRECTED PRN 02/15/18 09/01/18 History omeprazole 40 mg PO DAILY 02/15/18 09/01/18 History ranolazine 500 mg PO BID 02/15/18 09/01/18 History clindamycin phosphate 1 applic TOPICAL BID 09/01/18 09/01/18 History vitamins A,C,P-vhgv-ctoxai 1 cap PO BID 09/01/18 09/01/18 History [PreserVision AREDS] Patient History Medical History [place] (myocardial infarction) (Chronic) GERD (gastroesophageal reflux disease) (Chronic) Coronary artery disease (Chronic) BPH (benign prostatic hyperplasia) (Chronic) History of left heart catheterization (LHC) (Chronic) Acoustic neuroma (Chronic) Paroxysmal VT (Chronic) Insomnia (Chronic) HLD (hyperlipidemia) (Chronic) Surgical History Hx of CABG (Chronic) Family History Father Coronary heart disease Social History Preferred Language: Portuguese Communication Ability: Effective Beliefs That Will Affect Care: None marital status: Current Living Situation: Spouse Other Information That Helps Us Care for You: No Feels Safe at Home: Yes Safety Concerns: Feels Safe At This Time Smoking Status: Never smoker Do You Dip or Chew Tobacco: No Second Hand Exposure: No Hx Alcohol Use: Yes Alcohol type: beer Hx Substance Use: No Review of Systems Review of Systems: Unobtainable due to cognitive status Physical Exam Constitutional: WD/WN, vitals as above comfortable; no acute distress Eyes: PERRL, conjunctivae normal, anicteric sclerae ENMT: external ear and nose normal, oropharynx normal Neck: trachea midline, no thyromegaly neck nontender Respiratory: normal respiratory effort, lungs clear to auscultation normal percussion; does not use accessory muscles Cardiovascular: Rate/Rhythm: regular rate and regular rhythm Heart Sounds: normal S1 and normal S2; no gallop, no murmur and no cardiac rub Vessels: normal peripheral pulses; no JVD Gastrointestinal (Abdomen): normal bowel sounds, soft, nontender, no he patosplenomegaly Musculoskeletal: no cyanosis or clubbing, extremities motor strength 5/5 Spine: thoracic spine normal to inspection and lumbar spine normal to inspection; no cervical spinal tenderness Skin: no rashes, warm and dry normal turgor; no lesions Neurologic: moves all extremities; no focal motor deficits Psychiatric: Orientation: alert and cooperative Oriented to person, significant short-term memory loss Lymphatic: no cervical or axillary lymphadenopathy no inguinal lymphadenopathy Results & Data Vital Signs (Past 12 Hours) Vital Signs Temp Pulse Pulse Resp BP BP Pulse Ox 09/02/18 07:00 36.8 C 62 58 L 18 129/62 96 09/02/18 05:53 37.2 C 09/02/18 03:58 37.8 C H 09/02/18 03:25 38.3 C H 72 18 148/71 H 90 09/02/18 02:30 65 09/02/18 01:56 72 152/65 H 09/02/18 01:51 37.3 C 09/02/18 00:07 72 143/68 H 93 09/01/18 23:41 37.3 C 72 20 147/67 H 91 Laboratory Results Short CBC 09/01/18 09/02/18 Range/Units 13:06 06:12 WBC 3.42 L 2.02 L (4.8-10.8) K/uL Hgb 15.1 12.7 L (14.0-18.0) g/dL Hct 41.6 L 34.5 L (42-52) % Plt Count 72 L 52 L (130-400) K/uL BMP 09/01/18 09/02/18 09/02/18 13:06 06:12 06:12 Sodium 129 L 131 L Potassium 3.7 3.2 L Chloride 95 L 101 Carbon Dioxide 28 24 BUN 18 19 H Creatinine 1.35 1.02 Glucose 100 H 90 90 Calcium 8.4 L 7.8 L Cardiac Enzymes 09/01/18 09/01/18 09/02/18 Range/Units 13:06 19:20 00:48 Troponin I 0.128 H* 0.127 H* 0.140 H* (0-0.045) ng/ml 09/02/18 Range/Units 06:12 Troponin I 0.143 H* (0-0.045) ng/ml Liver Function 09/01/18 09/02/18 Range/Units 13:06 06:12 Total Bilirubin 1.3 H 0.8 D (0.2-1) mg/dl Direct Bilirubin 0.3 H (0-0.2) mg/dl AST 41 H 68 H (15-37) U/L ALT 34 53 (12-78) U/L Alkaline Phosphatase 96 70 (45-117) U/L Albumin 3.6 2.7 L (3.4-5.0) gm/dl Urine 09/01/18 Range/Units 15:27 Urine Color Dark Yellow Urine Appearance Clear (Clear) Urine pH 6.0 (4.5-7.5) Ur Specific [place] 1.025 (1.000-1.030) Urine Protein 1+ H (Negative) Urine Glucose (UA) Negative (Negative) Diagnostic Findings MRI OF THE BRAIN WITHOUT AND WITH IV CONTRAST CLINICAL HISTORY: Change in mental status. Possible encephalitis. FEVER, CONFUSION, INABILITY TO WALK. HISTORY OF ACOUSTIC NEUROMA SURGERY. COMPARISON STUDY: CT scan dated 09/01/2018, MRI the brain dated 06/19/2012 TECHNIQUE: MRI of the brain was performed from the vertex to the skull base utilizing various T1 and T2 weighted sequences. Following the IV administration of 6.5 mL of Gadavist contrast, additional enhanced images were obtained. FINDINGS: Sagittal T1, axial diffusion, proton density and T2 weighted axial, coronal FLAIR, and pre and post axial T1-weighted images were acquired. These were supplemented with post gadolinium coronal T1 weighted images. No intra or extra-axial mass lesions are visualized. Axial diffusion-weighted images reveal no evidence of acute or subacute infarction. There is mild ventricular dilatation, finding which is felt to be secondary to volume loss Proton density T2-weighted and FLAIR images reveal scattered foci of increased T2 signal within the white matter, likely on a small vessel basis. There are no abnormal flow voids. There is no evidence of pathologic enhancement. There are presumed postsurgical changes in the left mastoid and petrous bone secondary to prior acoustic neuroma surgery. IMPRESSION: 1. No acute intracranial findings 2. No evidence of intracranial mass 3. No evidence of acute or subacute infarction. Electronically signed by: Duncan Sanchez M.D. 09/02/2018 6:33 AM
--- NOTE | 2018-09-02 14:21 | Fluoroscopy Report ---
FLUOROSCOPICALLY GUIDED LUMBAR PUNCTURE CLINICAL HISTORY: rule out bacterial meningitis FLUOROSCOPY TIME: 0.3 minutes. NUMBER OF FLUOROSCOPIC IMAGES: 1. PROCEDURE: The procedure, risks and benefits were discussed with the patient including the risk of s clovis headache, bleeding and infection. The patient agreed to the procedure and informed written cons ent was obtained. The procedure was performed by Dr. Su following a timeout. The left L4-L5 in terlaminar space was targeted. Skin overlying the space was prepped and draped in sterile fashion and local anesthesia was achieved with 1% lidocaine. Under intermittent fluoroscopic guidance, a 3 1/2 i [facility] 22-gauge spinal needle was directed thecal sac. There was immediate return of clear CSF. A total of 8 cc of CSF was collected in 4 vials and sent to the laboratory as ordered. The needle was removed . The patient tolerated the procedure well and no immediate complications were evident. IMPRESSION: Successful fluoroscopically guided lumbar puncture with collection of 8 cc of clear CSF w hich was sent to laboratory for analysis as ordered. Electronically signed by: Seven Su M.D. 09/02/2018 2:20 PM
[2018-09-02 14:26] LABS: Appearance CSF Clear; CSF Count Tube # 3; CSF Xanthrochromic No xanthochromia; Color CSF Colorless; Red Blood Cell CSF (A) 0 /uL (0-); Red Blood Cell CSF (B) 0 /uL (0-); White Blood Cell CSF (A) 1 /uL (0-5); White Blood Cell CSF (B) 1 /uL (0-5)
[2018-09-02 15:48] LABS: Total Protein CSF 63.1 mg/dl (15-45)
[2018-09-02 15:56] LABS: Hematocrit (blood only) 34.8 % (42-52); Hemoglobin 12.7 g/dL (14.0-18.0); Mean Corpuscular Hgb Conc 36.5 g/dL (32-36); Mean Corpuscular Volume 93.5 fL (80-100); RDW Coefficient of Variation 13.6 % (11.5-14.5); Red Blood Count 3.72 M/uL (4.7-6.1); White Blood Count 2.12 K/uL (4.8-10.8)
[2018-09-02 16:18] LABS: Mean Platelet Volume 9.9 fL (7.4-10.4); Platelet Count 46 K/uL (130-400)
[2018-09-02] MEDS ORDERED: VANCOMYCIN HCL 1,000 MG in SODIUM CHLORIDE 0.9% 250 ML IV SCH (20:00)
[2018-09-02] MEDS: ATORVASTATIN 40 MG TAB PO SCH (20:44)
[2018-09-02] MEDS ORDERED: OXYCODONE HCL IR 5 MG TAB (IMMEDIATE RELEASE) PO PRN (21:29)
[2018-09-02 22:20] LABS: Partial Thromboplastin Time 28.3 Seconds (21.0-31.0)
[2018-09-02 22:31] LABS: Albumin Level 2.9 gm/dl (3.4-5.0); BUN Creatinine Ratio 16.2 (10-20); Creatinine Clr Calc Pharmacy 49.9 ml/min; Est GFR (African American) 69.5; Potassium 3.6 mmol/L (3.5-5.1)
[2018-09-02 22:37] LABS: Bilirubin,Total 0.7 mg/dl (0.2-1); Globulin 3.1 gm/dl (2.5-4.0); Troponin I 0.15 ng/ml (0-0.045)
[2018-09-03] MEDS ORDERED: HydrALAZINE HCL 20 MG/ML VIAL IV STA (03:39)
[2018-09-03 04:28] LABS: Hematocrit (blood only) 37.9 % (42-52); Hemoglobin 14.3 g/dL (14.0-18.0); Mean Corpuscular Hgb Conc 37.7 g/dL (32-36); Mean Corpuscular Volume 91.1 fL (80-100); RDW Coefficient of Variation 13.2 % (11.5-14.5); RDW Standard Deviation 44.4 fL (36.4-46.3); Red Blood Count 4.16 M/uL (4.7-6.1); White Blood Count 5.58 K/uL (4.8-10.8)
[2018-09-03 04:31] LABS: Mean Platelet Volume 10.5 fL (7.4-10.4); Platelet Count 54 K/uL (130-400)
[2018-09-03 04:38] LABS: Partial Thromboplastin Ratio 1.3; Partial Thromboplastin Time 34.2 Seconds (21.0-31.0)
[2018-09-03 04:45] LABS: BUN Creatinine Ratio 16.2 (10-20); Calcium 8.1 mg/dl (8.5-10.1); Creatinine Clr Calc Pharmacy 54.2 ml/min; Est GFR (Non-African American) 66.4; Potassium 3.4 mmol/L (3.5-5.1)
[2018-09-03 04:54] LABS: Troponin I 0.171 ng/ml (0-0.045)
[2018-09-03 04:59] LABS: Basophils # (auto) 0.01 K/uL (0-0.2); Basophils % (auto) 0.2 %; Dohle Bodies Occasional; Echinocytes 2+; Immature Granulocytes # (auto) 0.01 K/uL (0.00-0.02); Immature Granulocytes % (auto) 0.2 %; Lymphocytes # (auto) 0.79 K/uL (1.2-3.4); Lymphocytes % (auto) 14.2 %; Monocytes # (auto) 0.59 K/uL (0.11-0.59); Monocytes % (auto) 10.6 %; Neutrophils # (auto) 4.18 K/uL (1.4-6.5); Neutrophils % (auto) 74.8 %; Toxic Vacuolation Occasional
[2018-09-03] MEDS ORDERED: POTASSIUM CHLORIDE 20 MEQ TABCR PO STA (05:09)
--- NOTE | 2018-09-03 05:11 | Hospitalist Progress Note ---
Date of Service September 03, 2018 Subjective Overnight developments : 09/02/18, 930PM Made aware by RN of substernal discomfort SBP 180s Relief with nitroglycerin. EKG as per my interpretation :Rate 55, sinus bradycardia, LAD, LAFB, no ischemia 09/03/18, 3 AM SBP noted to be 200s. Patient denies chest pain. Cannot recall episode from last night. Admits to S OB. No cough symptoms. Chest x-ray as per my interpretation congestion AP Chest pain, troponin elevation Multifactorial : hypertensive urgency (elevated BP readings noted in the afternoon during last 48 hours of confinement) Pulmonary vascular congestion Trend troponin Lasix 1 dose now Initiate low-dose lisinopril (BB precluded by hx of bradycardic episodes, Amlodipine precluded by past history of leg swelling on medication upon review of outpatient records) Will relay developments to AM provider. Results & Data Vital Signs (Past 12 Hours) Vital Signs Temp Pulse Resp BP Pulse Ox 09/03/18 03:34 36.6 C 86 24 208/78 H 89 L 09/02/18 23:25 36.3 C L 70 22 190/71 H 91 09/02/18 21:36 61 20 182/76 H 91 09/02/18 19:30 36.6 C 63 162/74 H 93 Laboratory Results Laboratory Results WBC 5.58 K/uL (4.8-10.8) 09/03/18 04:17 RBC 4.16 M/uL (4.7-6.1) L 09/03/18 04:17 Hgb 14.3 g/dL (14.0-18.0) 09/03/18 04:17 Hct 37.9 % (42-52) L 09/03/18 04:17 MCV 91.1 fL (80-100) 09/03/18 04:17 MCH 34.4 pg (25-34) H 09/03/18 04:17 MCHC 37.7 g/dL (32-36) H 09/03/18 04:17 RDW Std Deviation 44.4 fL (36.4-46.3) 09/03/18 04:17 RDW Coeff of Lorne 13.2 % (11.5-14.5) 09/03/18 04:17 Plt Count 54 K/uL (130-400) L 09/03/18 04:17 MPV 10.5 fL (7.4-10.4) H 09/03/18 04:17 Immature Gran % (Auto) 0.2 % 09/03/18 04:17 Neut % (Auto) 74.8 % 09/03/18 04:17 Lymph % (Auto) 14.2 % 09/03/18 04:17 Whiteside % (Auto) 10.6 % 09/03/18 04:17 Eos % (Auto) 0.0 % 09/03/18 04:17 Baso % (Auto) 0.2 % 09/03/18 04:17 Immature Gran # (Auto) 0.01 K/uL (0.00-0.02) 09/03/18 04:17 Neut # (Auto) 4.18 K/uL (1.4-6.5) 09/03/18 04:17 Lymph # (Auto) 0.79 K/uL (1.2-3.4) L 09/03/18 04:17 Whiteside # (Auto) 0.59 K/uL (0.11-0.59) 09/03/18 04:17 Eos # (Auto) 0.00 K/uL (0-0.5) 09/03/18 04:17 Baso # (Auto) 0.01 K/uL (0-0.2) 09/03/18 04:17 Absolute Nucleated RBC 0.00 K/uL (0-0) 09/01/18 13:06 Nucleated RBC % (auto) 0.0 % 09/01/18 13:06 Blood Smear Review 09/02/18 06:12 Toxic Vacuolation Occasional 09/03/18 04:17 Dohle Bodies Occasional 09/03/18 04:17 Platelet Estimate Decreased (Normal) L 09/02/18 06:12 Echinocytes 2+ 09/03/18 04:17 Peripher Smr Path Cons 09/01/18 13:06 ESR 2 mm/hr (0-14) 09/01/18 18:24 PT 11.9 Seconds (9.0-12.0) 09/01/18 13:06 INR 1.2 (0.9-1.1) H 09/01/18 13:06 APTT 34.2 Seconds (21.0-31.0) H 09/03/18 04:17 PTT Ratio 1.3 09/03/18 04:17 Sodium 131 mmol/L (136-145) L 09/03/18 04:17 Potassium 3.4 mmol/L (3.5-5.1) L 09/03/18 04:17 Chloride 101 mmol/L (98-107) 09/03/18 04:17 Carbon Dioxide 24 mmol/L (21-32) 09/03/18 04:17 Anion Gap 6.0 (3-11) 09/03/18 04:17 BUN 17 mg/dl (7-18) 09/03/18 04:17 Creatinine 1.03 mg/dl (0.6-1.4) 09/03/18 04:17 Est Cr Clr Drug Dosing 54.2 ml/min 09/03/18 04:17 Est GFR ( Amer) 77.0 09/03/18 04:17 Est GFR (Non-Af Amer) 66.4 09/03/18 04:17 BUN/Creatinine Ratio 16.2 (10-20) 09/03/18 04:17 Glucose 115 mg/dl (70-99) H 09/03/18 04:17 Lactate 1.1 mmol/L (0.4-2.0) 09/01/18 19:20 Calcium 8.1 mg/dl (8.5-10.1) L 09/03/18 04:17 Magnesium 1.9 mg/dl (1.8-2.4) 09/03/18 04:17 Total Bilirubin 0.7 mg/dl (0.2-1) 09/02/18 21:52 Direct Bilirubin 0.3 mg/dl (0-0.2) H 09/02/18 06:12 AST 100 U/L (15-37) H 09/02/18 21:52 ALT 85 U/L (12-78) H 09/02/18 21:52 Alkaline Phosphatase 77 U/L (45-117) 09/02/18 21:52 Troponin I 0.171 ng/ml (0-0.045) H* 09/03/18 04:17 C-Reactive Protein 5.19 mg/dl (0-0.29) H 09/01/18 18:24 NT-Pro-B Natriuret Pep 2694 pg/ml (0-1800) H 09/03/18 04:17 Total Protein 6.0 gm/dl (6.4-8.2) L 09/02/18 21:52 Albumin 2.9 gm/dl (3.4-5.0) L 09/02/18 21:52 Globulin 3.1 gm/dl (2.5-4.0) 09/02/18 21:52 Albumin/Globulin Ratio 1.0 (0.9-2) 09/02/18 21:52 Lipase 171 U/L (73-393) 09/02/18 21:52 Procalcitonin 0.09 ng/ml (0-0.5) 09/01/18 13:06 Urine Color Dark Yellow 09/01/18 15:27 Urine Appearance Clear (Clear) 09/01/18 15:27 Urine pH 6.0 (4.5-7.5) 09/01/18 15:27 Ur Specific [place] 1.025 (1.000-1.030) 09/01/18 15:27 Urine Protein 1+ (Negative) H 09/01/18 15:27 Urine Glucose (UA) Negative (Negative) 09/01/18 15:27 Urine Ketones Trace (Negative) H 09/01/18 15:27 Urine Blood Negative (Negative) 09/01/18 15:27 Urine Nitrite Negative (Negative) 09/01/18 15:27 Urine Bilirubin Negative (Negative) 09/01/18 15:27 Urine Urobilinogen Positive (Negative) H 09/01/18 15:27 Ur Leukocyte Esterase Trace (Negative) H 09/01/18 15:27 Urine WBC (Auto) 1-5 /hpf (0-5) 09/01/18 15:27 Urine RBC (Auto) 5-10 /hpf (0-4) H 09/01/18 15:27 U Hyaline Cast (Auto) 1-5 /lpf (0-5) 09/01/18 15:27 U Epithel Cells (Auto) 10-20 /lpf (0-5) H 09/01/18 15:27 Urine Bacteria (Auto) Negative (Negative) 09/01/18 15:27 CSF Appearance Clear 09/02/18 13:45 CSF Color Colorless 09/02/18 13:45 Xanthrochromic No xanthochromia 09/02/18 13:45 CSF WBC 1 /uL (0-5) 09/02/18 13:45 CSF RBC 0 /uL (0-) 09/02/18 13:45 CSF Cell Count Tube # 3 09/02/18 13:45 CSF Chemistry Tube # 1 09/02/18 13:45 CSF Glucose 58 mg/dl (40-70) 09/02/18 13:45 CSF Total Protein 63.1 mg/dl (15-45) H 09/02/18 13:45 Lyme Disease IgG Ab Negative (Negative) 09/01/18 13:06 Lyme Disease IgM Ab Negative (Negative) 09/01/18 13:06 Influenza Type A Ag Neg for Influ A (Neg) 09/01/18 13:59 Influenza Type B Ag Neg for Influ B (Neg) 09/01/18 13:59
[2018-09-03] MEDS ORDERED: LISINOPRIL 2.5 MG TAB PO SCH (05:15)
[2018-09-03] MEDS ORDERED: FUROSEMIDE 20 MG in SYRINGE 0 ML IV ONE (05:45)
[2018-09-03] MEDS ORDERED: ALBUT/IPRATROP 3MG/0.5MG NEB 3 ML VIAL NEB STA (05:46)
[2018-09-03 05:49] LABS: Magnesium 1.9 mg/dl (1.8-2.4)
[2018-09-03] MEDS ORDERED: MAGNESIUM SULFATE / D5W 1 GM/100 ML BAG IV ONE (06:01)
--- NOTE | 2018-09-03 06:27 | XRay Report ---
XR chest 1V portable HISTORY: 83 years-old Male low o2 acute hypoxia COMPARISON: Chest radiograph 09/01/2018 TECHNIQUE: Portable AP view of the chest FINDINGS: Cardiac silhouette is enlarged. Prior median sternotomy with findings suggestive of CABG. Pulmonary v ascular congestion with progressively worsened interstitial coarsening. Suggested trace left pleural effusion. No pneumothorax. Mild bibasilar opacities suggestive of atelectasis. Degenerative changes o f the shoulders and spine. IMPRESSION: 1. Cardiomegaly with interval development of pulmonary edema. 2. Subsegmental bibasilar opacities suggest atelectasis. 3. Suggested trace left pleural effusion. The above report was generated using voice recognition software. It may contain grammatical, syntax o r spelling errors. Electronically signed by: Shamar Andres M.D. 09/03/2018 6:26 AM
[2018-09-03] MEDS ORDERED: CLOPIDOGREL BISULFATE 75 MG TAB PO SCH (09:00)
[2018-09-03] MEDS: AMIODARONE 200 MG TAB PO SCH (09:01)
[2018-09-03] MEDS: ASPIRIN 81 MG ECTAB PO SCH (09:04)
[2018-09-03] MEDS: RANOLAZINE 500 MG ER TAB PO SCH ×2 (09:05→20:45)
[2018-09-03] MEDS: CEROVITE ADV FORMULA TAB PO SCH ×2 (09:05→20:46)
[2018-09-03] MEDS: PANTOprazole 40 MG TAB PO SCH (09:05)
[2018-09-03] MEDS: ACETAMINOPHEN 325 MG TAB PO PRN ×2 (09:06→23:35)
[2018-09-03] MEDS: DOXYCYCLINE HYCLATE 100 MG in DEXTROSE 5% 100 ML IV SCH (09:09)
--- NOTE | 2018-09-03 11:32 | Hospitalist Progress Note ---
Date of Service September 03, 2018 Assessment & Plan (1) Human anaplasmosis: (2) Altered mental status: METABOLIC ENCEPHALOPATHY Likely secondary to Anaplasmosis/Infection (prolonged symptoms x 1 year worse in last few days) (3) Weakness: Patient with history of memory loss, confusion for greater than 1 year presented to ER with C/O increased confusion, headaches, bilateral LE weakness with difficulty walking for 2-3 days. PCP office- Temp of 102 F, thought to have pneumonia and referred to ED. PERIPHERAL SMEAR 09/01- No anaplasma org seen. 09/02 - Two cytoplasmic inclusion suspicious for Anaplasmosis -Work up so far- CT HEAD:Chronic and postoperative change. No acute process. MRI brain- no sig abnormalities, CXR:Mild cardiomegaly. Minimal scattered bibasilar atelectatic change. UA- neg; Flu - Negative, Lyme's - Negative, Procalcitonin- neg, CRP 5.19, ESR 2, Lumbar Puncture done on 09/02 - Negative for Bacterial infection. Blood cx x 2- neg -Work up ordered - Cancelled - CSF West Nile, Lyme's IgG, IgM, Varizella Zoster, Enterovirus, Herpes Simplex- after CSF came back negative and got a message through RN from Lab on 09/02- anaplasmosis positive (Reviewed Peripheral smear- 09/02-anaplasmosis) E Chaffeensis - pending, A phagocytophilum Antibodies- pending -S/P IV Rocephin, vancomycin, ampicillin- discontinued on 09/02 after anaplasmosis came back positive -On IV Doxycycline BID - Day 07/04 -Appreciate ID inputs (4) Acute respiratory failure with hypoxia: Hypoxic overnight, worsening---> Oxygen requirement up to 3 L from no requirement Denies any complaints. No cough, SOB -CXR- Pulm congestion, BNP 2k -Likely CHF exacerbation, diastolic precipitated by HTN urgency -IV lasix rx as above -Wean as tolerated -Nebs QID added as per has Emphysema (5) Acute exacerbation of CHF (congestive heart failure): DIASTOLIC DYSFUNCTION Overnight, hypoxic , chest pain episode relieved by NTG, SBP up to 200s -CXR- Pulmonary congestion, BNP 2k -No prior hx of CHF, but hx of CAD -Could be secondary to HTN urgency with SBP up to 200s vs Ischemia with EKG changes, wall motion abnormalities, slightly reduced EF and mildly elevated troponin. Complication from Anaplasmosis though rare considered. -S/P IV Lasix 40 mg x 1 dose. Will continue with IV lasix 40 mg bid for one more day and re evaluate volume status tomorrow -Daily weights, I/Os -Echo done on 09/01 - EF 50-55%, wall motion abnormalities -Cardiology consulted. I tried to reach them, unable to reach Present on Admission?: No (6) Elevated troponin: On admission no chest pain episodes, but yesterday night chest pain which was relieved with NTG with SBP in 200s. Rule out Ischemia -Troponin 0.127--> 0.140-->0171-->0.211. History elevated troponin in past at 0.8 in 11/2017, 0.06-0.2 in 10/2017 -Prior hx - Cardiac cath 10/2017: Severe [place] vessel CAD involving LAD, OM1 and small D1. Stable findings compared to 04/2016. Moderate-severe circumflex CAD stable since 04/2016. Patent PHILIPPE to LAD and SVG to OM1, mid RCA stent patent. -Patient follows with Dr. aKn-cardiac EP [facility], and Dr Cartwright -cardiology. -Initial EKG- No new changes, Repeat EKG - I, AVL 09/02 - T wave inversions -Echo -EF 50-55%, Wall motion abnormalities- anterior -Continue statin, aspirin, plavix as at home -Cardiology on board- Does not think so this is acute ACS, but change in events overnight with Echo- slightly reduced EF and wall motion abnormalities. Tried to contact cardiology, unable to do so. Will attempt again. (7) Coronary artery disease: Hx CAD s/p stent to RCA in 2007 & CABG x 2 in 2008 Mx as above (8) Hypertensive urgency: SBP overnight up to 200s, now stable in 140s -Home regimen: None. BB discontinued in past due to bradycardic episodes, Amlodipine due to LE edema. -Started Lisinopril overnight 2.5 mg daily--. Increase to 5 mg daily. 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 (13) Paroxysmal VT: -Continue amiodarone 200 mg daily (14) HLD (hyperlipidemia): -continue statin (15) GERD (gastroesophageal reflux disease): -continue PPI DVT Prophylaxis -SCDs Disposition Medical Mx in progress Family updated by bedside- and daughter- At length discussion and answered all their questions. Full Code as per discussion with pt and pt's . Follows with Dr Cal Dupont for routine care Subjective Patient overnight had episode of chest pain relieved by NTG, BP was up to 200s. EKG was done, CXR- pulmonary congestion. Received a dose of IV lasix. Requiring 3 L oxygen now. Today AM, he does not recall episode of chest pain. AAOX2. Still on 3 L oxygen which was bumped up today morning. Denies any headaches, chills, nausea, vomiting, cough, SOB, chest pain, leg swelling. Family by bedside Physical Exam Physical Exam: Constitutional: Alert, oriented x 2, in no acute distress Neck: No rigidity Pulmonary: Normal respiratory effort, clear to auscultation bilaterally Cardiac: Regular rate and rhythm, normal S1 and S2, no gallops, no rubs, no murmurs Extremities: No clubbing, cyanosis, or edema. Pulses 2+ and symmetric Abdomen: Normal bowel sounds, soft, non-tender, no abdominal mass palpated Skin: Normal skin color, turgor, and pigmentation, no rash, no skin lesions Neurological: Oriented to person, place, and time, Power 5/5 all extremities CHRONIC LEFT FACIAL DROOP AND EYE DROOP Results & Data Vital Signs (Past 12 Hours) Vital Signs Temp Pulse Pulse Resp BP Pulse Ox 09/03/18 10:00 36.5 C 09/03/18 07:52 38.6 C H 77 20 161/69 H 90 09/03/18 05:30 58 L 09/03/18 03:34 36.6 C 86 24 208/78 H 89 L
[2018-09-03] MEDS ORDERED: POTASSIUM CHLORIDE 10 MEQ TABCR PO STA (12:07)
--- NOTE | 2018-09-03 14:44 | Infectious Disease Progress Nt ---
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 Other antibiotics have been discontinued. Await PCR testing. Explained to family that this infection would not be responsible for his slow neuro decline over last 1+ years. Consider neurology consult. Will follow. Subjective Patient seen in follow-up for acute encephalopathy. Review of peripheral smear shows conclusions consistent with Anaplasma infection. Lumbar puncture without evidence of [employer] inflammation. Apparently had chest pain last night, patient does not remember. Denies any current complaints. Review of Systems Review of Systems: All systems reviewed & are unremarkable except as noted in HPI & below Physical Exam Constitutional: WD/WN, vitals as above comfortable; no acute distress Eyes: PERRL, conjunctivae normal, anicteric sclerae ENMT: external ear and nose normal, oropharynx normal Neck: trachea midline, no thyromegaly neck nontender Respiratory: normal respiratory effort, lungs clear to auscultation normal percussion; no respiratory distress Cardiovascular: Rate/Rhythm: regular rate and regular rhythm Heart Sounds: normal S1 and normal S2; no gallop, no murmur and no cardiac rub Gastrointestinal (Abdomen): normal bowel sounds, soft, nontender, no hepatosplenomegaly Musculoskeletal: no cyanosis or clubbing, extremities motor strength 5/5 No spinal tenderness, no joint swelling or erythema Skin: no rashes, warm and dry no lesions Neurologic: moves all extremities and awake; no focal motor deficits Motor/Sensory: no sensory deficit Psychiatric: A+Ox3, euthymic affect Lymphatic: no cervical or axillary lymphadenopathy no inguinal lymphadenopathy Results & Data Vital Signs (Past 12 Hours) Vital Signs Temp Pulse Pulse Resp BP Pulse Ox 09/03/18 11:46 36.9 C 68 18 145/72 H 93 09/03/18 10:00 36.5 C 09/03/18 08:00 90 09/03/18 07:52 38.6 C H 77 20 161/69 H 90 09/03/18 05:30 58 L 09/03/18 03:34 36.6 C 86 24 208/78 H 89 L Laboratory Results Short CBC 09/02/18 09/03/18 Range/Units 15:47 04:17 WBC 2.12 L 5.58 (4.8-10.8) K/uL Hgb 12.7 L 14.3 (14.0-18.0) g/dL Hct 34.8 L 37.9 L (42-52) % Plt Count 46 L 54 L (130-400) K/uL BMP 09/02/18 09/03/18 21:52 04:17 Sodium 133 L 131 L Potassium 3.6 3.4 L Chloride 101 101 Carbon Dioxide 25 24 BUN 18 17 Creatinine 1.12 1.03 Glucose 110 H 115 H Calcium 8.0 L 8.1 L Cardiac Enzymes 09/02/18 09/03/18 09/03/18 Range/Units 21:52 04:17 08:25 Troponin I 0.150 H* 0.171 H* 0.211 H* (0-0.045) ng/ml Liver Function 09/02/18 Range/Units 21:52 Total Bilirubin 0.7 (0.2-1) mg/dl AST 100 H (15-37) U/L ALT 85 H (12-78) U/L Alkaline Phosphatase 77 (45-117) U/L Albumin 2.9 L (3.4-5.0) gm/dl Diagnostic Findings Microbiology 09/02/18 13:45 Cerebral Spinal Fluid Gram Stain - Final 09/02/18 13:45 Cerebral Spinal Fluid CSF Culture - Preliminary No growth to date. 09/02/18 01:48 Urine,Clean Catch Urine Culture - Preliminary No growth - Less than 1,000 colonies/mL, Final report to follow. 09/01/18 13:48 Blood Blood Culture - Preliminary No growth to date. 09/01/18 13:06 Blood Blood Culture - Preliminary No growth to date. 09/02/18 13:45 Cerebral Spinal Fluid Cryptococcal Antigen - Final
[2018-09-03] MEDS: ALBUT/IPRATROP 3MG/0.5MG NEB 3 ML VIAL NEB SCH ×2 (15:35→19:31)
[2018-09-03] MEDS: FUROSEMIDE 40 MG in SYRINGE 0 ML IV SCH (16:29)
--- NOTE | 2018-09-03 18:37 | Cardiology Progress Note ---
Date of Service September 03, 2018 Assessment & Plan (1) Elevated troponin: 1. Coronary artery disease s/p RCA PCI and CABG x2 (severe platinum vessel CAD, patent bypass grafts, patent mid RCA stent and 40% proximal RCA stenosis by cath in October 2017 - medical therapy recommended) Although he may have had slight worsening of his left ventricular function it is still not bad, his troponin levels are quite low and are probably consistent with demand ischemia from his presentation, I do not believe he had an acute ischemic event this admission. Given the severity of his known disease I do not think intervention is warranted at this time, neither do I think we should perform stress testing. Subjective He remains confused, he does not have any particular complaints today. He denies chest discomfort. His and daughter present in the room. Physical Exam Physical Exam: Constitutional: Alert, cooperative and in no distress. Pulmonary: Clear to auscultation bilaterally. Cardiac: Regular rhythm with no murmur, gallop or rub. Abdomen: Soft, nontender with normal bowel sounds. Extremities: No edema. Skin: No rash, ecchymoses or petechiae. Results & Data Vital Signs (Past 12 Hours) Vital Signs Temp Pulse Pulse Resp BP Pulse Ox 09/03/18 16:22 36.9 C 64 20 161/72 H 93 09/03/18 15:35 83 16 90 09/03/18 15:00 65 09/03/18 11:46 36.9 C 68 18 145/72 H 93 09/03/18 10:00 36.5 C 09/03/18 08:00 90 09/03/18 07:52 38.6 C H 77 20 161/69 H 90 Laboratory Results Review of his stress test Diagnostic Findings Review of his echocardiogram shows low normal left ventricular function, he does have regional wall motion abnormalities. He has mild aortic sclerosis. This possibly represents slight worsening of function from October 2017.
[2018-09-03] MEDS: DOXYCYCLINE HYCLATE 100 MG CAP PO SCH (21:28)
[2018-09-04] MEDS ORDERED: POTASSIUM CHLORIDE 20 MEQ TABCR PO STA ×2 (00:02→02:23)
--- NOTE | 2018-09-04 00:03 | Hospitalist Progress Note ---
Date of Service September 04, 2018 Subjective l Overnight developments: 12 AM -made aware by RN of mehul Anderson fib cardiac rate 115, BP 140s 1 AM -conversion to NSR after early oral amiodarone administration, electrolyte replacement and gentle IVF 4 AM -patient noted to have blood-streaked sputum with central chest pain, S OB symptoms. AP PAF secondary to overdiuresis (hx postop A. fib as per outpatient cardiology note) Hemoptysis ? Bronchitis rule out PE History chronic thrombocytopenia Hold Lasix, gentle IV hydration CT chest PE study Solu-Medrol 1 dose for bronchitis causing hemoptysis if CT chest negative for PE. Trend H&H Hold antiplatelets for now. Will relay to AM provider. Results & Data Vital Signs (Past 12 Hours) Vital Signs Temp Pulse Pulse Resp BP BP Pulse Ox 09/03/18 23:34 37.7 C H 80 20 149/67 H 92 09/03/18 23:33 38.6 C H 09/03/18 19:32 37.2 C 77 18 164/68 H 90 09/03/18 19:31 76 16 93 09/03/18 16:22 36.9 C 64 20 161/72 H 93 09/03/18 15:35 83 16 90 09/03/18 15:00 65
[2018-09-04] MEDS ORDERED: AMIODARONE 200 MG TAB PO SCH (00:15)
[2018-09-04 00:56] LABS: Hematocrit (blood only) 37.2 % (42-52); Mean Corpuscular Hgb Conc 37.6 g/dL (32-36); Mean Corpuscular Volume 90.1 fL (80-100); RDW Coefficient of Variation 13.1 % (11.5-14.5); RDW Standard Deviation 43.4 fL (36.4-46.3); Red Blood Count 4.13 M/uL (4.7-6.1); White Blood Count 8.89 K/uL (4.8-10.8)
[2018-09-04 00:59] LABS: Mean Platelet Volume 10.7 fL (7.4-10.4); Platelet Count 71 K/uL (130-400)
[2018-09-04 01:01] LABS: Partial Thromboplastin Ratio 1.3; Partial Thromboplastin Time 34.7 Seconds (21.0-31.0)
[2018-09-04 01:13] LABS: Albumin Level 2.9 gm/dl (3.4-5.0); BUN Creatinine Ratio 14.9 (10-20); Est GFR (African American) 71.1; Est GFR (Non-African American) 61.3; Magnesium 1.9 mg/dl (1.8-2.4); Potassium 3.1 mmol/L (3.5-5.1)
[2018-09-04 01:15] LABS: Albumin Globulin Ratio 0.9 (0.9-2); Bilirubin,Total 1.1 mg/dl (0.2-1); Globulin 3.2 gm/dl (2.5-4.0); Total Protein 6.1 gm/dl (6.4-8.2)
[2018-09-04 01:36] LABS: Basophils # (auto) 0.02 K/uL (0-0.2); Basophils % (auto) 0.2 %; Immature Granulocytes # (auto) 0.01 K/uL (0.00-0.02); Immature Granulocytes % (auto) 0.1 %; Lymphocytes # (auto) 1.29 K/uL (1.2-3.4); Lymphocytes % (auto) 14.5 %; Monocytes # (auto) 1.65 K/uL (0.11-0.59); Monocytes % (auto) 18.6 %; Neutrophils # (auto) 5.92 K/uL (1.4-6.5); Neutrophils % (auto) 66.6 %; RBC Morphology Unremarkable
[2018-09-04] MEDS ORDERED: MAGNESIUM SULFATE / D5W 1 GM/100 ML BAG IV ONE (02:23)
[2018-09-04] MEDS ORDERED: SODIUM CHLORIDE 0.9% 500 ML IV ONE (02:23)
[2018-09-04] MEDS ORDERED: OPTIRAY 320 125ml IV PRN (05:02)
[2018-09-04] MEDS ORDERED: methylPREDNISolone 20 MG in SYRINGE 0 ML IV SCH (05:33)
[2018-09-04] MEDS ORDERED: BENZONATATE 100 MG CAPSULE PO PRN (05:33)
--- NOTE | 2018-09-04 06:45 | CT Scan Report ---
CT angio chest PE protocol CT DOSE: 388.12 mGy.cm HISTORY: Hemoptysis. Dyspnea. hemoptysis TECHNIQUE: Multiaxial CT images of the chest were performed following the intravenous administration of contrast to evaluate the pulmonary arteries. Maximal intensity projection images were also obtaine d. A dose lowering technique was utilized adhering to the principles of ALARA. COMPARISON STUDY: 02/15/2018 FINDINGS: Mild cardiomegaly. Thoracic aorta shows moderate atherosclerotic change. Pulmonary vasculat ure enhances appropriately. There are no significant filling defects. Prior median sternotomy. Findings of pulmonary edema versus congestive failure. Several reactive medi astinal and/or hilar nodes. Small bilateral pleural effusions. IMPRESSION: 1. No evidence for pulmonary embolus. 2. Congestive heart failure versus pulmonary edema. 3. Small bilateral pleural effusions. The above report was generated using voice recognition software. It may contain grammatical, syntax or spelling errors. Electronically signed by: Reagan Serna M.D. 09/04/2018 6:44 AM
[2018-09-04] MEDS: ALBUT/IPRATROP 3MG/0.5MG NEB 3 ML VIAL NEB SCH (07:15)
[2018-09-04] MEDS ORDERED: VANCOMYCIN TROUGH ONE (07:30)
[2018-09-04 07:59] LABS: BUN Creatinine Ratio 15.8 (10-20); Creatinine Clr Calc Pharmacy 57.4 ml/min; Est GFR (African American) 84.9; Est GFR (Non-African American) 73.2; Potassium 3.8 mmol/L (3.5-5.1)
[2018-09-04] MEDS: PANTOprazole 40 MG TAB PO SCH (09:20)
[2018-09-04] MEDS: CEROVITE ADV FORMULA TAB PO SCH ×2 (09:20→21:21)
[2018-09-04] MEDS: RANOLAZINE 500 MG ER TAB PO SCH ×2 (09:21→21:48)
[2018-09-04] MEDS: DOXYCYCLINE HYCLATE 100 MG CAP PO SCH ×2 (09:23→21:21)
[2018-09-04] MEDS: LISINOPRIL 2.5 MG TAB PO SCH (09:23)
[2018-09-04] MEDS: FUROSEMIDE 40 MG in SYRINGE 0 ML IV SCH ×2 (09:25→16:31)
--- NOTE | 2018-09-04 10:38 | Communication Note ---
Date of Service: September 04, 2018 I have seen Mr. Alegria today, reviewed his chart, his laboratory studies and imaging studies and CSF analysis. This 83-year-old man has a pre-existing history of cognitive impairment and intractable headaches which have not responded to various therapeutic measures through his primary care physician's office and through Airam Hernandez PA-C in our office at [facility]. He is currently hospitalized for an acute infectious illness which is been diagnosis anaplasmosis and is only now being treated with appropriate antibiotics. His pre-existing cognitive issues and headaches clearly worsen during his febrile illness and I am not yet returned to his baseline At this point neurology is not going to offer any further therapeutic recommendations but would be quite happy to reassess him about a month after discharge at this time when he should be recovered from his illness and should be off the doxycycline which point we can or thoroughly assess his cognitive issues and readdress his headache treatment Cecil Markham MD
[2018-09-04] MEDS ORDERED: NURSING DECISION MEDICATION ONE (10:44)
[2018-09-04] MEDS ORDERED: COUGH DROP (SUGAR FREE) LOZ 24 LOZ/1 BOX BUCCAL ONE (10:48)
[2018-09-04] MEDS ORDERED: COUGH DROP (SUGAR FREE) LOZ 24 LOZ/1 BOX BUCCAL PRN (10:48)
[2018-09-04] MEDS: NITROGLYCERIN 2% OINTMENT 30GM TUBE EXT SCH ×2 (10:50→16:34)
--- NOTE | 2018-09-04 11:17 | Hospitalist Progress Note ---
Date of Service September 04, 2018 Assessment & Plan (1) Anaplasmosis: Presented with fever, malaise, confusion. Had a few tick bites about a week prior to admission. Peripheral smear demonstrated inclusion bodies consistent with anaplasmosis. Anaplasma PCR pending. Seen in consultation by ID. 10 day course of doxycycline recommended. Now afebrile. (2) Altered mental status: Head CT and MRI demonstrated chronic and postsurgical changes. Probable metabolic encephalopathy / delirium secondary to infection. Improved. (3) Thrombocytopenia: Platelet count 72,000 on admission and fell as low as 46,000. 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 Platelet count today 71,000. Follow. (4) Acute exacerbation of CHF (congestive heart failure): Chest x-ray and CT of chest demonstrated pulmonary edema. Echo showed low normal LVEF, aortic sclerosis without significant stenosis, moderate aortic regurgitation, mild-moderate MR, moderate to severe TR. Probable acute on chronic left ventricular diastolic heart failure. PAF could be contributing to decompensatation. Receiving IV furosemide. Check f/u chest x-ray in a.m. (5) Atrial fibrillation: PAF. Cardiology consulted. Continue metoprolol. Continue amiodarone- dose increased to 200 mg BID. No anticoagulants due to thrombocytopenia. (6) Coronary artery disease: Chest pressure associated with rapid AF. Also has had febrile illness. Troponin slightly elevated. Cardiology consulted. Suspected demand ischemia. Holding ASA and clopidogrel due to thrombocytopenia and associated hemoptysis. Continue metoprolol, ranolazine, statin. (7) Hypokalemia: Potassium as low as 3.1. Replaced. K today = 3.8. Follow. (8) BPH (benign prostatic hyperplasia): Having urinary frequency, worsened with diuretics. Resume tamsulosin. (9) Dementia: Monitor for delirium. Avoid anticholinergic medications when possible. (10) DVT prophylaxis: No anticoagulants due to thrombocytopenia. SCD's. Ambulate. (11) Discharge planning issues: May need skilled care or rehab. Family Medicine follow-up with Dr. Cal Dupont. Cardiology follow-up with Dr. Cartwright. Subjective Recheck for multiple problems. Patient seen in their room around 0840. Family visiting. Developed AF last night. Received KCl, MgSO4, and amiodarone. Converted to NSR. Experienced some hemoptysis. CTA negative for PE. Recurrent AF this morning around 0745 associated with chest pressure and SOB. Transferred to PCU. Converted back to NSR by the time that he arrived in PCU. Review of Systems: Constitutional- no fever. Cardiac- as noted above. Pulmonary- as noted above. GI- no nausea, vomiting, diarrhea, melena, hematochezia. - no urinary symptoms. Otherwise, as noted above. Physical Exam Constitutional: + ill appearing; no acute distress Respiratory: no respiratory distress Auscultation: + rales Cardiovascular: Rate/Rhythm: + abnormal rhythm (irregularly irregular) Heart Sounds: + gallop (S4); no murmur and no cardiac rub Vessels: + JVD Extremities: + edema (trace pretibial); no calf tenderness Gastrointestinal (Abdomen): normal bowel sounds, soft, nontender, no hepatosplenomegaly Skin: no rashes, warm and dry Psychiatric: Orientation: alert; + not oriented x 3 (confused) Results & Data Vital Signs (Past 12 Hours) Vital Signs Temp Pulse Pulse Resp BP BP Pulse Ox 09/04/18 10:54 78 20 148/71 H 91 09/04/18 10:31 37.1 C 75 20 158/74 H 91 09/04/18 08:00 72 09/04/18 07:16 75 18 91 09/04/18 07:00 36.8 C 75 18 170/75 H 90 09/04/18 04:36 36.2 C L 75 20 148/69 H 90 09/04/18 01:03 37.3 C 09/04/18 00:00 79 09/03/18 23:34 37.7 C H 80 20 149/67 H 92 09/03/18 23:33 38.6 C H Laboratory Results Laboratory Results - last 24 hr 09/04/18 09/04/18 09/04/18 00:36 00:36 00:36 WBC 8.89 RBC 4.13 L Hgb 14.0 Hct 37.2 L MCV 90.1 MCH 33.9 MCHC 37.6 H RDW Std Deviation 43.4 RDW Coeff of Lorne 13.1 Plt Count 71 L MPV 10.7 H Immature Gran % (Auto) 0.1 Neut % (Auto) 66.6 Lymph % (Auto) 14.5 [place] % (Auto) 18.6 Eos % (Auto) 0.0 Baso % (Auto) 0.2 Immature Gran # (Auto) 0.01 Neut # (Auto) 5.92 Lymph # (Auto) 1.29 [place] # (Auto) 1.65 H Eos # (Auto) 0.00 Baso # (Auto) 0.02 RBC Morphology Unremarkable APTT 34.7 H PTT Ratio 1.3 Sodium 129 L Potassium 3.1 L Chloride 96 L Carbon Dioxide 28 Anion Gap 5.0 BUN 16 Creatinine 1.10 Est Cr Clr Drug Dosing 50.0 Est GFR ( Amer) 71.1 Est GFR (Non-Af Amer) 61.3 BUN/Creatinine Ratio 14.9 Glucose 115 H Calcium 8.0 L Magnesium 1.9 Total Bilirubin 1.1 H D AST 78 H ALT 74 Alkaline Phosphatase 79 Troponin I NT-Pro-B Natriuret Pep Total Protein 6.1 L Albumin 2.9 L Globulin 3.2 Albumin/Globulin Ratio 0.9 Blood Type Antibody Screen 09/04/18 09/04/18 09/04/18 07:07 07:07 Unknown WBC RBC Hgb Hct MCV MCH MCHC RDW Std Deviation RDW Coeff of Lorne Plt Count MPV Immature Gran % (Auto) Neut % (Auto) Lymph % (Auto) [place] % (Auto) Eos % (Auto) Baso % (Auto) Immature Gran # (Auto) Neut # (Auto) Lymph # (Auto) [place] # (Auto) Eos # (Auto) Baso # (Auto) RBC Morphology APTT PTT Ratio Sodium 127 L Potassium 3.8 D Chloride 96 L Carbon Dioxide 25 Anion Gap 6.0 BUN 15 Creatinine 0.95 Est Cr Clr Drug Dosing 57.4 Est GFR ( Amer) 84.9 Est GFR (Non-Af Amer) 73.2 BUN/Creatinine Ratio 15.8 Glucose 113 H Calcium 8.0 L Magnesium 2.4 Total Bilirubin AST ALT Alkaline Phosphatase Troponin I 0.142 H* NT-Pro-B Natriuret Pep 5558 H Total Protein Albumin Globulin Albumin/Globulin Ratio Blood Type A Positive Antibody Screen NEGATIVE ECG Additional Comments: EKG performed at 0928 reviewed and demonstrated AF at 120 / min, left anterior fascicular block lateral ST depression.
--- NOTE | 2018-09-04 12:18 | Consultation Report ---
DATE OF CONSULTATION: 09/04/2018 CONSULTATION FOR: Dr. Marinelli. Eric is 83 years old, is a patient of Dr. Cal Dupont, knows Airam Hernandez PA-C in our office and has been seen in the past year or so for intractable headaches, which have been resistant to multiple medications and for some increasing cognitive impairment whose causation has not been established. He presents now with a febrile illness as outlined in the chart with increased confusion, headaches, lower extremity weakness, difficulty walking, all for several days associated with a fever and felt to have possible pneumonia, but workup to date has shown only evidence for anaplasmosis and the workup has been extensive searching for other issues involving a central nervous system including a negative lumbar puncture and an MRI that simply shows some age-dependent changes and no evidence for meningeal enhancement or encephalitis. We were asked to see him regarding his chronic headaches and his cognitive impairment, which clearly got a little worse during this infectious illness and he has now only been on the appropriate treatment with doxycycline for a day or so. He has also developed some cardiac issues and I think is going to be transfered to the unit. I saw him very briefly today, talked things over with his and his son and at this point, I do not feel neurology needs to address the chronic preexisting problems of memory loss and headaches until the current medical issues and infectious disease is resolved and treated appropriately. At this point, then I would suggest that he be sent back to our office to see Airam Hernandez and myself in about 4 weeks after discharge, so he will have adequate time to recover as well as possible from this infectious disease. He should also be off antibiotics at that point for several weeks' time, so we can have a more clean assessment of his mental status and the status of his headache. MITUL
--- NOTE | 2018-09-04 12:45 | Cardiology Progress Note ---
Date of Service September 04, 2018 Assessment & Plan (1) Elevated troponin: 1. Coronary artery disease s/p RCA PCI and CABG x2 (severe [place] vessel CAD, patent bypass grafts, patent mid RCA stent and 40% proximal RCA stenosis by cath in October 2017 - medical therapy recommended) He had some reported chest discomfort with his atrial fibrillation and associated high rates. This could have represented some ischemia. He is known to have some element of continued ischemic heart disease and is on an anti anginal regimen as an outpatient. (2) Atrial fibrillation: He has remote history of atrial fibrillation. 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 He did not appear to tolerate the atrial fibrillation well. While he has some difficulty remembering the events his family stated that he had symptoms of chest discomfort and did not look well when he had atrial fibrillation. This may be a result of the high ventricular rates. He transition back to sinus rhythm, back to atrial fibrillation and is currently in a sinus rhythm again. Apparently some doses of amiodarone were held recently. I doubt this had a significant detrimental effect as the half-life of amiodarone is quite long. However, I think continued use of amiodarone perhaps at a higher dose currently may be warranted in order to prevent more episodes of atrial fibrillation. I think we can also add some metoprolol to his medical regimen in hopes of reducing high ventricular rates when he has atrial fibrillation. (3) Pulmonary edema: Is evidence of pulmonary congestion on examination today. He was undergoing a diuresis and this should continue. There was evidence of pulmonary edema on his recent imaging as well. Subjective I interviewed the patient at bedside this afternoon. Currently he is not reporting any symptoms of chest discomfort or breathing difficulty. He cannot recall the events which occurred last evening. He cannot recall any sense of palpitations or racing heartbeats. His family was at the bedside and provided some supplemental history. They did remember symptoms of chest discomfort at that time he had his atrial fibrillation. He stated that he looked much worse last evening that he does currently. They report that he has been quite forgetful recently. Review of Systems Review of Systems: Per HPI Physical Exam Physical Exam: The patient is alert and oriented. He answered questions appropriately although he could not remember many of his recent symptoms or portions of his hospitalization. HEENT: Pupils are equal and reactive to light and accommodation. Extraocular movements are intact. The sclerae are anicteric. Neuro: Cranial nerves intact Lungs: Reduced breath sounds at the bases bilaterally. No expiratory wheezing. Normal respiratory effort and excursion. Cardiac: Heart demonstrates a regular rate and rhythm. Normal S1 and S2. No murmurs on examination. Pulses: The patient has palpable radial pulses bilaterally that are equal in intensity Extremities: There was no evidence of hypoperfusion. There is no cyanosis or clubbing. Skin: I did not appreciate any rashes on examination today. Results & Data Vital Signs (Past 12 Hours) Vital Signs Temp Pulse Pulse Resp BP BP Pulse Ox 09/04/18 10:54 78 20 148/71 H 91 09/04/18 10:31 37.1 C 75 20 158/74 H 91 09/04/18 08:00 72 09/04/18 07:16 75 18 91 09/04/18 07:00 36.8 C 75 18 170/75 H 90 09/04/18 04:36 36.2 C L 75 20 148/69 H 09/04/18 01:03 37.3 C Laboratory Results Abnormal Lab Results 09/04/18 09/04/18 09/04/18 00:36 00:36 00:36 WBC 8.89 RBC 4.13 L Hgb 14.0 Hct 37.2 L MCV 90.1 MCH 33.9 MCHC 37.6 H RDW Std Deviation 43.4 RDW Coeff of Lorne 13.1 Plt Count 71 L MPV 10.7 H Immature Gran % (Auto) 0.1 Neut % (Auto) 66.6 Lymph % (Auto) 14.5 [place] % (Auto) 18.6 Eos % (Auto) 0.0 Baso % (Auto) 0.2 Immature Gran # (Auto) 0.01 Neut # (Auto) 5.92 Lymph # (Auto) 1.29 [place] # (Auto) 1.65 H Eos # (Auto) 0.00 Baso # (Auto) 0.02 RBC Morphology Unremarkable APTT 34.7 H PTT Ratio 1.3 Sodium 129 L Potassium 3.1 L Chloride 96 L Carbon Dioxide 28 Anion Gap 5.0 BUN 16 Creatinine 1.10 Est Cr Clr Drug Dosing 50.0 Est GFR ( Amer) 71.1 Est GFR (Non-Af Amer) 61.3 BUN/Creatinine Ratio 14.9 Glucose 115 H Calcium 8.0 L Magnesium 1.9 Total Bilirubin 1.1 H D AST 78 H ALT 74 Alkaline Phosphatase 79 Total Protein 6.1 L Albumin 2.9 L Globulin 3.2 Albumin/Globulin Ratio 0.9 Blood Type Antibody Screen 09/04/18 09/04/18 07:07 07:07 WBC RBC Hgb Hct MCV MCH MCHC RDW Std Deviation RDW Coeff of Lorne Plt Count MPV Immature Gran % (Auto) Neut % (Auto) Lymph % (Auto) [place] % (Auto) Eos % (Auto) Baso % (Auto) Immature Gran # (Auto) Neut # (Auto) Lymph # (Auto) [place] # (Auto) Eos # (Auto) Baso # (Auto) RBC Morphology APTT PTT Ratio Sodium 127 L Potassium 3.8 D Chloride 96 L Carbon Dioxide 25 Anion Gap 6.0 BUN 15 Creatinine 0.95 Est Cr Clr Drug Dosing 57.4 Est GFR ( Amer) 84.9 Est GFR (Non-Af Amer) 73.2 BUN/Creatinine Ratio 15.8 Glucose 113 H Calcium 8.0 L Magnesium Total Bilirubin AST ALT Alkaline Phosphatase Total Protein Albumin Globulin Albumin/Globulin Ratio Blood Type A Positive Antibody Screen NEGATIVE ECG Additional Comments: Sinus rhythm with periods of atrial fibrillation and associated high ventricular rates
[2018-09-04 13:15] LABS: Magnesium 2.4 mg/dl (1.8-2.4); Troponin I 0.142 ng/ml (0-0.045)
[2018-09-04] MEDS ORDERED: POTASSIUM CHLORIDE 10 MEQ TABCR PO ONE (15:32)
--- NOTE | 2018-09-04 20:21 | Infectious Disease Progress Nt ---
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 Other antibiotics have been discontinued. Await PCR testing. Explained to family that this infection would not be responsible for his slow neuro decline over last 1+ years. Consider neurology consult. Will follow. Subjective Patient seen in follow-up for acute Anaplasma infection. Overall feeling better, still with some memory loss and confusion. Remains afebrile. White count and platelets are improving. Review of Systems Review of Systems: All systems reviewed & are unremarkable except as noted in HPI & below Physical Exam Constitutional: WD/WN, vitals as above comfortable; no acute distress Eyes: PERRL, conjunctivae normal, anicteric sclerae ENMT: external ear and nose normal, oropharynx normal Neck: trachea midline, no thyromegaly neck nontender Respiratory: normal respiratory effort, lungs clear to auscultation normal percussion; no respiratory distress and does not use accessory muscles Cardiovascular: Rate/Rhythm: regular rate and regular rhythm Heart Sounds: normal S1 and normal S2; no gallop, no murmur and no cardiac rub Vessels: normal peripheral pulses; no JVD Gastrointestinal (Abdomen): normal bowel sounds, soft, nontender, no hepatosplenomegaly Musculoskeletal: no cyanosis or clubbing, extremities motor strength 5/5 Spine: thoracic spine normal to inspection and lumbar spine normal to inspection; no cervical spinal tenderness Skin: no rashes, warm and dry normal turgor; no lesions Neurologic: moves all extremities and awake; no focal motor deficits Motor/Sensory: no sensory deficit Psychiatric: A+Ox3, euthymic affect Orientation: alert and cooperative Lymphatic: no cervical or axillary lymphadenopathy no inguinal lymphadenopathy Results & Data Vital Signs (Past 12 Hours) Vital Signs Temp Pulse Resp BP BP Pulse Ox 09/04/18 19:52 37.1 C 69 20 134/64 91 09/04/18 15:16 36.9 C 70 19 131/63 93 09/04/18 10:54 78 20 148/71 H 91 09/04/18 10:31 37.1 C 75 20 158/74 H 91 Laboratory Results Short CBC 09/04/18 Range/Units 00:36 WBC 8.89 (4.8-10.8) K/uL Hgb 14.0 (14.0-18.0) g/dL Hct 37.2 L (42-52) % Plt Count 71 L (130-400) K/uL BMP 09/04/18 09/04/18 00:36 07:07 Sodium 129 L 127 L Potassium 3.1 L 3.8 D Chloride 96 L 96 L Carbon Dioxide 28 25 BUN 16 15 Creatinine 1.10 0.95 Glucose 115 H 113 H Calcium 8.0 L 8.0 L Cardiac Enzymes 09/04/18 Range/Units Unknown Troponin I 0.142 H* (0-0.045) ng/ml Liver Function 09/04/18 Range/Units 00:36 Total Bilirubin 1.1 H D (0.2-1) mg/dl AST 78 H (15-37) U/L ALT 74 (12-78) U/L Alkaline Phosphatase 79 (45-117) U/L Albumin 2.9 L (3.4-5.0) gm/dl Diagnostic Findings Microbiology 09/02/18 13:45 Cerebral Spinal Fluid Gram Stain - Final 09/02/18 13:45 Cerebral Spinal Fluid CSF Culture - Final No growth 09/02/18 01:48 Urine,Clean Catch Urine Culture - Final No growth - less than 1,000 colonies/mL. 09/01/18 13:48 Blood Blood Culture - Preliminary No growth to date. 09/01/18 13:06 Blood Blood Culture - Preliminary No growth to date. 09/02/18 13:45 Cerebral Spinal Fluid Cryptococcal Antigen - Final
[2018-09-04] MEDS: AMIODARONE 200 MG TAB PO SCH (21:20)
[2018-09-04] MEDS: ATORVASTATIN 40 MG TAB PO SCH (21:20)
[2018-09-04] MEDS: METOPROLOL TARTRATE 25 MG TAB PO SCH (21:21)
[2018-09-04] MEDS ORDERED: TAMSULOSIN HCL 0.4 MG CAP PO ONE (21:36)
[2018-09-05] MEDS: NITROGLYCERIN 2% OINTMENT 30GM TUBE EXT SCH ×4 (00:17→17:17)
[2018-09-05 06:48] LABS: Hematocrit (blood only) 34.7 % (42-52); Hemoglobin 12.6 g/dL (14.0-18.0); Mean Corpuscular Hgb Conc 36.3 g/dL (32-36); RDW Coefficient of Variation 13.6 % (11.5-14.5); RDW Standard Deviation 45.7 fL (36.4-46.3); Red Blood Count 3.77 M/uL (4.7-6.1); White Blood Count 11.46 K/uL (4.8-10.8)
[2018-09-05 06:57] LABS: Mean Platelet Volume 11.2 fL (7.4-10.4); Platelet Count 81 K/uL (130-400)
--- NOTE | 2018-09-05 06:57 | XRay Report ---
XR chest 1V portable CLINICAL HISTORY: CHF COMPARISON STUDY: 09/03/2018 FINDINGS: There are postsurgical changes of midline sternotomy. The heart is the upper limits of norm al in size. There is a small left pleural effusion. There is diffuse elevation interstitium consisten t with congestive failure/interstitial edema. There are more focal airspace opacities within the righ t upper lung zone. While likely representing focal edema, a superimposed pneumonia could appear simil ar. Clinical and radiographic follow-up is recommended.[ IMPRESSION: 1. Persistent pulmonary edema pattern with a small left pleural effusion 2. More focal airspace opacities have developed within the right upper lung zone. While likely repres enting focal edema, a superimposed pneumonia could appear similar. Clinical and radiographic follow-u p is recommended. Electronically signed by: Duncan Sanchez M.D. 09/05/2018 6:56 AM
[2018-09-05 07:16] LABS: BUN Creatinine Ratio 22.4 (10-20); Calcium 8.4 mg/dl (8.5-10.1); Est GFR (African American) 79.7; Est GFR (Non-African American) 68.8; Potassium 3.5 mmol/L (3.5-5.1)
[2018-09-05] MEDS: AMIODARONE 200 MG TAB PO SCH ×2 (08:28→20:10)
[2018-09-05] MEDS: RANOLAZINE 500 MG ER TAB PO SCH ×2 (08:29→20:10)
[2018-09-05] MEDS: DOXYCYCLINE HYCLATE 100 MG CAP PO SCH ×2 (08:29→20:08)
[2018-09-05] MEDS: CEROVITE ADV FORMULA TAB PO SCH ×2 (08:29→20:09)
[2018-09-05] MEDS: METOPROLOL TARTRATE 25 MG TAB PO SCH ×2 (08:30→20:11)
[2018-09-05] MEDS: LISINOPRIL 2.5 MG TAB PO SCH (08:30)
[2018-09-05] MEDS: PANTOprazole 40 MG TAB PO SCH (08:30)
[2018-09-05] MEDS: FUROSEMIDE 40 MG in SYRINGE 0 ML IV SCH ×2 (08:31→19:12)
--- NOTE | 2018-09-05 12:15 | Hospitalist Progress Note ---
Date of Service September 05, 2018 Assessment & Plan (1) Anaplasmosis: Presented with fever, malaise, confusion. Had a few tick bites about a week prior to admission. Peripheral smear demonstrated inclusion bodies consistent with anaplasmosis. Anaplasma PCR pending. Seen in consultation by ID. 10 day course of doxycycline recommended. Now afebrile. (2) Altered mental status: Head CT and MRI demonstrated chronic and postsurgical changes. Probable metabolic encephalopathy / delirium secondary to infection. Improved. (3) Thrombocytopenia: Platelet count 72,000 on admission and fell as low as 46,000. 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 Platelet count today 81,000. Follow. (4) Acute exacerbation of CHF (congestive heart failure): Chest x-ray and CT of chest demonstrated pulmonary edema. Echo showed low normal LVEF, aortic sclerosis without significant stenosis, moderate aortic regurgitation, mild-moderate MR, moderate to severe TR. Probable acute left ventricular diastolic heart failure. PAF could be contributing to decompensation. Clinically improved, but chest x-ray today shows persistent pulmonary edema. Receiving IV furosemide and lisinopril. (5) Atrial fibrillation: PAF. Cardiology consulted. Continue metoprolol and amiodarone (dose increased to 200 mg BID). No anticoagulants due to thrombocytopenia. (6) Coronary artery disease: Chest pressure associated with rapid AF. Also has had febrile illness. Troponin slightly elevated. Cardiology consulted. Suspected demand ischemia. Holding ASA and clopidogrel due to thrombocytopenia and associated hemoptysis. Continue metoprolol, ranolazine, statin. (7) Hypokalemia: Potassium as low as 3.1. Replaced. K today = 3.5. Follow. (8) Hyponatremia: Chronic / intermittent hyponatremia. Serum sodium at time of admission was 129. Sodium today = 133. Continue fluid restriction. Follow. (9) Dementia: Monitor for delirium. Avoid anticholinergic medications when possible. (10) BPH (benign prostatic hyperplasia): Having urinary frequency, worsened with diuretics. Postvoid residuals by US in 200's. Resumed tamsulosin. (11) DVT prophylaxis: No anticoagulants due to thrombocytopenia. SCD's. Ambulate. (12) Discharge planning issues: May need skilled care or rehab. Family Medicine follow-up with Dr. Cal Dupont. Cardiology follow-up with Dr. Cartwright. Subjective Recheck for multiple problems. Patient seen in their room around 0910. Family visiting. Patient initially indicated that he had chest pressure and SOB last night, but upon further discussion it seemed like he was referring to yesterday morning. Nursing staff reports no problems last night. Comfortable this morning- no CP, cough, SOB. Telemetry data reviewed. NSR alternating with AF, ventricular rate not as fast. Review of Systems: Constitutional- no fever. Cardiac- as noted above. Pulmonary- as noted above. GI- no nausea, vomiting, diarrhea, melena, hematochezia. - urinary frequency; post void residuals yesterday in 200's. Otherwise, as noted above. Physical Exam Constitutional: no acute distress Respiratory: no respiratory distress Auscultation: + rales Cardiovascular: Rate/Rhythm: + abnormal rhythm (irregularly irregular) Heart Sounds: + gallop (S4); no murmur and no cardiac rub Vessels: + JVD Extremities: + edema (trace pretibial); no calf tenderness Gastrointestinal (Abdomen): normal bowel sounds, soft, nontender, no he patosplenomegaly Skin: no rashes, warm and dry Psychiatric: Orientation: alert; + not oriented x 3 (somewhat confused, oriented to person, place, year, president but not day) Results & Data Vital Signs (Past 12 Hours) Vital Signs Temp Pulse Pulse Resp BP Pulse Ox 09/05/18 07:35 67 09/05/18 07:03 36.9 C 67 17 148/67 H 93 09/05/18 04:22 36.7 C 67 17 147/66 H 92 Laboratory Results Laboratory Results - last 24 hr 09/04/18 09/05/18 09/05/18 Unknown 05:40 05:40 WBC 11.46 H RBC 3.77 L Hgb 12.6 L Hct 34.7 L MCV 92.0 MCH 33.4 MCHC 36.3 H RDW Std Deviation 45.7 RDW Coeff of [place] 13.6 Plt Count 81 L MPV 11.2 H Sodium 133 L Potassium 3.5 Chloride 99 Carbon Dioxide 25 Anion Gap 10.0 BUN 22 H Creatinine 1.00 Est Cr Clr Drug Dosing 53.0 Est GFR ( Amer) 79.7 Est GFR (Non-Af Amer) 68.8 BUN/Creatinine Ratio 22.4 H Glucose 107 H Calcium 8.4 L Magnesium 2.4 Troponin I 0.142 H* NT-Pro-B Natriuret Pep 5558 H Diagnostic Findings PORTABLE CHEST X-RAY FINDINGS: There are postsurgical changes of midline sternotomy. The heart is the upper limits of normal in size. There is a small left pleural effusion. There is diffuse elevation interstitium consistent with congestive failure/interstitial edema. There are more focal airspace opacities within the right upper lung zone. While likely representing focal edema, a superimposed pneumonia could appear similar. Clinical and radiographic follow-up is recommended.[ IMPRESSION: 1. Persistent pulmonary edema pattern with a small left pleural effusion 2. More focal airspace opacities have developed within the right upper lung zone. While likely representing focal edema, a superimposed pneumonia could appear similar. Clinical and radiographic follow-up is recommended. Electronically signed by: Duncan Sanchez M.D. 09/05/2018 6:56 AM
[2018-09-05] MEDS ORDERED: POTASSIUM CHLORIDE 10 MEQ TABCR PO ONE (12:30)
--- NOTE | 2018-09-05 12:40 | Cardiology Progress Note ---
Date of Service September 05, 2018 Assessment & Plan (1) Elevated troponin: 1. Coronary artery disease s/p RCA PCI and CABG x2 (severe [place] vessel CAD, patent bypass grafts, patent mid RCA stent and 40% proximal RCA stenosis by cath in October 2017 - medical therapy recommended) He had some reported chest discomfort with his atrial fibrillation and associated high rates. Unclear if this represents ischemia or simply symptoms related to the change in heart rate and rhythm. His blood pressure appears adequate for addition of nitrates which may improve his symptoms as we attempt to adjust his rate control medications. (2) Atrial fibrillation: He continues to have paroxysms of atrial fibrillation. He is symptomatic with the episodes. Overall rate control is not adequate during the episodes. He was started on a higher dose of amiodarone and beta-blockade yesterday. I think we can monitor him throughout the course of the morning and add another dose of beta-michael later today if necessary. Ideally he would be on anticoagulation, but there has been some concern regarding hemoptysis today. This decision can be deferred until his clinical condition stabilizes. (3) Pulmonary edema: no evidence of pulmonary congestion on examination today. He is diuresing quite well on his current dose of furosemide which can be continued during this hospitalization monitoring him for evidence of intravascular depletion, renal dysfunction or electrolyte derangement. Subjective This morning the patient did complain of some burning in the chest in some mild dyspnea. He was able to eat breakfast. He was reportedly ambulatory yesterday. Review of Systems Review of Systems: Per HPI Physical Exam Physical Exam: The patient is alert. He answers all questions appropriately. HEENT: Pupils are equal and reactive to light and accommodation. Extraocular movements are intact. The sclerae are anicteric. Neuro: Cranial nerves intact Lungs: Clear to auscultation bilaterally. He has good air movement without use of accessory muscles. No rales wheezes or rhonchi. Cardiac: Heart demonstrates an irregular rate and rhythm. Normal S1 and S2. No murmurs on examination. Pulses: The patient has palpable radial pulses bilaterally that are equal in intensity Extremities: There was no evidence of hypoperfusion. There is no cyanosis or clubbing. Results & Data Vital Signs (Past 12 Hours) Vital Signs Temp Pulse Pulse Resp BP BP Pulse Ox 09/05/18 12:00 36.6 C 72 16 157/63 H 98 09/05/18 07:35 67 09/05/18 07:03 36.9 C 67 17 148/67 H 93 09/05/18 04:22 36.7 C 67 17 147/66 H 92 Laboratory Results Abnormal Lab Results 09/04/18 09/05/18 09/05/18 Unknown 05:40 05:40 WBC 11.46 H RBC 3.77 L Hgb 12.6 L Hct 34.7 L MCV 92.0 MCH 33.4 MCHC 36.3 H RDW Std Deviation 45.7 RDW Coeff of Lorne 13.6 Plt Count 81 L MPV 11.2 H Sodium 133 L Potassium 3.5 Chloride 99 Carbon Dioxide 25 Anion Gap 10.0 BUN 22 H Creatinine 1.00 Est Cr Clr Drug Dosing 53.0 Est GFR ( Amer) 79.7 Est GFR (Non-Af Amer) 68.8 BUN/Creatinine Ratio 22.4 H Glucose 107 H Calcium 8.4 L Magnesium 2.4 Troponin I 0.142 H* NT-Pro-B Natriuret Pep 5558 H ECG Additional Comments: I reviewed his telemetry reveals predominantly sinus rhythm with a transition to atrial fibrillation again this morning.
[2018-09-05] MEDS: POTASSIUM CHLORIDE 10 MEQ TABCR PO SCH (20:08)
[2018-09-05] MEDS: TAMSULOSIN HCL 0.4 MG CAP PO SCH (20:09)
[2018-09-05] MEDS: ATORVASTATIN 40 MG TAB PO SCH (20:10)
[2018-09-06] MEDS: NITROGLYCERIN 2% OINTMENT 30GM TUBE EXT SCH ×3 (00:19→10:33)
[2018-09-06 06:45] LABS: BUN Creatinine Ratio 22.2 (10-20); Calcium 8.6 mg/dl (8.5-10.1); Creatinine Clr Calc Pharmacy 48.2 ml/min; Est GFR (African American) 72.7; Est GFR (Non-African American) 62.7; Potassium 3.6 mmol/L (3.5-5.1)
[2018-09-06] MEDS: FUROSEMIDE 40 MG in SYRINGE 0 ML IV SCH ×2 (08:43→17:02)
[2018-09-06] MEDS: LISINOPRIL 2.5 MG TAB PO SCH (08:43)
[2018-09-06] MEDS: CEROVITE ADV FORMULA TAB PO SCH ×2 (08:43→19:44)
[2018-09-06] MEDS: METOPROLOL TARTRATE 25 MG TAB PO SCH ×2 (08:43→19:44)
[2018-09-06] MEDS: RANOLAZINE 500 MG ER TAB PO SCH ×2 (08:43→19:43)
[2018-09-06] MEDS: PANTOprazole 40 MG TAB PO SCH (08:43)
[2018-09-06] MEDS: AMIODARONE 200 MG TAB PO SCH ×2 (08:43→19:43)
[2018-09-06] MEDS: DOXYCYCLINE HYCLATE 100 MG CAP PO SCH ×2 (08:44→19:42)
[2018-09-06] MEDS: POTASSIUM CHLORIDE 10 MEQ TABCR PO SCH ×2 (08:44→19:42)
--- NOTE | 2018-09-06 16:55 | Hospitalist Progress Note ---
Date of Service September 06, 2018 Assessment & Plan (1) Anaplasmosis: Presented with fever, malaise, confusion. Had a few tick bites about a week prior to admission. Peripheral smear demonstrated inclusion bodies consistent with anaplasmosis. Anaplasma PCR pending. Seen in consultation by ID. 10 day course of doxycycline recommended. Now afebrile. (2) Altered mental status: Head CT and MRI demonstrated chronic and postsurgical changes. Probable metabolic encephalopathy / delirium secondary to infection. Improved. (3) Thrombocytopenia: Platelet count 72,000 on admission and fell as low as 46,000. 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 Platelet count today 81,000. Follow. (4) Acute exacerbation of CHF (congestive heart failure): Chest x-ray and CT of chest demonstrated pulmonary edema. Echo showed low normal LVEF, aortic sclerosis without significant stenosis, moderate aortic regurgitation, mild-moderate MR, moderate to severe TR. Probable acute left ventricular diastolic heart failure. PAF could be contributing to decompensation. Clinically improved, but chest x-ray yesterday showed persistent pulmonary edema. Receiving IV furosemide and lisinopril. (5) Atrial fibrillation: PAF. Cardiology consulted. Continue metoprolol and amiodarone (dose increased to 200 mg BID). No anticoagulants due to thrombocytopenia. (6) Coronary artery disease: Chest pressure associated with rapid AF. Also has had febrile illness. Troponin slightly elevated. Cardiology consulted. Suspected demand ischemia. Holding ASA and clopidogrel due to thrombocytopenia and associated hemoptysis. Continue metoprolol, ranolazine, statin. (7) Hypokalemia: Potassium as low as 3.1. Replaced. K today = 3.6. Follow. (8) Hyponatremia: Chronic / intermittent hyponatremia. Serum sodium at time of admission was 129. Sodium today = 137. Continue fluid restriction. Follow. (9) Dementia: Monitor for delirium. Avoid anticholinergic medications when possible. (10) BPH (benign prostatic hyperplasia): Having urinary frequency, worsened with diuretics. Postvoid residuals by US in 200's. Resumed tamsulosin. (11) DVT prophylaxis: No anticoagulants due to thrombocytopenia. SCD's. Ambulate. (12) Discharge planning issues: May need skilled care or rehab. PT / OT evals. Family Medicine follow-up with Dr. Cal Dupont. Cardiology follow-up with Dr. Cartwright. Subjective Recheck for multiple problems. Patient seen in their room around 1030. Family visiting. Nursing staff reports no new problems last night. Comfortable this morning- no CP, cough, SOB. Still has postvoid residuals around 200-300 ml. Ambulated yesterday. Telemetry data reviewed. NSR; last AF yesterday morning. Review of Systems: Constitutional- no fever. Cardiac- as noted above. Pulmonary- as noted above. GI- no nausea, vomiting, diarrhea, melena, hematochezia. - urinary frequency; post void residuals Otherwise, as noted above. Physical Exam Constitutional: no acute distress Respiratory: no respiratory distress Auscultation: + rales (few bibasilar) Cardiovascular: Rate/Rhythm: regular rhythm Heart Sounds: + gallop (S4); no murmur and no cardiac rub Vessels: + JVD Extremities: + edema (trace pretibial); no calf tenderness Gastrointestinal (Abdomen): normal bowel sounds, soft, nontender, no hepatosplenomegaly Skin: no rashes, warm and dry Psychiatric: Orientation: alert; + not oriented x 3 (somewhat confused, oriented to person, place, year, president, but not day) Results & Data Vital Signs (Past 12 Hours) Vital Signs Temp Pulse Pulse Resp BP BP Pulse Ox 09/06/18 15:14 36.9 C 58 L 18 124/65 97 09/06/18 13:35 99 09/06/18 11:25 36.6 C 54 L 18 121/56 L 96 09/06/18 08:00 65 09/06/18 06:48 36.9 C 63 20 136/62 95 Laboratory Results Laboratory Results - last 24 hr 09/06/18 05:46 Sodium 137 Potassium 3.6 Chloride 102 Carbon Dioxide 27 Anion Gap 7.0 BUN 24 H Creatinine 1.08 Est Cr Clr Drug Dosing 48.2 Est GFR ( Amer) 72.7 Est GFR (Non-Af Amer) 62.7 BUN/Creatinine Ratio 22.2 H Glucose 97 Calcium 8.6
[2018-09-06] MEDS ORDERED: SODIUM CHLORIDE 0.65% NA SOLN 45 ML (OCEAN) ONE (17:38)
[2018-09-06] MEDS ORDERED: OXYMETAZOLINE 0.05% 30 ML BTL PRN (18:18)
[2018-09-06 18:58] LABS: Ehrlichia chaff IgG Ab <1:64 (<1:64); Ehrlichia chaff IgM Ab <1:20 (<1:20)
[2018-09-06] MEDS: TAMSULOSIN HCL 0.4 MG CAP PO SCH (19:42)
[2018-09-06] MEDS: ATORVASTATIN 40 MG TAB PO SCH (19:44)
[2018-09-06] MEDS: ACETAMINOPHEN 325 MG TAB PO PRN (21:02)
--- NOTE | 2018-09-06 21:26 | Infectious Disease Progress Nt ---
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 Other antibiotics have been discontinued. Await PCR testing. Explained to family that this infection would not be responsible for his slow neuro decline over last 1+ years. Neurology has seen patient, and to evaluate patient as outpatient once acute illness has resolved. Subjective Patient seen in follow-up for acute Anaplasma infection. Overall feeling better, still with some memory loss and confusion. Remains afebrile. White count and platelets are improving. Physical Exam Constitutional: WD/WN, vitals as above comfortable; no acute distress Eyes: PERRL, conjunctivae normal, anicteric sclerae ENMT: external ear and nose normal, oropharynx normal Neck: trachea midline, no thyromegaly neck nontender Respiratory: normal respiratory effort, lungs clear to auscultation normal percussion; no respiratory distress and does not use accessory muscles Cardiovascular: Rate/Rhythm: regular rate and regular rhythm Heart Sounds: normal S1 and normal S2; no gallop, no murmur and no cardiac rub Vessels: normal peripheral pulses; no JVD Gastrointestinal (Abdomen): normal bowel sounds, soft, nontender, no hepatosplenomegaly Musculoskeletal: no cyanosis or clubbing, extremities motor strength 5/5 Spine: thoracic spine normal to inspection and lumbar spine normal to inspection; no cervical spinal tenderness Skin: no rashes, warm and dry normal turgor; no lesions Neurologic: moves all extremities and awake; no focal motor deficits Motor/Sensory: no sensory deficit Psychiatric: A+Ox3, euthymic affect Orientation: alert and cooperative Lymphatic: no cervical or axillary lymphadenopathy no inguinal lymphadenopathy Results & Data Vital Signs (Past 12 Hours) Vital Signs Temp Pulse Resp BP Pulse Ox 09/06/18 19:45 36.4 C L 57 L 16 144/67 H 95 09/06/18 15:14 36.9 C 58 L 18 124/65 97 09/06/18 13:35 99 09/06/18 11:25 36.6 C 54 L 18 121/56 L 96 Laboratory Results [facility] 09/06/18 05:46 Sodium 137 Potassium 3.6 Chloride 102 Carbon Dioxide 27 BUN 24 H Creatinine 1.08 Glucose 97 Calcium 8.6 Diagnostic Findings Microbiology 09/02/18 13:45 Cerebral Spinal Fluid Gram Stain - Final 09/02/18 13:45 Cerebral Spinal Fluid CSF Culture - Final No growth 09/02/18 01:48 Urine,Clean Catch Urine Culture - Final No growth - less than 1,000 colonies/mL. 09/01/18 13:48 Blood Blood Culture - Preliminary No growth to date. 09/01/18 13:06 Blood Blood Culture - Preliminary No growth to date. 09/02/18 13:45 Cerebral Spinal Fluid Cryptococcal Antigen - Final
[2018-09-07 06:48] LABS: Hematocrit (blood only) 36.9 % (42-52); Hemoglobin 13.5 g/dL (14.0-18.0); Mean Corpuscular Hgb Conc 36.6 g/dL (32-36); Mean Corpuscular Volume 94.4 fL (80-100); Mean Platelet Volume 10.5 fL (7.4-10.4); Platelet Count 133 K/uL (130-400); RDW Coefficient of Variation 13.8 % (11.5-14.5); RDW Standard Deviation 47.7 fL (36.4-46.3); Red Blood Count 3.91 M/uL (4.7-6.1); White Blood Count 7.97 K/uL (4.8-10.8)
[2018-09-07 07:04] LABS: Calcium 8.5 mg/dl (8.5-10.1); Creatinine Clr Calc Pharmacy 46.5 ml/min; Est GFR (African American) 71.1; Est GFR (Non-African American) 61.3; Potassium 3.8 mmol/L (3.5-5.1)
--- NOTE | 2018-09-07 07:04 | XRay Report ---
XR chest 1V portable CLINICAL HISTORY: CHF COMPARISON STUDY: 09/05/2018 FINDINGS: There are postsurgical changes of a midline sternotomy. The cardiac images so contours colin in stable. There is slight improvement in the interstitial edema pattern. There are trace bilateral p leural effusions.[ IMPRESSION: Mild improvement in the interstitial edema pattern. Trace bilateral pleural effusions. Electronically signed by: Duncan Sanchez M.D. 09/07/2018 7:03 AM
[2018-09-07] MEDS: FUROSEMIDE 40 MG in SYRINGE 0 ML IV SCH ×2 (08:26→18:05)
[2018-09-07] MEDS: CEROVITE ADV FORMULA TAB PO SCH ×2 (08:26→20:51)
[2018-09-07] MEDS: METOPROLOL TARTRATE 25 MG TAB PO SCH ×2 (08:27→20:51)
[2018-09-07] MEDS: LISINOPRIL 2.5 MG TAB PO SCH (08:27)
[2018-09-07] MEDS: RANOLAZINE 500 MG ER TAB PO SCH ×2 (08:27→20:51)
[2018-09-07] MEDS: DOXYCYCLINE HYCLATE 100 MG CAP PO SCH ×2 (08:27→20:50)
[2018-09-07] MEDS: AMIODARONE 200 MG TAB PO SCH ×2 (08:27→20:50)
[2018-09-07] MEDS: PANTOprazole 40 MG TAB PO SCH (08:27)
[2018-09-07] MEDS: POTASSIUM CHLORIDE 10 MEQ TABCR PO SCH (08:28)
[2018-09-07 10:52] LABS: Anaplasma phagocytophila IgM <1:20 (<1:20)
--- NOTE | 2018-09-07 15:35 | Infectious Disease Progress Nt ---
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 Appears to be responding appropriately to doxycycline therapy. Would complete 14 days total. Subjective Patient seen in follow-up for acute Anaplasma infection. Overall feeling better, still with some memory loss and confusion. Remains afebrile. White count and platelets are improving. Anaplasma DNA detected by PCR confirming diagnosis. Physical Exam Constitutional: WD/WN, vitals as above comfortable; no acute distress Eyes: PERRL, conjunctivae normal, anicteric sclerae ENMT: external ear and nose normal, oropharynx normal Neck: trachea midline, no thyromegaly neck nontender Respiratory: normal respiratory effort, lungs clear to auscultation normal percussion; no respiratory distress and does not use accessory muscles Cardiovascular: Rate/Rhythm: regular rate and regular rhythm Heart Sounds: normal S1 and normal S2; no gallop, no murmur and no cardiac rub Vessels: normal peripheral pulses; no JVD Gastrointestinal (Abdomen): normal bowel sounds, soft, nontender, no hepatosplenomegaly Musculoskeletal: no cyanosis or clubbing, extremities motor strength 5/5 Spine: thoracic spine normal to inspection and lumbar spine normal to inspection; no cervical spinal tenderness Skin: no rashes, warm and dry normal turgor; no lesions Neurologic: moves all extremities and awake; no focal motor deficits Motor/Sensory: no sensory deficit Psychiatric: A+Ox3, euthymic affect Orientation: alert and cooperative Lymphatic: no cervical or axillary lymphadenopathy no inguinal lymphadenopathy Results & Data Vital Signs (Past 12 Hours) Vital Signs Temp Pulse Pulse Resp BP BP Pulse Ox 09/07/18 12:11 36.9 C 55 L 18 114/69 94 09/07/18 08:22 36.6 C 61 18 149/75 H 93 09/07/18 06:22 58 L 09/07/18 03:28 36.5 C 59 L 16 111/76 96 Laboratory Results Short CBC 09/07/18 Range/Units 05:49 WBC 7.97 (4.8-10.8) K/uL Hgb 13.5 L (14.0-18.0) g/dL Hct 36.9 L (42-52) % Plt Count 133 (130-400) K/uL BMP 09/07/18 05:49 Sodium 138 Potassium 3.8 Chloride 103 Carbon Dioxide 29 BUN 26 H Creatinine 1.10 Glucose 100 H Calcium 8.5 Diagnostic Findings Microbiology 09/01/18 13:48 Blood Blood Culture - Final No growth 09/01/18 13:06 Blood Blood Culture - Final No growth 09/02/18 13:45 Cerebral Spinal Fluid Gram Stain - Final 09/02/18 13:45 Cerebral Spinal Fluid CSF Culture - Final No growth 09/02/18 01:48 Urine,Clean Catch Urine Culture - Final No growth - less than 1,000 colonies/mL. 09/02/18 13:45 Cerebral Spinal Fluid Cryptococcal Antigen - Final
--- NOTE | 2018-09-07 20:23 | Hospitalist Progress Note ---
Date of Service September 07, 2018 Assessment & Plan (1) Anaplasmosis: Presented with fever, malaise, confusion. Had a few tick bites about a week prior to admission. Peripheral smear demonstrated inclusion bodies consistent with anaplasmosis. Anaplasma PCR positive. Seen in consultation by ID. 10 day course of doxycycline recommended. Now afebrile. (2) Altered mental status: Head CT and MRI demonstrated chronic and postsurgical changes. Probable metabolic encephalopathy / delirium secondary to infection. Improved. (3) Thrombocytopenia: Platelet count 72,000 on admission and fell as low as 46,000. 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 Platelet count today 133,000. Follow. (4) Acute exacerbation of CHF (congestive heart failure): Chest x-ray and CT of chest demonstrated pulmonary edema. Echo showed low normal LVEF, aortic sclerosis without significant stenosis, moderate aortic regurgitation, mild-moderate MR, moderate to severe TR. Probable acute left ventricular diastolic heart failure. PAF could be contributing to decompensation. Clinically improved. Chest x-ray today shows persistent, but improving, pulmonary edema. Receiving IV furosemide and lisinopril. (5) Atrial fibrillation: PAF. Cardiology consulted. Continue metoprolol and amiodarone (dose increased to 200 mg BID). No anticoagulants due to thrombocytopenia. (6) Coronary artery disease: Chest pressure associated with rapid AF. Also has had febrile illness. Troponin slightly elevated. Cardiology consulted. Suspected demand ischemia. Holding ASA and clopidogrel due to thrombocytopenia and associated hemoptysis. Continue metoprolol, ranolazine, statin. (7) Hypokalemia: Potassium as low as 3.1. Replaced. K today = 3.8. Follow. (8) Hyponatremia: Chronic / intermittent hyponatremia. Serum sodium at time of admission was 129. Sodium today = 138. Continue fluid restriction. Follow. (9) Dementia: Monitor for delirium. Avoid anticholinergic medications when possible. (10) BPH (benign prostatic hyperplasia): Having urinary frequency, worsened with diuretics. Postvoid residuals by US in 200's. Resumed tamsulosin. (11) DVT prophylaxis: No anticoagulants due to thrombocytopenia. SCD's. Ambulate. (12) Discharge planning issues: May need skilled care or rehab. PT / OT evals. Family Medicine follow-up with Dr. Cal Dupont. Cardiology follow-up with Dr. Cartwright. Subjective Recheck for multiple problems. Patient seen in their room around 0940. Family visiting. Episode of epistaxis last evening- resolved. No new problems last night. Comfortable this morning- no CP, cough, SOB. Ambulating. Telemetry data reviewed. NSR / SB; last AF 2 days ago. Review of Systems: Constitutional- no fever. Cardiac- as noted above. Pulmonary- as noted above. GI- no nausea, vomiting, diarrhea, melena, hematochezia. - voiding without difficulty Otherwise, as noted above. Physical Exam Constitutional: no acute distress Respiratory: normal respiratory effort, lungs clear to auscultation no respiratory distress Cardiovascular: Rate/Rhythm: regular rhythm Heart Sounds: + gallop (S4); no murmur and no cardiac rub Vessels: + JVD Extremities: + edema (trace pretibial); no calf tenderness Gastrointestinal (Abdomen): normal bowel sounds, soft, nontender, no hepatosplenomegaly Skin: no rashes, warm and dry Psychiatric: Orientation: alert; + not oriented x 3 (somewhat confused) Results & Data Vital Signs (Past 12 Hours) Vital Signs Temp Pulse Pulse Resp BP BP Pulse Ox 09/07/18 19:07 37.2 C 62 16 125/67 93 09/07/18 15:50 36.8 C 57 L 20 122/70 93 09/07/18 14:20 59 L 09/07/18 12:11 36.9 C 55 L 18 114/69 94 09/07/18 08:22 36.6 C 61 18 149/75 H 93 Laboratory Results Laboratory Results - last 24 hr 09/01/18 09/07/18 09/07/18 16:42 05:49 05:49 WBC 7.97 RBC 3.91 L Hgb 13.5 L Hct 36.9 L MCV 94.4 MCH 34.5 H MCHC 36.6 H RDW Std Deviation 47.7 H RDW Coeff of Lorne 13.8 Plt Count 133 MPV 10.5 H Sodium 138 Potassium 3.8 Chloride 103 Carbon Dioxide 29 Anion Gap 6.0 BUN 26 H Creatinine 1.10 Est Cr Clr Drug Dosing 46.5 Est GFR ( Amer) 71.1 Est GFR (Non-Af Amer) 61.3 BUN/Creatinine Ratio 24.0 H Glucose 100 H Calcium 8.5 A. phagocytophilum IgG <1:64 A. phagocytophilum IgM <1:20 A. phagocytophilum DNA Detected A A.phagocytophilum Intrp see note A. phagocytophilum Cmmt see note
[2018-09-07] MEDS: ATORVASTATIN 40 MG TAB PO SCH (20:50)
[2018-09-07] MEDS: TAMSULOSIN HCL 0.4 MG CAP PO SCH (20:51)
[2018-09-08 06:19] LABS: Hematocrit (blood only) 38.1 % (42-52); Hemoglobin 13.6 g/dL (14.0-18.0); Mean Corpuscular Hgb Conc 35.7 g/dL (32-36); Mean Corpuscular Volume 95.3 fL (80-100); Mean Platelet Volume 10.2 fL (7.4-10.4); Platelet Count 160 K/uL (130-400); RDW Coefficient of Variation 13.6 % (11.5-14.5); RDW Standard Deviation 47.6 fL (36.4-46.3); White Blood Count 9.63 K/uL (4.8-10.8)
[2018-09-08 06:57] LABS: Calcium 8.5 mg/dl (8.5-10.1); Creatinine Clr Calc Pharmacy 42.5 ml/min; Est GFR (African American) 64.6; Est GFR (Non-African American) 55.8; Potassium 3.7 mmol/L (3.5-5.1)
[2018-09-08] MEDS: PANTOprazole 40 MG TAB PO SCH (08:00)
[2018-09-08] MEDS: METOPROLOL TARTRATE 25 MG TAB PO SCH (08:00)
[2018-09-08] MEDS: LISINOPRIL 2.5 MG TAB PO SCH (08:00)
[2018-09-08] MEDS: CEROVITE ADV FORMULA TAB PO SCH (08:00)
[2018-09-08] MEDS: DOXYCYCLINE HYCLATE 100 MG CAP PO SCH (08:00)
[2018-09-08] MEDS: RANOLAZINE 500 MG ER TAB PO SCH (08:00)
[2018-09-08] MEDS: AMIODARONE 200 MG TAB PO SCH (08:01)
--- NOTE | 2018-09-08 10:08 | Hospitalist Progress Note ---
Date of Service September 08, 2018 Assessment & Plan (1) Anaplasmosis: Presented with fever, malaise, confusion. Had a few tick bites about a week prior to admission. Peripheral smear demonstrated inclusion bodies consistent with anaplasmosis. Anaplasma PCR positive. Seen in consultation by ID. 10 day course of doxycycline recommended. Now afebrile. (2) Altered mental status: Head CT and MRI demonstrated chronic and postsurgical changes. Probable metabolic encephalopathy / delirium secondary to infection. Improved. (3) Thrombocytopenia: Platelet count 72,000 on admission and fell as low as 46,000. 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 Platelet count today 160,000. Follow. (4) Acute exacerbation of CHF (congestive heart failure): Chest x-ray and CT of chest demonstrated pulmonary edema. Echo showed low normal LVEF, aortic sclerosis without significant stenosis, moderate aortic regurgitation, mild-moderate MR, moderate to severe TR. Probable acute left ventricular diastolic heart failure. PAF could be contributing to decompensation. Clinically improved. Chest x-ray today shows persistent, but improving, pulmonary edema. Received IV furosemide and lisinopril. Acute decompensation secondary to infection + AF. Resume usual cardiac meds. (5) Atrial fibrillation: PAF. Cardiology consulted. Continue metoprolol and amiodarone (dose increased to 200 mg BID). No anticoagulants due to thrombocytopenia. Acute decompensation secondary to infection. Resume usual cardiac meds. (6) Coronary artery disease: Chest pressure associated with rapid AF. Also has had febrile illness. Troponin slightly elevated. Cardiology consulted. Suspected demand ischemia. Held ASA and clopidogrel due to thrombocytopenia and associated hemoptysis. Continue metoprolol, ranolazine, statin. Platelet count improved- resume ASA and clopidogrel. (7) Hypokalemia: Potassium as low as 3.1. Replaced. K today = 3.7. Follow. (8) Hyponatremia: Chronic / intermittent hyponatremia. Serum sodium at time of admission was 129. Sodium today = 137. Continue fluid restriction. Follow. (9) Dementia: Monitor for delirium. Avoid anticholinergic medications when possible. Outpatient follow-up with Neurology. (10) BPH (benign prostatic hyperplasia): Having urinary frequency, worsened with diuretics. Postvoid residuals by US in 200's - 300's. Resumed tamsulosin. Also has Rx for finasteride from Urology to be filled. (11) DVT prophylaxis: No anticoagulants due to thrombocytopenia. SCD's. Ambulate. (12) Discharge planning issues: May need skilled care or rehab. PT / OT evals. Family Medicine follow-up with Dr. Cal Dupont. Cardiology follow-up with Dr. Cartwright. Urology follow-up with Dr. Lynch. Subjective Recheck for multiple problems. Patient seen in their room around 0930. Family visiting. Doing well. No fever. No chest pain, cough, SOB. No further epistaxis. Telemetry data reviewed. NSR / SB; last AF 3 days ago. Review of Systems: Constitutional- no fever. Cardiac- as noted above. Pulmonary- as noted above. GI- no nausea, vomiting, diarrhea, melena, hematochezia. - voiding without difficulty Otherwise, as noted above. Physical Exam Constitutional: no acute distress Respiratory: normal respiratory effort, lungs clear to auscultation no respiratory distress Cardiovascular: Rate/Rhythm: regular rhythm Heart Sounds: + gallop (S4); no murmur and no cardiac rub Vessels: no JVD Extremities: no calf tenderness and no edema Gastrointestinal (Abdomen): normal bowel sounds, soft, nontender, no hepatosplenomegaly Skin: no rashes, warm and dry Psychiatric: Orientation: alert; + not oriented x 3 (somewhat confused) Results & Data Vital Signs (Past 12 Hours) Vital Signs Temp Pulse Pulse Resp BP Pulse Ox 09/08/18 07:26 36.7 C 60 18 144/66 H 92 09/08/18 07:07 36.8 C 62 18 137/75 94 09/08/18 06:18 62 09/08/18 04:00 37.1 C 69 18 145/72 H 96 09/07/18 23:34 36.7 C 60 18 160/78 H 92 09/07/18 23:26 56 L Laboratory Results Laboratory Results - last 24 hr 09/01/18 09/08/18 09/08/18 16:42 05:55 05:55 WBC 9.63 RBC 4.00 L Hgb 13.6 L Hct 38.1 L MCV 95.3 MCH 34.0 MCHC 35.7 RDW Std Deviation 47.6 H RDW Coeff of Lorne 13.6 Plt Count 160 MPV 10.2 Sodium 137 Potassium 3.7 Chloride 103 Carbon Dioxide 29 Anion Gap 5.0 BUN 29 H Creatinine 1.19 Est Cr Clr Drug Dosing 42.5 Est GFR ( Amer) 64.6 Est GFR (Non-Af Amer) 55.8 BUN/Creatinine Ratio 24.0 H Glucose 103 H Calcium 8.5 A. phagocytophilum IgG <1:64 A. phagocytophilum IgM <1:20 A. phagocytophilum DNA Detected A A.phagocytophilum Intrp see note A. phagocytophilum Cmmt see note
--- NOTE | 2018-09-08 10:33 | Discharge Summary ---
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 Majority of history obtained from patient's and son as patient with confusion. reports patient has had memory loss and confusion for over 1 year and followed with neurology 1 year ago and was prescribed Aricept however has not started taking it. Reports that patient has had intermittent head pressure and dizziness for several months. Reports patient was taken off Flomax and isosorbide as they were suspected causes, however patient continued with symptoms. Reports past 2 days patient has had bilateral leg weakness and difficulty walking. states noticed patient seems off balance. Today so weak he tried using a cane. Patient was seen at PCPs office and had a fall in the parking lot. Denies hitting head. Reports skin tear to elbow. States vomited once after fall. Today at PCP's office had temperature of 102.2F temporal with BP: 112/52, P: 74, 95% on RA. States yesterday patient started with chills. Pt was referred to ER for possible pneumonia. Reported that patient has had a couple of falls past couple of months. Reports a fall couple weeks ago where he tried sitting in bed and missed bed and hit his back on the nightstand. Reports had some back pain at that point time however has since resolved and denies any current back pain. States in the past week has had 3 tick bites and thinks were attached for a couple of hours and were still alive when removed. Denies any noted rashes. Denies neck pain or stiffness. Reports chronic rhinorrhea since acoustic neuroma surgery. Denies epistaxis, melena, hematochezia, hematuria or other bleeding. Denies diaphoresis, diarrhea, constipation, syncope, LOC, vision changes, CP, SOB, orthopnea, palpitations, cough, sore throat, choking, otalgia, abdominal pain, paresthesias, extremity edema, rashes, urinary symptoms. Denies ill contacts Patient follows with Dr. Kan-cardiac EP [facility], and Dr Zoda -cardiology. History echo 10/2017: EF: 55-6%, PCP are well expanded and hypokinetic, mild mitral regurgitation, mild tricuspid regurgitation Cardiac cath 10/2017: Severe iqugmiut vessel CAD involving LAD, OM1 and small D1. Stable findings compared to 04/2016. Moderate-severe circumflex CAD stable since 04/2016. Patent PHILIPPE to LAD and SVG to OM1, mid RCA stent patent. Admission Exam Per Admitting Provider General: no acute distress, non-toxic appearance, WDWN Head: normocephalic, atraumatic Eyes: PERRL, EOM's intact, conjunctiva non-injected, anicteric ENT: normal inspection external ears, nose, mucous membranes moist Neck: supple, trachea midline, non-tender, ROM intact, no rigidity noted Lungs: no respiratory distress, no wheezing, slight rales bases bilaterally CV: RRR, no murmur, no JVD, no pretibial edema Abd: normal BS, soft, non-tender Back: non-tender to palpation Ext: no cyanosis, no calf tenderness, strength 5/5 bilateral upper and lower extremities Neuro: A&O to person and place, left eye ptosis, left facial palsy (chronic), no slurred speech, follows commands appropriately, negative rhomberg, normal affect Skin: warm, dry, Right lateral neck and right upper posterior arm near axilla with small area of erythema (at site of tick bites) Principal Diagnosis anaplasmosis leukopenia secondary to anaplasmosis thrombocytopenia secondary to anaplasmosis encephalopathy secondary to infection elevated troponin- demand ischemic atrial fibrillation, paroxysmal congestive heart failure, acute, preserved LVEF Discharge Data Allergies Allergy/AdvReac Type Severity Reaction Status Date / Time oxycodone AdvReac Intermediate NAUSEA, Verified 09/01/18 14:18 VOMITING aspirin AdvReac Mild epistaxis Verified 09/01/18 14:18 with ASA 325mg Consultations 09/01/18 15:32 ED Decision to Admit Stat 09/01/18 18:17 Consult Case Management - Discharge Planning Routine Consult Infectious Diseases Routine 09/02/18 08:00 Consult Cardiology Routine 09/03/18 15:27 Consult Neurology Routine Ordered Studies 09/01/18 13:16 CT head/brain wo con Stat 09/01/18 18:17 MR brain wo/w con Urgent 09/02/18 13:00 FL lumbar puncture diagnostic Routine 09/04/18 04:09 CT angio chest PE protocol Urgent Hospital Course (1) Anaplasmosis: Presented with fever, malaise, confusion. Had a few tick bites about a week prior to admission. Peripheral smear demonstrated inclusion bodies consistent with anaplasmosis. Anaplasma PCR positive. Seen in consultation by ID. 10 day course of doxycycline recommended. (2) Altered mental status: Head CT and MRI demonstrated chronic and postsurgical changes. Probable metabolic encephalopathy / delirium secondary to infection. Improved. (3) Leukopenia: WBC at time of admission was 3420 and fell as low as 2020. Leukopenia secondary to anaplasmosis. WBC day of discharge was 9630. (4) Thrombocytopenia: Platelet count 72,000 on admission and fell as low as 46,000. 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 Platelet day of discharge was 160,000. Follow. (5) Acute exacerbation of CHF (congestive heart failure): Chest x-ray and CT of chest demonstrated pulmonary edema. Echo showed low normal LVEF, aortic sclerosis without significant stenosis, moderate aortic regurgitation, mild-moderate MR, moderate to severe TR. Probable acute left ventricular diastolic heart failure. PAF could be contributing to decompensation. Clinically improved. Chest x-ray today shows persistent, but improving, pulmonary edema. Received IV furosemide and lisinopril. Acute decompensation secondary to infection + AF. Resume usual cardiac meds. (6) Atrial fibrillation: PAF. Cardiology consulted. Continue metoprolol and amiodarone (dose increased to 200 mg BID). No anticoagulants due to thrombocytopenia. Acute decompensation secondary to infection. Resume usual cardiac meds. (7) Coronary artery disease: Chest pressure associated with rapid AF. Also has had febrile illness. Troponin slightly elevated. Cardiology consulted. Suspected demand ischemia. Held ASA and clopidogrel due to thrombocytopenia and associated hemoptysis. Continue metoprolol, ranolazine, statin. Platelet count improved- resume ASA and clopidogrel. (8) Hypokalemia: Potassium as low as 3.1. Replaced. K day of discharge was 3.7. Follow. (9) Hyponatremia: Chronic / intermittent hyponatremia. Serum sodium at time of admission was 129. Sodium day of discharge was 137. Follow. May need fluid restriction if sodium drops. (10) Dementia: Monitor for delirium. Avoid anticholinergic medications when possible. Outpatient follow-up with Neurology. (11) BPH (benign prostatic hyperplasia): Having urinary frequency, worsened with diuretics. Postvoid residuals by US in 200's - 300's. Resumed tamsulosin. Also has Rx for finasteride from Urology to be filled. (12) DVT prophylaxis: No anticoagulants due to thrombocytopenia. SCD's. Ambulate. (13) Discharge planning issues: May need skilled care or rehab. PT / OT evals. Family Medicine follow-up with Dr. Cal Dupont. Cardiology follow-up with Dr. Cartwright. Urology follow-up with Dr. Lynch. Total Time Total Time Spent Total Time Spent (In Minutes): 40 Discharge Plan Discharge Items Patient Disposition: Home - Self-Care Reason For Visit: weakness Discharge Diagnosis: anaplasmosis Condition: Good Discharge Goals: Improve disease control Activity: As commented below Activity Comment: gradually increase activity as tolerated Non-emergency contact: Primary Care Provider, Hospitalist, Keyboard Instrument Tuner and Urologist Call non-emergency contact if: you have any medication questions and your symptoms worsen Follow-up/Referrals: Live Lynch MD [Physician] - Home Cartwright Jr, MD, [facility] [Physician] - (11/03/18 at 10:45) Cal Dupont DO [Primary Care Provider] - (09/10/2018 1:20 PM Cal Dupont DO) Diet: Heart Healthy Addtl Provider Instructions: Take doxycycline 100 mg twice a day for 10 more doses to finish treatment for anaplasmosis. Do what you can to avoid / repel ticks. Repellents that contain DEET or permethrin are effective. Inspect your clothing and body whenever you come indoors from garden or [place] and remove ticks immediately. Seek medical attention if you have: * temperature above 101 * chest pain or trouble breathing * abdominal pain, nausea, vomiting * diarrhea, dark stools or bloody stools * any unanswered questions or concerns Call 911 if symptoms are severe. Call if you have any questions or problems. My cell # is [phone]. You can also reach a [facility] hospitalist on duty at [facility] 24 hours a day by calling [phone]. Prescriptions: New doxycycline hyclate 100 mg Capsule 100 mg PO BID Qty: 10 RF: 0 tamsulosin 0.4 mg Capsule 0.4 mg PO HS Qty: 30 RF: 5 Continued atorvastatin 80 mg tablet 80 mg PO HS RF: 0 amiodarone 200 mg tablet 200 mg PO DAILY RF: 0 clopidogrel 75 mg tablet 75 mg PO DAILY RF: 0 omeprazole 40 mg capsule,delayed release(DR/EC) 40 mg PO DAILY RF: 0 aspirin 81 mg Tablet,Delayed Release (Dr/Ec) 81 mg PO DAILY RF: 0 acetaminophen 500 mg Tablet 500 mg PO Q6H PRN (Reason: Fever Or Pain) RF: 0 ranolazine 500 mg tablet extended release 12 hr 500 mg PO BID RF: 0 nitroglycerin [Nitrostat] 0.4 mg Tablet, Sublingual 0.4 mg Sublingual DIRECTED PRN (Reason: Chest Pain) RF: 0 clindamycin phosphate 1 % solution 1 applic topical BID RF: 0 PreserVision AREDS [id number] Capsule 1 cap PO BID RF: 0 finasteride 5 mg tablet 5 mg PO DAILY RF: 0 Stand-Alone Forms: [facility]/Other Patient Handouts: Disease Lyme Prevent, Bites Tick, ED Facts Tick Discharge Orders: Discharge Order (Routine); Ordered 09/08/18 Ordered By: Cecil Saucedo Admission Data Admit Date/Time: 09/01/18 16:57 Attending Provider: Cecil Saucedo Admit Provider: Marsha David Primary Care Provider: Cal Dupont Other Providers: Jenny Marinelli ; Marsha David ; Samantha Diggs ; Home Cartwright Jr ; Airam Elizabeth Service: Telemetry
[2018-09-08 10:40] LABS: HSV Type 1 DNA Not Detected (Not Detected); HSV Type 1&2 DNA Source CSF; HSV Type 2 DNA Not Detected (Not Detected); Lyme IgG CSF NO BANDS DETECTED; Lyme IgM CSF NO BANDS DETECTED; VZ DNA Source CSF
== END 2018-09-08 11:10 | disposition home or self-care (01) | DRG 867 ==
LOC: ED 12:51 → SUATTDRO 16:57 → 2W 16:57 → 2S 09-04 10:29
DX: A77.49 Other ehrlichiosis; I24.8 Other forms of acute ischemic heart disease; I11.0 Hypertensive heart disease with heart failure; D61.818 Other pancytopenia; Z79.02 Long term (current) use of antithrombotics/antiplatelets; K21.9 Gastro-esophageal reflux disease without esophagitis; E78.5 Hyperlipidemia, unspecified; F03.90 Unspecified dementia, unspecified severity, without behavioral disturbance, psychotic disturbance, mood disturbance, and anxiety; I25.2 Old myocardial infarction; E87.6 Hypokalemia; J96.01 Acute respiratory failure with hypoxia; I47.2 Ventricular tachycardia; I48.0 Paroxysmal atrial fibrillation; D69.59 Other secondary thrombocytopenia; Z95.1 Presence of aortocoronary bypass graft; Z95.5 Presence of coronary angioplasty implant and graft; G51.0 Bell's palsy; G93.41 Metabolic encephalopathy; N40.1 Benign prostatic hyperplasia with lower urinary tract symptoms; I25.10 Atherosclerotic heart disease of native coronary artery without angina pectoris; I16.0 Hypertensive urgency; J44.9 Chronic obstructive pulmonary disease, unspecified; E87.1 Hypo-osmolality and hyponatremia; I50.33 Acute on chronic diastolic (congestive) heart failure